=== PATIENT | male | born 1935 | race Caucasian/White ===

== ENCOUNTER 2019-08-27 13:34 | Inpatient (IN) | payer MEDICARE, SELFPAY ==
[2019-08-27] VITALS (15 sets, daily range): BP systolic 81–156; BP diastolic 42–95; PULSE 54–82; RESP 14–24; TEMP 36.5–39; O2SAT 92–100; BMI 26.9
--- NOTE | ~2019-08-27 | XR_ITS ---
EXAMINATION: XR chest port-a-cath/central INDICATION: Central line placement TECHNIQUE: Portable AP chest at 1626 hours COMPARISON: 1420 hours FINDINGS: A right internal jugular central venous catheter has been inserted which ends with its tip in the distal superior vena cava. There is no pneumothorax. The lungs are free of acute opacities. Th ere is no pleural effusion. The cardiomediastinal silhouette is normal for technique. Median sternoto my wires and mediastinal surgical clips are seen, likely from prior coronary artery bypass grafting. IMPRESSION: 1. Right internal jugular central venous catheter insertion without pneumothorax. Reviewed, dictated and finalized at location A. IMPRESSION: 1. Right internal jugular central venous catheter insertion without pneumothora x.
--- NOTE | ~2019-08-27 | XR_ITS ---
EXAMINATION: XR chest 2V DATE: 08/27/2019 14:25 INDICATION: Cough and fever TECHNIQUE: AP and lateral views of the chest are obtained. COMPARISON: None available FINDINGS: The lungs are free of acute opacities. There is no pleural effusion or pneumothorax. Median sternotomy wires and mediastinal surgical clips are seen, likely from prior coronary artery bypass g rafting. The heart size is normal. There is mild thoracic spondylosis. Calcified atherosclerosis is n oted. IMPRESSION: 1. No acute cardiopulmonary abnormality. Reviewed, dictated and finalized at location A.
--- NOTE | ~2019-08-27 | US_ITS ---
EXAMINATION: US renal BI EXAM DATE: 08/28/2019 12:08 INDICATION: Elevated creatinine, urinary tract infection. TECHNIQUE: Multiple grayscale and Doppler images of the kidneys were obtained (by a technologist who performed the scan) and subsequently reviewed. There is no prior study for comparison. FINDINGS: There is moderate bilateral renal cortical thinning. Kidney dimensions within normal limits . Right kidney: There is normal contour and echogenicity. It measures 11.3 x 5.9 x 6.0 centimeters. T here are no focal renal lesions identified. There is no hydronephrosis. Left kidney: There is normal contour and echogenicity. It measures 12.6 x 6.0 x 6.4 centimeters. Th ere are no focal renal lesions identified. There is no hydronephrosis. Bladder unremarkable. Prostate partially projects into the bladder base. IMPRESSION: Bilateral renal cortical thinning. No hydronephrosis. Reviewed, dictated and finalized at location A.
--- NOTE | 2019-08-27 13:52 | ED.FEVER ---
HPI - Fever General Chief Complaint: Fever Stated Complaint: weakness Time Seen by Provider: 08/27/19 13:52 Source: patient Mode of arrival: ambulatory Limitations: no limitations History of Present Illness HPI Narrative: An 84 y/o male presents to the ED with c/o a fever for a couple days. Pt notes that he had a bladder scope done 2 weeks ago that showed that his prostate was leaning against his bladder, but no cancer. He reports nausea, generalized weakness, back pain that is worse on the left, and hematuria this morning, but denies vomiting, rhinorrhea, a cough, and sinus congestion. Pt has not been out of the country recently and has not been around anyone who has. Onset (ago): day(s) (couple) Related Data Home Medications Medication Instructions Recorded Confirmed atenolol-chlorthalidone 1 tablet PO DAILY 08/27/19 08/27/19 clopidogrel 75 mg PO DAILY 08/27/19 08/27/19 finasteride 5 mg PO DAILY 08/27/19 08/27/19 omeprazole 40 mg PO DAILY 08/27/19 08/27/19 rosuvastatin 40 mg PO DAILY 08/27/19 08/27/19 tamsulosin 0.4 mg PO DAILY 08/27/19 08/27/19 telmisartan 80 mg PO DAILY 08/27/19 08/27/19 Allergies Allergy/AdvReac Type Severity Reaction Status Date / Time No Known Allergies Allergy Verified 08/27/19 13:53 Review of Systems Review of Systems: All systems reviewed & are unremarkable except as noted in HPI and below Constitutional: Constitutional: Reports fever(s) Comments: Reports: generalized weakness ENT: Comments: Denies: rhinorrhea, sinus congestion Respiratory: Respiratory: Denies cough Gastrointestinal: Gastrointestinal: Reports nausea and Denies vomiting Genitourinary: Genitourinary: Reports hematuria Musculoskeletal: Musculoskeletal: Reports back pain (worse on the left) [facility] Past Medical History Medical History (Updated 08/27/19 @ 18:03 by Lance Farooq MD) Arthritis Asthma Back pain CAD (coronary artery disease) GERD (gastroesophageal reflux disease) Gout HLD (hyperlipidemia) HTN (hypertension) Surgical History Surgical History (Updated 08/27/19 @ 14:24 by Ailin Bolanos) H/O heart artery stent H/O inguinal hernia repair Hx of CABG x5 Social History Social History (Updated 08/27/19 @ 17:57 by Lance Farooq MD) Smoking status: Never smoker Alcohol intake: former Alcohol use details: Rare ETOH now, drank heavier in younger years Substance use: never Substance use type: does not use Gender identity (if verbalized by the patient): Male Spiritual care concerns: No Agree to blood products: Yes Comments No PCP on file. Exam Const: General: no acute distress and alert Orientation/consciousness: patient oriented x3 HENMT: Head: normocephalic and atraumatic Ears: hearing grossly normal bilaterally, external ears normal and TM's normal bilaterally Face and sinus: normal facial exam, sinuses nontender and face symmetric Mouth: Yes Normal oral and palatal mucosa present and Yes lip normal Throat: posterior oropharynx normal, tonsils normal and uvula midline Eyes: Conjunctivae: conjunctivae normal Pupils: Equal, round and reactive pupils present EOM: EOMs intact bilaterally Chest: Chest palpation & inspection: normal inspection of the chest Resp: Effort & Inspection: normal respiratory effort, no retractions, not tachypneic and no use of accessory muscles Auscultation: clear to auscultation bilaterally Cardio: Rate: regular rate and not tachycardic Rhythm: regular rhythm Heart sounds: no murmurs Peripheral pulses: Peripheral pulses 2+ throughout GI: GI Palp: Yes Soft to palpation, No Tenderness to palpation present (GI), No Guarding due to palpation present (GI) and No Rigid due to palpation : General: Yes no CVA tenderness Skin: General skin exam: normal color Rashes: no rashes Extrem: General: no pedal edema Course Reevaluation(s) Reevaluation #1: PAtient is in septic shock with lactic acid greater than 4 and MAP less than 65 a
[2019-08-27 14:38] LABS: Hematocrit 34.8 % (42.0-52.0); Hemoglobin 11.5 g/dL (14.0-18.0); Immature Platelet Fraction Pct 3.3 % (0.9-11.2); Mean Corpuscular Hemoglobin 31.1 pg (26-34); Mean Corpuscular Volume 94.1 fl (80-100); Platelet Count Result 116 k/mm3 (150-375); Red Cell Distribution Width 11.9 % (11.5-14.5); White Blood Count 15.2 K/mm3 (4.5-10.0)
[2019-08-27 14:53] LABS: Albumin Level 3.9 g/dL (3.5-5.1); Alkaline Phosphatase 47 U/L (38-126); Aspartate Amino Transferase 46 U/L (17-59); Bilirubin,Total 0.7 mg/dL (0.2-1.3); Blood Urea Nitrogen 33 mg/dL (9-20); Calcium 8.8 mg/dL (8.4-10.2); Carbon Dioxide 21 mmol/L (22-30); Chloride 96 mmol/L (98-107); Estimated CRCL calculation 19 ml/min; Estimated Glomerular Filt Rate 23; Glucose 113 mg/dL (75-110); Lactic Acid Reflex 4.3 mmol/L (0.7-2.1); Potassium 4.5 mmol/L (3.4-5.0); Sodium 132 mmol/L (137-145)
[2019-08-27 14:57] LABS: Band Neutrophils Percent 33 % (0-6); Metamyelocytes Percent 3 %; Monocytes Absolute Manual 0.15 K/mm3 (0.1-0.90); Monocytes Percent Manual 1 % (3-9); Neutrophils Absolute Manual 13.98 K/mm3 (1.3-6.7); Neutrophils Percent Manual 59 % (46-73); Total Cells Counted 100
[2019-08-27 15:23] LABS: Alanine Aminotransferase 23 U/L (4-50)
[2019-08-27 15:38] LABS: Add Urine Microscopic? YES; Appearance Urine Cloudy (Clear); Bacteria Urine 2+ /hpf; Bilirubin Urine Negative (Negative); Blood Urine 2+ (Negative); Color Urine Yellow (Yellow); Glucose Urine UA Negative (Negative); Hyaline Casts Urine 15-19 /lpf; Ketones Urine Negative (Negative); Leukocyte Esterase Ur 3+ LEU/UL (Negative); Mucus Urine Rare /lpf; Nitrate Urine Negative (Negative); Protein Urine 1+ mg/dL (Negative); RBC Urine 51-75 /hpf (0-2); Specific Grav Ur 1.013 (1.001-1.035); Squamous Epithelial Cell Urine Few /hpf (Few); Urobilinogen Urine Negative mg/dL (<2.0); WBC Urine >75 /hpf
--- NOTE | 2019-08-27 15:42 | PC.NURSE ---
consent signed and placed in chart for central line
[2019-08-27] MEDS: SODIUM CHLORIDE 0.9% IV 1,000 ML 999 ML IV CONT (15:43)
[2019-08-27] MEDS: NOREPINEPHRINE 8 MG/D5W 250 ML 8 MG/250 ML BAG 9.4 MG IV CONT ×2 (17:10→18:33)
[2019-08-27 17:34] LABS: Reflex Lactic Acid Yes or No Add Lactic
--- NOTE | 2019-08-27 17:48 | PM.IMHP ---
H&P: HPI History of Present Illness Chief complaint: septic shock, UTI Narrative: Date of visit 08/26 1729 Declan Allen is a 84 year old hypertensive white male with BPH who states that yesterday the was having some chilling shaking and became lightheaded while using his exercise bike. Notice no palpitations shortness of breath or chest pain. Today he had more chills and fever and came to the emergency room for evaluation. He has known BPH and recently creatinine by history was more elevated and was referred to Dr. Styles who performed office cystoscope approximately 2 weeks ago which confirmed the BPH with apparent obstruction. He has been on finasteride and tamsulosin was added to his regime. He denies any dysuria, trouble starting stream or sensation of not emptying completely. In the ER his temperature was 39? with leukocytosis, hypotension, and elevated lactic acid. Central line was placed T was given 2 L of fluid and transferred to the ICU for admission of sepsis with urinary tract infection PMFSH Past Medical History Medical History (Updated 08/27/19 @ 18:03 by Lance Farooq MD) Arthritis Asthma Back pain CAD (coronary artery disease) GERD (gastroesophageal reflux disease) Gout HLD (hyperlipidemia) HTN (hypertension) Surgical History Surgical History (Updated 08/27/19 @ 14:24 by Ailin Bolanos) H/O heart artery stent H/O inguinal hernia repair Hx of CABG x5 Family History Family History (Updated 08/27/19 @ 17:54 by Lance Farooq MD) Father Heart disease Mother , dementia No problems noted. Social History Social History (Updated 08/27/19 @ 17:57 by Lance Farooq MD) Smoking status: Never smoker Alcohol intake: former Alcohol use details: Rare ETOH now, drank heavier in younger years Substance use: never Substance use type: does not use Gender identity (if verbalized by the patient): Male Spiritual care concerns: No Agree to blood products: Yes Meds Home Medications and Allergies Home Medications Medication Instructions Recorded Confirmed Type atenolol-chlorthalidone tablet PO DAILY 08/27/19 History clopidogrel PO DAILY 08/27/19 History finasteride mg PO DAILY 08/27/19 History omeprazole PO DAILY 08/27/19 History rosuvastatin mg PO DAILY 08/27/19 History tamsulosin mg PO DAILY 08/27/19 History telmisartan mg PO DAILY 08/27/19 History Allergies Allergy/AdvReac Type Severity Reaction Status Date / Time No Known Allergies Allergy Verified 08/27/19 13:53 Vital Signs Vital Signs - 24 hr 08/27/19 13:42 08/27/19 14:37 08/27/19 14:59 Temperature 39.0 C H Pulse Rate 72 65 70 Respiratory Rate 22 H 18 16 Blood Pressure 129/42 L 81/53 L 91/44 L Pulse Oximetry 99 96 98 08/27/19 15:18 08/27/19 15:41 08/27/19 16:15 Temperature 36.9 C 36.9 C Pulse Rate 73 72 68 Respiratory Rate 18 16 Blood Pressure 91/43 L 96/46 L 102/44 L Pulse Oximetry 97 99 08/27/19 16:45 08/27/19 17:10 Temperature Pulse Rate 70 66 Respiratory Rate 18 16 Blood Pressure 94/47 L 96/48 L Pulse Oximetry 98 Exam Narrative: Exam Narrative: Blood pressure was initially 128 systolic but quickly fell and presently 96/48 on norepinephrine 5 mics per kg after 2.5 L of fluid pulses 72 and currently afebrile after initial temp of 39? respirations 16 per minute Pupils equal reactive to light sclera anicteric Mouth normal Neck supple no adenopathy thyromegaly carotid bruits Lungs clear CV regular rate rhythm no murmurs or gallops Abdomen is soft nontender Extremities without edema dorsalis pedis posterior tibial 1 to 2+ and symmetrical Integument no skin breakdown or rashes midline sternotomy scar, scar on left arm from radial nerve harvesting for bypass Neuro alert pleasant cooperative no focal deficits cranial nerves 2-12 are intact, mentating properly H&P: Results Labs Labs: Short CBC 08/27/19 Range/Units 14:
--- NOTE | 2019-08-27 17:54 | ADMGEN ---
This patient, Declan Allen, was admitted to Intensive Care Unit-5. Patient/family oriented to hospital policies and general routines including ID bracelet, bed and alarms, visiting hours, pain management, procedures, bathroom and other care routines, personal items, smoking policy, room service/diet, and visiting hours. Valuables list has been completed. Information on how to activate the Rapid Response Team has been discussed. Patient/Family are encouraged to report perceived risks to care and to ask questions if they do not understand what they are told or what they should do.
[2019-08-27 18:25] LABS: Lactic Acid 1.1 mmol/L (0.7-2.1)
[2019-08-27] MEDS: LACTATED RINGERS 1,000 ML 125 ML IV CONT (18:31)
[2019-08-27] MEDS: ALBUTEROL SULFATE NEB 2.5 MG/0.5 ML INH INHALATION (23:46)
[2019-08-28] VITALS (11 sets, daily range): BP systolic 91–141; BP diastolic 45–58; PULSE 59–76; RESP 13–17; TEMP 36.7–37.1; O2SAT 97–100
[2019-08-28] MEDS: LACTATED RINGERS 1,000 ML 125 ML IV CONT (02:16)
[2019-08-28 04:39] LABS: Hematocrit 29.8 % (42.0-52.0); Hemoglobin 9.9 g/dL (14.0-18.0); Mean Corpuscular HGB Conc 33.2 g/dl (32-36); Mean Corpuscular Hemoglobin 30.9 pg (26-34); Mean Corpuscular Volume 93.1 fl (80-100); Platelet Count Result 91 k/mm3 (150-375); Red Cell Distribution Width 12.1 % (11.5-14.5); White Blood Count 15.5 K/mm3 (4.5-10.0)
[2019-08-28 04:52] LABS: Alanine Aminotransferase 17 U/L (4-50); Albumin Level 3.1 g/dL (3.5-5.1); Alkaline Phosphatase 40 U/L (38-126); Aspartate Amino Transferase 46 U/L (17-59); Bilirubin,Total 0.5 mg/dL (0.2-1.3); Blood Urea Nitrogen 30 mg/dL (9-20); Carbon Dioxide 22 mmol/L (22-30); Chloride 102 mmol/L (98-107); Estimated CRCL calculation 25 ml/min; Estimated Glomerular Filt Rate 30; Glucose 99 mg/dL (75-110); Magnesium 1.3 mg/dL (1.6-2.3); Phosphorus 2.7 mg/dL (2.5-4.5); Potassium 4.3 mmol/L (3.4-5.0); Sodium 132 mmol/L (137-145)
[2019-08-28 05:44] LABS: Iron 16 ug/dL (49-181)
[2019-08-28 05:53] LABS: Band Neutrophils Percent 5 % (0-6); Lymphocytes Absolute Manual 0.93 K/mm3 (1.1-4.5); Monocytes Absolute Manual 0.77 K/mm3 (0.1-0.90); Monocytes Percent Manual 5 % (3-9); Neutrophils Absolute Manual 13.79 K/mm3 (1.3-6.7); Neutrophils Percent Manual 84 % (46-73); Total Cells Counted 100
[2019-08-28 05:56] LABS: Large Platelets Present; Platelet Estimate Decreased (Adequate)
[2019-08-28 05:57] LABS: Percent Iron Saturation 7 % (20-50)
--- NOTE | 2019-08-28 08:29 | WPDCNINT ---
Assessment and Plan Assessment and plan (1) Septic shock: Code(s): A41.9 - Sepsis, unspecified organism; R65.21 - Severe sepsis with septic shock Status: Acute Assessment and Plan: patient presented with fevers, chills, was found to be hypotensive in the ED, was adequately fluid-resuscitated despite which his blood pressures did not improve, central line was inserted and patient was started on Levophed. - Levophed is being weaned, target MAP > 65 mmHg - continue ceftriaxone - urine and blood cultures have been obtained - initial lactic acid was 4.3, repeat lactic acid was 1.1 (2) Acute UTI (urinary tract infection): Code(s): N39.0 - Urinary tract infection, site not specified Status: Acute Assessment and Plan: continue ceftriaxone, urine cultures have been obtained and pending (3) Acute renal failure (ARF): Qualifiers: Acute renal failure type: unspecified Qualified Code(s): N17.9 - Acute kidney failure, unspecified Code(s): N17.9 - Acute kidney failure, unspecified Status: Acute Assessment and Plan: acute respiratory failure could be multifactorial secondary to UTI, obstructive uropathy secondary to BPH - patient has been adequately fluid-resuscitated - monitor urine output, electrolytes and renal function - renal ultrasound has been ordered (4) Thrombocytopenia: Code(s): D69.6 - Thrombocytopenia, unspecified Status: Acute Assessment and Plan: likely related to septic shock, will continue to monitor (5) HTN (hypertension): Qualifiers: Hypertension type: essential hypertension Qualified Code(s): I10 - Essential (primary) hypertension Code(s): I10 - Essential (primary) hypertension Status: Acute Assessment and Plan: patient has a history of essential hypertension, currently with septic shock on Levophed. - All anti hypertensives (6) DVT prophylaxis: Code(s): Z29.9 - Encounter for prophylactic measures, unspecified Status: Acute Assessment and Plan: SCDs, no chemoprophylaxis due to thrombocytopenia Additional Plan discussed with patient updated with his condition and plan of care. I answered all questions. Code status: Full code Critical care time spent: 41 minutes Due to a high probability of clinically significant, life threatening deterioration, the patient required my highest level of preparedness to intervene emergently and I personally spent this critical care time directly and personally managing the patient. This critical care time included obtaining a history; examining the patient; pulse oximetry; ordering and review of studies; arranging urgent treatment with development of a management plan; evaluation of patient's response to treatment; frequent reassessment; and discussions with other providers. It was exclusive of separately billable procedures and treating other patients and teaching time. Please see Assessment and Plan section and the rest of the note for further information on patient assessment and treatment [employer] Consult Note Consult date: 08/28/19 Time Seen: 06:49 Reason for consult: septic shock, UTI, acute kidney injury HPI: Declan Allen is a 84 year old male with significant past medical history of coronary artery disease status post CABG x5, BPH, hyperlipidemia, essential hypertension, gout, GERD, asthma, arthritis, chronic back pain presented to the ED on 08/27/2019 with complains of fevers and chills for the past couple of days prior to admission. Patient stated he had cystoscopy about 2 weeks ago which showed BPH. He also reported nausea, generalized weakness, back pain and hematuria. patient was started on finasteride and tamsulosin when he saw Dr. Crawley 2 weeks prior to admission. In the ED patient had a fever of 39?, leukocytosis, hypotension with elevated lactic acid. Patient was given 2 L IV fluid bolus despite which the
[2019-08-28] MEDS: FINASTERIDE 5 MG TABLET PO (09:12)
[2019-08-28] MEDS: TAMSULOSIN HCL 0.4 MG CAPSULE PO (09:12)
[2019-08-28] MEDS: PANTOPRAZOLE 40 MG TABLET PO ×2 (09:12→19:31)
[2019-08-28] MEDS: CLOPIDOGREL BISULFATE 75 MG TABLET PO (09:13)
[2019-08-28] MEDS: ROSUVASTATIN 10 MG TABLET 40 MG PO (09:13)
[2019-08-28] MEDS: MAGNESIUM SULF 2 GM/WATER 50ML 2 GM/50 ML BAG IVPB (11:10)
[2019-08-28] MEDS: LACTATED RINGERS 1,000 ML 75 ML IV CONT (12:25)
--- NOTE | 2019-08-28 12:48 | WPDURCON ---
Assessment and Plan Assessment and plan (1) Acute UTI (urinary tract infection): Code(s): N39.0 - Urinary tract infection, site not specified Status: Acute Assessment and Plan: Continue IV antibiotics, tailor to culture results. Obtain a bladder scan post void to ensure patient is not experiencing retention secondary to BPH. MARII is negative. No further evaluation at this time. Will need to follow up as an outpatient to discuss moving TURP up sooner d/t complications of BPH. Urology Consult Note HPI Date Seen: 08/28/19 Requesting Physician: Lance Farooq MD Primary Care Provider: Cosme Travis, Consult Narrative Narrative: Declan Allen is a 84 year old male who presented to the ER yesterday with fever and chills x 2 days at home. He notes gross hematuria, but denies dysuria, flank or abdominal pain. His WBC is 15.5 and creatinine is 2.10 which is down from 2.70 yesterday. His UA is suspicious for a UTI, but he seems to be responding to IV Rocephin well. He was diagnosed with septic UTI and admitted for symptom control and IV antibiotics. He is a patient of Dr. Cunningham and had a cystoscope two weeks ago in the office which showed evidence of BPH and they had a discussion about doing a TURP in the future. Review of Systems Cardiovascular: Cardiovascular: Reports no additional cardiovascular complaints Respiratory: Respiratory: Reports no additional respiratory complaints Gastrointestinal: Gastrointestinal: Denies abdominal pain and Denies vomiting Genitourinary: Genitourinary: Reports hematuria, Denies dysuria, Denies flank pain and Denies urinary urgency PMFSH Past Medical History Medical History Arthritis Asthma Back pain CAD (coronary artery disease) GERD (gastroesophageal reflux disease) Gout HLD (hyperlipidemia) HTN (hypertension) Surgical History Surgical History H/O heart artery stent H/O inguinal hernia repair Hx of CABG x5 Family History Family History Father Heart disease Mother , dementia No problems noted. Social History Social History Smoking status: Never smoker Alcohol intake: former Alcohol use details: Rare ETOH now, drank heavier in younger years Substance use: never Substance use type: does not use Gender identity (if verbalized by the patient): Male Spiritual care concerns: No Agree to blood products: Yes Meds Home Medications and Allergies Home Medications Medication Instructions Recorded Confirmed Type atenolol-chlorthalidone 1 tablet PO DAILY 08/27/19 08/27/19 History clopidogrel 75 mg PO DAILY 08/27/19 08/27/19 History finasteride 5 mg PO DAILY 08/27/19 08/27/19 History omeprazole 40 mg PO DAILY 08/27/19 08/27/19 History rosuvastatin 40 mg PO DAILY 08/27/19 08/27/19 History tamsulosin 0.4 mg PO DAILY 08/27/19 08/27/19 History telmisartan 80 mg PO DAILY 08/27/19 08/27/19 History Allergies Allergy/AdvReac Type Severity Reaction Status Date / Time No Known Allergies Allergy Verified 08/27/19 13:53 Vital Signs Vital Signs - 24 hr 08/27/19 13:42 08/27/19 14:37 08/27/19 14:59 Temperature 102.2 F H Pulse Rate 72 65 70 Respiratory Rate 22 H 18 16 Blood Pressure 129/42 L 81/53 L 91/44 L Pulse Oximetry 99 96 98 08/27/19 15:18 08/27/19 15:41 08/27/19 16:15 Temperature 98.5 F 98.4 F Pulse Rate 73 72 68 Respiratory Rate 18 16 Blood Pressure 91/43 L 96/46 L 102/44 L Pulse Oximetry 97 99 08/27/19 16:45 08/27/19 17:10 08/27/19 18:00 Temperature Pulse Rate 70 66 57 L Respiratory Rate 18 16 14 Blood Pressure 94/47 L 96/48 L 131/54 L Pulse Oximetry 98 100 08/27/19 20:00 08/27/19 21:00 08/27/19 22:08 Temperature 97.9 F Pulse Rate 66 54 L 5
--- NOTE | 2019-08-28 15:30 | ECG_ITS ---
Measurements Intervals [place] Rate: 63 P: 51 [place]: 178 QRS: -18 QRSD: 106 T: 49 QT: 429 QTc: 441 Interpretive Statements SINUS RHYTHM INTRAVENTRICULAR CONDUCTION DELAY DELAYED PRECORDIAL R/S TRANSITION BORDERLINE ST ABNORMALITY- LATERAL LEADS BORDERLINE ECG Electronically Signed On 08-28-2019 17:06:11 CDT by Oleksandr CHIN
--- NOTE | 2019-08-28 15:31 | PM.IMPN ---
Progress Note: A&P Assessment and Plan (1) Septic shock: Code(s): A41.9 - Sepsis, unspecified organism; R65.21 - Severe sepsis with septic shock Status: Acute Assessment and Plan: Secondary to urinary tract infection. Been cultured and placed on ceftriaxone. Repeat lactic acid normal and continue hydration and pressor support with norepinephrine per vascular surgery physician. (2) Acute UTI (urinary tract infection): Code(s): N39.0 - Urinary tract infection, site not specified Status: Acute Assessment and Plan: As above cultured and placed on ceftriaxone. Renal sonogram no definite obstruction. Urine and blood cultures pending (3) Acute renal failure (ARF): Qualifiers: Acute renal failure type: unspecified Qualified Code(s): N17.9 - Acute kidney failure, unspecified Code(s): N17.9 - Acute kidney failure, unspecified Status: Acute Assessment and Plan: From history probably at least some degree of chronic renal insufficiency. No obstruction on sono. Urology has seen. Creatinine has fallen to 2.1 from 2.7 (4) Thrombocytopenia: Code(s): D69.6 - Thrombocytopenia, unspecified Status: Acute Assessment and Plan: Probable secondary to sepsis. Platelets at 90 K so use sequential compression devices for DVT prophylaxis (5) CAD (coronary artery disease): Code(s): I25.10 - Atherosclerotic heart disease of unga coronary artery without angina pectoris Status: Acute Assessment and Plan: Stable. Resume beta-lily when pressure will allow. Continue Plavix and statin (6) HTN (hypertension): Qualifiers: Hypertension type: essential hypertension Qualified Code(s): I10 - Essential (primary) hypertension Code(s): I10 - Essential (primary) hypertension Status: Acute Assessment and Plan: Hold beta-lily and ARB until pressure rebounds from sepsis. (7) DVT prophylaxis: Code(s): Z29.9 - Encounter for prophylactic measures, unspecified Status: Acute Assessment and Plan: Sequential compression device with platelets less than 100 K X-ray left hip and pelvis when up in about Subjective Date/time seen: 08/28/19 15:31 Interval history: Date of visit 08/27. 84-year-old hypertensive white male with BPH admitted with acute on chronic renal failure and sepsis with urinary tract infection. Feels much better this a.m. after hydration, antibiotics and pressors.. Does complain of some discomfort in his left upper thigh when he tries to raise his leg and wonders if E had year to muscle during exercise prior to his illness Exam Narrative: Exam Narrative: Blood pressure now 118/50 on 2 mcg a Levophed, afebrile with T-max is 39? pulse 66 Pupils sclera anicteric Mouth normal Neck supple Lungs clear CV regular rate rhythm no murmurs or gallops Abdomen is soft nontender Extremities without edema dorsalis pedis posterior tibial 1 to 2+ and symmetrical Neuro alert pleasant cooperative no focal deficits cranial nerves 2-12 are intact, mentating properly Objective Data Vital Signs Vital Signs: Vital Signs - 24 hr 08/27/19 15:41 08/27/19 16:15 08/27/19 16:45 Temperature 36.9 C Pulse Rate 72 68 70 Respiratory Rate 16 18 Blood Pressure 96/46 L 102/44 L 94/47 L Pulse Oximetry 99 98 08/27/19 17:10 08/27/19 18:00 08/27/19 20:00 Temperature 36.6 C Pulse Rate 66 57 L 66 Respiratory Rate 16 14 16 Blood Pressure 96/48 L 131/54 L 128/66 Pulse Oximetry 100 100 08/27/19 21:00 08/27/19 22:08 08/27/19 23:45 Temperature 36.5 C Pulse Rate 54 L 58 L 82 Respiratory Rate 14 16 16 Blood Pressure 111/58 L 125/50 L 156/95 H Pulse Oximetry 99 100 92 08/27/19 23:46 08/27/19 23:55 08/28/19 02:00 Temperature Pulse Rate 82 79 66 Respiratory Rate 24 H 18 16 Blood Pressure 126/54 L Pulse Oximetry 100 08/28/19 04:00 08/28/19 06:00 08/28/19 08:00 Temperature 36.8 C 37.1 C Pulse Rate 72
--- NOTE | 2019-08-28 23:30 | ECG_ITS ---
Measurements Intervals [place] Rate: 63 P: 51 [place]: 178 QRS: -18 QRSD: 106 T: 49 QT: 429 QTc: 441 Interpretive Statements SINUS RHYTHM INTRAVENTRICULAR CONDUCTION DELAY DELAYED PRECORDIAL R/S TRANSITION BORDERLINE ST ABNORMALITY- LATERAL LEADS BORDERLINE ECG Electronically Signed On 08-28-2019 17:06:11 CDT by Oleksandr Weston D.O.
[2019-08-29] VITALS (8 sets, daily range): BP systolic 117–143; BP diastolic 51–68; PULSE 56–103; RESP 12–18; TEMP 36.2–36.8; O2SAT 97–100
[2019-08-29] MEDS: LACTATED RINGERS 1,000 ML 75 ML IV CONT ×2 (01:48→17:38)
[2019-08-29 04:44] LABS: Basophils Absolute Auto 0.1 K/mm3 (0.0-0.1); Basophils Percent Auto 0.3 % (0.2-1.2); Eosinophils Absolute Auto 0.3 K/mm3 (0-0.3); Eosinophils Percent Auto 1.7 % (0-4.4); Hematocrit 28.7 % (42.0-52.0); Hemoglobin 9.6 g/dL (14.0-18.0); Immature Granulocyte Absolute 0.28 K/mm3 (0.00-0.031); Immature Granulocyte Percent A 1.9 % (0-0.5); Lymphocytes Absolute Auto 1.87 K/mm3 (0.9-3.2); Mean Corpuscular HGB Conc 33.4 g/dl (32-36); Mean Corpuscular Hemoglobin 31.3 pg (26-34); Mean Corpuscular Volume 93.5 fl (80-100); Mean Platelet Volume 10.9 fl (7.4-10.4); Monocytes Absolute Auto 0.8 K/mm3 (0.1-0.6); Monocytes Percent Auto 5.8 % (2.6-8.5); Neutrophils Absolute Auto 11.1 K/mm3 (1.3-6.7); Neutrophils Percent Auto 77.3 % (45.5-73.1); Platelet Count Result 91 k/mm3 (150-375); Red Blood Count 3.07 M/mm3 (4.6-6.20); Red Cell Distribution Width 12.3 % (11.5-14.5); White Blood Count 14.4 K/mm3 (4.5-10.0)
[2019-08-29 04:57] LABS: Blood Urea Nitrogen 30 mg/dL (9-20); Carbon Dioxide 24 mmol/L (22-30); Chloride 101 mmol/L (98-107); Estimated CRCL calculation 30 ml/min; Estimated Glomerular Filt Rate 39; Glucose 103 mg/dL (75-110); Lactate Dehydrogenase 323 U/L (313-618); Potassium 3.9 mmol/L (3.4-5.0); Sodium 132 mmol/L (137-145)
--- NOTE | 2019-08-29 07:30 | ECG_ITS ---
Measurements Intervals [place] Rate: 60 P: 56 CO: 180 QRS: -25 QRSD: 107 T: 57 QT: 429 QTc: 431 Interpretive Statements SINUS RHYTHM VENTRICULAR PREMATURE COMPLEX CANNOT RULE OUT SEPTAL INFARCT, AGE INDETERMINATE ABNORMAL ECG Electronically Signed On 08-29-2019 9:02:42 CDT by Oleksandr Weston D.O.
--- NOTE | 2019-08-29 07:58 | PM.IMPN ---
Progress Note: A&P Assessment and Plan (1) Septic shock: Code(s): A41.9 - Sepsis, unspecified organism; R65.21 - Severe sepsis with septic shock Status: Acute Assessment and Plan: Secondary to urinary tract infection. Been cultured and placed on ceftriaxone and vanc (due to GPC in blood c/s). To medical floor. (2) Acute UTI (urinary tract infection): Code(s): N39.0 - Urinary tract infection, site not specified Status: Acute Assessment and Plan: As above cultured and placed on ceftriaxone and vancomycin pending final c/s. Renal sonogram no definite obstruction. Urine coag neg staph, blood GPC (3) Acute renal failure (ARF): Qualifiers: Acute renal failure type: unspecified Qualified Code(s): N17.9 - Acute kidney failure, unspecified Code(s): N17.9 - Acute kidney failure, unspecified Status: Acute Assessment and Plan: From history probably at least some degree of chronic renal insufficiency. No obstruction on sono. Urology following 08/26 creatinine 2.7 08/28 creatinine 1.7 (4) Thrombocytopenia: Code(s): D69.6 - Thrombocytopenia, unspecified Status: Acute Assessment and Plan: Probable secondary to sepsis. 08/28 plt 91K (5) CAD (coronary artery disease): Code(s): I25.10 - Atherosclerotic heart disease of [place] coronary artery without angina pectoris Status: Acute Assessment and Plan: Stable. Resume beta-lily when pressure will allow. Continue Plavix and statin (6) HTN (hypertension): Qualifiers: Hypertension type: essential hypertension Qualified Code(s): I10 - Essential (primary) hypertension Code(s): I10 - Essential (primary) hypertension Status: Acute Assessment and Plan: Hold beta-lily and ARB until pressure rebounds from sepsis. (7) DVT prophylaxis: Code(s): Z29.9 - Encounter for prophylactic measures, unspecified Status: Acute Assessment and Plan: Sequential compression device with platelets less than 100 K X-ray left hip and pelvis when up in about Subjective Date/time seen: 08/29/19 07:58 Interval history: 84-year-old hypertensive white male with BPH admitted with acute on chronic renal failure and sepsis with urinary tract infection. Feels much better this a.m. after hydration, antibiotics and pressors. Off pressors since early AM 08/28. Denied pain. Review of Systems Review of Systems: ROS unobtainable: unobtainable due to mental condition Exam Narrative: Exam Narrative: Pupils sclera anicteric Mouth normal Neck supple w/o javd Lungs clear CV regular rate rhythm no murmurs or gallops Abdomen is soft nontender Extremities without edema dorsalis pedis posterior tibial 1 to 2+ and symmetrical Neuro alert pleasant cooperative no focal deficits cranial nerves 2-12 are intact, mentating properly Objective Data Vital Signs Vital Signs: Vital Signs - 24 hr 08/28/19 08:00 08/28/19 10:00 08/28/19 12:00 Temperature 98.8 F 98.2 F Pulse Rate 72 61 70 Respiratory Rate 16 14 16 Blood Pressure 117/49 L 114/49 L 113/50 L Pulse Oximetry 99 98 100 08/28/19 14:00 08/28/19 16:00 08/28/19 18:00 Temperature 98.1 F Pulse Rate 59 L 60 74 Respiratory Rate 13 14 17 Blood Pressure 91/47 L 112/54 L 107/45 L Pulse Oximetry 99 100 100 08/28/19 20:00 08/28/19 22:00 08/29/19 00:00 Temperature 98.4 F 98.3 F Pulse Rate 60 66 68 Respiratory Rate 16 16 18 Blood Pressure 116/52 L 141/58 H 126/68 Pulse Oximetry 99 98 99 08/29/19 02:00 08/29/19 04:00 08/29/19 06:00 Temperature 98 F Pulse Rate 62 60 56 L Respiratory Rate 18 16 14 Blood Pressure 119/52 L 117/55 L 126/54 L Pulse Oximetry 97 99 98 Intake/Output Intake/Output: Intake & Output 08/26/19 08/27/19 08/28/19 08/29/19 23:59 23:59 23:59 23:59 Intake Total 3803.6 3540 2044 Output Total 2150 1950 Balance 3803.6 1390 94 Meds/Results Medications: Activ
[2019-08-29] MEDS: ROSUVASTATIN 10 MG TABLET 40 MG PO (08:26)
[2019-08-29] MEDS: PANTOPRAZOLE 40 MG TABLET PO ×2 (08:27→21:34)
[2019-08-29] MEDS: TAMSULOSIN HCL 0.4 MG CAPSULE PO (08:27)
[2019-08-29] MEDS: CLOPIDOGREL BISULFATE 75 MG TABLET PO (08:27)
[2019-08-29] MEDS: FINASTERIDE 5 MG TABLET PO (08:27)
--- NOTE | 2019-08-29 14:23 | WPDINTPN ---
Progress Note: A&P Assessment and Plan (1) Septic shock: Code(s): A41.9 - Sepsis, unspecified organism; R65.21 - Severe sepsis with septic shock Status: Acute Assessment and Plan: patient presented with fevers, chills, was found to be hypotensive in the ED, was adequately fluid-resuscitated despite which his blood pressures did not improve, central line was inserted and patient was started on Levophed. - OFF LEVOPHED - blood cultures growing gram-positive cocci in clusters - - continue ceftriaxone, ADDED VANCOMYCIN (2) Acute UTI (urinary tract infection): Code(s): N39.0 - Urinary tract infection, site not specified Status: Acute Assessment and Plan: continue ceftriaxone, urine cultures growing coag-negative staph (3) Acute renal failure (ARF): Qualifiers: Acute renal failure type: unspecified Qualified Code(s): N17.9 - Acute kidney failure, unspecified Code(s): N17.9 - Acute kidney failure, unspecified Status: Acute Assessment and Plan: acute respiratory failure could be multifactorial secondary to UTI, obstructive uropathy secondary to BPH - patient has been adequately fluid-resuscitated - monitor urine output, electrolytes and renal function - renal ultrasound did not show any hydronephrosis - urine output much improved and creatinine trending down (4) Thrombocytopenia: Code(s): D69.6 - Thrombocytopenia, unspecified Status: Acute Assessment and Plan: likely related to septic shock, will continue to monitor. Platelets stable (5) HTN (hypertension): Qualifiers: Hypertension type: essential hypertension Qualified Code(s): I10 - Essential (primary) hypertension Code(s): I10 - Essential (primary) hypertension Status: Acute Assessment and Plan: patient has a history of essential hypertension, patient just came off Levophed, will hold all anti hypertensives (6) DVT prophylaxis: Code(s): Z29.9 - Encounter for prophylactic measures, unspecified Status: Acute Assessment and Plan: SCDs, no chemoprophylaxis due to thrombocytopenia Additional Plan discussed with patient updated with his condition and plan of care. I answered all questions. Code status: Full code Critical care time spent: 32 minutes Due to a high probability of clinically significant, life threatening deterioration, the patient required my highest level of preparedness to intervene emergently and I personally spent this critical care time directly and personally managing the patient. This critical care time included obtaining a history; examining the patient; pulse oximetry; ordering and review of studies; arranging urgent treatment with development of a management plan; evaluation of patient's response to treatment; frequent reassessment; and discussions with other providers. It was exclusive of separately billable procedures and treating other patients and teaching time. Please see Assessment and Plan section and the rest of the note for further information on patient assessment and treatment Subjective Date/time seen: 08/29/19 14:23 Interval history: Reason for consult: septic shock, UTI, acute kidney injury 08/29/2019: Patient seen and examined the ICU, has been off Levophed. Blood pressures have been stable. Patient feels much better, denies any shortness of breath, abdominal pain, nausea vomiting, chest pain. Patient is hemodynamically stable with adequate urine output, creatinine much improved. White blood cell count trending down. Renal ultrasound did not show any hydronephrosis. Blood cultures growing gram-positive cocci in clusters and urine cultures growing Coag-negative staph Review of Systems Review of Systems: All systems reviewed & are unremarkable except as noted in HPI and below Exam Const: General: comfortable and no acute distress HENMT: Mouth: Yes dry mucous membran
--- NOTE | 2019-08-29 19:42 | PC.NURSE ---
This patient, Declan Allen, was received from ICU on 08/29/19 at 1012. Personal belongings list checked and signed. Patient/family oriented to unit policies and routines
--- NOTE | 2019-08-30 | ECHO_ITS ---
Patient Info Name: Declan Allen Age: 84 years : 1935 Gender: Male Ht: 70 in Wt: 189 lbs BSA: 2.07 m2 HR: 78 bpm BP: 148 / 59 mmHg Heart Rhythm: Sinus Rhythm Technical Quality: Good Exam Date: 08/30/2019 11:42 AM Exam Location: [facility] Pulmonary Exam Room: [facility] Patient Status: Inpatient Admit Date: 08/27/2019 Staff Ordering Physician: José Lara MD Supervisor Cab: Debra Figueroa RDCS Attending Provider: Lance Farooq MD Exam Type: CA echo doppler color flow Study Info Indications - cad cabg stent staph bacteremia Complete two-dimensional, color flow and Doppler transthoracic echocardiogram is performed. Summary 1. Left ventricular systolic function is normal, estimated at 50-55%. 2. Left ventricular chamber dimension is mildly enlarged. 3. There is no increased left ventricular wall thickness. 4. The left ventricular diastolic function is grade I diastolic dysfunction. 5. The basal inferior wall, basal inferoseptal, and basal anteroseptal are akinetic. 6. The apical septum, apical inferior wall, mid inferior wall, and mid inferoseptal are hypokinetic. 7. All other currie appear normal. 8. Left atrial chamber dimension is moderately enlarged. 9. There is mild aortic valve regurgitation. 10. There is moderate aortic valve sclerosis. 11. There is moderate aortic valve calcification. 12. There is moderate mitral valve regurgitation. 13. There is mild tricuspid valve regurgitation. 14. Mild pulmonary hypertension, estimated pulmonary arterial systolic pressure is 37 mmHg. 15. While no obvious vegetations are seen, this is not a definitive study for analysis. Consider DILLON if clinically indicated. Left Ventricle Left ventricular systolic function is normal, estimated at 50-55%. Left ventricular chamber dimension is mildly enlarged. There is no increased left ventricular wall thickness. The left ventricular diastolic function is grade I diastolic dysfunction. The basal inferior wall, basal inferoseptal, and basal anteroseptal are akinetic. The apical septum, apical inferior wall, mid inferior wall, and mid inferoseptal are hypokinetic. All other currie appear normal. Right Ventricle Right ventricular chamber dimension is normal. Right ventricular systolic function is normal. Left Atria Left atrial chamber dimension is moderately enlarged. Right Atria Right atrial chamber dimension is normal. Atrial Septum Intact interatrial septum visualized by color flow imaging. Aortic Valve The aortic valve is trileaflet. There is moderate aortic valve sclerosis. There is no aortic valve stenosis. There is mild aortic valve regurgitation. There is moderate aortic valve calcification. Pulmonic Valve The pulmonic valve is normal. There is no pulmonic valve stenosis. There is trace pulmonic regurgitation. Mitral Valve The mitral valve has thickened leaflets. There is no mitral valve stenosis. There is moderate mitral valve regurgitation. Tricuspid Valve The tricuspid valve leaflets are normal. There is no significant tricuspid valve stenosis. There is mild tricuspid valve regurgitation. Mild pulmonary hypertension, estimated pulmonary arterial systolic pressure is 37 mmHg. Other Findings While no obvious vegetations are seen, this is not a definitive study for analysis. Consider DILLON if clinically indicated. Pericardium/Pleural The pericardium appears normal. Inferior Vena Cava Normal inferior vena cav
[2019-08-30] MEDS: LACTATED RINGERS 1,000 ML 75 ML IV CONT ×2 (05:52→19:26)
[2019-08-30 06:00] VITALS: BP 148/59; PULSE 64; RESP 16; TEMP 36.4; O2SAT 100
[2019-08-30 06:03] LABS: Hematocrit 30.7 % (42.0-52.0); Hemoglobin 10.1 g/dL (14.0-18.0); Immature Platelet Fraction Pct 4.4 % (0.9-11.2); Mean Corpuscular HGB Conc 32.9 g/dl (32-36); Mean Corpuscular Hemoglobin 30.3 pg (26-34); Mean Corpuscular Volume 92.2 fl (80-100); Mean Platelet Volume 10.9 fl (7.4-10.4); Platelet Count Result 118 k/mm3 (150-375); Red Blood Count 3.33 M/mm3 (4.6-6.20); White Blood Count 10.5 K/mm3 (4.5-10.0)
[2019-08-30 06:21] LABS: Blood Urea Nitrogen 24 mg/dL (9-20); Calcium 8.6 mg/dL (8.4-10.2); Carbon Dioxide 29 mmol/L (22-30); Chloride 101 mmol/L (98-107); Estimated CRCL calculation 34 ml/min; Estimated Glomerular Filt Rate 45; Glucose 102 mg/dL (75-110); Potassium 3.9 mmol/L (3.4-5.0); Sodium 132 mmol/L (137-145)
--- NOTE | 2019-08-30 07:23 | PM.IMPN ---
Progress Note: A&P Assessment and Plan (1) Coag negative Staphylococcus bacteremia: Code(s): R78.81 - Bacteremia; B95.7 - Other staphylococcus as the cause of diseases classified elsewhere Status: Acute Assessment and Plan: Day 2 vancomycin Remove central line 08/29 Echo 08/29 No other obvious source Repeat blood c/s 08/30 (2) Acute UTI (urinary tract infection): Code(s): N39.0 - Urinary tract infection, site not specified Status: Acute Assessment and Plan: Vancomycin Renal sonogram no definite obstruction. Urine and blood (2/2) coag neg staph (3) Acute renal failure (ARF): Qualifiers: Acute renal failure type: unspecified Qualified Code(s): N17.9 - Acute kidney failure, unspecified Code(s): N17.9 - Acute kidney failure, unspecified Status: Acute Assessment and Plan: From history probably at least some degree of chronic renal insufficiency. No obstruction on sono. Urology following 08/26 creatinine 2.7 08/28 creatinine 1.7 08/29 creatinine 1.5 (4) Thrombocytopenia: Code(s): D69.6 - Thrombocytopenia, unspecified Status: Acute Assessment and Plan: Probable secondary to sepsis. 08/28 plt 91K, 08/29 plt 118k (5) CAD (coronary artery disease): Qualifiers: Coronary Disease-Associated Artery/Lesion type: [place] artery [place] vs. transplanted heart: [place] heart Associated angina: without angina Qualified Code(s): I25.10 - Atherosclerotic heart disease of [place] coronary artery without angina pectoris Code(s): I25.10 - Atherosclerotic heart disease of [place] coronary artery without angina pectoris Status: Acute Assessment and Plan: Stable. Resume beta-lily when pressure will allow. Continue Plavix and statin (6) HTN (hypertension): Qualifiers: Hypertension type: essential hypertension Qualified Code(s): I10 - Essential (primary) hypertension Code(s): I10 - Essential (primary) hypertension Status: Acute Assessment and Plan: Monitor (7) Septic shock: Code(s): A41.9 - Sepsis, unspecified organism; R65.21 - Severe sepsis with septic shock Status: Acute Assessment and Plan: Secondary to urinary tract infection. Resolved (8) Muscle strain of left thigh: Qualifiers: Encounter type: subsequent encounter Qualified Code(s): S76.912D - Strain of unspecified muscles, fascia and tendons at thigh level, left thigh, subsequent encounter Code(s): S76.912A - Strain of unspecified muscles, fascia and tendons at thigh level, left thigh, initial encounter Status: Acute Assessment and Plan: Slowly improving (9) BPH w urinary obs/LUTS: Code(s): N40.1 - Benign prostatic hyperplasia with lower urinary tract symptoms; N13.8 - Other obstructive and reflux uropathy Status: Acute Assessment and Plan: Possible cause of UTI, although [employer] is unusual in an older, healthy male Subjective Date/time seen: 08/30/19 07:23 Interval history: Mild pain on active flexion of left thigh. No difficulty with ambulation. Tolerating diet. Feels much better. No cp or sob. No edema. No GI/ c/o. No hx prosthetic devices. Prior to illness, he was undergoing eval and tx for BPH. Cystoscopy 2 wks ago. Review of Systems Review of Systems: All systems reviewed & are unremarkable except as noted in HPI and below Exam Narrative: Exam Narrative: Pupils sclera anicteric Mouth normal Neck supple w/o jvd Lungs clear CV regular rate rhythm no murmurs or gallops Abdomen is soft nontender Extremities without edema; mild tenderness of left quadriceps with good strength and mild limitation of ROM left hip. Neuro alert pleasant cooperative no focal deficits cranial nerves 2-12 are intact, ox3 Objective Data Vital Signs Vital Signs: Vital Signs - 24 hr 08/29/19 08:00 08/29/19 10:00 08/29/19 14:00 Temperature 97.9 F 97.6
[2019-08-30] MEDS: FINASTERIDE 5 MG TABLET PO (09:24)
[2019-08-30] MEDS: CLOPIDOGREL BISULFATE 75 MG TABLET PO (09:24)
[2019-08-30] MEDS: TAMSULOSIN HCL 0.4 MG CAPSULE PO (09:25)
[2019-08-30] MEDS: PANTOPRAZOLE 40 MG TABLET PO ×2 (09:25→20:15)
[2019-08-30] MEDS: ROSUVASTATIN 10 MG TABLET 40 MG PO (09:25)
[2019-08-30] MEDS: NEOMYCIN/POLYMYXIN/BACITRACIN OINTMENT PACKET 1 PACKET (15:00)
--- NOTE | 2019-08-30 15:30 | ECG_ITS ---
Measurements Intervals [place] Rate: 65 P: 8 CT: 162 QRS: -25 QRSD: 103 T: 51 QT: 415 QTc: 432 Interpretive Statements SINUS RHYTHM DELAYED PRECORDIAL R/S TRANSITION BORDERLINE ST ABNORMALITY- LATERAL LEADS BORDERLINE ECG Electronically Signed On 08-30-2019 15:32:20 CDT by Oleksandr Weston D.O.
[2019-08-30 16:00] VITALS: BP 138/58; PULSE 72; RESP 16; TEMP 36.8; O2SAT 100
[2019-08-30 22:00] VITALS: BP 153/62; PULSE 72; RESP 16; TEMP 36.6; O2SAT 99
[2019-08-31 06:06] VITALS: BP 139/62; PULSE 73; RESP 16; TEMP 37.3; O2SAT 97
[2019-08-31 06:33] LABS: Blood Urea Nitrogen 19 mg/dL (9-20); Calcium 8.6 mg/dL (8.4-10.2); Carbon Dioxide 27 mmol/L (22-30); Chloride 98 mmol/L (98-107); Estimated CRCL calculation 36 ml/min; Estimated Glomerular Filt Rate 48; Glucose 99 mg/dL (75-110); Potassium 3.5 mmol/L (3.4-5.0); Sodium 132 mmol/L (137-145)
[2019-08-31 06:52] LABS: Hematocrit 30.4 % (42.0-52.0); Hemoglobin 10.2 g/dL (14.0-18.0); Mean Corpuscular HGB Conc 33.6 g/dl (32-36); Mean Corpuscular Hemoglobin 30.4 pg (26-34); Mean Corpuscular Volume 90.7 fl (80-100); Mean Platelet Volume 11.1 fl (7.4-10.4); Platelet Count Result 147 k/mm3 (150-375); Red Blood Count 3.35 M/mm3 (4.6-6.20); White Blood Count 6.8 K/mm3 (4.5-10.0)
[2019-08-31] MEDS: TAMSULOSIN HCL 0.4 MG CAPSULE PO (09:04)
[2019-08-31] MEDS: PANTOPRAZOLE 40 MG TABLET PO ×2 (09:04→21:35)
[2019-08-31] MEDS: ROSUVASTATIN 10 MG TABLET 40 MG PO (09:05)
[2019-08-31] MEDS: FINASTERIDE 5 MG TABLET PO (09:05)
[2019-08-31] MEDS: CLOPIDOGREL BISULFATE 75 MG TABLET PO (09:06)
[2019-08-31] MEDS: LACTATED RINGERS 1,000 ML 75 ML IV CONT ×2 (09:08→21:35)
--- NOTE | 2019-08-31 11:41 | PM.IMPN ---
Progress Note: A&P Assessment and Plan (1) Coag negative Staphylococcus bacteremia: Code(s): R78.81 - Bacteremia; B95.7 - Other staphylococcus as the cause of diseases classified elsewhere Status: Acute Assessment and Plan: Day 3 vancomycin Remove central line 08/29 Echo 08/29 with focal wall motion abnormalities and no vegetations No other obvious source Repeat blood c/s 08/30 results pending. (2) Acute UTI (urinary tract infection): Code(s): N39.0 - Urinary tract infection, site not specified Status: Acute Assessment and Plan: Vancomycin Renal sonogram no definite obstruction. Urine and blood (07/16) coag neg staph (although differing oxacillin sensitivities) (3) Acute renal failure (ARF): Qualifiers: Acute renal failure type: unspecified Qualified Code(s): N17.9 - Acute kidney failure, unspecified Code(s): N17.9 - Acute kidney failure, unspecified Status: Acute Assessment and Plan: From history probably at least some degree of chronic renal insufficiency. No obstruction on sono. Urology following 08/26 creatinine 2.7 08/28 creatinine 1.7 08/29 creatinine 1.5 08/30 creatinine 1.4 (4) Thrombocytopenia: Code(s): D69.6 - Thrombocytopenia, unspecified Status: Acute Assessment and Plan: Probable secondary to sepsis. 08/28 plt 91K, 08/29 plt 118k , 08/30 plt 147 (5) CAD (coronary artery disease): Qualifiers: Coronary Disease-Associated Artery/Lesion type: [place] artery [place] vs. transplanted heart: [place] heart Associated angina: without angina Qualified Code(s): I25.10 - Atherosclerotic heart disease of [place] coronary artery without angina pectoris Code(s): I25.10 - Atherosclerotic heart disease of [place] coronary artery without angina pectoris Status: Acute Assessment and Plan: Stable. Resume beta-lily when pressure will allow. Continue Plavix and statin (6) HTN (hypertension): Qualifiers: Hypertension type: essential hypertension Qualified Code(s): I10 - Essential (primary) hypertension Code(s): I10 - Essential (primary) hypertension Status: Acute Assessment and Plan: Monitor (7) Septic shock: Code(s): A41.9 - Sepsis, unspecified organism; R65.21 - Severe sepsis with septic shock Status: Acute Assessment and Plan: Secondary to urinary tract infection. Resolved (8) Muscle strain of left thigh: Qualifiers: Encounter type: subsequent encounter Qualified Code(s): S76.912D - Strain of unspecified muscles, fascia and tendons at thigh level, left thigh, subsequent encounter Code(s): S76.912A - Strain of unspecified muscles, fascia and tendons at thigh level, left thigh, initial encounter Status: Acute Assessment and Plan: Slowly improving (9) BPH w urinary obs/LUTS: Code(s): N40.1 - Benign prostatic hyperplasia with lower urinary tract symptoms; N13.8 - Other obstructive and reflux uropathy Status: Acute Assessment and Plan: Possible cause of UTI, although [place] is unusual in an older, healthy male Subjective Date/time seen: 08/31/19 11:41 Interval history: Mild pain on active flexion of left thigh. No difficulty with ambulation. Tolerating diet. No cp or sob. No edema. No GI/ c/o. No hx prosthetic devices. Prior to illness, he was undergoing eval and tx for BPH. Cystoscopy 2 wks ago. Review of Systems Review of Systems: All systems reviewed & are unremarkable except as noted in HPI and below Exam Narrative: Exam Narrative: Pupils sclera anicteric Mouth normal Neck supple w/o jvd Lungs clear CV regular rate rhythm no murmurs or gallops Abdomen is soft nontender Extremities without edema; mild tenderness of left quadriceps with good strength and mild limitation of ROM left hip. Neuro alert pleasant cooperative no focal deficits cranial nerves 2-12 are intact, ox3 Obje
[2019-08-31 22:00] VITALS: BP 184/80; PULSE 90; RESP 18; TEMP 36.4; O2SAT 100
[2019-09-01 06:00] VITALS: BP 145/67; PULSE 74; RESP 20; TEMP 36.8; O2SAT 97
[2019-09-01 08:03] LABS: Hematocrit 31.3 % (42.0-52.0); Hemoglobin 10.5 g/dL (14.0-18.0); Mean Corpuscular HGB Conc 33.5 g/dl (32-36); Mean Corpuscular Hemoglobin 30.6 pg (26-34); Mean Corpuscular Volume 91.3 fl (80-100); Mean Platelet Volume 10.4 fl (7.4-10.4); Platelet Count Result 150 k/mm3 (150-375); Red Blood Count 3.43 M/mm3 (4.6-6.20); Red Cell Distribution Width 11.9 % (11.5-14.5); White Blood Count 6.4 K/mm3 (4.5-10.0)
[2019-09-01 08:14] LABS: Blood Urea Nitrogen 15 mg/dL (9-20); Calcium 8.8 mg/dL (8.4-10.2); Carbon Dioxide 30 mmol/L (22-30); Chloride 101 mmol/L (98-107); Estimated CRCL calculation 36 ml/min; Estimated Glomerular Filt Rate 48; Glucose 98 mg/dL (75-110); Potassium 3.6 mmol/L (3.4-5.0); Sodium 133 mmol/L (137-145)
[2019-09-01 09:01] LABS: Vancomycin Trough 6.8 ug/mL (10.0-20.0)
[2019-09-01] MEDS: CLOPIDOGREL BISULFATE 75 MG TABLET PO (09:33)
[2019-09-01] MEDS: TAMSULOSIN HCL 0.4 MG CAPSULE PO (09:33)
[2019-09-01] MEDS: FINASTERIDE 5 MG TABLET PO (09:33)
[2019-09-01] MEDS: ROSUVASTATIN 10 MG TABLET 40 MG PO (09:33)
[2019-09-01] MEDS: PANTOPRAZOLE 40 MG TABLET PO ×2 (09:33→21:18)
--- NOTE | 2019-09-01 11:17 | PM.IMPN ---
Progress Note: A&P Assessment and Plan (1) Coag negative Staphylococcus bacteremia: Code(s): R78.81 - Bacteremia; B95.7 - Other staphylococcus as the cause of diseases classified elsewhere Status: Acute Assessment and Plan: Day 4 vancomycin Remove central line 08/29 Echo 08/29 with focal wall motion abnormalities and no vegetations No other obvious source Repeat blood c/s 08/30 results pending. (2) Acute UTI (urinary tract infection): Code(s): N39.0 - Urinary tract infection, site not specified Status: Acute Assessment and Plan: Vancomycin Renal sonogram no definite obstruction. Urine and blood (07/16) coag neg staph (although differing oxacillin sensitivities) (3) Acute renal failure (ARF): Qualifiers: Acute renal failure type: unspecified Qualified Code(s): N17.9 - Acute kidney failure, unspecified Code(s): N17.9 - Acute kidney failure, unspecified Status: Acute Assessment and Plan: From history probably at least some degree of chronic renal insufficiency. No obstruction on sono. Urology following 08/26 creatinine 2.7 08/28 creatinine 1.7 08/29 creatinine 1.5 08/30 creatinine 1.4, 08/31 also 1.4 (4) Thrombocytopenia: Code(s): D69.6 - Thrombocytopenia, unspecified Status: Acute Assessment and Plan: Probable secondary to sepsis. 08/28 plt 91K, 08/29 plt 118k , 08/30 plt 147k, 08/31 150k (5) CAD (coronary artery disease): Qualifiers: Coronary Disease-Associated Artery/Lesion type: [place] artery [place] vs. transplanted heart: [place] heart Associated angina: without angina Qualified Code(s): I25.10 - Atherosclerotic heart disease of [place] coronary artery without angina pectoris Code(s): I25.10 - Atherosclerotic heart disease of [place] coronary artery without angina pectoris Status: Acute Assessment and Plan: Stable. Resume beta-lily when pressure will allow. Continue Plavix and statin (6) HTN (hypertension): Qualifiers: Hypertension type: essential hypertension Qualified Code(s): I10 - Essential (primary) hypertension Code(s): I10 - Essential (primary) hypertension Status: Acute Assessment and Plan: Monitor (7) Septic shock: Code(s): A41.9 - Sepsis, unspecified organism; R65.21 - Severe sepsis with septic shock Status: Acute Assessment and Plan: Secondary to urinary tract infection. Resolved (8) Muscle strain of left thigh: Qualifiers: Encounter type: subsequent encounter Qualified Code(s): S76.912D - Strain of unspecified muscles, fascia and tendons at thigh level, left thigh, subsequent encounter Code(s): S76.912A - Strain of unspecified muscles, fascia and tendons at thigh level, left thigh, initial encounter Status: Acute Assessment and Plan: Slowly improving (9) BPH w urinary obs/LUTS: Code(s): N40.1 - Benign prostatic hyperplasia with lower urinary tract symptoms; N13.8 - Other obstructive and reflux uropathy Status: Acute Assessment and Plan: Possible cause of UTI, although [place] is unusual in an older, healthy male Subjective Date/time seen: 09/01/19 11:17 Interval history: Mild pain on active flexion of left thigh. No difficulty with ambulation. Tolerating diet. No cp or sob. No edema. No GI/ c/o. No hx prosthetic devices. Prior to illness, he was undergoing eval and tx for BPH. Cystoscopy 2 wks ago. Exam Narrative: Exam Narrative: Pupils sclera anicteric Mouth normal Neck supple w/o jvd Lungs clear CV regular rate rhythm no murmurs or gallops Abdomen is soft nontender Extremities without edema; mild tenderness of left quadriceps with good strength and mild limitation of ROM left hip. Neuro alert pleasant cooperative no focal deficits cranial nerves 2-12 are intact, ox3 Objective Data Vital Signs Vital Signs: Vital Signs - 24 hr 08/31/19 22:00 09/01/19
[2019-09-01] MEDS: LACTATED RINGERS 1,000 ML 75 ML IV CONT (18:34)
[2019-09-01 22:00] VITALS: BP 163/66; PULSE 85; RESP 18; TEMP 36.6; O2SAT 99
[2019-09-02] MEDS: LACTATED RINGERS 1,000 ML 75 ML IV CONT (01:44)
[2019-09-02 06:00] VITALS: BP 173/70; PULSE 83; RESP 18; TEMP 36.8; O2SAT 98
[2019-09-02 06:38] LABS: Blood Urea Nitrogen 14 mg/dL (9-20); Carbon Dioxide 31 mmol/L (22-30); Chloride 99 mmol/L (98-107); Estimated CRCL calculation 39 ml/min; Estimated Glomerular Filt Rate 53; Glucose 105 mg/dL (75-110); Potassium 3.4 mmol/L (3.4-5.0); Sodium 133 mmol/L (137-145)
[2019-09-02 06:48] LABS: Hematocrit 31.4 % (42.0-52.0); Hemoglobin 10.4 g/dL (14.0-18.0); Mean Corpuscular HGB Conc 33.1 g/dl (32-36); Mean Corpuscular Hemoglobin 30.5 pg (26-34); Mean Corpuscular Volume 92.1 fl (80-100); Mean Platelet Volume 10.5 fl (7.4-10.4); Platelet Count Result 155 k/mm3 (150-375); Red Blood Count 3.41 M/mm3 (4.6-6.20); White Blood Count 6.6 K/mm3 (4.5-10.0)
[2019-09-02 08:00] VITALS: PULSE 83; RESP 18; O2SAT 98
[2019-09-02] MEDS: FINASTERIDE 5 MG TABLET PO (08:57)
[2019-09-02] MEDS: CLOPIDOGREL BISULFATE 75 MG TABLET PO (08:57)
[2019-09-02] MEDS: PANTOPRAZOLE 40 MG TABLET PO ×2 (08:57→20:25)
[2019-09-02] MEDS: TAMSULOSIN HCL 0.4 MG CAPSULE PO (08:57)
[2019-09-02] MEDS: ROSUVASTATIN 10 MG TABLET 40 MG PO (08:58)
--- NOTE | 2019-09-02 11:17 | PM.IMPN ---
Progress Note: A&P Assessment and Plan (1) Coag negative Staphylococcus bacteremia: Code(s): R78.81 - Bacteremia; B95.7 - Other staphylococcus as the cause of diseases classified elsewhere Status: Acute Assessment and Plan: Day 10/25 vancomycin iv Remove central line 08/29 Echo 08/29 with focal wall motion abnormalities and no vegetations No other obvious source Repeat blood c/s 08/30 results pending, negative thus far (2) Acute UTI (urinary tract infection): Code(s): N39.0 - Urinary tract infection, site not specified Status: Acute Assessment and Plan: Vancomycin Renal sonogram no definite obstruction. Urine and blood (2/) coag neg staph (although differing oxacillin sensitivities) (3) Acute renal failure (ARF): Qualifiers: Acute renal failure type: unspecified Qualified Code(s): N17.9 - Acute kidney failure, unspecified Code(s): N17.9 - Acute kidney failure, unspecified Status: Acute Assessment and Plan: From history probably at least some degree of chronic renal insufficiency. No obstruction on sono. Urology following 08/26 creatinine 2.7 08/28 creatinine 1.7 08/29 creatinine 1.5 08/30 creatinine 1.4, 08/31 also 1.4, 09/01 1.3 (4) Thrombocytopenia: Code(s): D69.6 - Thrombocytopenia, unspecified Status: Acute Assessment and Plan: Probable secondary to sepsis. 08/28 plt 91K, 08/29 plt 118k , 08/30 plt 147k, 08/31 150k, 09/01 155k (5) CAD (coronary artery disease): Qualifiers: Coronary Disease-Associated Artery/Lesion type: [place] artery [place] vs. transplanted heart: [place] heart Associated angina: without angina Qualified Code(s): I25.10 - Atherosclerotic heart disease of [place] coronary artery without angina pectoris Code(s): I25.10 - Atherosclerotic heart disease of [place] coronary artery without angina pectoris Status: Acute Assessment and Plan: Stable. Resume beta-lily when pressure will allow. Continue Plavix and statin (6) HTN (hypertension): Qualifiers: Hypertension type: essential hypertension Qualified Code(s): I10 - Essential (primary) hypertension Code(s): I10 - Essential (primary) hypertension Status: Acute Assessment and Plan: Monitor (7) Septic shock: Code(s): A41.9 - Sepsis, unspecified organism; R65.21 - Severe sepsis with septic shock Status: Acute Assessment and Plan: Secondary to urinary tract infection. Resolved (8) Muscle strain of left thigh: Qualifiers: Encounter type: subsequent encounter Qualified Code(s): S76.912D - Strain of unspecified muscles, fascia and tendons at thigh level, left thigh, subsequent encounter Code(s): S76.912A - Strain of unspecified muscles, fascia and tendons at thigh level, left thigh, initial encounter Status: Acute Assessment and Plan: Slowly improving (9) BPH w urinary obs/LUTS: Code(s): N40.1 - Benign prostatic hyperplasia with lower urinary tract symptoms; N13.8 - Other obstructive and reflux uropathy Status: Acute Assessment and Plan: Possible cause of UTI, although 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 No difficulty with ambulation. Tolerating diet. No new c/o. No cp or sob. No edema. No GI/ c/o. No hx prosthetic devices. Prior to illness, he was undergoing eval and tx for BPH. Cystoscopy 2 wks ago. Review of Systems Review of Systems: All systems reviewed & are unremarkable except as noted in HPI and below Exam Narrative: Exam Narrative: Pupils sclera anicteric Mouth normal Neck supple w/o jvd Lungs clear CV regular rate rhythm no murmurs or gallops Abdomen is soft nontender Extremities without edema; mild tenderness of left quadriceps with good strength and mild limitation of ROM left hip. Neuro a
[2019-09-02 14:00] VITALS: BP 133/69; PULSE 90; RESP 20; TEMP 36.3; O2SAT 99
[2019-09-02] MEDS: METOPROLOL TARTRATE 50 MG TAB PO ×2 (16:26→21:56)
[2019-09-02 21:54] VITALS: BP 155/78; PULSE 79; RESP 16; TEMP 36.4; O2SAT 100
[2019-09-02 21:56] VITALS: PULSE 82
[2019-09-03 06:00] VITALS: BP 143/63; PULSE 72; RESP 16; TEMP 36.7; O2SAT 97
[2019-09-03 06:35] LABS: Hematocrit 30.3 % (42.0-52.0); Mean Corpuscular Hemoglobin 30.3 pg (26-34); Mean Corpuscular Volume 91.8 fl (80-100); Mean Platelet Volume 10.6 fl (7.4-10.4); Platelet Count Result 154 k/mm3 (150-375); Red Cell Distribution Width 11.9 % (11.5-14.5); White Blood Count 5.6 K/mm3 (4.5-10.0)
[2019-09-03 06:51] LABS: Blood Urea Nitrogen 15 mg/dL (9-20); Calcium 8.8 mg/dL (8.4-10.2); Carbon Dioxide 32 mmol/L (22-30); Chloride 99 mmol/L (98-107); Estimated CRCL calculation 39 ml/min; Estimated Glomerular Filt Rate 53; Glucose 97 mg/dL (75-110); Potassium 3.4 mmol/L (3.4-5.0); Sodium 131 mmol/L (137-145)
[2019-09-03 08:00] VITALS: PULSE 72; RESP 16; O2SAT 97
[2019-09-03] MEDS: ROSUVASTATIN 10 MG TABLET 40 MG PO (08:24)
[2019-09-03] MEDS: FINASTERIDE 5 MG TABLET PO (08:25)
[2019-09-03] MEDS: PANTOPRAZOLE 40 MG TABLET PO ×2 (08:25→21:11)
[2019-09-03] MEDS: CLOPIDOGREL BISULFATE 75 MG TABLET PO (08:26)
[2019-09-03] MEDS: TAMSULOSIN HCL 0.4 MG CAPSULE PO (08:26)
[2019-09-03] MEDS: METOPROLOL TARTRATE 50 MG TAB PO ×2 (08:27→21:11)
--- NOTE | 2019-09-03 10:35 | PM.IMPN ---
Progress Note: A&P Assessment and Plan (1) Coag negative Staphylococcus bacteremia: Code(s): R78.81 - Bacteremia; B95.7 - Other staphylococcus as the cause of diseases classified elsewhere Status: Acute Assessment and Plan: Day 11/25 vancomycin iv Remove central line 08/29 Echo 08/29 with focal wall motion abnormalities and no vegetations No other obvious source Repeat blood c/s 08/30 results negative (2) Acute UTI (urinary tract infection): Code(s): N39.0 - Urinary tract infection, site not specified Status: Acute Assessment and Plan: Vancomycin Renal sonogram no definite obstruction. Urine and blood (2/) coag neg staph (although differing oxacillin sensitivities) (3) Acute renal failure (ARF): Qualifiers: Acute renal failure type: unspecified Qualified Code(s): N17.9 - Acute kidney failure, unspecified Code(s): N17.9 - Acute kidney failure, unspecified Status: Acute Assessment and Plan: From history probably at least some degree of chronic renal insufficiency. No obstruction on sono. Urology following 08/26 creatinine 2.7 08/28 creatinine 1.7 08/29 creatinine 1.5 08/30 creatinine 1.4, 08/31 also 1.4, 09/02 1.3 (4) Thrombocytopenia: Code(s): D69.6 - Thrombocytopenia, unspecified Status: Acute Assessment and Plan: Probable secondary to sepsis. 08/28 plt 91K, 08/29 plt 118k , 08/30 plt 147k, 08/31 150k, 09/01 155k, 09/02 154k (5) CAD (coronary artery disease): Qualifiers: Coronary Disease-Associated Artery/Lesion type: [place] artery [place] vs. transplanted heart: [place] heart Associated angina: without angina Qualified Code(s): I25.10 - Atherosclerotic heart disease of [place] coronary artery without angina pectoris Code(s): I25.10 - Atherosclerotic heart disease of [place] coronary artery without angina pectoris Status: Acute Assessment and Plan: Stable. Resume beta-lily when pressure will allow. Continue Plavix and statin (6) HTN (hypertension): Qualifiers: Hypertension type: essential hypertension Qualified Code(s): I10 - Essential (primary) hypertension Code(s): I10 - Essential (primary) hypertension Status: Acute Assessment and Plan: Monitor (7) Septic shock: Code(s): A41.9 - Sepsis, unspecified organism; R65.21 - Severe sepsis with septic shock Status: Acute Assessment and Plan: Secondary to urinary tract infection. Resolved (8) Muscle strain of left thigh: Qualifiers: Encounter type: subsequent encounter Qualified Code(s): S76.912D - Strain of unspecified muscles, fascia and tendons at thigh level, left thigh, subsequent encounter Code(s): S76.912A - Strain of unspecified muscles, fascia and tendons at thigh level, left thigh, initial encounter Status: Acute Assessment and Plan: Slowly improving (9) BPH w urinary obs/LUTS: Code(s): N40.1 - Benign prostatic hyperplasia with lower urinary tract symptoms; N13.8 - Other obstructive and reflux uropathy Status: Acute Assessment and Plan: Possible cause of UTI, although 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 Less left thigh pain. Tolerating diet. No new c/o. No cp or sob. No edema. No GI/ c/o. No hx prosthetic devices. Prior to illness, he was undergoing eval and tx for BPH. Cystoscopy 2 wks ago. Review of Systems Review of Systems: All systems reviewed & are unremarkable except as noted in HPI and below Exam Narrative: Exam Narrative: Pupils sclera anicteric Mouth normal Neck supple w/o jvd Lungs clear CV regular rate rhythm no murmurs or gallops Abdomen is soft nontender Extremities without edema; mild tenderness of left quadriceps with good strength and mild limitation of ROM left hip. Neuro alert pleasant cooperative no
[2019-09-03 14:00] VITALS: BP 130/55; PULSE 74; RESP 18; TEMP 36.4; O2SAT 99
[2019-09-03 21:11] VITALS: PULSE 87
[2019-09-03 21:44] VITALS: BP 179/72; PULSE 81; RESP 18; TEMP 36.4; O2SAT 100
[2019-09-03 22:44] VITALS: BP 150/57
[2019-09-04 06:30] VITALS: BP 136/62; PULSE 73; RESP 18; TEMP 36.6; O2SAT 99
--- NOTE | 2019-09-04 07:51 | P.PNUR_ITS ---
Progress Note: A&P Assessment and Plan (1) BPH w urinary obs/LUTS: Code(s): N40.1 - Benign prostatic hyperplasia with lower urinary tract symptoms; N13.8 - Other obstructive and reflux uropathy Status: Acute (2) Gross hematuria: Code(s): R31.0 - Gross hematuria Status: Acute Assessment and Plan: * Gross hematuria resolved. I see we can assume it was present due to hemorrhagic cystitis. * Home on Finasteride and Tamsulosin, when otherwise ready. * F/U with us in 4-6 weeks. Subjective Subjective Date/Time Seen: 09/04/19 07:51 Voiding well, no complaintes Objective Data Vital Signs Vital Signs: Vital Signs - 24 hr 09/03/19 08:00 09/03/19 14:00 09/03/19 21:11 Temperature 97.6 F Pulse Rate 72 74 87 Respiratory Rate 16 18 Blood Pressure 130/55 L Pulse Oximetry 97 99 09/03/19 21:44 09/03/19 22:44 09/04/19 06:30 Temperature 97.6 F 97.9 F Pulse Rate 81 73 Respiratory Rate 18 18 Blood Pressure 179/72 H 150/57 H 136/62 Pulse Oximetry 100 99 Intake/Output Intake/Output: Intake & Output 09/01/19 09/02/19 09/03/19 09/04/19 23:59 23:59 23:59 23:59 Intake Total 1820 2170 1520 380 Output Total 2300 2025 2350 Balance -480 145 -830 380 Meds/Results Medications: Active Medications Generic Name Dose Route Start Last Admin Trade Name Freq PRN Reason Stop Dose Admin Albuterol 2.5 mg 08/27/19 23:36 08/27/19 23:46 Albuterol Sulf Neb 2.5mg/0.5ml INHALATION 2.5 mg Q4HRT PRN Administration Shortness Of Breath Clopidogrel Bisulfate 75 mg 08/28/19 09:00 09/03/19 08:26 Plavix PO 75 mg DAILY SANDRA Administration Finasteride 5 mg 08/28/19 09:00 09/03/19 08:25 Proscar PO 5 mg DAILY SANDRA Administration Vancomycin HCl 1,250 mg in 250 mls @ 200 mls/hr 09/02/19 09:00 09/03/19 08:27 Vancomycin 1,250 Mg/D5w 250 Ml IVPB 125 mls/hr Q24H SANDRA Administration Metoprolol Tartrate 50 mg 09/02/19 21:00 09/03/19 21:11 Lopressor PO 50 mg Q12HR SANDRA Administration Ondansetron HCl 4 mg 08/27/19 16:32 Zofran Inj IV PUSH Q4H PRN Nausea Pantoprazole Sodium 40 mg 08/28/19 09:00 09/03/19 21:11 Protonix PO 40 mg Q12HR SANDRA Administration Rosuvastatin Calcium 40 mg 08/28/19 09:00 09/03/19 08:24 Crestor PO 40 mg DAILY SANDRA Administration Tamsulosin HCl 0.4 mg 08/28/19 09:00 09/03/19 08:26 Flomax PO 0.4 mg DAILY SANDRA Administration Radiology Results: ITS Impressions Chest X-Ray 08/27/19 16:27 IMPRESSION: 1. Right internal jugular central venous catheter insertion without pneumothorax. Renal Ultrasound 08/28/19 12:16 IMPRESSION: Bilateral renal cortical thinning. No hydronephrosis. Quality VTE Prophylaxis VTE prophylaxis: mechanical ordered
[2019-09-04 08:14] VITALS: PULSE 73
[2019-09-04] MEDS: TAMSULOSIN HCL 0.4 MG CAPSULE PO (08:14)
[2019-09-04] MEDS: ROSUVASTATIN 10 MG TABLET 40 MG PO (08:14)
[2019-09-04] MEDS: FINASTERIDE 5 MG TABLET PO (08:14)
[2019-09-04] MEDS: METOPROLOL TARTRATE 50 MG TAB PO (08:14)
[2019-09-04] MEDS: CLOPIDOGREL BISULFATE 75 MG TABLET PO (08:14)
[2019-09-04] MEDS: PANTOPRAZOLE 40 MG TABLET PO (08:14)
[2019-09-04 08:21] LABS: Hematocrit 33.5 % (42.0-52.0); Hemoglobin 11.2 g/dL (14.0-18.0); Mean Corpuscular HGB Conc 33.4 g/dl (32-36); Mean Corpuscular Hemoglobin 30.8 pg (26-34); Mean Platelet Volume 10.3 fl (7.4-10.4); Platelet Count Result 178 k/mm3 (150-375); Red Blood Count 3.64 M/mm3 (4.6-6.20); White Blood Count 6.5 K/mm3 (4.5-10.0)
[2019-09-04 09:02] LABS: Blood Urea Nitrogen 14 mg/dL (9-20); Calcium 8.9 mg/dL (8.4-10.2); Carbon Dioxide 31 mmol/L (22-30); Chloride 96 mmol/L (98-107); Estimated CRCL calculation 42 ml/min; Estimated Glomerular Filt Rate 58; Glucose 105 mg/dL (75-110); Potassium 3.8 mmol/L (3.4-5.0); Sodium 131 mmol/L (137-145)
[2019-09-04 09:10] LABS: Vancomycin Trough 10.5 ug/mL (10.0-20.0)
--- NOTE | 2019-09-04 10:27 | PM.DS ---
DS: Diagnosis Admitting Diagnosis Admitting Diagnosis: Sepsis, unspecified organism Discharge Diagnosis (1) Coag negative Staphylococcus bacteremia: Code(s): R78.81 - Bacteremia; B95.7 - Other staphylococcus as the cause of diseases classified elsewhere Status: Acute Assessment and Plan: Day 12/25 vancomycin iv Removed central line 08/29 Echo 08/29 with focal wall motion abnormalities and no vegetations No other obvious source Repeat blood c/s 08/30 results negative 09/03 midline catheter, complete additional 7 days of vancmycin (2) Acute UTI (urinary tract infection): Code(s): N39.0 - Urinary tract infection, site not specified Status: Acute Assessment and Plan: Vancomycin Renal sonogram no definite obstruction. Urine and blood (2/) coag neg staph (although differing oxacillin sensitivities) (3) Acute renal failure (ARF): Qualifiers: Acute renal failure type: unspecified Qualified Code(s): N17.9 - Acute kidney failure, unspecified Code(s): N17.9 - Acute kidney failure, unspecified Status: Acute Assessment and Plan: From history probably at least some degree of chronic renal insufficiency. No obstruction on sono. Urology following 08/26 creatinine 2.7 08/28 creatinine 1.7 08/29 creatinine 1.5 08/30 creatinine 1.4, 08/31 also 1.4, 09/03 1.2 (4) Thrombocytopenia: Code(s): D69.6 - Thrombocytopenia, unspecified Status: Acute Assessment and Plan: Probable secondary to sepsis. 08/28 plt 91K, 08/29 plt 118k , 08/30 plt 147k, 08/31 150k, 09/01 155k, 09/02 154k (5) CAD (coronary artery disease): Qualifiers: Associated angina: without angina Coronary Disease-Associated Artery/Lesion type: [place] artery [place] vs. transplanted heart: [place] heart Qualified Code(s): I25.10 - Atherosclerotic heart disease of [place] coronary artery without angina pectoris Code(s): I25.10 - Atherosclerotic heart disease of [place] coronary artery without angina pectoris Status: Acute Assessment and Plan: Stable. Resume beta-lily when pressure will allow. Continue Plavix and statin (6) HTN (hypertension): Qualifiers: Hypertension type: essential hypertension Qualified Code(s): I10 - Essential (primary) hypertension Code(s): I10 - Essential (primary) hypertension Status: Acute Assessment and Plan: Monitor (7) Septic shock: Code(s): A41.9 - Sepsis, unspecified organism; R65.21 - Severe sepsis with septic shock Status: Acute Assessment and Plan: Secondary to urinary tract infection. Resolved (8) Muscle strain of left thigh: Qualifiers: Encounter type: subsequent encounter Qualified Code(s): S76.912D - Strain of unspecified muscles, fascia and tendons at thigh level, left thigh, subsequent encounter Code(s): S76.912A - Strain of unspecified muscles, fascia and tendons at thigh level, left thigh, initial encounter Status: Acute Assessment and Plan: Slowly improving (9) BPH w urinary obs/LUTS: Code(s): N40.1 - Benign prostatic hyperplasia with lower urinary tract symptoms; N13.8 - Other obstructive and reflux uropathy Status: Acute Assessment and Plan: Possible cause of UTI, although 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 Neuro alert pleasant cooperative no focal deficits cranial nerves 2-12 are intact, ox3 DS: Data Data Completed and Pending Labs on day of discharge: Labs from last 24 hours
[2019-09-04] MEDS: LIDOCAINE HCL 1% LOCAL INJ 2 ML AMPUL 5 ML INFILTRATE (10:30)
[2019-09-04 14:00] VITALS: BP 139/58; PULSE 76; RESP 18; TEMP 36.4; O2SAT 100
== END 2019-09-04 17:43 | disposition home health service (06) | DRG 871 ==
LOC: ANHED 16:31 → ANHICU 08-28 13:51 → ANH3MEDSUR 08-30 09:51 → ANHICU 09-06 14:11
PROVIDERS: Internal Medicine; Admitting Provider Internal Medicine; Emergency Provider General Practice; PCP Internal Medicine; Visit Provider Internal Medicine
DX: A41.9 Sepsis, unspecified organism (principal); R65.21 Severe sepsis with septic shock; N39.0 Urinary tract infection, site not specified; M19.90 Unspecified osteoarthritis, unspecified site; J45.909 Unspecified asthma, uncomplicated; I25.10 Atherosclerotic heart disease of native coronary artery without angina pectoris; K21.9 Gastro-esophageal reflux disease without esophagitis; M10.9 Gout, unspecified; E78.5 Hyperlipidemia, unspecified; D69.6 Thrombocytopenia, unspecified; Z95.1 Presence of aortocoronary bypass graft; N40.1 Benign prostatic hyperplasia with lower urinary tract symptoms; Z95.5 Presence of coronary angioplasty implant and graft; N18.9 Chronic kidney disease, unspecified; I12.9 Hypertensive chronic kidney disease with stage 1 through stage 4 chronic kidney disease, or unspecified chronic kidney disease; N13.9 Obstructive and reflux uropathy, unspecified; S76.912D Strain of unspecified muscles, fascia and tendons at thigh level, left thigh, subsequent encounter
CPT/HCPCS: 36415; 36556; 36569; 71046; 76775; 80048; 80053; 80202; 81001; 82607; 82728; 83540; 83550; 83605; 83615; 83735; 84100; 85025; 85027; 85055; 87040; 87077; 87081; 87086; 87088; 87186; 87804; 93005; 93306; 94640; 96365; 96375; 97110; 97116; 97161; 97165; 99291; A9270; C1751; J0131; J0696; J3370; J3475; J7030; J7120

== ENCOUNTER 2020-01-22 10:36 | Outpatient (RCR) | payer MEDICARE, SELFPAY ==
[2020-01-22 11:05] VITALS: BP 156/72; PULSE 77; RESP 16; TEMP 37.2; O2SAT 98
[2020-01-22 12:19] VITALS: BMI 25.9
[2020-01-22 12:46] LABS: Hematocrit 28.7 % (42.0-52.0); Hemoglobin 9.1 g/dL (14.0-18.0); Mean Corpuscular HGB Conc 31.7 g/dl (32-36); Mean Corpuscular Hemoglobin 26.8 pg (26-34); Mean Corpuscular Volume 84.4 fl (80-100); Platelet Count Result 209 k/mm3 (150-375); Red Cell Distribution Width 14.1 % (11.5-14.5); White Blood Count 6.5 K/mm3 (4.5-10.0)
[2020-01-22 12:47] LABS: Anion Gap 5 mmol/L (8-16); Blood Urea Nitrogen 21 mg/dL (9-20); Calcium 8.7 mg/dL (8.4-10.2); Carbon Dioxide 30 mmol/L (22-30); Chloride 94 mmol/L (98-107); Estimated CRCL calculation 35 ml/min; Estimated Glomerular Filt Rate 48; Glucose 109 mg/dL (75-110); Potassium 3.8 mmol/L (3.4-5.0); Sodium 129 mmol/L (137-145)
== END 2020-04-21 23:59 | disposition home or self-care (01) ==
LOC: ANHVASCINF 10:36
PROVIDERS: PCP Internal Medicine; Visit Provider Internal Medicine Infectious Disease
DX: M46.24 Osteomyelitis of vertebra, thoracic region (principal)
CPT/HCPCS: 36415; 36569; 36592; 80048; 85027; 86140; 96365; C1751; J3370

== ENCOUNTER 2020-01-26 11:24 | Inpatient (IN) | payer MEDICARE, SELFPAY ==
[2020-01-26] VITALS (14 sets, daily range): BP systolic 121–186; BP diastolic 58–98; PULSE 77–87; RESP 13–19; TEMP 36.6–36.9; O2SAT 93–100; BMI 26.6
--- NOTE | ~2020-01-26 | US_ITS ---
EXAMINATION: US venous doppler [facility] DATE: 01/27/2020 11:04 INDICATION: Lower limb edema. TECHNIQUE: Grayscale ultrasound images without and with compression and Doppler ultrasound images of the bilateral lower extremity veins were obtained. COMPARISON: None. FINDINGS: The visualized portions of right common femoral vein, profunda (deep) femoral vein, femoral vein, pop liteal vein, peroneal veins, posterior tibial veins, and greater saphenous vein outflow are patent. The visualized portions of left common femoral vein, profunda femoral vein, femoral vein, popliteal v ein, peroneal veins, posterior tibial veins, and greater saphenous vein outflow are patent. IMPRESSION: 1. No deep venous thrombosis. Reviewed, dictated and finalized at location A.
--- NOTE | ~2020-01-26 | XR_ITS ---
EXAMINATION: XR chest 1V portable DATE: 01/26/2020 12:11 INDICATION: PICC line placement TECHNIQUE: frontal view of the chest was obtained. COMPARISON: Chest radiograph dated 08/27/2019 FINDINGS: Right upper extremity peripherally inserted central venous catheter (PICC) tip at the mid superior v mark cava. The prior right internal jugular central venous catheter is been removed. Streaky bibasilar atelectasis. Blunting at the left is an endotracheal suggesting small left pleural effusion. No pneu mothorax or right pleural effusion. The cardiomediastinal silhouette is normal. Median sternotomy wir es and mediastinal surgical clips are seen, likely from prior coronary artery bypass grafting. IMPRESSION: 1. Right M the PICC line tip at the mid superior vena cava. 2. Mild bibasilar atelectasis. Reviewed, dictated and finalized at location A.
--- NOTE | ~2020-01-26 | XR_ITS ---
EXAMINATION: XR thoracic spine 3V DATE: 01/26/2020 13:06 INDICATION: Thoracic back pain. Osteomyelitis. TECHNIQUE: 3 views of thoracic spine on 4 radiographs were obtained. COMPARISON: Chest 2 views 08/27/2019 FINDINGS: There is kyphosis of thoracic spine. At T7-T8, there are endplate erosions with height loss of the vertebral bodies and disc space. Other disc spaces are normal. There are endplate osteophytes at most levels. Median sternotomy wires and mediastinal surgical clips are seen, likely from prior c oronary artery bypass grafting. A right upper extremity peripherally inserted central venous catheter (PICC) is seen with tip in the proximal right atrium. IMPRESSION: 1. Endplate erosions and height loss of the vertebral bodies and disc space at T7-T8, consistent with discitis. Reviewed, dictated and finalized at location B.
--- NOTE | 2020-01-26 11:36 | PC.NURSE ---
During assessment, patient reports tenderness with palpation of abdomen. also reports that she believes his abdomen is larger than normal. He denies nausea, vomiting, or diarrhea, but does report constipation. Last BM was reported as large and on 01/25/2020. He does tell me that prior to yesterday it had been a couple of days since his previous BM.
--- NOTE | 2020-01-26 12:37 | PC.NURSE ---
Central supply to send up PICC dressing change kit.
--- NOTE | 2020-01-26 13:12 | ED.GENADULT ---
HPI - General Adult General Chief complaint: Unspecified Stated complaint: back pain Time Seen by Provider: 01/26/20 12:04 History of Present Illness HPI narrative: Patient is an 84-year-old male who presents the ER with weakness and back pain. 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 He was referred to Dr. wang. He is taking 1250 mg of vancomycin IV through PICC line in his right upper extremity. Antibiotics and PICC line initiated 01/22/2020. Today is day 5 of antibiotics. No fevers or chills or sweats. Patient reports he has had decrease in mobility over the last 2 weeks due to worsening pain despite being on oral oxycodone. He is also developed increased edema to his lower extremities. He has home health use, to draw blood. Originally patient was told that he may be going to a correction facility for rehab but that did not materialize hence unknown why. Patient has had no fall or trauma to the back. He is without any fevers or chills or sweats. No new rash. No lower extremity numbness or tingling or focal weakness. Mobility is decreased mainly due to pain in his thoracic region. Related Data Home Medications Medication Instructions Recorded Confirmed clopidogrel 75 mg PO DAILY 08/27/19 01/26/20 finasteride 5 mg PO DAILY 08/27/19 01/26/20 omeprazole 40 mg PO DAILY 08/27/19 01/26/20 rosuvastatin 40 mg PO DAILY 08/27/19 01/26/20 tamsulosin 0.4 mg PO DAILY 08/27/19 01/26/20 albuterol sulfate 1 puff INHALATION BID PRN 01/26/20 01/26/20 aspirin 81 mg/kg PO DAILY 01/26/20 01/26/20 heparin lock flush (porcine) 50 unit IV DAILY 01/26/20 01/26/20 sodium chloride 0.9 % (flush) See Rx Instructions .ROUTE .COMPLEX 01/26/20 01/26/20 [Normal Saline Flush] vancomycin in 0.9 % sodium chl 1.25 g IV DAILY 01/26/20 01/26/20 Allergies Allergy/AdvReac Type Severity Reaction Status Date / Time No Known Allergies Allergy Verified 08/27/19 13:53 Review of Systems Review of Systems: All systems reviewed & are unremarkable except as noted in HPI and below Constitutional: Constitutional: Denies chills, Denies fever(s) and Reports weakness ENT: Denies nasal congestion and Denies sore throat Gastrointestinal: Gastrointestinal: Denies abdominal pain, Reports constipation, Denies nausea and Denies vomiting Musculoskeletal: Musculoskeletal: Reports back pain, Denies joint swelling and Denies muscle cramps Comments: Lower extremity edema Integumentary/Breasts: Skin/Breast: Denies rash Neurologic: Denies focal weakness and Denies numbness PMFSH Past Medical History Medical History (Updated 01/26/20 @ 23:19 by Guillermo Orta MD) Arthritis Asthma Back pain BPH w urinary obs/LUTS CAD (coronary artery disease) GERD (gastroesophageal reflux disease) Gout HLD (hyperlipidemia) HTN (hypertension) Surgical History Surgical History H/O heart artery stent H/O inguinal hernia repair Hx of CABG x5 Social History Social History Smoking status: Never smoker Alcohol intake: former Substance use: never Substance use type: does not use Gender identity (if verbalized by the patient): Male Spiritual care concerns: No Agree to blood products: Yes Exam Narrative: Exam Narrative: GENERAL: Frail-appearing, well-nourished, and in no acute distress. HEAD: Normocephalic, atraumatic. NECK: Supple. No C-spine tenderness. CHEST: Clear to auscultation. No respiratory distress. HEART: Regular rate and rhythm. Normal peripheral pulses. ABDOMEN: Soft, nontender, nondistended, normal active bowel sounds. EXTREMITIES: Normal range of motion. 2+ edema bilaterally with pinkish hue to left lower extremity near the CABG vein harvest site. Back: No midline tenderness of thoracic or lumbar spine, no reproducible tenderness of the paraspinal muscu
[2020-01-26] MEDS: MORPHINE SULFATE 2 MG/ML INJ IV PUSH (13:40)
[2020-01-26 13:58] LABS: Basophils Percent Auto 0.5 % (0.2-1.2); Eosinophils Absolute Auto 0.4 K/mm3 (0-0.3); Eosinophils Percent Auto 6.9 % (0-4.4); Hematocrit 28.7 % (42.0-52.0); Hemoglobin 9.2 g/dL (14.0-18.0); Immature Granulocyte Absolute 0.02 K/mm3 (0.00-0.031); Immature Granulocyte Percent A 0.3 % (0-0.5); Lymphocytes Absolute Auto 1.28 K/mm3 (0.9-3.2); Lymphocytes Percent Auto 20.7 % (18.3-44.2); Mean Corpuscular HGB Conc 32.1 g/dl (32-36); Mean Corpuscular Hemoglobin 26.9 pg (26-34); Mean Corpuscular Volume 83.9 fl (80-100); Mean Platelet Volume 9.2 fl (7.4-10.4); Monocytes Absolute Auto 0.5 K/mm3 (0.1-0.6); Monocytes Percent Auto 8.7 % (2.6-8.5); Neutrophils Absolute Auto 3.9 K/mm3 (1.3-6.7); Neutrophils Percent Auto 62.9 % (45.5-73.1); Platelet Count Result 223 k/mm3 (150-375); Red Blood Count 3.42 M/mm3 (4.6-6.20); Red Cell Distribution Width 14.3 % (11.5-14.5); White Blood Count 6.2 K/mm3 (4.5-10.0)
[2020-01-26 14:07] LABS: Add Urine Microscopic? NO; Appearance Urine Clear (Clear); Bilirubin Urine Negative (Negative); Blood Urine Negative (Negative); Color Urine Straw (Yellow); Glucose Urine UA Negative (Negative); Ketones Urine Negative (Negative); Leukocyte Esterase Ur Negative LEU/UL (Negative); Nitrate Urine Negative (Negative); Protein Urine Negative (Negative); Urobilinogen Urine Negative mg/dL (<2.0)
[2020-01-26 14:11] LABS: Alanine Aminotransferase 15 U/L (4-50); Albumin Level 3.2 g/dL (3.5-5.1); Alkaline Phosphatase 70 U/L (38-126); Anion Gap 8 mmol/L (8-16); Aspartate Amino Transferase 28 U/L (17-59); Bilirubin,Total 0.4 mg/dL (0.2-1.3); Blood Urea Nitrogen 15 mg/dL (9-20); Calcium 8.9 mg/dL (8.4-10.2); Carbon Dioxide 29 mmol/L (22-30); Chloride 92 mmol/L (98-107); Estimated CRCL calculation 39 ml/min; Estimated Glomerular Filt Rate 53; Glucose 117 mg/dL (75-110); Lipase 94 U/L (23-300); Potassium 3.5 mmol/L (3.4-5.0); Sodium 129 mmol/L (137-145)
--- NOTE | 2020-01-26 14:11 | PCOTNOTE ---
Unable to complete OT evaluation at this time as patient not yet admitted to floor. Will attempt OT evaluation at later time.
[2020-01-26 14:18] LABS: CRP 7.8 mg/dL (<1.0)
[2020-01-26 14:23] LABS: NT Pro B Type Natriuretic Pept 462 PG/ML (5-100)
[2020-01-26 14:30] LABS: Erythrocyte Sedimentation Rate > 140 mm/hr (0-20)
--- NOTE | 2020-01-26 15:08 | PCCCNOTE ---
list of Intermediate facilities given to patient and . First choice would be [facility]. Pt lives in [place] and would prefer a facility in [place], [place], [place] or [facility]
[2020-01-26] MEDS: MORPHINE SULFATE 4 MG/ML INJ IV PUSH ×3 (15:26→20:31)
[2020-01-26] MEDS: LIDOCAINE HCL 2% GEL UROJET 10 ML PKG MUCOUS MEM (18:52)
[2020-01-26] MEDS: SODIUM CHLORIDE 0.9% IV 1,000 ML 125 ML IV CONT (18:52)
--- NOTE | 2020-01-26 20:16 | PC.NURSE ---
This patient, Declan Allen, was admitted to 3 [facility] Surg Room 304-01. Patient/family oriented to hospital policies and general routines including ID bracelet, bed and alarms, visiting hours, pain management, procedures, bathroom and other care routines, personal items, smoking policy, room service/diet, and visiting hours. Valuables list has been completed. Information on how to activate the Rapid Response Team has been discussed. Patient/Family are encouraged to report perceived risks to care and to ask questions if they do not understand what they are told or what they should do. TIME OF ARRIVAL 1800
[2020-01-26] MEDS: METOPROLOL TARTRATE 50 MG TAB PO (23:29)
--- NOTE | 2020-01-27 00:23 | PM.IMHP ---
H&P: HPI History of Present Illness Date/Time: 01/27/20 00:23 Chief complaint: uncontrolled back pain,hyponatremia,snf placement Narrative: Declan Allen is a 84 year old male who recently was at [facility] and had a bone biopsy. 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 He was seeing Dr. wang. He has a PICC line. He is no fever chills. He has increased lower back pain. His been on oxycodone vision is decreased ability the last 2 weeks due to the worsening pain is at increased edema to his lower extremities. He has not fallen or had an trauma to his back. He has had no focal weakness. The patient is currently on vancomycin. The patient was given morphine, he was given a dose of vancomycin in the emergency room. H&H is 9.2 in 28.7. In August of this year was 11.2 and 33.5. Thoracic spine x-ray was read as endplate erosion lungs and height loss of l the vertebral bodies and disc space of T7 and T8, consistent with diskitis. Sodium 129 which is about his baseline. Was read as right midline PICC tip is in the mid superior vena cava. Mild bibasilar atelectasis. I have spent approximately 1 hour. Date of service is 01/26/2020 Review of Systems Review of Systems: All systems reviewed & are unremarkable except as noted in HPI and below Constitutional: Constitutional: Reports as per HPI and Reports no additional constitutional complaints Eyes: Eyes: Reports as per HPI and Reports no additional eye complaints ENT: Reports system reviewed and no additional complaints, except as documented and Reports Normal hearing present Cardiovascular: Cardiovascular: Reports no additional cardiovascular complaints Respiratory: Respiratory: Reports no additional respiratory complaints and Reports no additional respiratory complaints Gastrointestinal: Gastrointestinal: Reports as per HPI and Reports no additional gastrointestinal complaints Musculoskeletal: Musculoskeletal: Reports no additional musculoskeletal complaints Integumentary/Breasts: Skin/Breast: Reports system reviewed and no additional complaints, except as docu and Reports as per HPI Neurologic: Reports system reviewed and no additional complaints, except as documented, Reports as per HPI and Reports Normal hearing present Psychiatric: Psychiatric: Reports no additional psychiatric complaints and Reports as per HPI Endocrine: Endocrine: Reports no additional endocrine complaints Hematologic/Lymphatic: Hematologic/Lymphatic: Reports no additional hematologic/lymphatic complaints Allergic/Immunologic: Allergic/Immunologic: Reports no additional allergic/immunologic complaints PMFSH Past Medical History Medical History (Updated 01/27/20 @ 00:44 by Jenny Marroquin NP) Arthritis Asthma Back pain BPH w urinary obs/LUTS CAD (coronary artery disease) Chronic hyponatremia GERD (gastroesophageal reflux disease) Gout HLD (hyperlipidemia) HTN (hypertension) Surgical History Surgical History (Updated 01/27/20 @ 00:36 by Jenny Marroquin NP) H/O heart artery stent 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 Social History Social History (Updated 01/27/20 @ 00:40 by Jenny Marroquin NP) Social History: Patient lives with his . He used to drink beer pretty heavy but quit drinking beer several years ago. Patient never smoked. The patient has 1 biological child that is in [place]. He has 3 step children that a nearby. The patient desires to be a full code. He denies any marijuana or substance abuse. Lifelong nonsmoker. 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
[2020-01-27] MEDS: CYCLOBENZAPRINE HCL 5 MG TABLET PO (02:21)
[2020-01-27] MEDS: SODIUM CHLORIDE 0.9% IV 1,000 ML 125 ML IV CONT ×3 (04:00→16:26)
[2020-01-27] MEDS: methylPREDNISolone SOD SUCC 125 MG VIAL 60 MG IV PUSH ×3 (05:39→21:47)
[2020-01-27 06:00] VITALS: BP 145/84; PULSE 72; RESP 16; TEMP 36.6; O2SAT 92
[2020-01-27] MEDS: CLOPIDOGREL BISULFATE 75 MG TABLET PO (09:33)
[2020-01-27] MEDS: PANTOPRAZOLE 40 MG TABLET PO ×2 (09:33→16:27)
[2020-01-27] MEDS: FINASTERIDE 5 MG TABLET PO (09:33)
[2020-01-27] MEDS: METOPROLOL TARTRATE 50 MG TAB PO ×2 (09:33→20:30)
[2020-01-27] MEDS: ROSUVASTATIN 10 MG TABLET 40 MG PO (09:34)
[2020-01-27] MEDS: TAMSULOSIN HCL 0.4 MG CAPSULE PO (09:34)
--- NOTE | 2020-01-27 09:35 | PCOTNOTE ---
Attempted OT evaluation. Patient declined due to pain with all movement. Patient receiving pain medications at this time, states he will try later. Will continue to attempt.
[2020-01-27 13:34] LABS: SARS-CoV-2 RNA PCR Negative
[2020-01-27 14:00] VITALS: BP 121/48; PULSE 75; RESP 18; TEMP 36.4; O2SAT 98
[2020-01-27] MEDS: CENTRAL LINE FLUSH 10 ML IV PUSH ×2 (14:58→21:48)
--- NOTE | 2020-01-27 15:12 | PM.IMPN ---
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 He was seen by Dr. Shay before. Pt has had one week of Iv abx at home for OM spine and is due another 7 weeks. Pt was having too much back pain at home so his brought him. Pt will probably need rehab placement . Xray of thoraric spine showing endplate erosions and height loss of the vertebral bodies and disc space at T7-T8, consistent with discitis here mRI not ordered again. will try to find MRI from [place]. (2) BPH w urinary obs/LUTS: Code(s): N40.1 - Benign prostatic hyperplasia with lower urinary tract symptoms; N13.8 - Other obstructive and reflux uropathy Status: Chronic Assessment and Plan: Continue with Proscar.pt is on CBI presently (3) HTN (hypertension): Qualifiers: Hypertension type: essential hypertension Qualified Code(s): I10 - Essential (primary) hypertension Code(s): I10 - Essential (primary) hypertension Status: Chronic Assessment and Plan: Continue with metoprolol. (4) CAD (coronary artery disease): Qualifiers: Associated angina: without angina Coronary Disease-Associated Artery/Lesion type: [place] artery [place] vs. transplanted heart: [place] heart Qualified Code(s): I25.10 - Atherosclerotic heart disease of [place] coronary artery without angina pectoris Code(s): I25.10 - Atherosclerotic heart disease of [place] coronary artery without angina pectoris Status: Acute Assessment and Plan: Continue with aspirin and Plavix and metoprolol. (5) Chronic hyponatremia: Code(s): E87.1 - Hypo-osmolality and hyponatremia Status: Chronic Assessment and Plan: Patient is at his baseline unsure of etiology. He stated he used to drink heavily when he was younger but not recently. In the is not on any diuretics (6) HLD (hyperlipidemia): Code(s): E78.5 - Hyperlipidemia, unspecified Status: Chronic Assessment and Plan: Continue with Crestor Subjective Date/time seen: 01/27/20 15:12 Interval history: Tiffany is a 84 year old male who recently was at [facility] and had a bone biopsy. 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 Long discussion with his on the phone. Pt has had one week of Iv abx for OM spine at home and is due another 7 weeks. Pt was having too much back pain at home so she brought him. Pt will probably need rehab. Xray of thoraric spine showing endplate erosions and height loss of the vertebral bodies and disc space at T7-T8, consistent with discitis. mRI not ordered again. Pt had problems with BPH in august he is presently on CBI treatment, I will consult urology as I am unsure if he needs a TURP soon. Review of Systems Review of Systems: ROS unobtainable: Yes unobtainable due to medical condition and other (Pt is [place] ) Cardiovascular: Cardiovascular: Reports no additional cardiovascular complaints Respiratory: Respiratory: Reports no additional respiratory complaints and Reports no additional respiratory complaints Gastrointestinal: Gastrointestinal: Reports as per HPI and Reports no additional gastrointestinal complaints Exam Const: General: alert Nutritional Appearance: average body habitus Chest: Chest palpation & inspection: normal inspection of the chest Resp: Effort & Inspection: normal respiratory effort Auscultation: clear to auscultation bilaterally Percussion: percussion normal Cardio: Palpation: normal PMI Rate: regular rate Rhythm: regular rhythm Heart sounds: S1 normal heart sound present and S2 normal heart sound present Peripheral pulses: Peripheral pulses 2+ throughout GI: Inspection: normal to inspection Auscultation: normal bowel sounds Back/Spine/Pelvis: Back: no CVA tenderness Thoracic/Lumbar Spine: thoracic
[2020-01-27 20:27] VITALS: BP 119/65; PULSE 73; O2SAT 95
[2020-01-27 20:30] VITALS: PULSE 73
[2020-01-27 22:00] VITALS: BP 118/50; PULSE 66; RESP 16; TEMP 37.1; O2SAT 98
[2020-01-28 04:33] LABS: Hematocrit 25.9 % (42.0-52.0); Hemoglobin 8.4 g/dL (14.0-18.0); Mean Corpuscular HGB Conc 32.4 g/dl (32-36); Mean Corpuscular Hemoglobin 26.8 pg (26-34); Mean Corpuscular Volume 82.7 fl (80-100); Mean Platelet Volume 9.5 fl (7.4-10.4); Platelet Count Result 207 k/mm3 (150-375); Red Blood Count 3.13 M/mm3 (4.6-6.20); Red Cell Distribution Width 13.9 % (11.5-14.5); White Blood Count 9.6 K/mm3 (4.5-10.0)
[2020-01-28 04:47] LABS: Anion Gap 5 mmol/L (8-16); Blood Urea Nitrogen 19 mg/dL (9-20); Calcium 8.2 mg/dL (8.4-10.2); Carbon Dioxide 27 mmol/L (22-30); Chloride 99 mmol/L (98-107); Estimated CRCL calculation 46 ml/min; Estimated Glomerular Filt Rate > 60; Glucose 151 mg/dL (75-110); Potassium 3.5 mmol/L (3.4-5.0); Sodium 131 mmol/L (137-145)
[2020-01-28] MEDS: SODIUM CHLORIDE 0.9% IV 1,000 ML 125 ML IV CONT ×3 (04:49→21:36)
[2020-01-28] MEDS: methylPREDNISolone SOD SUCC 125 MG VIAL 60 MG IV PUSH ×3 (05:25→21:35)
[2020-01-28] MEDS: CENTRAL LINE FLUSH 10 ML IV PUSH ×3 (05:26→21:36)
[2020-01-28 06:00] VITALS: BP 130/47; PULSE 64; RESP 18; TEMP 36.2; O2SAT 97
[2020-01-28 08:00] VITALS: O2SAT 92
[2020-01-28] MEDS: PANTOPRAZOLE 40 MG TABLET PO ×2 (08:18→16:49)
[2020-01-28] MEDS: CLOPIDOGREL BISULFATE 75 MG TABLET PO (08:18)
[2020-01-28] MEDS: TAMSULOSIN HCL 0.4 MG CAPSULE PO (08:18)
[2020-01-28] MEDS: FINASTERIDE 5 MG TABLET PO (08:18)
[2020-01-28] MEDS: ROSUVASTATIN 10 MG TABLET 40 MG PO (08:18)
[2020-01-28] MEDS: METOPROLOL TARTRATE 50 MG TAB PO ×2 (08:18→21:35)
[2020-01-28] MEDS: ASPIRIN 81 MG ENTERIC TABLET PO (13:57)
[2020-01-28 14:00] VITALS: BP 134/66; PULSE 81; RESP 18; TEMP 36.3; O2SAT 99
--- NOTE | 2020-01-28 14:42 | PM.IMPN ---
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 He was seen by Dr. Shay before. Pt has had one week of Iv abx at home for OM spine and is due another 7 weeks. Pt was having too much back pain at home so his brought him. Pt will probably need rehab placement . Xray of thoraric spine showing endplate erosions and height loss of the vertebral bodies and disc space at T7-T8, consistent with discitis here mRI not ordered again. will try to find MRI from [place]. (2) BPH w urinary obs/LUTS: Code(s): N40.1 - Benign prostatic hyperplasia with lower urinary tract symptoms; N13.8 - Other obstructive and reflux uropathy Status: Chronic Assessment and Plan: Continue with Proscar.pt is on CBI presently (3) HTN (hypertension): Qualifiers: Hypertension type: essential hypertension Qualified Code(s): I10 - Essential (primary) hypertension Code(s): I10 - Essential (primary) hypertension Status: Chronic Assessment and Plan: Continue with metoprolol. (4) CAD (coronary artery disease): Qualifiers: Coronary Disease-Associated Artery/Lesion type: [place] artery [place] vs. transplanted heart: [place] heart Associated angina: without angina Qualified Code(s): I25.10 - Atherosclerotic heart disease of [place] coronary artery without angina pectoris Code(s): I25.10 - Atherosclerotic heart disease of [place] coronary artery without angina pectoris Status: Acute Assessment and Plan: Continue with aspirin and Plavix and metoprolol. (5) Chronic hyponatremia: Code(s): E87.1 - Hypo-osmolality and hyponatremia Status: Chronic Assessment and Plan: Patient is at his baseline unsure of etiology. He stated he used to drink heavily when he was younger but not recently. In the is not on any diuretics (6) HLD (hyperlipidemia): Code(s): E78.5 - Hyperlipidemia, unspecified Status: Chronic Assessment and Plan: Continue with Crestor Subjective Date/time seen: 01/28/20 14:42 Interval history: Tiffany is a 84 year old male who recently was at [place] and had a bone biopsy. 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 History pt has had one week of Iv abx for OM spine at home and is due another 7 weeks. Pt was having too much back pain at home so she brought him. Pt will probably need rehab. Xray of thoraric spine showing endplate erosions and height loss of the vertebral bodies and disc space at T7-T8, consistent with discitis. I will consult urology as I am unsure if he needs a TURP soon. Review of Systems Review of Systems: ROS unobtainable: Yes other (Pt is RIN[place] pleasant but poor historian ) Exam Narrative: Exam Narrative: Const: General: alert Nutritional Appearance: average body habitus Chest: Chest palpation & inspection: normal inspection of the chest Resp: Effort & Inspection: normal respiratory effort Auscultation: clear to auscultation bilaterally Percussion: percussion normal Cardio: Palpation: normal PMI Rate: regular rate Rhythm: regular rhythm Heart sounds: S1 normal heart sound present and S2 normal heart sound present Peripheral pulses: Peripheral pulses 2+ throughout GI: Inspection: normal to inspection Auscultation: normal bowel sounds Back/Spine/Pelvis: Back: no CVA tenderness Thoracic/Lumbar Spine: thoracic and lumbar spine normal to inspection Skin: General skin exam: normal color Lesions: no lesions Rashes: no rashes Trauma: no lacerations or abrasions Wounds: no wounds Hair: normal Nails: normal Psych: Other: Hard of hearing and difficult to communicate with. Objective Data Vital Signs Vital Signs: Vital Signs - 24 hr 01/27/20 20:27 01/27/20 20:30 01/27/20 22:00 Temperature 37.1 C Pulse Rate 73 73 6
[2020-01-28 21:35] VITALS: PULSE 80
[2020-01-28 22:00] VITALS: BP 127/64; PULSE 73; RESP 20; TEMP 36.4; O2SAT 98
[2020-01-29] MEDS: methylPREDNISolone SOD SUCC 125 MG VIAL 60 MG IV PUSH (05:13)
[2020-01-29] MEDS: CENTRAL LINE FLUSH 10 ML IV PUSH ×3 (05:14→21:47)
[2020-01-29] MEDS: SODIUM CHLORIDE 0.9% IV 1,000 ML 125 ML IV CONT (05:14)
[2020-01-29 06:00] VITALS: BP 123/64; PULSE 75; RESP 18; TEMP 36.6; O2SAT 100
[2020-01-29 06:09] LABS: Estimated CRCL calculation 46 ml/min; Estimated Glomerular Filt Rate > 60
--- NOTE | 2020-01-29 07:14 | WPDURCON ---
Assessment and Plan Assessment and plan (1) BPH w urinary obs/LUTS: Code(s): N40.1 - Benign prostatic hyperplasia with lower urinary tract symptoms; N13.8 - Other obstructive and reflux uropathy Status: Chronic Assessment and Plan: Given patient's known underlying BPH with history of incomplete emptying anticipate he have difficulty voiding, given his other acute ongoing medical problems and expected difficulty either standing or ambulating to the bathroom to void. Had a long discussion with the patient we collectively agreed to leave the indwelling catheter for several days, and till he is doing better from a medical standpoint. Urology Consult Note HPI Date Seen: 01/29/20 Requesting Physician: Erika Fernandes MD Primary Care Provider: Cosme Travis, Consult Narrative Narrative: Declan Allen is a 84 year old male with a known long history of BPH that responds marginally to tamsulosin. He has been seen in our office on several occasions and typically carries residual volumes of 125-150 cc. During the course of this admission for osteomyelitis of the spine he has developed urinary retention and a Cole catheter was placed without difficulty. He is comfortable with a catheter and draining clear urine at this time. Review of Systems Cardiovascular: Cardiovascular: Denies chest pain, Denies lightheadedness, Denies palpitations and Denies dyspnea Respiratory: Respiratory: Denies dyspnea Gastrointestinal: Gastrointestinal: Denies diarrhea, Denies nausea and Denies vomiting Genitourinary: Genitourinary: Denies hematuria and Denies dysuria Endocrine: Endocrine: Denies palpitations PMFSH Past Medical History Medical History Arthritis Asthma Back pain BPH w urinary obs/LUTS CAD (coronary artery disease) Chronic hyponatremia GERD (gastroesophageal reflux disease) Gout HLD (hyperlipidemia) HTN (hypertension) Surgical History Surgical History H/O heart artery stent 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 Social History Social History Social History: Patient lives with his . He used to drink beer pretty heavy but quit drinking beer several years ago. Patient never smoked. The patient has 1 biological child that is in [place]. He has 3 step children that a nearby. The patient desires to be a full code. He denies any marijuana or substance abuse. Lifelong nonsmoker. Smoking status: Never smoker Alcohol intake: former Substance use: never Substance use type: does not use Gender identity (if verbalized by the patient): Male Spiritual care concerns: No Agree to blood products: Yes Meds Home Medications and Allergies Home Medications Medication Instructions Recorded Confirmed Type clopidogrel 75 mg PO DAILY 08/27/19 01/26/20 History finasteride 5 mg PO DAILY 08/27/19 01/26/20 History omeprazole 40 mg PO DAILY 08/27/19 01/26/20 History rosuvastatin 40 mg PO DAILY 08/27/19 01/26/20 History tamsulosin 0.4 mg PO DAILY 08/27/19 01/26/20 History metoprolol tartrate 50 mg PO Q12HR #60 tablet 09/04/19 01/26/20 Rx albuterol sulfate 1 puff INHALATION BID PRN 01/26/20 01/26/20 History aspirin 81 mg/kg PO DAILY 01/26/20 01/26/20 History heparin lock flush (porcine) 50 unit IV DAILY 01/26/20 01/26/20 History sodium chloride 0.9 % (flush) See Rx Instructions .ROUTE .COMPLEX 01/26/20 01/26/20 History [Normal Saline Flush] vancomycin in 0.9 % sodium chl 1.25 g IV DAILY 01/26/20 01/26/20 History Allergies Allergy/AdvReac Type Severity Reaction Status Date / Time No Known A
[2020-01-29 08:19] VITALS: PULSE 84
[2020-01-29] MEDS: CLOPIDOGREL BISULFATE 75 MG TABLET PO (08:19)
[2020-01-29] MEDS: PANTOPRAZOLE 40 MG TABLET PO ×2 (08:19→18:13)
[2020-01-29] MEDS: METOPROLOL TARTRATE 50 MG TAB PO ×2 (08:19→21:36)
[2020-01-29] MEDS: ASPIRIN 81 MG ENTERIC TABLET PO (08:19)
[2020-01-29] MEDS: ROSUVASTATIN 10 MG TABLET 40 MG PO (08:19)
[2020-01-29] MEDS: TAMSULOSIN HCL 0.4 MG CAPSULE PO (08:19)
[2020-01-29] MEDS: FINASTERIDE 5 MG TABLET PO (08:23)
--- NOTE | 2020-01-29 08:46 | WPDINFPN2 ---
Progress Note: A&P Assessment and Plan (1) Acute osteomyelitis of thoracic spine: Code(s): M46.24 - Osteomyelitis of vertebra, thoracic region Status: Acute Assessment and Plan: 1. Acute OM of T spine, CNSS is the likely pathogen 2. BPH and urinary retention REC Vanc # 8 / 42 days, same q24hr dosing. Would stop steroids as soon as possible. Subjective Date/time seen: 01/29/20 08:46 Objective Data Vital Signs Vital Signs: Vital Signs - 24 hr 01/28/20 14:00 01/28/20 21:35 01/28/20 22:00 Temperature 36.3 C L 36.4 C L Pulse Rate 81 80 73 Respiratory Rate 18 20 Blood Pressure 134/66 127/64 Pulse Oximetry 99 98 01/29/20 06:00 01/29/20 08:19 Temperature 36.6 C Pulse Rate 75 84 Respiratory Rate 18 Blood Pressure 123/64 Pulse Oximetry 100 Intake/Output Intake/Output: Intake & Output 01/26/20 01/27/20 01/28/20 01/29/20 23:59 23:59 23:59 23:59 Intake Total 250 5140 4670 1400 Output Total 2300 1200 1000 Balance 250 2840 3470 400 Meds/Results Medications: Active Medications Generic Name Dose Route Start Last Admin Trade Name Freq PRN Reason Stop Dose Admin Acetaminophen 650 mg 01/26/20 14:56 Tylenol Tablet PO Q4H PRN Mild Pain (1-3) or Fever Hydrocodone Bitart/Acetaminophen 1 tab 01/26/20 14:56 01/28/20 21:35 [place] 5-325 Mg PO 1 tab Q4H PRN Administration Pain Rated 4-6 Albuterol 1 puff 01/26/20 22:28 Proventil Hfa INHALATION BID PRN Shortness Of Breath Or Wheezing Aspirin 81 mg 01/27/20 09:00 01/29/20 08:19 Aspirin Ec PO 81 mg DAILY SANDRA Administration Clopidogrel Bisulfate 75 mg 01/27/20 09:00 01/29/20 08:19 Plavix PO 75 mg DAILY SANDRA Administration Cyclobenzaprine HCl 5 mg 01/26/20 22:47 01/27/20 02:21 Flexeril PO 5 mg Q8H PRN Administration Muscle Spasm Finasteride 5 mg 01/27/20 09:00 01/29/20 08:23 Proscar PO 5 mg DAILY SANDRA Administration Hydromorphone HCl 0.5 mg 01/26/20 22:47 01/27/20 05:40 Dilaudid Inj IV PUSH 0.5 mg Q3H PRN Administration Pain Rated 7-10 Sodium Chloride 1,000 mls @ 125 mls/hr 01/26/20 15:00 01/29/20 05:14 Normal Saline Iv IV CONT 125 mls/hr .Q8H SANDRA Administration Vancomycin HCl 1,250 mg in 250 mls @ 200 mls/hr 01/27/20 15:00 01/28/20 15:33 Vancomycin 1,250 Mg/D5w 250 Ml 15.0602 mg/kg (1250 mg) 200 mls/hr IVPB Administration Q24H SANDRA Methylprednisolone Sodium Succinate 60 mg 01/27/20 06:00 01/29/20 05:13 Solu-Medrol IV PUSH 60 mg Q8HR SANDRA Administration Metoprolol Tartrate 50 mg 01/26/20 22:35 01/29/20 08:19 Lopressor PO 50 mg Q12HR SANDRA Administration Ondansetron HCl 4 mg 01/26/20 14:56 Zofran Inj IV PUSH Q4H PRN Nausea Pantoprazole Sodium 40 mg 01/27/20 09:00 01/29/20 08:19 Protonix PO 40 mg BID SANDRA Administration Rosuvastatin Calcium 40 mg 01/27/20 09:00 01/29/20 08:19 Crestor PO 40 mg DAILY SANDRA Administration Sodium Chloride 10 ml 01/27/20 01:40 Normal Saline Flush IV PUSH PRN PRN IV ACCESS Sodium Chloride 10 ml 01/27/20 14:00 01/29/20 05:14 Central Line Flush IV PUSH 10 ml Q8HR SANDRA Administration Sodium Chloride 10 ml 01/27/20 12:32 Central Line Flush IV PUSH PRN PRN with TPN bag changes Sodium Chloride 20 ml 01/27/20 12:32 Central Line Flush IV PUSH PRN PRN after blood draws Tamsulosin HCl 0.4 mg 01/27/20 09:00 01/29/20 08:19 Flomax PO 0.4 mg DAILY SANDRA Administration Radiology Results: ITS Impressions Chest X-Ray 01/26/20 12:18 IMPRESSION: 1. Right M the PICC line tip at the mid superior vena cava. 2. Mild bibasilar atelectasis. Thoracic Spine X-Ray 01/26/20 13:09 IMPRESSION: 1. Endplate erosions and height loss of the vertebral bodies and disc space at T7-T8, consistent with discitis. Venous Doppler Study 01/27/20 11:07 IMPRESSION:
[2020-01-29 09:08] LABS: Anion Gap 4 mmol/L (8-16); Blood Urea Nitrogen 22 mg/dL (9-20); Calcium 8.1 mg/dL (8.4-10.2); Carbon Dioxide 27 mmol/L (22-30); Chloride 101 mmol/L (98-107); Estimated CRCL calculation 46 ml/min; Estimated Glomerular Filt Rate > 60; Glucose 137 mg/dL (75-110); Potassium 3.5 mmol/L (3.4-5.0); Sodium 132 mmol/L (137-145)
--- NOTE | 2020-01-29 12:00 | CONS_ITS ---
DATE OF CONSULTATION: REASON FOR CONSULTATION: Acute osteomyelitis, thoracic spine. HISTORY OF PRESENT ILLNESS: The patient is an 84-year-old male who was here in the hospital in August with a coagulase-negative staph urinary tract infection with bacteremia. He was treated accordingly with IV followed by oral antibiotics. He does not have a chronic Cole, but one was placed yesterday for urinary retention. He has known urinary retention and BPH. He developed thoracic back pain about 6 weeks before admission, which has become progressive since then. MRI revealed suggestion of diskitis and osteomyelitis at T7 and T8. He was seen by a spine surgeon and then myself in the office. He was started on vancomycin after investigation, which included a biopsy of the thoracic body at [facility]. This revealed acute and chronic inflammation. Gram stain of the biopsy specimen did not show any organisms. I have been unable to ascertain if a culture was sent. He was started on vancomycin on January 21 and remains on that now. However, his pain persisted and he presented to the hospital on the and was admitted. Blood cultures were redone. He also had outpatient blood cultures in December and these have been final no growth, drawn before institution of antibiotics. The patient does have pain radiating into the anterior lower thorax. No weakness in the lower extremities. He uses a walker for stability, is able to empty his bladder. No fever, chills, or sweats. No other recent antibiotics. ALLERGIES: NONE KNOWN. HABITS: No tobacco. No alcohol. No illicit drugs. PRESENT MEDICATIONS: Vancomycin 1.25 g daily. He has also been started on steroids here. PAST MEDICAL HISTORY: Coronary artery disease, CABG, inguinal hernia repair, hypertension, hyperlipidemia, gout, GERD, chronic hyponatremia, asthma, degenerative arthritis. REVIEW OF SYSTEMS: 14-point review is otherwise negative except constipation. FAMILY HISTORY: Not pertinent to his present illness. SOCIAL HISTORY: He is , retired, lives here in [place]. PHYSICAL EXAMINATION: GENERAL: This is an elderly male, who appears his actual age. No acute distress. BACK: He has thoracic kyphosis. The back has no sinus tract erythema, focal tenderness or warmth. VITAL SIGNS: Afebrile since arrival. Pulse 75, respirations 18, 123/64, 100% on room air. SKIN: Warm and dry. No rashes. EENT: The conjunctivae are normal. Pupils equal, round, and reactive to light. The oropharynx, oral mucosa normal. NECK: No masses, thyromegaly, or meningismus. LUNGS: Clear to auscultation and percussion. CARDIAC: Regular rate and rhythm. No murmurs or gallops. ABDOMEN: Nontender soft, nondistended. No organomegaly. No mass. EXTREMITIES: He has some stasis erythema over the distal left leg and 2+ nonpitting edema, both distal legs. LABORATORY DATA: Reviewed. Blood cultures, no growth so far. His white count is 9.6, hemoglobin 8.4, platelets are 207. His sodium is 131, glucose 151, calcium is 8.2. CRP is 7.8, albumin 3.2. His urinalysis is normal. Vancomycin trough 10. His COVID assay, obtained for unknown reasons, was nonreactive. RADIOLOGY: Not repeated. ASSESSMENT: 1. Acute osteomyelitis of the thoracic spine at T7-T8 with intervening diskitis. Alternative etiologies for his MRI findings are unlikely and I think his histopathology confirms the clinical impression. I think this is most likely due to his staphylococcus bacteremia in August, in turn due to urinary tract infection, which then seeded the disk space and then spread over several months' time to the adjacent bodies. 2. Benign prostatic hyperplasia and urinary retention. 3. Coronary artery disease. 4. Severe pain due to #1.
[2020-01-29] MEDS: predniSONE 20 MG TABLET 60 MG PO (12:21)
[2020-01-29] MEDS: LIDOCAINE 5% PATCH 2 PATCH TRANSDERM (12:21)
[2020-01-29 14:00] VITALS: BP 128/53; PULSE 79; RESP 18; TEMP 36.4; O2SAT 100
--- NOTE | 2020-01-29 17:43 | PM.IMPN ---
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 He was seen by Dr. Shay before. Pt has had one week of Iv abx at home for OM spine and is due another 7 weeks. Pt was having too much back pain at home so his brought him. Pt will probably need rehab placement . Xray of thoraric spine showing endplate erosions and height loss of the vertebral bodies and disc space at T7-T8, consistent with discitis here mRI not ordered again. will try to find MRI from [place]. 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 He was seen by Dr. Shay before. Pt has had one week of Iv abx at home for OM spine and is due another 7 weeks. Pt was having too much back pain at home so his brought him. Pt will probably need rehab placement . Xray of thoraric spine showing endplate erosions and height loss of the vertebral bodies and disc space at T7-T8, consistent with discitis, Patient is seen by Dr. shay and suspected osteomyelitis of the spine recommending vancomycin , patient was started on steroid for discitis and pain control however this may exacerbate infection, will taper it down as soon as possible, patient states pain in the back is persist specially after physical therapy will apply Lidoderm patch to help control the pain, may discharge the patient to [facility] for rehab and receives IV antibiotics. patient denies any chest pain shortness of breath palpitation fever or chills, patient also has a BPH and lower urinary tract symptoms seen by urologist recommended to continue Cole catheter until further evaluation (2) BPH w urinary obs/LUTS: Code(s): N40.1 - Benign prostatic hyperplasia with lower urinary tract symptoms; N13.8 - Other obstructive and reflux uropathy Status: Chronic Assessment and Plan: Continue with Proscar.pt is on CBI presently (3) HTN (hypertension): Qualifiers: Hypertension type: essential hypertension Qualified Code(s): I10 - Essential (primary) hypertension Code(s): I10 - Essential (primary) hypertension Status: Chronic Assessment and Plan: Continue with metoprolol. (4) CAD (coronary artery disease): Qualifiers: Coronary Disease-Associated Artery/Lesion type: [place] artery [place] vs. transplanted heart: [place] heart Associated angina: without angina Qualified Code(s): I25.10 - Atherosclerotic heart disease of [place] coronary artery without angina pectoris Code(s): I25.10 - Atherosclerotic heart disease of [place] coronary artery without angina pectoris Status: Acute Assessment and Plan: Continue with aspirin and Plavix and metoprolol. (5) Chronic hyponatremia: Code(s): E87.1 - Hypo-osmolality and hyponatremia Status: Chronic Assessment and Plan: Patient is at his baseline unsure of etiology. He stated he used to drink heavily when he was younger but not recently. 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 He was seen by Dr. Shay before. Pt has had one week of Iv abx at home for OM spine and is due another 7 weeks. Pt was having too much back pain at home so his brought him. Pt will probably need rehab placement . Xray of thoraric spine showing endplate erosions and height loss of the vertebral bodies and disc space at T7-T8, consistent with discitis, Patient is seen by Dr. shay and suspected osteomyelitis of the spine recommending vancomycin , patient was started on steroid for discitis and pain control however this may exacerbate infection, will taper it down
[2020-01-29 21:36] VITALS: PULSE 88
[2020-01-29 22:00] VITALS: BP 133/52; PULSE 69; RESP 18; TEMP 36.3; O2SAT 97
[2020-01-30 05:52] VITALS: BP 111/57; PULSE 59; RESP 18; TEMP 36.4; O2SAT 99
[2020-01-30] MEDS: CENTRAL LINE FLUSH 10 ML IV PUSH ×2 (06:04→15:51)
[2020-01-30] MEDS: predniSONE 20 MG TABLET 60 MG PO (09:15)
[2020-01-30] MEDS: CLOPIDOGREL BISULFATE 75 MG TABLET PO (09:16)
[2020-01-30] MEDS: ASPIRIN 81 MG ENTERIC TABLET PO (09:16)
[2020-01-30] MEDS: FINASTERIDE 5 MG TABLET PO (09:16)
[2020-01-30 09:17] VITALS: PULSE 83
[2020-01-30] MEDS: METOPROLOL TARTRATE 50 MG TAB PO (09:17)
[2020-01-30] MEDS: LIDOCAINE 5% PATCH 2 PATCH TRANSDERM (09:17)
[2020-01-30] MEDS: PANTOPRAZOLE 40 MG TABLET PO ×2 (09:20→17:12)
[2020-01-30] MEDS: TAMSULOSIN HCL 0.4 MG CAPSULE PO (09:20)
[2020-01-30] MEDS: ROSUVASTATIN 10 MG TABLET 40 MG PO (09:20)
--- NOTE | 2020-01-30 10:09 | PM.DS ---
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 He was seen by Dr. Shay before. Pt has had one week of Iv abx at home for OM spine and is due another 7 weeks. Pt was having too much back pain at home so his brought him. Pt will probably need rehab placement . Xray of thoraric spine showing endplate erosions and height loss of the vertebral bodies and disc space at T7-T8, consistent with discitis here mRI not ordered again. will try to find MRI from [place]. 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 He was seen by Dr. Shay before. Pt has had one week of Iv abx at home for OM spine and is due another 7 weeks. Pt was having too much back pain at home so his brought him. Pt will probably need rehab placement . Xray of thoraric spine showing endplate erosions and height loss of the vertebral bodies and disc space at T7-T8, consistent with discitis, Patient is seen by Dr. shay and suspected osteomyelitis of the spine recommending vancomycin , patient was started on steroid for discitis and pain control however this may exacerbate infection, will taper it down as soon as possible, patient states pain in the back is persist specially after physical therapy will apply Lidoderm patch to help control the pain, [facility] the [facility] and receives IV antibiotics. patient denies any chest pain shortness of breath palpitation fever or chills, patient also has a BPH and lower urinary tract symptoms seen by urologist recommended to continue Cole catheter until further evaluation (2) BPH w urinary obs/LUTS: Code(s): N40.1 - Benign prostatic hyperplasia with lower urinary tract symptoms; N13.8 - Other obstructive and reflux uropathy Status: Chronic Assessment and Plan: Continue with Proscar.pt is on CBI presently (3) HTN (hypertension): Qualifiers: Hypertension type: essential hypertension Qualified Code(s): I10 - Essential (primary) hypertension Code(s): I10 - Essential (primary) hypertension Status: Chronic Assessment and Plan: Continue with metoprolol. (4) CAD (coronary artery disease): Qualifiers: Coronary Disease-Associated Artery/Lesion type: [place] artery [place] vs. transplanted heart: [place] heart Associated angina: without angina Qualified Code(s): I25.10 - Atherosclerotic heart disease of [place] coronary artery without angina pectoris Code(s): I25.10 - Atherosclerotic heart disease of [place] coronary artery without angina pectoris Status: Acute Assessment and Plan: Continue with aspirin and Plavix and metoprolol. (5) Chronic hyponatremia: Code(s): E87.1 - Hypo-osmolality and hyponatremia Status: Chronic Assessment and Plan: Patient is at his baseline unsure of etiology. He stated he used to drink heavily when he was younger but not recently. In the is not on any diuretics (6) HLD (hyperlipidemia): Code(s): E78.5 - Hyperlipidemia, unspecified Status: Chronic Assessment and Plan: Continue with Crestor DS: Summary Hospital Course Reason for hospitalization: Chief complaint: uncontrolled back pain,hyponatremia,snf placement Narrative: Declan Allen is a 84 year old male who recently was at [place] and had a bone biopsy. 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 He was seeing Dr. shay. He has a PICC line. He is no fever chills. He has increased lower back pain. His been on oxycodone vision is decreased ability the last 2 weeks due to the worsening pain is at increased edema to his lower extremities. He has not fallen or
[2020-01-30] MEDS: polyethylene glycoL 3350 17 GM POWD.PACK PO (11:35)
[2020-01-30] MEDS: DOCUSATE SODIUM 100 MG CAPSULE PO (11:35)
--- NOTE | 2020-01-30 12:12 | WPDUROPN2 ---
Progress Note: A&P Assessment and Plan (1) BPH w urinary obs/LUTS: Code(s): N40.1 - Benign prostatic hyperplasia with lower urinary tract symptoms; N13.8 - Other obstructive and reflux uropathy Status: Chronic Assessment and Plan: Given patient's known underlying BPH with history of incomplete emptying anticipate he have difficulty voiding, given his other acute ongoing medical problems and expected difficulty either standing or ambulating to the bathroom to void. Had a long discussion with the patient we collectively agreed to leave the indwelling catheter for several days, and till he is doing better from a medical standpoint. He will follow up with Dr. Mclean in February and has agreed to leave his العلي in until his appointment. He will continue Tamsulosin and Finasteride. Subjective Subjective Date/Time Seen: 01/30/20 12:12 BPH Retention Patient doing well today, urine is clear and draining to gravity in the bag. Review of Systems Cardiovascular: Cardiovascular: Denies chest pain Respiratory: Respiratory: Reports no additional respiratory complaints Gastrointestinal: Gastrointestinal: Denies abdominal pain, Denies nausea and Denies vomiting Genitourinary: Genitourinary: Reports urinary hesitancy Exam Resp: Effort & Inspection: normal respiratory effort Cardio: Rate: regular rate GI: GI Palp: Yes Soft to palpation and No Tenderness to palpation present (GI) : General: Yes no CVA tenderness Urinary Catheter: Urinary Catheter: patent and draining and urine clear Extrem: General: no edema Objective Data Vital Signs Vital Signs: Vital Signs - 24 hr 01/29/20 14:00 01/29/20 21:36 01/29/20 22:00 Temperature 97.6 F 97.3 F L Pulse Rate 79 88 69 Respiratory Rate 18 18 Blood Pressure 128/53 L 133/52 L Pulse Oximetry 100 97 01/30/20 05:52 01/30/20 09:17 Temperature 97.6 F Pulse Rate 59 L 83 Respiratory Rate 18 Blood Pressure 111/57 L Pulse Oximetry 99 Intake/Output Intake/Output: Intake & Output 01/27/20 01/28/20 01/29/20 01/30/20 23:59 23:59 23:59 23:59 Intake Total 5140 4920 3200 250 Output Total 2300 1200 1625 1150 Balance 2840 3720 1575 -900 Meds/Results Medications: Active Medications Generic Name Dose Route Start Last Admin Trade Name Freq PRN Reason Stop Dose Admin Acetaminophen 650 mg 01/26/20 14:56 Tylenol Tablet PO Q4H PRN Mild Pain (1-3) or Fever Hydrocodone Bitart/Acetaminophen 1 tab 01/26/20 14:56 01/30/20 10:12 [place] 5-325 Mg PO 1 tab Q4H PRN Administration Pain Rated 4-6 Albuterol 1 puff 01/26/20 22:28 Proventil Hfa INHALATION BID PRN Shortness Of Breath Or Wheezing Aspirin 81 mg 01/27/20 09:00 01/30/20 09:16 Aspirin Ec PO 81 mg DAILY SANDRA Administration Clopidogrel Bisulfate 75 mg 01/27/20 09:00 01/30/20 09:16 Plavix PO 75 mg DAILY SANDRA Administration Cyclobenzaprine HCl 5 mg 01/26/20 22:47 01/27/20 02:21 Flexeril PO 5 mg Q8H PRN Administration Muscle Spasm Docusate Sodium 100 mg 01/30/20 09:15 01/30/20 11:35 Colace Capsule PO 100 mg Q12HR SANDRA Administration Finasteride 5 mg 01/27/20 09:00 01/30/20 09:16 Proscar PO 5 mg DAILY SANDRA Administration Hydromorphone HCl 0.5 mg 01/26/20 22:47 01/27/20 05:40 Dilaudid Inj IV PUSH 0.5 mg Q3H PRN Administration Pain Rated 7-10 Vancomycin HCl 1,250 mg in 250 mls @ 200 mls/hr 01/27/20 15:00 01/29/20 16:39 Vancomycin 1,250 Mg/D5w 250 Ml 15.0602 mg/kg (1250 mg) Infused IVPB Infusion Q24H [facility] Lidocaine 2 patch 01/29/20 09:00 01/30/20 09:17 Lidoderm TRANSDERM 2 patch DAILY SANDRA Administration Metoprolol Tartrate 50 mg 01/26/20 22:35 01/30/20 09:17 Lopressor PO 50 mg Q12HR SANDRA Administration Ondansetron HCl 4 mg 01/26/20 14:56 Zofran Inj IV PUSH Q4H PRN Nausea Pantoprazole Sodium 40 mg 01/27/20 09:00 01/30/20 09:20
[2020-01-30 14:00] VITALS: BP 154/57; PULSE 63; RESP 18; TEMP 36.3; O2SAT 100
[2020-01-30 20:00] VITALS: PULSE 63; RESP 18; O2SAT 100
== END 2020-01-30 19:15 | DRG 540 ==
LOC: ANHED 12:04 → ANH3MEDSUR 15:26
PROVIDERS: Emergency Medicine; Nurse Practitioner; Admitting Provider Family Medicine; Emergency Provider Emergency Medicine; PCP Internal Medicine; Visit Provider Family Medicine
DX: M46.24 Osteomyelitis of vertebra, thoracic region (principal); E87.1 Hypo-osmolality and hyponatremia; N13.8 Other obstructive and reflux uropathy; Z20.828 Contact with and (suspected) exposure to other viral communicable diseases; N40.1 Benign prostatic hyperplasia with lower urinary tract symptoms; R33.8 Other retention of urine; I25.10 Atherosclerotic heart disease of native coronary artery without angina pectoris; I10 Essential (primary) hypertension; K21.9 Gastro-esophageal reflux disease without esophagitis; M46.44 Discitis, unspecified, thoracic region; E78.5 Hyperlipidemia, unspecified; M10.9 Gout, unspecified; J45.909 Unspecified asthma, uncomplicated; M19.90 Unspecified osteoarthritis, unspecified site; Z95.5 Presence of coronary angioplasty implant and graft; Z95.1 Presence of aortocoronary bypass graft
CPT/HCPCS: 36415; 71045; 72072; 80048; 80053; 80202; 81003; 82565; 83690; 83880; 85025; 85027; 85652; 86140; 87040; 87635; 93970; 96361; 96365; 96375; 96376; 97110; 97116; 97161; 97165; 97530; 97535; 99285; A9270; C9803; G0378; J1170; J2270; J2930; J3370; J7030; J7512; U0003

== ENCOUNTER 2020-02-08 18:53 | Emergency (ER) | payer MEDICARE, SELFPAY ==
[2020-02-08 19:10] VITALS: BP 170/82; PULSE 94; RESP 20; TEMP 37.2; O2SAT 97
[2020-02-08 19:24] LABS: Basophils Percent Auto 0.3 % (0.2-1.2); Eosinophils Absolute Auto 0.1 K/mm3 (0-0.3); Eosinophils Percent Auto 0.9 % (0-4.4); Hematocrit 33.5 % (42.0-52.0); Hemoglobin 10.7 g/dL (14.0-18.0); Immature Granulocyte Absolute 0.05 K/mm3 (0.00-0.031); Immature Granulocyte Percent A 0.5 % (0-0.5); Lymphocytes Absolute Auto 1.92 K/mm3 (0.9-3.2); Lymphocytes Percent Auto 18.5 % (18.3-44.2); Mean Corpuscular HGB Conc 31.9 g/dl (32-36); Mean Corpuscular Hemoglobin 26.7 pg (26-34); Mean Corpuscular Volume 83.5 fl (80-100); Monocytes Absolute Auto 0.8 K/mm3 (0.1-0.6); Monocytes Percent Auto 7.3 % (2.6-8.5); Neutrophils Absolute Auto 7.5 K/mm3 (1.3-6.7); Neutrophils Percent Auto 72.5 % (45.5-73.1); Platelet Count Result 193 k/mm3 (150-375); Red Blood Count 4.01 M/mm3 (4.6-6.20); White Blood Count 10.4 K/mm3 (4.5-10.0)
[2020-02-08 19:42] LABS: Anion Gap 6 mmol/L (8-16); Blood Urea Nitrogen 24 mg/dL (9-20); Calcium 8.3 mg/dL (8.4-10.2); Carbon Dioxide 29 mmol/L (22-30); Chloride 98 mmol/L (98-107); Estimated CRCL calculation 32 ml/min; Estimated Glomerular Filt Rate 52; Glucose 123 mg/dL (75-110); Sodium 133 mmol/L (137-145)
[2020-02-08] MEDS: POTASSIUM CHLORIDE 20 MEQ TABLET 40 MEQ PO (20:29)
--- NOTE | 2020-02-08 21:00 | ED.RECABL ---
HPI - Recheck/Abnormal Lab/Rx General Chief Complaint: Recheck/Abnormal Lab/Rx Stated Complaint: sent by PMD Time Seen by Provider: 02/08/20 19:01 History of Present Illness HPI narrative: Patient is an 85-year-old male who presents the ER with abnormal lab results. His infectious disease doctor had an outpatient lab that showed his potassium was low. Patient denies any new weakness or dizziness or chest pain or shortness of breath. Patient has known osteomyelitis and is receiving IV vancomycin. Patient checked himself out of his nursing rehab yesterday because he does not want to be there. Patient has no desire to go back. He has had no falls since being at home. Related Data Home Medications Medication Instructions Recorded Confirmed clopidogrel 75 mg PO DAILY 08/27/19 01/26/20 finasteride 5 mg PO DAILY 08/27/19 01/26/20 omeprazole 40 mg PO DAILY 08/27/19 01/26/20 rosuvastatin 40 mg PO DAILY 08/27/19 01/26/20 tamsulosin 0.4 mg PO DAILY 08/27/19 01/26/20 albuterol sulfate 1 puff INHALATION BID PRN 01/26/20 01/26/20 aspirin 81 mg/kg PO DAILY 01/26/20 01/26/20 heparin lock flush (porcine) 50 unit IV DAILY 01/26/20 01/26/20 sodium chloride 0.9 % (flush) See Rx Instructions .ROUTE .COMPLEX 01/26/20 01/26/20 [Normal Saline Flush] Allergies Allergy/AdvReac Type Severity Reaction Status Date / Time No Known Allergies Allergy Verified 08/27/19 13:53 Review of Systems Review of Systems: All systems reviewed & are unremarkable except as noted in HPI and below Constitutional: Constitutional: Denies chills, Denies fever(s) and Reports weakness (Chronic) ENT: Denies nasal congestion and Denies sore throat Musculoskeletal: Musculoskeletal: Reports back pain (Chronic) Neurologic: Denies focal weakness and Denies numbness PMFSH Social History Social History Social History: Patient lives with his . He used to drink beer pretty heavy but quit drinking beer several years ago. Patient never smoked. The patient has 1 biological child that is in [place]. He has 3 step children that a nearby. The patient desires to be a full code. He denies any marijuana or substance abuse. Lifelong nonsmoker. Smoking status: Never smoker Alcohol intake: former Substance use: never Substance use type: does not use Gender identity (if verbalized by the patient): Male Spiritual care concerns: No Agree to blood products: Yes Exam Narrative: Exam Narrative: GENERAL: Chronically ill-appearing, well-nourished, and in no acute distress. HEAD: Normocephalic, atraumatic. ENT: Mucous membranes moist. CHEST: Clear to auscultation. No respiratory distress. HEART: Regular rate and rhythm. Normal peripheral pulses. EXTREMITIES: Normal range of motion. No edema. NEURO: Alert and oriented x3. PSYCH: Normal mood and affect. Course Course Emergency Course: Informed of results. Potassium replaced. Patient does not wish to go to rehab so will be discharged home. present and comfortable with this. Vital Signs Vital signs: Vital Signs Temperature 99.0 F 02/08/20 19:10 Pulse Rate 94 02/08/20 19:10 Respiratory Rate 20 02/08/20 19:10 Blood Pressure 170/82 H 02/08/20 19:10 Pulse Oximetry 97 02/08/20 19:10 Temperature 99.0 F 02/08/20 19:10 Pulse Rate 94 02/08/20 19:10 Respiratory Rate 20 02/08/20 19:10 Blood Pressure 170/82 H 02/08/20 19:10 Pulse Oximetry 97 02/08/20 19:10 MDM - Recheck/Abnormal Lab/Rx Lab Data Result diagrams: 02/08/20 19:18 02/08/20 19:18 Labs: Lab Results 02/08/20 02/08/20 Range/Units 19:18 19:18 WBC 10.4 H (4.5-10.0) K/mm3 RBC 4.01 L (4.6-6.20) M/mm3 Hgb 10.7 L (14.0-18.0) g/dL Hct 33.5 L (42.0-52.0) % MCV 83.5 (80-100) fl MCH 26.7 (26-34) pg MCHC 31.9 L (32-36) g/dl RDW 16.0 H (11.5-14.5) % Plt Count 193 (150-375) k/mm3 MPV 10.
[2020-02-08 21:08] VITALS: BP 141/87; PULSE 84; RESP 20; TEMP 26.6; O2SAT 97
[2020-02-08 21:17] LABS: Add Urine Microscopic? YES; Appearance Urine Cloudy (Clear); Bacteria Urine Trace /hpf; Bilirubin Urine Negative (Negative); Blood Urine 1+ (Negative); Calcium Oxalate Crystals Urine Present /hpf; Color Urine Yellow (Yellow); Glucose Urine UA Negative (Negative); Ketones Urine Negative (Negative); Leukocyte Esterase Ur Trace LEU/UL (Negative); Mucus Urine Moderate /lpf; Nitrate Urine Negative (Negative); Protein Urine 2+ mg/dL (Negative); RBC Urine 21-50 /hpf (0-2); Squamous Epithelial Cell Urine Rare /hpf (Few)
== END 2020-02-08 21:10 | disposition home or self-care (01) ==
PROVIDERS: Emergency Provider Emergency Medicine; PCP Internal Medicine
DX: E87.6 Hypokalemia (principal); M19.90 Unspecified osteoarthritis, unspecified site; J45.909 Unspecified asthma, uncomplicated; N40.1 Benign prostatic hyperplasia with lower urinary tract symptoms; N13.8 Other obstructive and reflux uropathy; I25.10 Atherosclerotic heart disease of native coronary artery without angina pectoris; K21.9 Gastro-esophageal reflux disease without esophagitis; M10.9 Gout, unspecified; E78.5 Hyperlipidemia, unspecified; I10 Essential (primary) hypertension; Z95.5 Presence of coronary angioplasty implant and graft; Z95.1 Presence of aortocoronary bypass graft; Z79.82 Long term (current) use of aspirin
CPT/HCPCS: 36415; 80048; 81001; 85025; 87086; 99283; A9270

== ENCOUNTER 2020-02-15 20:06 | Emergency (ER) | payer MEDICARE, SELFPAY ==
--- NOTE | ~2020-02-15 | XR_ITS ---
XR abdomen/kub 1V DATE: 02/15/2020 21:12 INDICATION: Constipation. Epigastric abdominal pain. TECHNIQUE: AP projection, 2 views COMPARISON: None FINDINGS: There is extensive calcification of the abdominal aorta and iliac arteries. No visceromegaly is evident. There is a prominent amount of fecal material within the rectosigmoid ar ea, flexures and transverse and right colon. There are some nondilated gas containing small bowel seg ments overlying the mid abdomen primarily. No bowel obstruction is evident. A catheter overlies the urinary bladder. Degenerative changes of the thoracic and lumbar spine. Diffuse osteopenia. IMPRESSION: Prominent of fecal material in the rectum and colon; no bowel obstruction Catheter in urinary bladder Aortic and iliac atherosclerosis Diffuse osteopenia. Degenerative changes of the spine Reviewed, dictated and finalized at [facility]. Reviewed, dictated and finalized at [facility]. IMPRESSION: Prominent of fecal material in the rectum and colon; no bowel obstr uction Catheter in urinary bladder Aortic and iliac atherosclerosis Diffuse osteopenia. Degenerative changes of the spine
--- NOTE | ~2020-02-15 | XR_ITS ---
XR chest 1V portable DATE: 02/15/2020 21:11 INDICATION: Chest pain. History of open heart surgery. TECHNIQUE: Portable AP chest on 02/15/2020 at 2054 hours COMPARISON: 01/26/2020 portable AP chest at 1155 FINDINGS: Status post sternotomy/CABG. Hiwot vaughan. There is extensive thoracic and abdominal aorti c calcification. Right upper extremity PIC catheter tip overlies the upper right atrium. No pulmonary vascular congestion is evident. There is minimal infiltrate, atelectasis or fibrotic change at the lung bases. The lungs otherwise ap pear clear. There is chronic minimal blunting of left costophrenic angle since 01/26/2020 which may be due to minimal pleural effusion or pleural scarring. Diffuse osteopenia. IMPRESSION: Cardiomegaly Status post sternotomy/CABG Extensive aortic calcification Right upper extremity PIC in upper right atrium Minimal infiltrate, atelectasis or scarring at the lung bases Reviewed, dictated and finalized at [facility].
--- NOTE | ~2020-02-15 | CT_ITS ---
EXAMINATION: CT abdomen pelvis w con DATE: 02/15/2020 22:39 INDICATION: Lower abdominal pain; generalized abdominal pain for 2 months TECHNIQUE: Computed tomography (CT) of the abdomen and pelvis was performed with 100 cc Omnipaque 350 intravenous contrast. Automated exposure control and iterative reconstruction technique were employe d. Exam dose: 1034.82 mGy-cm total exam DLP. COMPARISON: None. FINDINGS: There is bilateral dependent lower lobe atelectasis. Status post sternotomy Moderate sliding hiatal hernia. The liver, gallbladder, bile ducts, spleen, pancreas and pancreatic duct are intact. Normal morpholog y of the adrenal glands. No renal mass lesion or urinary tract calculus or hydroureteronephrosis. There is a Cole catheter within the evacuated urinary bladder which is not optimally evaluated. The bladder wall does appear somewhat thickened. There is extensive calcification of the abdominal aorta and branches but no abdominal aortic aneurysm . No intraperitoneal or retroperitoneal or pelvic mass lesion or adenopathy or ascites. There is a very prominent hypertrophic marginal in the rectosigmoid area and throughout the remainder of the colon. No bowel wall thickening, pneumatosis or intraperitoneal free air is detected. No evidence of appendicitis. Diffuse osteopenia. Multilevel degenerative disc disease. There is associated mild retrolisthesis at L2-3 and to a minima l extent at L3-4. IMPRESSION: Prominent amount of fecal material throughout the rectum and colon Moderate sliding hiatal hernia Reviewed, dictated and finalized at [facility]. Reviewed, dictated and finalized at [facility].
[2020-02-15 20:05] VITALS: BP 179/71; PULSE 99; RESP 20; TEMP 36.6; O2SAT 97
--- NOTE | 2020-02-15 20:52 | ED.ABDPAIN ---
HPI - Abdominal Pain General Chief Complaint: Abdominal Pain Stated Complaint: abd pain Time Seen by Provider: 02/15/20 20:13 Source: patient and family Mode of arrival: EMS History of Present Illness HPI narrative: This patient is a 85 year old with multiple medical problems including osteomyelitis of thoracic spine who presents for evaluation lower abdominal pain. Patient and his states this pain has been present since August. He has had an evaluation of this pain with colonoscopy, CT scan, MRI and his states they have not been given a cause. This pain is constant and it has worsened over the past 2 weeks. He takes oxycodone for his pain and his last dose was 3 hours ago. He reports his pain is not that bad now since he is laying in bed. HE reported constipation to nursing staff. Related Data Home Medications Medication Instructions Recorded Confirmed clopidogrel 75 mg PO DAILY 08/27/19 01/26/20 finasteride 5 mg PO DAILY 08/27/19 01/26/20 omeprazole 40 mg PO DAILY 08/27/19 01/26/20 rosuvastatin 40 mg PO DAILY 08/27/19 01/26/20 tamsulosin 0.4 mg PO DAILY 08/27/19 01/26/20 albuterol sulfate 1 puff INHALATION BID PRN 01/26/20 01/26/20 aspirin 81 mg/kg PO DAILY 01/26/20 01/26/20 heparin lock flush (porcine) 50 unit IV DAILY 01/26/20 01/26/20 sodium chloride 0.9 % (flush) See Rx Instructions .ROUTE .COMPLEX 01/26/20 01/26/20 [Normal Saline Flush] Allergies Allergy/AdvReac Type Severity Reaction Status Date / Time No Known Allergies Allergy Verified 08/27/19 13:53 Review of Systems Review of Systems: All systems reviewed & are unremarkable except as noted in HPI and below Constitutional: Constitutional: Denies chills and Denies fever(s) Cardiovascular: Cardiovascular: Denies chest pain Respiratory: Respiratory: Denies dyspnea Gastrointestinal: Gastrointestinal: Reports abdominal pain and Reports constipation Genitourinary: Genitourinary: Reports hematuria and Denies oliguria Musculoskeletal: Musculoskeletal: Reports back pain Neurologic: Denies focal weakness and Denies numbness PMFSH Past Medical History Medical History Arthritis Asthma Back pain BPH w urinary obs/LUTS CAD (coronary artery disease) Chronic hyponatremia GERD (gastroesophageal reflux disease) Gout HLD (hyperlipidemia) HTN (hypertension) Surgical History Surgical History H/O heart artery stent 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 He used to drink beer pretty heavy but quit drinking beer several years ago. Patient never smoked. The patient has 1 biological child that is in [place]. He has 3 step children that a nearby. The patient desires to be a full code. He denies any marijuana or substance abuse. Lifelong nonsmoker. Smoking status: Never smoker Alcohol intake: former Substance use: never Substance use type: does not use Gender identity (if verbalized by the patient): Male Spiritual care concerns: No Agree to blood products: Yes Exam Const: General: alert and ill appearing chronically Orientation/consciousness: patient oriented x3 Eyes: EOM: EOMs intact bilaterally Resp: Effort & Inspection: normal respiratory effort and no retractions Auscultation: clear to auscultation bilaterally Cardio: Rate: regular rate Rhythm: regular rhythm Heart sounds: no murmurs GI: GI Palp: Yes Soft to palpation, No Tenderness to palpation present (GI), No Guarding due to palpation present (GI), No Rigid due to palpation and No Hernia present Other: soft stool in rectum, light brown, no fecal impaction Skin: General skin exam: normal color Rashes: no rashes Neuro: General: patient oriented x3 and moves a
[2020-02-15] MEDS: MORPHINE SULFATE 4 MG/ML INJ IV PUSH (21:11)
[2020-02-15] MEDS: ONDANSETRON INJ 4 MG/2 ML VIAL IV PUSH (21:11)
[2020-02-15 21:23] LABS: Basophils Percent Auto 0.3 % (0.2-1.2); Eosinophils Absolute Auto 0.1 K/mm3 (0-0.3); Eosinophils Percent Auto 1.3 % (0-4.4); Hematocrit 30.7 % (42.0-52.0); Hemoglobin 9.6 g/dL (14.0-18.0); Immature Granulocyte Absolute 0.03 K/mm3 (0.00-0.031); Immature Granulocyte Percent A 0.3 % (0-0.5); Lymphocytes Absolute Auto 1.35 K/mm3 (0.9-3.2); Lymphocytes Percent Auto 15.7 % (18.3-44.2); Mean Corpuscular HGB Conc 31.3 g/dl (32-36); Mean Corpuscular Hemoglobin 26.9 pg (26-34); Monocytes Absolute Auto 0.7 K/mm3 (0.1-0.6); Neutrophils Absolute Auto 6.4 K/mm3 (1.3-6.7); Neutrophils Percent Auto 74.4 % (45.5-73.1); Platelet Count Result 163 k/mm3 (150-375); Red Blood Count 3.57 M/mm3 (4.6-6.20); Red Cell Distribution Width 16.5 % (11.5-14.5); White Blood Count 8.6 K/mm3 (4.5-10.0)
[2020-02-15 21:27] LABS: Alanine Aminotransferase 10 U/L (4-50); Albumin Level 3.4 g/dL (3.5-5.1); Alkaline Phosphatase 80 U/L (38-126); Anion Gap 7 mmol/L (8-16); Aspartate Amino Transferase 22 U/L (17-59); Bilirubin,Total 0.6 mg/dL (0.2-1.3); Blood Urea Nitrogen 20 mg/dL (9-20); Calcium 8.6 mg/dL (8.4-10.2); Carbon Dioxide 30 mmol/L (22-30); Chloride 93 mmol/L (98-107); Estimated CRCL calculation 36 ml/min; Estimated Glomerular Filt Rate 58; Glucose 121 mg/dL (75-110); Lipase 31 U/L (23-300); Potassium 3.9 mmol/L (3.4-5.0); Sodium 130 mmol/L (137-145)
[2020-02-15 21:32] LABS: Add Urine Microscopic? YES; Appearance Urine Clear (Clear); Bacteria Urine Trace /hpf; Bilirubin Urine Negative (Negative); Blood Urine 3+ (Negative); Color Urine Yellow (Yellow); Glucose Urine UA Negative (Negative); Ketones Urine Trace mg/dL (Negative); Leukocyte Esterase Ur Trace LEU/UL (Negative); Mucus Urine Rare /lpf; Nitrate Urine Negative (Negative); Protein Urine 1+ mg/dL (Negative); RBC Urine >75 /hpf (0-2); Specific Grav Ur 1.017 (1.001-1.035); Urobilinogen Urine Negative mg/dL (<2.0); WBC Urine 0-3 /hpf
[2020-02-15 22:29] VITALS: BP 147/88; PULSE 60; RESP 18; O2SAT 99
[2020-02-15 23:52] VITALS: BP 121/73; PULSE 76; RESP 16; TEMP 36.4; O2SAT 99
== END 2020-02-15 23:53 | disposition home or self-care (01) ==
PROVIDERS: Emergency Provider General Practice; PCP Internal Medicine
DX: K59.00 Constipation, unspecified (principal); R10.32 Left lower quadrant pain; R10.31 Right lower quadrant pain; G89.29 Other chronic pain; M46.24 Osteomyelitis of vertebra, thoracic region; Z79.82 Long term (current) use of aspirin; M19.90 Unspecified osteoarthritis, unspecified site; J45.909 Unspecified asthma, uncomplicated; N40.1 Benign prostatic hyperplasia with lower urinary tract symptoms; N13.8 Other obstructive and reflux uropathy; I25.10 Atherosclerotic heart disease of native coronary artery without angina pectoris; K21.9 Gastro-esophageal reflux disease without esophagitis; E78.5 Hyperlipidemia, unspecified; I10 Essential (primary) hypertension; Z95.5 Presence of coronary angioplasty implant and graft; Z95.1 Presence of aortocoronary bypass graft; K44.9 Diaphragmatic hernia without obstruction or gangrene; I51.7 Cardiomegaly; I70.0 Atherosclerosis of aorta
CPT/HCPCS: 36415; 71045; 74018; 74177; 80053; 81001; 83605; 83690; 85025; 96374; 96375; 99284; J2270; J2405; Q9967

== ENCOUNTER 2020-05-10 12:46 | Inpatient (IN) | payer MEDICARE, SELFPAY ==
[2020-05-10] VITALS (8 sets, daily range): BP systolic 116–127; BP diastolic 52–63; PULSE 74–85; RESP 12–18; TEMP 36.1–36.5; O2SAT 98–100
--- NOTE | ~2020-05-10 | MR_ITS ---
EXAMINATION: MR lumbar spine wo con DATE: 05/12/2020 13:06 INDICATION: L2 bone lesion. TECHNIQUE: Magnetic resonance imaging (MRI) of the lumbar spine was performed without intravenous con trast. Sequences included sagittal T2-weighted FSE, sagittal STIR FSE, sagittal T1-weighted FSE, and axial T2-weighted FSE. COMPARISON: CT abdomen and pelvis 02/15/2020, lumbar spine radiographs 05/11/2020 FINDINGS: There is 3 mm retrolisthesis of L2 on L3 and L3 on L4. There is mild chronic anterior wedgi ng of L1 vertebral body. There is a hemangioma in L1. There is mildly decreased disc height at L1-L2, L2-L3, and L3-L4 and severely decreased disc height at L4-L5. The distal spinal cord signal intensit y is normal. The conus medullaris is at T12-L1. The following disc levels are specifically discussed: L1-L2: The disc is bulging and has an annular fissure. There is mild bilateral facet joint osteoarthr itis. There is mild bilateral neural foraminal stenosis. There is mild central canal stenosis. L2-L3: The disc is bulging and has an annular fissure. There is severe right and moderate left facet joint osteoarthritis. There is moderate bilateral neural foraminal stenosis. There is mild central ca nal stenosis. L3-L4: The disc is bulging and has an annular fissure. There is moderate bilateral facet joint osteoa rthritis. There is mild right and moderate left neural foraminal stenosis. There is mild central jeff l stenosis. L4-L5: The disc is bulging and has an annular fissure. There is severe bilateral facet joint osteoart hritis. There is moderate right and mild left neural foraminal stenosis. There is mild central canal stenosis. L5-S1: The disc is bulging and has an annular fissure. There is severe bilateral facet joint osteoart hritis. There is mild bilateral neural foraminal stenosis. There is mild central canal stenosis. IMPRESSION: 1. Severe lumbar spondylosis. 2. L1 hemangioma. Reviewed, dictated and finalized at location A. NOMIC SPECIALIST
--- NOTE | ~2020-05-10 | MR_ITS ---
EXAMINATION: MR thoracic spine wo con DATE: 05/12/2020 13:06 INDICATION: Osteomyelitis at T7 and T8. TECHNIQUE: Magnetic resonance imaging (MRI) of the thoracic spine was performed without intravenous c ontrast. Sagittal localizer T1-weighted FSE of the cervical spine was obtained. Thoracic spine sequen kenton included sagittal T2-weighted FSE, sagittal T1-weighted FSE, sagittal STIR FSE, and axial T2-weig hted FSE. COMPARISON: Thoracic spine radiographs 05/11/2020, 01/26/20, chest radiographs 08/27/19 FINDINGS: There is focal kyphosis at T7-T8. There is 3 degrees dextrocurvature of thoracic spine. At T7-T8, there is severely decreased disc height. There is 4/5 height loss of T7 and T8 vertebral eladio s with bone marrow edema, worsened from 01/26/2020. At T7-T8, bone and disc material extends 6 mm into central spinal canal with mild central canal stenosis and ventral indentation of the spinal cord. Th ere is mildly decreased disc height at T9-T10. The discs do not extend beyond the endplate at other l evels of the thoracic spine. There is multilevel facet joint osteoarthritis. There is mild neural for aminal stenosis bilaterally at multiple levels. At T7-T8, there is severe right and moderate left galen ral foraminal stenosis. The spinal cord signal intensity is normal. There is a hemangioma in L1 verte bral body. IMPRESSION: 1. Discitis/osteomyelitis at T7-T8 with worsened bone loss from 01/26/20. Reviewed, dictated and finalized at location A. RT PATIENTS
--- NOTE | ~2020-05-10 | XR_ITS ---
XR chest 2V DATE: 05/10/2020 13:22 INDICATION: Transient alteration of awareness TECHNIQUE: AP and lateral chest COMPARISON: 03/13/2020 portable AP chest 08/26/2021 view chest FINDINGS: Status post sternotomy/coronary artery bypass graft surgery. Borderline heart size. Aortic calcification and unfolding. There is extensive calcification of the thoracic as well as abdominal ao rta, with without apparent aneurysm. No hilar or mediastinal enlargement is evident. There is a prominent hiatal hernia. No pulmonary infiltrate or consolidation, pleural effusion or pulmonary vascular congestion or pneumo thorax. Since 08/27/2019 there is prominent anterior wedging and loss of height of a midthoracic vertebral bod y. Diffuse osteopenia. There is degenerative change of the thoracic and lumbar spine. IMPRESSION: Status post sternotomy/CABG Extensive thoracic and abdominal aortic calcification Large hiatal hernia No apparent active pulmonary disease Interval prominent anterior wedging and loss of height of a mid thoracic vertebral body (approximatel y T7) Reviewed, dictated and finalized at location A. ID TRANSPLANTER IMPRESSION: Status post sternotomy/CABG Extensive thoracic and abdominal aortic calcification Large hiatal hernia No apparent active pulmonary disease Interval prominent anterior wedging and loss of height of a mid thoracic verteb ral body (approximately T7)
--- NOTE | ~2020-05-10 | CT_ITS ---
EXAMINATION: CT brain wo con DATE: 05/10/2020 13:24 INDICATION: Weakness. Altered mental status. TECHNIQUE: Computed tomography (CT) of the head was performed without intravenous contrast. Sagittal and coronal reconstructions were performed. The mA was adjusted according to patient size. Iterative reconstruction technique was employed. The dose-length product was 605.33 mGy-cm. COMPARISON: None FINDINGS: Small old lacunar infarcts in the right basal ganglia, left kei and anterior left frontal white yane er. There is additional mild scattered white matter hypoattenuation consistent with chronic small ves nicole ischemic disease. No acute intracranial hemorrhage, acute infarction or abnormal extra axial flui d collection. Ventricles are normal and symmetric. No mass/mass effect. Changes of bilateral intraocu lar lens replacement. The orbits and mastoid air cells are normal. Intracranial calcified cerebral at herosclerosis is noted. Mild mucosal thickening the bilateral ethmoid sinuses. IMPRESSION: 1. No acute intracranial process. 2. 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 Reviewed, dictated and finalized at location A. TRIC FRYING PAN REPAIRER IMPRESSION: 1. No acute intracranial process. 2. Small old lacunar infarcts at the right basal ganglia, left kei and anterio r left frontal lobe white matter and additional less hypodense mild scattered w abril matter hypoattenuation consistent with chronic small vessel ischemic disea se.
--- NOTE | ~2020-05-10 | XR_ITS ---
XR thoracic spine 3V DATE: 05/11/2020 14:39 INDICATION: Anterior wedging of a midthoracic vertebral body reported on 05/10/2022 view chest TECHNIQUE: AP, lateral and swimmer views COMPARISON: 05/10/2022 view chest / thoracic spine FINDINGS: Mild levoscoliosis. There is further loss of height and gibbus deformity at T7 and T8, with loss of intervening disc spac e, consistent with discitis and associated T7 and T8 bone destruction. Diffuse osteopenia. No other fracture or bone destruction of the thoracic spine is evident. Status post sternotomy. Extensive thoracic aortic calcification. IMPRESSION: Increased loss of height, anterior wedging and gibbus deformity with associated intervert ebral disc destruction consistent with discitis at T7 and T8 Reviewed, dictated and finalized at location A. A ANALYST IMPRESSION: Increased loss of height, anterior wedging and gibbus deformity wit h associated intervertebral disc destruction consistent with discitis at T7 and T8
--- NOTE | ~2020-05-10 | US_ITS ---
US renal BI 05/14/2020 12:34 Procedure: Realtime transabdominal ultrasound of the kidneys and bladder. Indication: Acute on chronic renal failure Comparison: 08/28/2019 Findings: Renal echotexture is normal bilaterally without hydronephrosis, contour deforming mass or r enal calculus. The right kidney measures 11.5 cm and left kidney measures 11.5 cm. Bladder wall thick ening measuring 7.8 mm. Prostate gland is enlarged. Impression: 1: Bladder wall thickening which may be due to hypertrophy from outlet obstruction versus cystitis. Reviewed, dictated and finalized at location B. GER QUALITY COMPLIANCE Impression: 1: Bladder wall thickening which may be due to hypertrophy from outlet obstruct ion versus cystitis.
--- NOTE | ~2020-05-10 | XR_ITS ---
XR lumbar spine 2-3V DATE: 05/11/2020 14:39 INDICATION: Back pain. TECHNIQUE: AP, lateral, coned lateral lumbosacral views COMPARISON: None FINDINGS: There is diffuse osteopenia. The lumbar pedicles appear intact. There is degenerative disc disease throughout the lumbar and lumbo sacral spine. This likely chronic mild cupping of the superior vertebral endplates of L1 and L2. No a pparent fracture or bone destruction is detected. The sacroiliac joints appear unremarkable. Extensive calcification of the abdominal aorta and iliac arteries without evidence of aneurysm. IMPRESSION: Diffuse osteopenia Probable chronic mild cupping of the superior vertebral endplates of L1 and L2 Multilevel degenerative disc disease Reviewed, dictated and finalized at location A. NED GLASS GLAZIER
--- NOTE | 2020-05-10 12:42 | ED.FALL ---
HPI - Fall General Chief Complaint: Fall Stated Complaint: FALLS/AMS Source: EMS Mode of arrival: EMS Limitations: altered mental status History of Present Illness HPI Narrative: Patient is an 85-year-old male who presents for evaluation of altered mental status and frequent falls. Patient presents from home via EMS, history is almost entirely provided by EMS as patient is unable to provide. EMS states that family had called because patient had a ground-level fall this morning and has had had increased falls this week. He felt like he was more lethargic and confused from normal. He is not able to provide any history not, seems to understand some simple commands but then is unable to respond to questions, no focal deficits on exam. Glucose in route is 160. Patient is denying any head, chest or abdominal pain, however history is unobtainable otherwise. Related Data Home Medications Medication Instructions Recorded Confirmed clopidogrel 75 mg PO DAILY 08/27/19 01/26/20 finasteride 5 mg PO DAILY 08/27/19 01/26/20 omeprazole 40 mg PO DAILY 08/27/19 01/26/20 rosuvastatin 40 mg PO DAILY 08/27/19 01/26/20 tamsulosin 0.4 mg PO DAILY 08/27/19 01/26/20 albuterol sulfate 1 puff INHALATION BID PRN 01/26/20 01/26/20 aspirin 81 mg/kg PO DAILY 01/26/20 01/26/20 heparin lock flush (porcine) 50 unit IV DAILY 01/26/20 01/26/20 sodium chloride 0.9 % (flush) See Rx Instructions .ROUTE .COMPLEX 01/26/20 01/26/20 [Normal Saline Flush] Allergies Allergy/AdvReac Type Severity Reaction Status Date / Time No Known Allergies Allergy Verified 05/10/20 14:47 Review of Systems Review of Systems: ROS unobtainable: Yes unobtainable due to mental status PMFSH Past Medical History Medical History (Updated 05/10/20 @ 16:33 by Michelle Reardon MD) Arthritis Asthma Back pain BPH w urinary obs/LUTS CAD (coronary artery disease) Chronic hyponatremia GERD (gastroesophageal reflux disease) Gout HLD (hyperlipidemia) HTN (hypertension) Surgical History Surgical History H/O heart artery stent 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 Social History Social History Social History: Patient lives with his . He used to drink beer pretty heavy but quit drinking beer several years ago. Patient never smoked. The patient has 1 biological child that is in [place]. He has 3 step children that a nearby. The patient desires to be a full code. He denies any marijuana or substance abuse. Lifelong nonsmoker. Smoking status: Never smoker Alcohol intake: former Substance use: never Substance use type: does not use Gender identity (if verbalized by the patient): Male Spiritual care concerns: No Agree to blood products: Yes Exam Narrative: Exam Narrative: GENERAL: Awake, alert HEAD: Normocephalic, atraumatic. EYES: PERRLA and EOMI. ENT: Nares clear, no rhinorrhea or epistaxis. Mucous membranes dry NECK: Supple. CHEST: No respiratory distress, breathing even and non labored HEART: Regular rate, sinus rhythm ABDOMEN:Non distended, non tender EXTREMITIES: Normal range of motion. No edema. SKIN: Warm, dry, no rash. NEURO: No focal deficits on exam. Able to resist gravity in both upper extremities. Lower extremities seem weak, patient is not able to follow any commands. 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 He is able to wiggle his toes bilaterally. Course Vital Signs Vital signs: Vital Signs Temperature 36.1 C L 05/10/20 12:52 Pulse Rate 74 05/10/20 12:52 Respiratory Rate 16 05/10/20 12:52 Blood Pressure 116/63 05/10/20 12:52 Pulse Oximetry 100
--- NOTE | 2020-05-10 12:48 | ECG_ITS ---
Measurements Intervals [place] Rate: 76 P: -3 NH: 153 QRS: -11 QRSD: 133 T: 5 QT: 430 QTc: 485 Interpretive Statements SINUS RHYTHM LEFT BUNDLE BRANCH BLOCK BASELINE ARTIFACT- I, III, AVR, AVL ABNORMAL ECG Electronically Signed On 05-10-2020 14:37:06 CONTENT CHECKER by Oleksandr Weston D.O.
[2020-05-10 13:08] LABS: Alveolar/Arterial O2 Gradient 18.5 mmHg; Base Excess ABG -5.9 mEq/l (+/-2.0); Carboxyhemoglobin 0.4 % THb (0-2.0); Fractional Inspired Oxygen 21 %; HCO3 ABG 18.5 mEq/l (22.0-26.0); Methemoglobin ABG 0.3 %THb (0-1.5); Oxygen Content ABG 12.5 %vol (16.0-22.0); Oxyhemoglobin 95.6 % THb (90.0-100.0); PCO2 ABG 32.2 mmHg (35.0-45.0); PO2 ABG 92.7 mmHg (80.0-100.0); PO2 FiO2 Ratio Arterial Blood 4.41 %; Reduced Hemoglobin 3.7 %THb (0-5.0); Total Hemoglobin 9.2 g/dL (12.0-18.0); pH ABG 7.377 (7.350-7.450)
[2020-05-10 13:09] LABS: Device ROOM AIR; Site Drawn LEFT BRACHIAL
[2020-05-10] MEDS: SODIUM CHLORIDE 0.9% IV 1,000 ML 999 ML IV CONT (13:29)
[2020-05-10 14:07] LABS: Basophils Percent Auto 0.3 % (0.2-1.2); Eosinophils Absolute Auto 0.1 K/mm3 (0-0.3); Eosinophils Percent Auto 2.3 % (0-4.4); Hemoglobin 9.5 g/dL (14.0-18.0); Immature Granulocyte Absolute 0.03 K/mm3 (0.00-0.031); Immature Granulocyte Percent A 0.5 % (0-0.5); Immature Platelet Fraction Pct 4.7 % (0.9-11.2); Lymphocytes Absolute Auto 1.83 K/mm3 (0.9-3.2); Lymphocytes Percent Auto 31.8 % (18.3-44.2); Mean Corpuscular HGB Conc 33.9 g/dl (32-36); Mean Corpuscular Volume 82.6 fl (80-100); Mean Platelet Volume 9.9 fl (7.4-10.4); Monocytes Absolute Auto 0.3 K/mm3 (0.1-0.6); Monocytes Percent Auto 4.9 % (2.6-8.5); Neutrophils Absolute Auto 3.5 K/mm3 (1.3-6.7); Neutrophils Percent Auto 60.2 % (45.5-73.1); Platelet Count Result 47 k/mm3 (150-375); Red Blood Count 3.39 M/mm3 (4.6-6.20); Red Cell Distribution Width 14.3 % (11.5-14.5); White Blood Count 5.8 K/mm3 (4.5-10.0)
[2020-05-10 14:15] LABS: INR 1.1; Prothrombin Time 14.9 Seconds (11.1-14.7)
[2020-05-10 14:16] LABS: Partial Thromboplastin Time 29.4 SECONDS (22.3-36.8)
[2020-05-10 14:18] LABS: Ammonia < 9 umol/L (9-30)
[2020-05-10 14:20] LABS: Alanine Aminotransferase 34 U/L (4-50); Albumin Level 3.1 g/dL (3.5-5.1); Alkaline Phosphatase 78 U/L (38-126); Anion Gap 9 mmol/L (8-16); Aspartate Amino Transferase 42 U/L (17-59); Bilirubin,Total 0.4 mg/dL (0.2-1.3); Blood Urea Nitrogen 21 mg/dL (9-20); CRP < 0.5 mg/dL (<1.0); Calcium 8.4 mg/dL (8.4-10.2); Carbon Dioxide 25 mmol/L (22-30); Chloride 92 mmol/L (98-107); Estimated CRCL calculation 26 ml/min; Estimated Glomerular Filt Rate 36; Glucose 124 mg/dL (75-110); Potassium 4.1 mmol/L (3.4-5.0); Sodium 126 mmol/L (137-145)
[2020-05-10 14:21] LABS: Lactic Acid Reflex 4.1 mmol/L (0.7-2.1)
[2020-05-10 14:29] LABS: Troponin I < 0.012 ng/mL (0.000-0.034)
[2020-05-10] MEDS: SODIUM CHLORIDE 0.9% IV 2,200 ML/1,000 ML BAG 999 ML IV CONT ×3 (14:45→16:37)
[2020-05-10 15:10] LABS: Add Urine Microscopic? YES; Appearance Urine Clear (Clear); Bilirubin Urine Negative (Negative); Blood Urine Negative (Negative); Color Urine Yellow (Yellow); Glucose Urine UA Negative (Negative); Ketones Urine Negative (Negative); Leukocyte Esterase Ur Negative LEU/UL (Negative); Nitrate Urine Negative (Negative); Protein Urine 2+ mg/dL (Negative); RBC Urine 0-2 /hpf (0-2); Specific Grav Ur 1.015 (1.001-1.035); Squamous Epithelial Cell Urine Occasional /hpf (Few); Urobilinogen Urine Negative mg/dL (<2.0)
[2020-05-10 17:03] LABS: Reflex Lactic Acid Yes or No Add Lactic
[2020-05-10 18:08] LABS: Lactic Acid 2.4 mmol/L (0.7-2.1)
--- NOTE | 2020-05-10 19:01 | ADMGEN ---
This patient, Declan Allen, was admitted to Medical Room 255-01. Patient/family oriented to hospital policies and general routines including ID bracelet, bed and alarms, visiting hours, pain management, procedures, bathroom and other care routines, personal items, smoking policy, room service/diet, and visiting hours. Information on how to activate the Rapid Response Team has been discussed. Patient/Family are encouraged to report perceived risks to care and to ask questions if they do not understand what they are told or what they should do.
[2020-05-10] MEDS: SODIUM CHLORIDE 0.9% IV 1,000 ML 125 ML IV CONT (20:30)
--- NOTE | 2020-05-10 22:03 | PM.IMHP ---
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 patient presented today to ED via EMS due to falling, generalized weakness, initially most of the history was obtained from EMS. Patient now has been able to provide more history after getting iv fluids. Has had diarrhea and has been feeling very weak and has been falling as well, denies any LOC, no fevers, n o rigors, no chills. Preliminary work up was significant for hyponatremia, a CT head showed old infarcts and area of decreased mass. Review of Systems Review of Systems: Narrative: Generalized weakness, recurrent falls, no LOC, presented to ED via EMS Constitutional: Comments: Feeling weak, poor oral intake. Eyes: Comments: No vision changes. ENT: Comments: hard of hearing, no throat pain, no nasal discharge or congestion. Cardiovascular: Comments: no chest pain, no leg swelling. Respiratory: Comments: no cough, no sputum production, no sob. Gastrointestinal: Comments: diarrhea Musculoskeletal: Comments: weakness, recurrent falls Integumentary/Breasts: Comments: no rashes. Neurologic: Comments: no LOC Hematologic/Lymphatic: Comments: no LAP PMFSH Past Medical History Medical History (Updated 05/10/20 @ 22:51 by Levy Lopez MD) Arthritis Asthma Back pain BPH w urinary obs/LUTS CAD (coronary artery disease) Chronic hyponatremia GERD (gastroesophageal reflux disease) Gout HLD (hyperlipidemia) HTN (hypertension) Surgical History Surgical History H/O heart artery stent 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 Social History Social History Social History: Patient lives with his . He used to drink beer pretty heavy but quit drinking beer several years ago. Patient never smoked. The patient has 1 biological child that is in [place]. He has 3 step children that a nearby. The patient desires to be a full code. He denies any marijuana or substance abuse. Lifelong nonsmoker. Smoking status: Never smoker Alcohol intake: former Substance use: never Substance use type: does not use Gender identity (if verbalized by the patient): Male Spiritual care concerns: No Agree to blood products: Yes Meds Home Medications and Allergies Home Medications Medication Instructions Recorded Confirmed Type clopidogrel 75 mg PO DAILY 08/27/19 05/10/20 History finasteride 5 mg PO DAILY 08/27/19 05/10/20 History omeprazole 40 mg PO DAILY 08/27/19 05/10/20 History rosuvastatin 40 mg PO DAILY 08/27/19 05/10/20 History tamsulosin 0.4 mg PO HS 08/27/19 05/10/20 History albuterol sulfate 1 puff INHALATION BID PRN 01/26/20 05/10/20 History aspirin 81 mg/kg PO DAILY 01/26/20 05/10/20 History hydrocodone-acetaminophen 1 tab PO Q4H PRN #15 tablet 01/30/20 05/10/20 Rx carvedilol 12.5 mg PO BID 05/10/20 05/10/20 History lidocaine [Lidoderm] 2 patch TRANSDERMAL DAILY PRN 05/10/20 05/10/20 History linezolid 600 mg PO BID 05/10/20 05/10/20 History nystatin 5 ml PO TID 05/10/20 05/10/20 History Allergies Allergy/AdvReac Type Severity Reaction Status Date / Time No Known Allergies Allergy Verified 05/10/20 14:47 Vital Signs Vital Signs - 24 hr 05/10/20 12:52 05/10/20 13:29 05/10/20 14:47 Temperature 97 F L Pulse Rate 74 77 76 Respiratory Rate 16 14 12 Blood Pressure 116/63 116/59 L 127/56 L Pulse Oximetry 100 100
[2020-05-10] MEDS: carvediloL 12.5 MG TABLET PO (23:04)
[2020-05-10] MEDS: LINEZOLID 600 MG TABLET PO (23:05)
[2020-05-10] MEDS: PANTOPRAZOLE 40 MG TABLET PO (23:05)
[2020-05-10] MEDS: TAMSULOSIN HCL 0.4 MG CAPSULE PO (23:06)
[2020-05-11] VITALS (14 sets, daily range): BP systolic 74–128; BP diastolic 30–55; PULSE 75–85; RESP 16–20; TEMP 36.3–36.6; O2SAT 97–100
[2020-05-11] MEDS: SODIUM CHLORIDE 0.9% IV 1,000 ML 125 ML IV CONT ×2 (04:01→12:10)
[2020-05-11 05:44] LABS: Anion Gap 7 mmol/L (8-16); Blood Urea Nitrogen 17 mg/dL (9-20); Calcium 7.3 mg/dL (8.4-10.2); Carbon Dioxide 24 mmol/L (22-30); Chloride 99 mmol/L (98-107); Estimated CRCL calculation 34 ml/min; Estimated Glomerular Filt Rate 44; Glucose 104 mg/dL (75-110); Potassium 3.5 mmol/L (3.4-5.0); Sodium 130 mmol/L (137-145)
[2020-05-11] MEDS: ASPIRIN 81 MG ENTERIC TABLET PO (07:39)
[2020-05-11] MEDS: PANTOPRAZOLE 40 MG TABLET PO ×2 (07:40→20:20)
[2020-05-11] MEDS: ROSUVASTATIN 10 MG TABLET 40 MG PO (07:40)
[2020-05-11] MEDS: CLOPIDOGREL BISULFATE 75 MG TABLET PO (07:41)
[2020-05-11] MEDS: carvediloL 12.5 MG TABLET PO (07:41)
[2020-05-11] MEDS: FINASTERIDE 5 MG TABLET PO (07:41)
[2020-05-11] MEDS: LINEZOLID 600 MG TABLET PO ×2 (07:41→20:20)
--- NOTE | 2020-05-11 10:45 | PCOTNOTE ---
Hold OT evaluation this AM per nursing request due to low blood pressure. Will attempt in PM.
--- NOTE | 2020-05-11 10:55 | PCPTNOTE ---
Hold PT evaluation this AM per nursing request due to low blood pressure. Will attempt in PM.
--- NOTE | 2020-05-11 11:13 | WPDNEURCNPN ---
Assessment and Plan Assessment and plan (1) Acute alteration in mental status: Code(s): R41.82 - Altered mental status, unspecified Status: Acute (2) Cerebral infarction, chronic: Code(s): Z86.73 - Personal history of transient ischemic attack (TIA), and cerebral infarction without residual deficits Status: Acute (3) Recurrent falls: Code(s): R29.6 - Repeated falls Status: Acute Additional Plan encephalopathy most likely only metabolic with CT scan as described above but we will obtain the MRI of the brain as well to make sure there is no new stroke in addition to the possibility of the TIA but patient is receiving the appropriate medications Consult date: 05/11/20 Time Seen: 11:00 HPI: Declan Allen is a 85 year old maleAdmitted to the hospital for acute changes in the mental status with hyponatremia and dehydration in addition to the ongoing history of 1. Osteomyelitis of the spine 2. Long-term antibiotic treatment with PICC line in place 3. Chronic hyponatremia 4. Old stroke. Subsequent to receiving the fluids he was more coherent and able to give more information to the initial physician he gave no history of generalized weakness or recurrent falls But obviously has ongoing history of coronary artery disease, GERD, gout, hypertension and back pain. Initial evaluation documented him to have no leukocytosis WBCs 5.8 with the hemoglobin 9.5 and platelet count of only 47 INR of 1.1 initial sodium 126 repeat 130 but potassium 4.1 BUN 21 repeat [address] scan of the head with small old lacunar infarct of the right basal ganglia, left kei and anterior left frontal lobe with white matter hypoattenuation consistent with the chronic small-vessel ischemic disease. Chest x-ray with status post sternotomy changes for CABG and extensive thoracic and abdominal aortic calcification also a large hiatal hernia. At this stage patient receiving aspirin 81 mg daily with clopidogrel 75 mg daily his eye walk 600 mg p.o. q.12 hours and other medications as such Review of Systems Review of Systems: All systems reviewed & are unremarkable except as noted in HPI and below PMFSH Past Medical History Medical History Arthritis Asthma Back pain BPH w urinary obs/LUTS CAD (coronary artery disease) Chronic hyponatremia GERD (gastroesophageal reflux disease) Gout HLD (hyperlipidemia) HTN (hypertension) Surgical History Surgical History H/O heart artery stent 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 Social History Social History Social History: Patient lives with his . He used to drink beer pretty heavy but quit drinking beer several years ago. Patient never smoked. The patient has 1 biological child that is in [place]. He has 3 step children that a nearby. The patient desires to be a full code. He denies any marijuana or substance abuse. Lifelong nonsmoker. Smoking status: Never smoker Alcohol intake: former Substance use: never Substance use type: does not use Gender identity (if verbalized by the patient): Male Spiritual care concerns: No Agree to blood products: Yes Meds Home Medications and Allergies Home Medications Medication Instructions Recorded Confirmed Type clopidogrel 75 mg PO DAILY 08/27/19 05/10/20 History finasteride 5 mg PO DAILY 08/27/19 05/10/20 History omeprazole 40 mg PO DAILY 08/27/19 05/10/20 History rosuvastatin 40 mg PO DAILY 08/27/19 05/10/20 History tamsulosin 0.4 mg PO HS 08/27/19 05/10/20 History albuterol sulfate 1 puff INHALATION BID PRN 01/26/2005/10
--- NOTE | 2020-05-11 11:52 | PM.IMPN ---
Progress Note: A&P Assessment and Plan (1) Acute alteration in mental status: Code(s): R41.82 - Altered mental status, unspecified Status: Acute Assessment and Plan: This is improved today. Suspect may be have been related to dehydration, hyponatremia. 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 Continue to monitor. (2) Acute hyponatremia: Code(s): E87.1 - Hypo-osmolality and hyponatremia Status: Acute Assessment and Plan: Acute on chronic hyponatremia suspect secondary to dehydration with GI losses. Baseline sodium appears around 131 on review of previous labs. Sodium improved to 130 this morning. Continue IV hydration for now given hypotension, monitor BMP. Monitor I&Os. (3) Acute osteomyelitis of thoracic spine: Code(s): M46.24 - Osteomyelitis of vertebra, thoracic region Status: Acute Assessment and Plan: Recent discitis at T7/T8 this summer treated with IV antibiotics (vancomycin) now on oral linezolid, follows with Dr Shay. Dr Shay has been consulted - appreciate input. Suspect T7 abnormality on CXR is related to this, obtain spine XR to evaluate given his weakness however no red flag symptoms such as bowel/bladder dysfunction or saddle anesthesia are identified. (4) Diarrhea: Qualifiers: Diarrhea type: unspecified type Qualified Code(s): R19.7 - Diarrhea, unspecified Code(s): R19.7 - Diarrhea, unspecified Status: Acute Assessment and Plan: May be related to antibiotic therapy. Send for stool culture and C diff. Add probiotic and monitor. Could add banatrol if continues with significant diarrhea today. (5) Recurrent falls: Code(s): R29.6 - Repeated falls Status: Acute Assessment and Plan: Suspect generalized weakness related to physical deconditioning and recent illness. Plan for PT/OT evaluations, hold off for now given hypotension. (6) Acute on chronic renal failure: Qualifiers: Acute renal failure type: unspecified Chronic kidney disease stage: stage 3 (moderate) Chronic kidney disease stage 3 subtype: stage 3a (GFR 45-59) Qualified Code(s): N17.9 - Acute kidney failure, unspecified; N18.31 - Chronic kidney disease, stage 3a Code(s): N17.9 - Acute kidney failure, unspecified; N18.9 - Chronic kidney disease, unspecified Status: Acute Assessment and Plan: Cr improved to 1.5 from 1.8 yesterday, suspect secondary to hypovolemia and GI losses. Avoid nephrotoxic agents and monitor renal function. Continue IV fluids for now. (7) CAD (coronary artery disease): Qualifiers: Associated angina: without angina Coronary Disease-Associated Artery/Lesion type: [place] artery [place] vs. transplanted heart: [place] heart Qualified Code(s): I25.10 - Atherosclerotic heart disease of [place] coronary artery without angina pectoris Code(s): I25.10 - Atherosclerotic heart disease of [place] coronary artery without angina pectoris Status: Chronic Assessment and Plan: History of coronary stenting and CABG. Stable, no chest pain. Continue plavix and ASA. Beta blockade held on the basis of hypotension this AM, will reevaluate this PM. (8) Cerebral infarction, chronic: Code(s): Z86.73 - Personal history of transient ischemic attack (TIA), and cerebral infarction without residual deficits Status: Acute Assessment and Plan: Old infarcts noted on imaging, unchanged. Continue ASA, plavix, statin therapy. (9) Chronic anem
--- NOTE | 2020-05-11 14:14 | PCOTNOTE ---
Hold OT evaluation per nursing request. Will continue to attempt.
[2020-05-11] MEDS: SACCHAROMYCES BOULARDII 250 MG CAPSULE PO (16:24)
[2020-05-11] MEDS: SODIUM CHLORIDE 0.9% IV 1,000 ML 100 ML IV CONT (20:20)
[2020-05-11] MEDS: TAMSULOSIN HCL 0.4 MG CAPSULE PO (20:20)
[2020-05-12] VITALS (21 sets, daily range): BP systolic 103–137; BP diastolic 42–56; PULSE 70–84; RESP 16–20; TEMP 36.2–36.7; O2SAT 96–100
[2020-05-12 06:08] LABS: Basophils Percent Auto 0.4 % (0.2-1.2); Eosinophils Absolute Auto 0.2 K/mm3 (0-0.3); Eosinophils Percent Auto 2.9 % (0-4.4); Immature Granulocyte Absolute 0.06 K/mm3 (0.00-0.031); Immature Granulocyte Percent A 1.2 % (0-0.5); Immature Platelet Fraction Pct 3.7 % (0.9-11.2); Lymphocytes Absolute Auto 2.12 K/mm3 (0.9-3.2); Lymphocytes Percent Auto 41.6 % (18.3-44.2); Mean Corpuscular HGB Conc 33.8 g/dl (32-36); Mean Corpuscular Hemoglobin 27.6 pg (26-34); Mean Corpuscular Volume 81.7 fl (80-100); Mean Platelet Volume 10.2 fl (7.4-10.4); Monocytes Absolute Auto 0.3 K/mm3 (0.1-0.6); Monocytes Percent Auto 5.9 % (2.6-8.5); Neutrophils Absolute Auto 2.5 K/mm3 (1.3-6.7); Platelet Count Result 31 k/mm3 (150-375); Red Blood Count 2.46 M/mm3 (4.6-6.20); Red Cell Distribution Width 14.6 % (11.5-14.5); White Blood Count 5.1 K/mm3 (4.5-10.0)
[2020-05-12] MEDS: SODIUM CHLORIDE 0.9% IV 1,000 ML 100 ML IV CONT (06:24)
[2020-05-12 06:43] LABS: Anion Gap 3 mmol/L (8-16); Blood Urea Nitrogen 21 mg/dL (9-20); Calcium 7.3 mg/dL (8.4-10.2); Carbon Dioxide 21 mmol/L (22-30); Chloride 104 mmol/L (98-107); Estimated CRCL calculation 28 ml/min; Estimated Glomerular Filt Rate 36; Glucose 99 mg/dL (75-110); Magnesium 1.5 mg/dL (1.6-2.3); Potassium 3.5 mmol/L (3.4-5.0); Sodium 128 mmol/L (137-145)
[2020-05-12 07:31] LABS: Hematocrit 20.1 % (42.0-52.0); Hemoglobin 6.8 g/dL (14.0-18.0)
[2020-05-12] MEDS: MAGNESIUM SULF 2 GM/WATER 50ML 2 GM/50 ML BAG IVPB (09:22)
[2020-05-12] MEDS: SACCHAROMYCES BOULARDII 250 MG CAPSULE PO ×2 (09:27→18:34)
[2020-05-12] MEDS: ROSUVASTATIN 10 MG TABLET 40 MG PO (09:27)
[2020-05-12] MEDS: ASPIRIN 81 MG ENTERIC TABLET PO (09:27)
[2020-05-12] MEDS: FINASTERIDE 5 MG TABLET PO (09:28)
[2020-05-12] MEDS: PANTOPRAZOLE 40 MG TABLET PO ×2 (09:28→22:17)
[2020-05-12 10:05] LABS: Alanine Aminotransferase 28 U/L (4-50); Albumin Level 2.7 g/dL (3.5-5.1); Alkaline Phosphatase 68 U/L (38-126); Anion Gap 9 mmol/L (8-16); Aspartate Amino Transferase 34 U/L (17-59); Bilirubin,Total 0.3 mg/dL (0.2-1.3); Blood Urea Nitrogen 19 mg/dL (9-20); Calcium 7.8 mg/dL (8.4-10.2); Carbon Dioxide 19 mmol/L (22-30); Chloride 101 mmol/L (98-107); Estimated CRCL calculation 28 ml/min; Estimated Glomerular Filt Rate 36; Glucose 137 mg/dL (75-110); Potassium 3.2 mmol/L (3.4-5.0); Sodium 129 mmol/L (137-145)
[2020-05-12 10:06] LABS: Lactate Dehydrogenase 303 U/L (313-618)
--- NOTE | 2020-05-12 11:54 | PM.IMPN ---
Progress Note: A&P Assessment and Plan (1) Pancytopenia: Code(s): D61.818 - Other pancytopenia Status: Acute Assessment and Plan: A chronic normocytic anemia noted on arrival; platelets down to 31 today. Hgb down to 6.8 today. Transfuse 2 units packed RBC and monitor CBCd. Suspect a possible agranulocytosis or drug-induced thrombocytopenia from linezolid therapy? (2) Acute osteomyelitis of thoracic spine: Code(s): M46.24 - Osteomyelitis of vertebra, thoracic region Status: Acute Assessment and Plan: Recent discitis at T7/T8 diagnosed Jan 2020 treated with IV vancomycin; now on oral linezolid, follows with Dr Shay. Previous to that he was treated with IV vancomycin in August 2019 for Coag negative Staph bacteremia. Per patient, around 5 weeks ago his PICC was removed and he was transitioned to oral linezolid. In light of his new pancytopenia/possible drug-induced thrombocytopenia, linezolid has been stopped and vancomycin restarted this morning. Dr Shay has been consulted - appreciate his recommendations in this setting. Dr Childress was consulted due to the vertebral deformity noted on imaging related to the discitis - appreciate recommendations. No red flag symptoms such as bowel/bladder dysfunction, paresthesias or saddle anesthesia are identified. (3) Acute alteration in mental status: Code(s): R41.82 - Altered mental status, unspecified Status: Acute Assessment and Plan: Resolved. Suspect may be have been related to dehydration, hyponatremia. 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 Continue to monitor. (4) Acute hyponatremia: Code(s): E87.1 - Hypo-osmolality and hyponatremia Status: Acute Assessment and Plan: Acute on chronic hyponatremia suspect secondary to dehydration with GI losses. Baseline sodium appears around 131 on review of previous labs. Na 129 today . Treated with IV NS, stop IV fluids for now and monitor BMP. Monitor I&Os. (5) Diarrhea: Qualifiers: Diarrhea type: unspecified type Qualified Code(s): R19.7 - Diarrhea, unspecified Code(s): R19.7 - Diarrhea, unspecified Status: Acute Assessment and Plan: May be related to antibiotic therapy. Stool culture and C diff pending. Add probiotic and monitor. (6) Recurrent falls: Code(s): R29.6 - Repeated falls Status: Acute Assessment and Plan: Suspect generalized weakness related to physical deconditioning and recent illnesses. PT/OT. (7) Acute on chronic renal failure: Qualifiers: Acute renal failure type: unspecified Chronic kidney disease stage: stage 3 (moderate) Chronic kidney disease stage 3 subtype: stage 3a (GFR 45-59) Qualified Code(s): N17.9 - Acute kidney failure, unspecified; N18.31 - Chronic kidney disease, stage 3a Code(s): N17.9 - Acute kidney failure, unspecified; N18.9 - Chronic kidney disease, unspecified Status: Acute Assessment and Plan: Cr 1.8, suspect secondary to hypovolemia and GI losses. Avoid nephrotoxic agents and monitor renal function. (8) CAD (coronary artery disease): Qualifiers: Coronary Disease-Associated Artery/Lesion type: [place] artery [place] vs. transplanted heart: [place] heart Associated angina: without angina Qualified Code(s): I25.10 - Atherosclerotic heart disease of [place] coronary artery without angina pectoris Code(s): I25.10 - Atherosclerotic heart disease of [place] coronary artery without angina pectoris Status: Chronic Assessment
[2020-05-12] MEDS: POTASSIUM CHLORIDE 20 MEQ TABLET 40 MEQ PO (13:39)
--- NOTE | 2020-05-12 13:56 | PM.CNOR ---
Assessment and Plan Additional Plan Patient is an 85-year-old male who came to the emergency room on 05/10/2020 complaining of generalized weakness and mental status changes and was admitted. He has a history of diskitis at T7-T8. He was evaluated back in August for this and patient tells me that he was sent to [facility] for a biopsy I do not know the exact organisms that grew however he has been seen Dr. Shay. He did see Dr. shruthi fang initially. He has not had to use any sort of brace. Apparently took antibiotics for a month and then stopped min had some relapsing symptoms and then he was on a PICC line for IV antibiotics for 3 months and that has been discontinued and he is 1'/2 months into a 3 month course of linezolid currently. Dr. Shay has been managing this. He was scheduled to see in the future in follow-up. In the week prior to his admission he has started feeling weak and unsteady and he had 2 falls last week. With 1 of his falls he hit his head he recalls but he did not hurt his upper or lower back he believes. He is not having any pain in his upper or lower back currently. Prior to these falls he was not using any sort of gait aid but since the falls he has been using a cane because he feels weaker. On admission he had moderate renal failure with creatinine of 1.8 which remains the same today. On admission is hemoglobin was 9.5 however and now it is 6.8 this morning and he has 2 units of packed red cells and then cross-matched and is about to start receiving those. On examination he is sitting in bed is in no distress he is alert and oriented and he is a good historian at this time. He shows no signs of confusion. He recognized my name as I have seen his in the past. He provided the history to me. He has 5/5 ankle dorsiflexion and plantar flexion. His dorsiflexion range is little bit diminished on the left compared to the right both actively and passively suggesting some stiffness there. He reports normal sensation to light touch testing in both feet. On admission he had thoracic spine films which showed interval collapse at T7 and T8 with a focal kyphosis there consistent with diskitis osteomyelitis. He had MRI scan of both lumbar and thoracic spine without gadolinium contrast done approximately 1 hour ago and that the radiologists readings are pending the does have a focal kyphosis at T7-8 with some bulging of the disc at that level which a faces the ventral spinal cord. I do not think he has high-grade stenosis at this level but I will wait to see with the radiologist's opinion on that is. On the sagittal images there is a thin David signal linear intensity in the center of the spinal cord at that level which might represent some subtle focal myelopathy. I again I will wait for the radiologist's impression on that. Impression patient is being treated for diskitis at T7-T8. The spine surgeon treating him is not on staff at this hospital but I will forward the images to him and when available the radiologist interpretations of these MRIs for further recommendations for a spine step from for spine standpoint. Does not have an obvious weakness in his lower extremities and up until this past week we started feeling weaker he was not eating a gait aid and only this past week he has been using a cane and still ambulatory. I explained the patient that I am not a integrity specialist and any management decisions for this problem should be made by a integrity specialist. His neurologic status though does appear to be stable and he is not having pain in his back currently. Further recommendations will be forthcoming after review with Dr. Franco. History of Present Illness HPI Consult date: 05/12/20 Chief complaint: Transient AMS/hyponatremia/dehydration [facility] Past Medical History Medical History (Updated 05/11/20 @ 13:17 by Blanca Gillis PA-C) Arthritis Asthma Back pain BPH w urinary obs/LUTS CAD (coronary artery
--- NOTE | 2020-05-12 14:25 | PCPTNOTE ---
Attempted PT evaluation this p.m. - he is currently receiving blood. Decided with RN it was best to wait until tomorrow for PT eval due to orthostatic issues with OT this a.m.
[2020-05-12] MEDS: SODIUM CHLORIDE 0.9% IV 250 ML 30 ML IV CONT (18:34)
[2020-05-12 21:53] LABS: IFOB Positive Control Positive; Immunochemical Fecal Occult Bl Positive (N)
[2020-05-12] MEDS: TAMSULOSIN HCL 0.4 MG CAPSULE PO (22:17)
[2020-05-12 23:29] LABS: Basophils Percent Auto 0.3 % (0.2-1.2); Eosinophils Absolute Auto 0.2 K/mm3 (0-0.3); Eosinophils Percent Auto 3.2 % (0-4.4); Hematocrit 28.9 % (42.0-52.0); Hemoglobin 9.9 g/dL (14.0-18.0); Immature Granulocyte Absolute 0.02 K/mm3 (0.00-0.031); Immature Granulocyte Percent A 0.3 % (0-0.5); Immature Platelet Fraction Pct 3.8 % (0.9-11.2); Lymphocytes Absolute Auto 2.09 K/mm3 (0.9-3.2); Lymphocytes Percent Auto 31.5 % (18.3-44.2); Mean Corpuscular HGB Conc 34.3 g/dl (32-36); Mean Corpuscular Volume 81.9 fl (80-100); Mean Platelet Volume 10.4 fl (7.4-10.4); Monocytes Absolute Auto 0.4 K/mm3 (0.1-0.6); Monocytes Percent Auto 6.3 % (2.6-8.5); Neutrophils Absolute Auto 3.9 K/mm3 (1.3-6.7); Neutrophils Percent Auto 58.4 % (45.5-73.1); Platelet Count Result 31 k/mm3 (150-375); Red Blood Count 3.53 M/mm3 (4.6-6.20); Red Cell Distribution Width 14.6 % (11.5-14.5); White Blood Count 6.6 K/mm3 (4.5-10.0)
[2020-05-13] VITALS (12 sets, daily range): BP systolic 125–139; BP diastolic 48–67; PULSE 71–89; RESP 16–18; TEMP 35.9–36.6; O2SAT 95–99
[2020-05-13 05:54] LABS: Basophils Percent Auto 0.5 % (0.2-1.2); Eosinophils Absolute Auto 0.2 K/mm3 (0-0.3); Eosinophils Percent Auto 3.9 % (0-4.4); Hematocrit 27.6 % (42.0-52.0); Hemoglobin 9.6 g/dL (14.0-18.0); Immature Granulocyte Absolute 0.01 K/mm3 (0.00-0.031); Immature Granulocyte Percent A 0.2 % (0-0.5); Immature Platelet Fraction Pct 2.5 % (0.9-11.2); Lymphocytes Absolute Auto 1.79 K/mm3 (0.9-3.2); Lymphocytes Percent Auto 30.3 % (18.3-44.2); Mean Corpuscular HGB Conc 34.8 g/dl (32-36); Mean Corpuscular Hemoglobin 27.8 pg (26-34); Mean Platelet Volume 9.6 fl (7.4-10.4); Monocytes Absolute Auto 0.4 K/mm3 (0.1-0.6); Monocytes Percent Auto 6.4 % (2.6-8.5); Neutrophils Absolute Auto 3.5 K/mm3 (1.3-6.7); Neutrophils Percent Auto 58.7 % (45.5-73.1); Platelet Count Result 26 k/mm3 (150-375); Red Blood Count 3.45 M/mm3 (4.6-6.20); Red Cell Distribution Width 14.3 % (11.5-14.5); White Blood Count 5.9 K/mm3 (4.5-10.0)
[2020-05-13 05:57] LABS: Alanine Aminotransferase 23 U/L (4-50); Albumin Level 2.3 g/dL (3.5-5.1); Alkaline Phosphatase 65 U/L (38-126); Anion Gap 4 mmol/L (8-16); Aspartate Amino Transferase 26 U/L (17-59); Bilirubin,Total 0.7 mg/dL (0.2-1.3); Blood Urea Nitrogen 18 mg/dL (9-20); Calcium 7.6 mg/dL (8.4-10.2); Carbon Dioxide 22 mmol/L (22-30); Chloride 102 mmol/L (98-107); Estimated CRCL calculation 27 ml/min; Estimated Glomerular Filt Rate 34; Glucose 98 mg/dL (75-110); Magnesium 1.8 mg/dL (1.6-2.3); Potassium 3.4 mmol/L (3.4-5.0); Sodium 128 mmol/L (137-145)
[2020-05-13] MEDS: SACCHAROMYCES BOULARDII 250 MG CAPSULE PO ×2 (08:40→16:09)
[2020-05-13] MEDS: ROSUVASTATIN 10 MG TABLET 40 MG PO (08:40)
[2020-05-13] MEDS: ASPIRIN 81 MG ENTERIC TABLET PO (08:41)
[2020-05-13] MEDS: MAGNESIUM OXIDE 200 MG TABLET PO ×2 (08:41→20:00)
[2020-05-13] MEDS: PANTOPRAZOLE 40 MG TABLET PO ×2 (08:41→20:00)
[2020-05-13] MEDS: FINASTERIDE 5 MG TABLET PO (08:41)
--- NOTE | 2020-05-13 09:15 | PCPTNOTE ---
Spoke w/ NJose SILVA. She stated to hold therapy due to bed rest and transfer to [facility].
--- NOTE | 2020-05-13 10:12 | PM.PNORT ---
Progress Note: A&P Additional Plan Case discussed with Hospt service yesterday and efforts underway to transfer pt to tertiary care neurosurgery. Subjective Subjective Date/Time Seen: 05/13/20 10:12 Objective Data Vital Signs Vital Signs: Vital Signs - 24 hr 05/12/20 10:50 05/12/20 10:51 05/12/20 12:00 Temperature Pulse Rate 84 79 Respiratory Rate Blood Pressure 127/50 L 103/42 L Pulse Oximetry 98 99 05/12/20 13:45 05/12/20 14:00 05/12/20 14:15 Temperature 36.4 C 36.4 C 36.5 C Pulse Rate 70 70 71 Respiratory Rate 18 18 18 Blood Pressure 118/52 L 118/52 L 134/48 L Pulse Oximetry 99 99 96 05/12/20 15:15 05/12/20 16:00 05/12/20 16:15 Temperature 36.4 C 36.6 C Pulse Rate 80 80 79 Respiratory Rate 20 20 Blood Pressure 136/54 L 126/52 L Pulse Oximetry 100 98 05/12/20 17:15 05/12/20 18:25 05/12/20 18:40 Temperature 36.6 C 36.4 C L 36.4 C L Pulse Rate 84 80 75 Respiratory Rate 20 20 20 Blood Pressure 136/53 L 110/47 L 126/49 L Pulse Oximetry 100 100 100 05/12/20 19:40 05/12/20 20:00 05/12/20 22:00 Temperature 36.6 C 36.2 C L 36.6 C Pulse Rate 78 80 78 Respiratory Rate 20 20 20 Blood Pressure 137/54 L 128/52 L 137/54 L Pulse Oximetry 97 99 97 05/13/20 00:00 05/13/20 02:00 05/13/20 04:00 Temperature 36.2 C L Pulse Rate 76 72 75 Respiratory Rate 16 Blood Pressure 125/48 L Pulse Oximetry 99 05/13/20 06:00 Temperature 36.2 C L Pulse Rate 78 Respiratory Rate 16 Blood Pressure 125/53 L Pulse Oximetry 97 Intake/Output Intake/Output: Intake & Output 05/10/20 05/11/20 05/12/20 05/13/20 23:59 23:59 23:59 23:59 Intake Total 3200 4240 2767 200 Output Total 350 775 500 Balance 3200 3890 1992 - Meds/Results Medications: Active Medications Generic Name Dose Route Start Last Admin Trade Name Freq PRN Reason Stop Dose Admin Hydrocodone Bitart/Acetaminophen 1 tab 05/10/20 20:24 Hydrocodone/Acetaminophen (*Crx) 5-325 Mg Tablet PO Q4H PRN Pain Rated 4-6 Albuterol 1 puff 05/10/20 20:24 Albuterol Sulfate (*Sp) Aerosol 1 Puff INHALATION Q12HRT PRN Shortness Of Breath Or Wheezing Aspirin 81 mg 05/11/20 09:00 05/13/20 08:41 Aspirin 81 Mg Enteric Tablet PO 81 mg DAILY SANDRA Administration Carvedilol 12.5 mg 05/10/20 21:00 05/11/20 07:41 Carvedilol 12.5 Mg Tablet PO 12.5 mg Q12HR SANDRA Administration Clopidogrel Bisulfate 75 mg 05/11/20 09:00 05/11/20 07:41 Clopidogrel Bisulfate 75 Mg Tablet PO 75 mg DAILY SANDRA Administration Finasteride 5 mg 05/11/20 09:00 05/13/20 08:41 Finasteride 5 Mg Tablet PO 5 mg DAILY SANDRA Administration Vancomycin HCl 1,000 mg in 250 mls @ 250 mls/hr 05/12/20 09:00 05/12/20 10:31 Vancomycin 1,000 Mg/D5w 250 Ml IVPB 250 mls/hr Q36H SANDRA Administration Lidocaine 2 patch 05/10/20 20:24 Lidocaine 5% Patch TRANSDERM DAILY PRN Pain Magnesium Oxide 200 mg 05/13/20 09:00 05/13/20 08:41 Magnesium Oxide 200 Mg Tablet PO 200 mg Q12HR SANDRA Administration Miconazole Nitrate 1 applic 05/12/20 21:00 05/13/20 08:41 Miconazole 2% Antifungal Ointment 56 Gm TOPICAL 1 applic Q12HR SANDRA Administration Ondansetron HCl 4 mg 05/10/20 15:52 Ondansetron Inj 4 Mg/2 Ml Vial IV PUSH Q4H PRN Nausea Pantoprazole Sodium 40 mg 05/10/20 21:00 05/13/20 08:41 Pantoprazole 40 Mg Tablet PO 40 mg Q12HR SANDRA Administration Rosuvastatin Calcium 40 mg 05/11/20 09:00 05/13/20 08:40 Rosuvastatin 10 Mg Tablet PO 40 mg DAILY SANDRA Administration Saccharomyces Boulardii 250 mg 05/11/20 17:00 05/13/20 08:40 Saccharomyces Boulardii 250 Mg Capsule PO 250 mg BID SANDRA Administration Tamsulosin HCl 0.4 mg 05/10/20 21:00 05/12/20 22:17 Tamsulosin Hcl 0.4 Mg Capsule PO 0.4 mg HS SANDRA Administration Radiology Results: ITS Impressions Head CT 05/10/20 13:25 IMPRESSION: 1. No acute intracranial process.
--- NOTE | 2020-05-13 13:03 | WPDINFPN2 ---
Progress Note: A&P Assessment and Plan (1) Acute osteomyelitis of thoracic spine: Code(s): M46.24 - Osteomyelitis of vertebra, thoracic region Status: Acute Assessment and Plan: 1. Acute OM of T spine after CNSS septicemia, urine source. Biopsy confirmed OM, no culture sent from that specimen. Clinical response after 12 weeks Vanc, now on linezolid as oral followup 2. Thrombocytopenia, possibly due to linezolid. REC Linezolid stopped, and he needs no IV rx. Once platelets are consistently rising, begin TMP-SMX DS. Unless new events (e.g., positive blood cultures) in meantime, ok with me for thoracic spine hardware if judged indicated by surgeon. Subjective Date/time seen: 05/13/20 13:03 Objective Data Vital Signs Vital Signs: Vital Signs - 24 hr 05/12/20 13:45 05/12/20 14:00 05/12/20 14:15 Temperature 36.4 C 36.4 C 36.5 C Pulse Rate 70 70 71 Respiratory Rate 18 18 18 Blood Pressure 118/52 L 118/52 L 134/48 L Pulse Oximetry 99 99 96 05/12/20 15:15 05/12/20 16:00 05/12/20 16:15 Temperature 36.4 C 36.6 C Pulse Rate 80 80 79 Respiratory Rate 20 20 Blood Pressure 136/54 L 126/52 L Pulse Oximetry 100 98 05/12/20 17:15 05/12/20 18:25 05/12/20 18:40 Temperature 36.6 C 36.4 C L 36.4 C L Pulse Rate 84 80 75 Respiratory Rate 20 20 20 Blood Pressure 136/53 L 110/47 L 126/49 L Pulse Oximetry 100 100 100 05/12/20 19:40 05/12/20 20:00 05/12/20 22:00 Temperature 36.6 C 36.2 C L 36.6 C Pulse Rate 78 80 78 Respiratory Rate 20 20 20 Blood Pressure 137/54 L 128/52 L 137/54 L Pulse Oximetry 97 99 97 05/13/20 00:00 05/13/20 02:00 05/13/20 04:00 Temperature 36.2 C L Pulse Rate 76 72 75 Respiratory Rate 16 Blood Pressure 125/48 L Pulse Oximetry 99 05/13/20 06:00 05/13/20 08:00 05/13/20 10:00 Temperature 36.2 C L 36.6 C Pulse Rate 78 71 81 Respiratory Rate 16 18 Blood Pressure 125/53 L 130/56 L Pulse Oximetry 97 96 05/13/20 12:00 Temperature Pulse Rate 75 Respiratory Rate Blood Pressure Pulse Oximetry Intake/Output Intake/Output: Intake & Output 05/10/20 05/11/20 05/12/20 05/13/20 23:59 23:59 23:59 23:59 Intake Total 3200 4240 2767 440 Output Total 350 775 500 Balance 3200 3890 1991 Meds/Results Medications: Active Medications Generic Name Dose Route Start Last Admin Trade Name Freq PRN Reason Stop Dose Admin Hydrocodone Bitart/Acetaminophen 1 tab 05/10/20 20:24 Hydrocodone/Acetaminophen (*Crx) 5-325 Mg Tablet PO Q4H PRN Pain Rated 4-6 Albuterol 1 puff 05/10/20 20:24 Albuterol Sulfate (*Sp) Aerosol 1 Puff INHALATION Q12HRT PRN Shortness Of Breath Or Wheezing Aspirin 81 mg 05/11/20 09:00 05/13/20 08:41 Aspirin 81 Mg Enteric Tablet PO 81 mg DAILY SANDRA Administration Carvedilol 12.5 mg 05/10/20 21:00 05/11/20 07:41 Carvedilol 12.5 Mg Tablet PO 12.5 mg Q12HR SANDRA Administration Clopidogrel Bisulfate 75 mg 05/11/20 09:00 05/11/20 07:41 Clopidogrel Bisulfate 75 Mg Tablet PO 75 mg DAILY SANDRA Administration Finasteride 5 mg 05/11/20 09:00 05/13/20 08:41 Finasteride 5 Mg Tablet PO 5 mg DAILY SANDRA Administration Vancomycin HCl 1,000 mg in 250 mls @ 250 mls/hr 05/12/20 09:00 05/12/20 10:31 Vancomycin 1,000 Mg/D5w 250 Ml IVPB 250 mls/hr Q36H SANDRA Administration Lidocaine 2 patch 05/10/20 20:24 Lidocaine 5% Patch TRANSDERM DAILY PRN Pain Magnesium Oxide 200 mg 05/13/20 09:00 05/13/20 08:41 Magnesium Oxide 200 Mg Tablet PO 200 mg Q12HR SANDRA Administration Miconazole Nitrate 1 applic 05/12/20 21:00 05/13/20 08:41 Miconazole 2% Antifungal Ointment 56 Gm TOPICAL 1 applic Q12HR SANDRA Administration Ondansetron HCl 4 mg 05/10/20 15:52 Ondansetron Inj 4 Mg/2 Ml Vial IV PUSH Q4H PRN Nausea Pantoprazole Sodium 40 mg 05/10/20 21:00 05/13/20 08:41 Pantoprazole 40 Mg Tablet PO 40 mg Q12HR SANDRA Administration
--- NOTE | 2020-05-13 14:18 | PM.IMPN ---
Progress Note: A&P Assessment and Plan (1) Pancytopenia: Code(s): D61.818 - Other pancytopenia Status: Acute Assessment and Plan: A chronic normocytic anemia noted on arrival; platelets down to 26 today. Hgb down to 6.8 05/12, received 2 units packed RBC, Hgb up to 9.6 today. Monitor CBCd. Suspect a possible drug-induced thrombocytopenia from linezolid therapy. Linezolid stopped 05/12, discussed this with Dr Shay. (2) Acute osteomyelitis of thoracic spine: Code(s): M46.24 - Osteomyelitis of vertebra, thoracic region Status: Acute Assessment and Plan: Recent discitis at T7/T8 diagnosed Jan 2020 treated with IV vancomycin; now on oral linezolid, follows with Dr Shay. Previous to that he was treated with IV vancomycin in August 2019 for Coag negative Staph bacteremia, urinary source. Per patient, around 5 weeks ago his PICC was removed and he was transitioned to oral linezolid. Linezolid stopped 05/12 due to thrombocytopenia. Noted Dr Shay's plan to resume oral abx with Bactrim once platelets increase - appreciate his input. Dr Childress was consulted due to the vertebral deformity noted on imaging related to the discitis - appreciate recommendations. MRI demonstrates protrusion into the central spinal canal with worsened bone loss, accepted [facility] and will transfer once a bed becomes available. No red flag symptoms such as bowel/bladder dysfunction, paresthesias or saddle anesthesia are identified. (3) Acute alteration in mental status: Code(s): R41.82 - Altered mental status, unspecified Status: Acute Assessment and Plan: Resolved. Suspect may be have been related to dehydration, hyponatremia. 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 Continue to monitor. (4) Acute hyponatremia: Code(s): E87.1 - Hypo-osmolality and hyponatremia Status: Acute Assessment and Plan: Acute on chronic hyponatremia suspect secondary to dehydration with GI losses. Baseline sodium appears around 131 on review of previous labs. Na 128 today. Obtain random urine sodium, monitor BMP. Add back gentle IV NS. Monitor I&Os. (5) Diarrhea: Qualifiers: Diarrhea type: unspecified type Qualified Code(s): R19.7 - Diarrhea, unspecified Code(s): R19.7 - Diarrhea, unspecified Status: Acute Assessment and Plan: Improved, may be related to antibiotic therapy. C diff negative; other stool studies pending. Continue probiotic and monitor. (6) Recurrent falls: Code(s): R29.6 - Repeated falls Status: Acute Assessment and Plan: Suspect generalized weakness related to physical deconditioning, discitis felt to be contributing. Hold PT/OT as Dr Childress recommends bedrest at this time. (7) Acute on chronic renal failure: Qualifiers: Acute renal failure type: unspecified Chronic kidney disease stage: stage 3 (moderate) Chronic kidney disease stage 3 subtype: stage 3a (GFR 45-59) Qualified Code(s): N17.9 - Acute kidney failure, unspecified; N18.31 - Chronic kidney disease, stage 3a Code(s): N17.9 - Acute kidney failure, unspecified; N18.9 - Chronic kidney disease, unspecified Status: Acute Assessment and Plan: Cr 1.9, suspect secondary to hypovolemia and GI losses. Avoid nephrotoxic agents and monitor renal function. Add back gentle IV fluids. (8) CAD (coronary artery disease): Qualifiers: Associated angina: without angina Coronary Disease-Associated Artery/Lesion type: [place] artery [place] vs. transplanted heart:
[2020-05-13] MEDS: SODIUM CHLORIDE 0.9% IV 1,000 ML 70 ML IV CONT (16:09)
--- NOTE | 2020-05-13 19:23 | CONS_ITS ---
DATE OF CONSULTATION: 05/13/2020 REASON FOR CONSULTATION: Thrombocytopenia. HISTORY OF PRESENT ILLNESS: Mr. Allen is an 85-year-old male, known to me from previous primary care. I saw him in the office approximately 4 months ago with back pain and abnormal MRI, which suggested osteomyelitis and diskitis in the T7-T8 area. He underwent a biopsy of the disk and adjacent bone, to my recollection at the end of December. This revealed osteomyelitis. No cultures were collected. Based upon his clinical course and results of his positive blood and urine cultures in August at this hospital, I gave him approximately 12 weeks of vancomycin, which he completed approximately 4 to 6 weeks ago. He then was switched over to linezolid after good clinical response with improvement in pain resolution and abnormal CRP. He had no neurologic compromise. He presented to this hospital once again 3 days ago with dizziness and generalized weakness and unsteadiness on his feet. Initial evaluation indicated sodium of 126, creatinine 1.8. His sodium has now been under repletion though today is still 128 with a creatinine 1.9. He was initially continuously on linezolid and then changed to vancomycin yesterday. Consultation requested. He has had no abnormal bleeding. No fever, chills, or sweats at home. ALLERGIES: NONE KNOWN. PRESENT MEDICATIONS: List reviewed. No systemic immunosuppressants. HABITS: No tobacco. No ongoing alcohol. PAST MEDICAL HISTORY: BPH with surgical intervention, degenerative arthritis, asthma, CAD, GERD, chronic hyponatremia, gout, hyperlipidemia, hypertension, coronary stents, inguinal hernia repair, and CABG. FAMILY HISTORY: Not pertinent to his present illness. SOCIAL HISTORY: He is and lives locally. Retired. REVIEW OF SYSTEMS: , GI, respiratory, constitutional, and skin otherwise negative. PHYSICAL EXAMINATION: GENERAL: This is a chronically ill-appearing male, in no acute distress. VITAL SIGNS: Afebrile, consistently 81, 18, 130/56, 96% room air. SKIN: Warm and dry. No rashes. No ecchymoses of concern. NODES: He has no cervical adenopathy. EENT: Conjunctivae are normal. The oral mucosa is well hydrated. No thrush. LUNGS: Clear to auscultation and percussion. CARDIAC: Regular rate and rhythm. No murmur or gallop. ABDOMEN: Nontender, soft. No masses. : Bladder is not palpable. EXTREMITIES: 1+ edema. LABORATORY DATA: Electrolytes as above. White count 5.9, hemoglobin 9.6, platelets are 26, down from 47 on May 10. Hemoglobin was down to 6.8 after arrival. Differential is normal. Blood gases 7.38, 32, 93, 19, 97%. Urinalysis showed 46 white cells, otherwise, no evidence of infection. Stool culture in process. Blood cultures on May 10, no growth 3 days incubation. RADIOLOGY: Thoracic spine MRI worsened bone loss since January 26, 2020 at the T7-T8 level with dextrocurvature, severe decreased disk height and 4/5th height loss at T7 and T8. Other chronic findings recorded. ASSESSMENT: 1. 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 2. Thrombocytopenia could be from linezolid. Other causes are also under consideration. 3. Benign prostatic hyperplasia. 4. Urinary tract infection. RECOMMENDATIONS: 1. No linezolid. 2. Follow platelet count. 3. Once platelet count increasing, trimethoprim sulfa would be appropriate, although may need to modify dosing depending upon his renal function. 4. If no new events, then okay with me for hardware to be placed in the thoracic spine for stabilization. Thank you very much for asking me see him. Discussed earlier with Dr. Childress.
[2020-05-13] MEDS: TAMSULOSIN HCL 0.4 MG CAPSULE PO (20:00)
[2020-05-14] VITALS (15 sets, daily range): BP systolic 112–138; BP diastolic 47–75; PULSE 72–90; RESP 16–18; TEMP 36.1–37.3; O2SAT 95–100
[2020-05-14 02:28] LABS: Sodium Urine Random 128 meq/L
[2020-05-14 05:52] LABS: Basophils Percent Auto 0.6 % (0.2-1.2); Eosinophils Absolute Auto 0.2 K/mm3 (0-0.3); Eosinophils Percent Auto 4.8 % (0-4.4); Hematocrit 27.1 % (42.0-52.0); Hemoglobin 9.1 g/dL (14.0-18.0); Immature Granulocyte Absolute 0.01 K/mm3 (0.00-0.031); Immature Granulocyte Percent A 0.2 % (0-0.5); Immature Platelet Fraction Pct 3.7 % (0.9-11.2); Lymphocytes Absolute Auto 1.81 K/mm3 (0.9-3.2); Lymphocytes Percent Auto 37.5 % (18.3-44.2); Mean Corpuscular HGB Conc 33.6 g/dl (32-36); Mean Corpuscular Hemoglobin 27.6 pg (26-34); Mean Corpuscular Volume 82.1 fl (80-100); Monocytes Absolute Auto 0.5 K/mm3 (0.1-0.6); Monocytes Percent Auto 9.5 % (2.6-8.5); Neutrophils Absolute Auto 2.3 K/mm3 (1.3-6.7); Neutrophils Percent Auto 47.4 % (45.5-73.1); Platelet Count Result 26 k/mm3 (150-375); Red Cell Distribution Width 14.4 % (11.5-14.5); White Blood Count 4.8 K/mm3 (4.5-10.0)
[2020-05-14] MEDS: SODIUM CHLORIDE 0.9% IV 1,000 ML 70 ML IV CONT ×2 (05:53→20:22)
[2020-05-14 06:02] LABS: Alanine Aminotransferase 20 U/L (4-50); Albumin Level 2.2 g/dL (3.5-5.1); Alkaline Phosphatase 62 U/L (38-126); Anion Gap 2 mmol/L (8-16); Aspartate Amino Transferase 25 U/L (17-59); Bilirubin,Total 0.6 mg/dL (0.2-1.3); Blood Urea Nitrogen 17 mg/dL (9-20); Calcium 7.3 mg/dL (8.4-10.2); Carbon Dioxide 25 mmol/L (22-30); Chloride 101 mmol/L (98-107); Estimated CRCL calculation 28 ml/min; Estimated Glomerular Filt Rate 36; Glucose 94 mg/dL (75-110); Magnesium 1.7 mg/dL (1.6-2.3); Sodium 128 mmol/L (137-145)
--- NOTE | 2020-05-14 06:02 | PC.NURSE ---
[facility] called at 05:15 on 05/14/2020 to inform us they still have no bed available at this time and will keep Declan Allen on the waiting list.
[2020-05-14] MEDS: POTASSIUM CHLORIDE 20 MEQ TABLET 40 MEQ PO (09:13)
[2020-05-14] MEDS: PANTOPRAZOLE 40 MG TABLET PO ×2 (09:14→20:25)
[2020-05-14] MEDS: ASPIRIN 81 MG ENTERIC TABLET PO (09:14)
[2020-05-14] MEDS: FINASTERIDE 5 MG TABLET PO (09:14)
[2020-05-14] MEDS: SACCHAROMYCES BOULARDII 250 MG CAPSULE PO ×2 (09:14→16:58)
[2020-05-14] MEDS: MAGNESIUM OXIDE 200 MG TABLET PO ×2 (09:14→20:25)
[2020-05-14] MEDS: ROSUVASTATIN 10 MG TABLET 40 MG PO (09:14)
--- NOTE | 2020-05-14 10:51 | PM.IMPN ---
Progress Note: A&P Assessment and Plan (1) Pancytopenia: Code(s): D61.818 - Other pancytopenia Status: Acute Assessment and Plan: A chronic normocytic anemia noted on arrival; platelets down to 26 today. Hgb down to 6.8 05/12, received 2 units packed RBC, Hgb up to 9.1 today. Monitor CBCd. No rash or purpura. Suspect a possible drug-induced thrombocytopenia from linezolid therapy. Linezolid stopped 05/12, discussed this with Dr Shay. (2) Acute osteomyelitis of thoracic spine: Code(s): M46.24 - Osteomyelitis of vertebra, thoracic region Status: Acute Assessment and Plan: Recent discitis at T7/T8 diagnosed Jan 2020 treated with IV vancomycin; now on oral linezolid, follows with Dr Shay. Previous to that he was treated with IV vancomycin in August 2019 for Coag negative Staph bacteremia, urinary source. Per patient, around 5 weeks ago his PICC was removed and he was transitioned to oral linezolid. Linezolid stopped 05/12 due to thrombocytopenia. Noted Dr Shay's plan to resume oral abx with Bactrim once platelets increase - appreciate his input. Dr Childress was consulted due to the vertebral deformity noted on imaging related to the discitis - appreciate recommendations. MRI demonstrates protrusion into the central spinal canal with worsened bone loss, accepted at [facility] and will transfer once a bed becomes available. No red flag symptoms such as bowel/bladder dysfunction, paresthesias or saddle anesthesia are identified. (3) Acute alteration in mental status: Code(s): R41.82 - Altered mental status, unspecified Status: Acute Assessment and Plan: Resolved. Suspect may be have been related to dehydration, hyponatremia. 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 Continue to monitor. (4) Acute hyponatremia: Code(s): E87.1 - Hypo-osmolality and hyponatremia Status: Acute Assessment and Plan: Acute on chronic hyponatremia suspect secondary to dehydration with GI losses. Baseline sodium appears around 131 on review of previous labs. Na low but stable at 128. Continue gentle IV NS. Monitor I&Os and BMP. (5) Diarrhea: Qualifiers: Diarrhea type: unspecified type Qualified Code(s): R19.7 - Diarrhea, unspecified Code(s): R19.7 - Diarrhea, unspecified Status: Acute Assessment and Plan: Improved, may be related to antibiotic therapy. C diff and other stool cultures negative. Continue probiotic and monitor. (6) Recurrent falls: Code(s): R29.6 - Repeated falls Status: Acute Assessment and Plan: Suspect generalized weakness related to physical deconditioning, discitis felt to be contributing. Hold PT/OT as Dr Childress recommends bedrest at this time. (7) Acute on chronic renal failure: Qualifiers: Acute renal failure type: unspecified Chronic kidney disease stage: stage 3 (moderate) Chronic kidney disease stage 3 subtype: stage 3a (GFR 45-59) Qualified Code(s): N17.9 - Acute kidney failure, unspecified; N18.31 - Chronic kidney disease, stage 3a Code(s): N17.9 - Acute kidney failure, unspecified; N18.9 - Chronic kidney disease, unspecified Status: Acute Assessment and Plan: Cr 1.8, suspect secondary to hypovolemia and GI losses on chronic kidney disease. Avoid nephrotoxic agents and monitor renal function. Kidneys unremarkable by sonogram today. (8) CAD (coronary artery disease): Qualifiers: Associated angina: without angina Coronary Disease-Associated Artery/Lesion type: rosebud a
--- NOTE | 2020-05-14 11:47 | WPDINFPN2 ---
Progress Note: A&P Assessment and Plan (1) Acute osteomyelitis of thoracic spine: Code(s): M46.24 - Osteomyelitis of vertebra, thoracic region Status: Acute Assessment and Plan: 1. Acute OM of T spine after CNSS septicemia, urine source. Biopsy confirmed OM, no culture sent from that specimen. Clinical response after 12 weeks Vanc, followed by linezolid 2. Thrombocytopenia, possibly due to linezolid. Plts stable at low level 3. Azotemia/CRI REC Linezolid stopped, and he needs no IV rx. Once platelets are consistently rising, begin TMP-SMX, SS or DS depending on his renal function. Unless new events (e.g., positive blood cultures) in meantime, ok with me for thoracic spine hardware if judged indicated by surgeon. Subjective Date/time seen: 05/14/20 11:47 Interval history: no bleeding, no back pain, no chills sweats Exam Narrative: Exam Narrative: afebrile Const: General: no acute distress Resp: Effort & Inspection: normal respiratory effort Auscultation: clear to auscultation bilaterally Cardio: Rate: regular rate Rhythm: regular rhythm Heart sounds: no murmurs GI: Inspection: non-distended GI Palp: Yes Soft to palpation and No Tenderness to palpation present (GI) Skin: General skin exam: no rashes or lesions noted Objective Data Vital Signs Vital Signs: Vital Signs - 24 hr 05/13/20 12:00 05/13/20 14:00 05/13/20 16:00 Temperature 35.9 C L Pulse Rate 75 89 77 Respiratory Rate 18 Blood Pressure 136/67 Pulse Oximetry 95 05/13/20 18:00 05/13/20 20:00 05/13/20 21:40 Temperature 36.2 C L 36.2 C L Pulse Rate 82 85 76 Respiratory Rate 16 16 16 Blood Pressure 135/56 L 139/54 L Pulse Oximetry 96 96 99 05/14/20 00:00 05/14/20 01:56 05/14/20 04:00 Temperature 36.1 C L Pulse Rate 80 75 74 Respiratory Rate 16 Blood Pressure 116/52 L Pulse Oximetry 97 05/14/20 05:25 05/14/20 08:00 05/14/20 09:14 Temperature 36.1 C L Pulse Rate 77 76 Respiratory Rate 16 16 Blood Pressure 112/47 L Pulse Oximetry 99 98 12/01/20 10:00 Temperature 36.4 C Pulse Rate 72 Respiratory Rate 16 Blood Pressure 130/55 L Pulse Oximetry 100 Intake/Output Intake/Output: Intake & Output 05/11/20 05/12/20 05/13/20 05/14/20 23:59 23:59 23:59 23:59 Intake Total 4240 2767 1080 1340 Output Total 894 944 4447 600 Balance 3890 1992 80 740 Meds/Results Medications: Active Medications Generic Name Dose Route Start Last Admin Trade Name Freq PRN Reason Stop Dose Admin Hydrocodone Bitart/Acetaminophen 1 tab 05/10/20 20:24 Hydrocodone/Acetaminophen (*Crx) 5-325 Mg Tablet PO Q4H PRN Pain Rated 4-6 Albuterol 2 puff 05/14/20 12:00 Albuterol Sulfate (*Sp) Aerosol 1 Puff INHALATION QIDRT SANDRA Aspirin 81 mg 05/11/20 09:00 05/14/20 09:14 Aspirin 81 Mg Enteric Tablet PO 81 mg DAILY [facility] Administration Carvedilol 12.5 mg 05/10/20 21:00 05/11/20 07:41 Carvedilol 12.5 Mg Tablet PO 12.5 mg Q12HR [facility] Administration Clopidogrel Bisulfate 75 mg 05/11/20 09:00 05/11/20 07:41 Clopidogrel Bisulfate 75 Mg Tablet PO 75 mg DAILY [facility] Administration Finasteride 5 mg 05/11/20 09:00 05/14/20 09:14 Finasteride 5 Mg Tablet PO 5 mg DAILY [facility] Administration Guaifenesin 600 mg 05/14/20 09:00 Guaifenesin 12 Hr 600 Mg Tabcr PO Q12HR [facility] Sodium Chloride 1,000 mls @ 70 mls/hr 05/13/20 14:55 05/14/20 05:53 Normal Saline Iv IV CONT 70 mls/hr .[id number] [facility] Administration Lidocaine 2 patch 05/10/20 20:24 Lidocaine 5% Patch TRANSDERM DAILY PRN Pain Magnesium Oxide 200 mg 05/13/20 09:00 05/14/20 09:14 Magnesium Oxide 200 Mg Tablet PO 200 mg Q12HR [facility] Administration Miconazole Nitrate 1 applic 05/12/20 21:00 05/14/20 09:14 Miconazole 2% Antifungal Ointment 56 Gm TOPICAL 1 applic Q12HR [facility] Administration Ondansetron HCl 4 mg 05/10/20 15:52 Ondansetron Inj 4 Mg/2 Ml Vial
[2020-05-14] MEDS: guaiFENesin 12 HR 600 MG TABCR PO ×2 (12:07→20:25)
--- NOTE | 2020-05-14 16:01 | PCRCNOTE ---
Window of time for administration has passed. See next scheduled administration.
[2020-05-14] MEDS: ALBUTEROL SULFATE (*SP) AEROSOL 1 PUFF 2 PUFF INHALATION ×2 (16:03→22:26)
[2020-05-14] MEDS: TAMSULOSIN HCL 0.4 MG CAPSULE PO (20:25)
[2020-05-14] MEDS: NYSTATIN 100,000 UNITS/ML SUSP 5 ML ORAL.SUSP PO (20:25)
[2020-05-15] VITALS (9 sets, daily range): BP systolic 100–127; BP diastolic 45–57; PULSE 69–86; RESP 14–16; TEMP 36.4–37.1; O2SAT 98–100
[2020-05-15 05:44] LABS: Basophils Percent Auto 0.4 % (0.2-1.2); Eosinophils Absolute Auto 0.2 K/mm3 (0-0.3); Eosinophils Percent Auto 4.3 % (0-4.4); Hematocrit 25.1 % (42.0-52.0); Hemoglobin 8.7 g/dL (14.0-18.0); Immature Granulocyte Absolute 0.01 K/mm3 (0.00-0.031); Immature Granulocyte Percent A 0.2 % (0-0.5); Immature Platelet Fraction Pct 3.6 % (0.9-11.2); Lymphocytes Absolute Auto 1.63 K/mm3 (0.9-3.2); Lymphocytes Percent Auto 35.4 % (18.3-44.2); Mean Corpuscular HGB Conc 34.7 g/dl (32-36); Mean Corpuscular Hemoglobin 27.5 pg (26-34); Mean Corpuscular Volume 79.4 fl (80-100); Mean Platelet Volume 10.4 fl (7.4-10.4); Monocytes Absolute Auto 0.6 K/mm3 (0.1-0.6); Monocytes Percent Auto 12.4 % (2.6-8.5); Neutrophils Absolute Auto 2.2 K/mm3 (1.3-6.7); Neutrophils Percent Auto 47.3 % (45.5-73.1); Red Blood Count 3.16 M/mm3 (4.6-6.20); Red Cell Distribution Width 14.1 % (11.5-14.5); White Blood Count 4.6 K/mm3 (4.5-10.0)
[2020-05-15 05:58] LABS: Alanine Aminotransferase 17 U/L (4-50); Albumin Level 2.1 g/dL (3.5-5.1); Alkaline Phosphatase 59 U/L (38-126); Anion Gap 3 mmol/L (8-16); Aspartate Amino Transferase 22 U/L (17-59); Bilirubin,Total 0.4 mg/dL (0.2-1.3); Blood Urea Nitrogen 13 mg/dL (9-20); Calcium 7.2 mg/dL (8.4-10.2); Carbon Dioxide 26 mmol/L (22-30); Chloride 101 mmol/L (98-107); Estimated CRCL calculation 34 ml/min; Estimated Glomerular Filt Rate 44; Glucose 102 mg/dL (75-110); Magnesium 1.5 mg/dL (1.6-2.3); Potassium 2.9 mmol/L (3.4-5.0); Sodium 130 mmol/L (137-145)
[2020-05-15 07:50] LABS: Platelet Count Result 23 k/mm3 (150-375)
[2020-05-15] MEDS: ROSUVASTATIN 10 MG TABLET 40 MG PO (08:06)
[2020-05-15] MEDS: NYSTATIN 100,000 UNITS/ML SUSP 5 ML ORAL.SUSP PO ×3 (08:06→18:12)
[2020-05-15] MEDS: MAGNESIUM OXIDE 200 MG TABLET PO (08:07)
[2020-05-15] MEDS: FINASTERIDE 5 MG TABLET PO (08:07)
[2020-05-15] MEDS: guaiFENesin 12 HR 600 MG TABCR PO (08:07)
[2020-05-15] MEDS: SACCHAROMYCES BOULARDII 250 MG CAPSULE PO ×2 (08:07→18:13)
[2020-05-15] MEDS: ASPIRIN 81 MG ENTERIC TABLET PO (08:07)
[2020-05-15] MEDS: PANTOPRAZOLE 40 MG TABLET PO (08:07)
[2020-05-15] MEDS: SODIUM CHLORIDE 0.9% IV 1,000 ML 70 ML IV CONT (08:08)
[2020-05-15] MEDS: POTASSIUM CHLORIDE 20 MEQ TABLET 40 MEQ PO (08:26)
[2020-05-15] MEDS: MAGNESIUM SULF 2 GM/WATER 50ML 2 GM/50 ML BAG IVPB (08:26)
[2020-05-15] MEDS: ALBUTEROL SULFATE (*SP) AEROSOL 1 PUFF 2 PUFF INHALATION ×2 (09:05→16:57)
--- NOTE | 2020-05-15 10:24 | PM.TDS ---
Transfer Discharge Sum: Prov Provider Date of admission: 05/10/20 17:03 Primary care physician: Cosme Travis, Admitting clinician: Bradford Anderson MD Consults: 05/10/20 Consulting Provider: Luis M Shay call or contact centre manager/MD group to consult: ID Consult to Physician Routine Consulting Provider: Evaristo Childress call or contact centre manager/MD group to consult: Orthopedic surgery 05/10/20 15:54 Consulting Provider: Isaías Mckinney - Neurology Reason for consultation: Chronic infarct on CT DS: Admitting Diagnosis Admitting Diagnosis Admitting Diagnosis: Transient AMS/hyponatremia/dehydration DS: Discharge Diagnosis Discharge Diagnosis (1) Pancytopenia: Code(s): D61.818 - Other pancytopenia Status: Acute Assessment and Plan: Date of Service 05/15/20 Mr. Allen is a pleasant 85yo M with history of hypertension, coronary artery disease, chronic hyponatremia, old CVA, discitis and osteomyelitis at T7/T8 since January 2020 who presented to the ED for evaluation of generalized weakness and two mechanical falls at home. In August 2019 he was treated with IV vancomycin for coagulase negative staph bacteremia from urinary source. He then developed back pain several weeks later and was found to have T7/T8 osteomyelitis (confirmed by a bone biopsy at [facility]) in January 2020. He was again treated with another round of IV vancomycin up until around 6 weeks ago when PICC was removed and he was transitioned to oral linezolid. On arrival, he is noted to have a thrombocytopenia and platelets are down to 23,000 today, no improvement. It is possible a drug-induced thrombocytopenia from linezolid therapy could have been contributing. He has followed with Dr Dean Shay, Infectious Disease, for antibiotic therapy and he has been following also while hospitalized here. Linezolid was discontinued 05/12/20 and he has been off antibiotics until current. Dr Shay's plan was to stay off antibiotics until platelets increased, then start oral Bactrim based on blood culture sensitivity report (the coag neg Staph) from August 2019. He has no rash or purpura. MRI thoracic and lumbar spine were obtained and demonstrated loss of T7 bone height due to the infection with some protrusion into the central spinal canal. She was seen by orthopedic surgery here, Dr Childress, who contacted Mr. Allen's established ortho spine surgeon, Dr Franco at [facility] in [place], regarding the MRI findings. Dr Franco described that he would not be suitable for transfer to [facility] and he would require more resources than he has available at his facility and recommended transfer to tertiary care and keep on bedrest until evaluated there. 05/12/[address] Irvin at 1546, ortho spine at [facility], who accepted to see the patient in consultation, recommends speaking to the medicine team for acceptance. I spoke with Dr Jo at 1611, on medicine team, who accepted the patient in transfer. I again spoke with Dr George Knight this morning 05/15 for updates and described no significant changes in patient's status. Hgb is low but stable. Vital signs are stable and overall he is hemodynamically stable for transfer to [facility] today 05/15 when his bed is available. Last Vital Signs Temp 98.6 F 05/15/20 10:00 Pulse 78 05/15/20 10:00 Resp 16 05/15/20 10:00 BP 100/45 L 05/15/20 10:00 Pulse Ox 98 05/15/20 10:00 A chronic normocytic anemia noted on arrival; platelets down to 23,000 today. Hgb down to 6.8 05/12, received 2 units packed RBC, Hgb up to 8.7 today. Monitor CBCd. No rash or purpura. Suspect a possible drug-induced thrombocytopenia from linezolid therapy. Linezolid stopped 05/12, discussed this with Dr Shay, ID. (2) Acute osteomyelitis of thoracic spine: Code(s): M46.24 - Osteomyelitis of vertebra, thoracic region Status: Acute Assessment and Plan: Recent discitis at T7/T8 diagnosed Jan 2020 lisa
--- NOTE | 2020-05-15 12:54 | WPDINFPN2 ---
Progress Note: A&P Assessment and Plan (1) Acute osteomyelitis of thoracic spine: Code(s): M46.24 - Osteomyelitis of vertebra, thoracic region Status: Acute Assessment and Plan: 1. Acute OM of T spine after CNSS septicemia, urine source. Biopsy confirmed OM, no culture sent from that specimen. Clinical response after 12 weeks Vanc, followed by linezolid 2. Thrombocytopenia, possibly due to linezolid. Plts stable at low level 3. Azotemia/CRI 4. Past UTI, he is now voiding without difficulty and urine in the urinal is clear yellow no sediment REC Linezolid stopped, and he needs no IV rx. Once platelets are consistently rising, begin TMP-SMX, SS or DS depending on his renal function, but not to begin yet as plts still low. Unless new events (e.g., positive blood cultures) in meantime, ok with me for thoracic spine hardware if judged indicated by surgeon. Ok to [facility]. I would be glad to see in office after hospital discharge. Subjective Date/time seen: 05/15/20 12:54 Interval history: no back pain. Exam Narrative: Exam Narrative: afebrile Const: General: no acute distress Eyes: General: appearance normal, both eyes and all related structures Resp: Effort & Inspection: normal respiratory effort Auscultation: clear to auscultation bilaterally Cardio: Rate: regular rate Rhythm: regular rhythm Heart sounds: no gallops and no murmurs Objective Data Vital Signs Vital Signs: Vital Signs - 24 hr 05/14/20 14:00 05/14/20 16:00 05/14/20 18:00 Temperature 36.4 C L 37.3 C Pulse Rate 89 80 90 Respiratory Rate 16 16 Blood Pressure 124/61 135/75 Pulse Oximetry 99 99 05/14/20 20:00 05/14/20 22:00 05/14/20 22:27 Temperature 36.3 C L Pulse Rate 75 81 85 Respiratory Rate 16 18 Blood Pressure 138/64 Pulse Oximetry 99 05/14/20 22:28 05/15/20 00:00 05/15/20 04:00 Temperature Pulse Rate 85 86 79 Respiratory Rate 18 Blood Pressure Pulse Oximetry 95 05/15/20 05:33 05/15/20 08:00 05/15/20 10:00 Temperature 36.4 C 37.0 C Pulse Rate 83 69 78 Respiratory Rate 16 16 Blood Pressure 120/57 L 100/45 L Pulse Oximetry 98 98 Intake/Output Intake/Output: Intake & Output 05/12/20 05/13/20 05/14/20 05/15/20 23:59 23:59 23:59 23:59 Intake Total 2767 1080 3000 1390 Output Total 775 1000 1350 600 Balance 1992 80 1650 790 Meds/Results Medications: Active Medications Generic Name Dose Route Start Last Admin Trade Name Freq PRN Reason Stop Dose Admin Hydrocodone Bitart/Acetaminophen 1 tab 05/10/20 20:24 Hydrocodone/Acetaminophen (*Crx) 5-325 Mg Tablet PO Q4H PRN Pain Rated 4-6 Albuterol 2 puff 05/14/20 12:00 05/15/20 09:05 Albuterol Sulfate (*Sp) Aerosol 1 Puff INHALATION 2 puff QIDRT [facility] Administration Aspirin 81 mg 05/11/20 09:00 05/15/20 08:07 Aspirin 81 Mg Enteric Tablet PO 81 mg DAILY [facility] Administration Carvedilol 12.5 mg 05/10/20 21:00 05/11/20 07:41 Carvedilol 12.5 Mg Tablet PO 12.5 mg Q12HR [facility] Administration Clopidogrel Bisulfate 75 mg 05/11/20 09:00 05/11/20 07:41 Clopidogrel Bisulfate 75 Mg Tablet PO 75 mg DAILY [facility] Administration Finasteride 5 mg 05/11/20 09:00 05/15/20 08:07 Finasteride 5 Mg Tablet PO 5 mg DAILY [facility] Administration Guaifenesin 600 mg 05/14/20 09:00 05/15/20 08:07 Guaifenesin 12 Hr 600 Mg Tabcr PO 600 mg Q12HR [facility] Administration Sodium Chloride 1,000 mls @ 70 mls/hr 05/13/20 14:55 05/15/20 08:08 Normal Saline Iv IV CONT 70 mls/hr .[id number] [facility] Administration Lidocaine 2 patch 05/10/20 20:24 Lidocaine 5% Patch TRANSDERM DAILY PRN Pain Magnesium Oxide 200 mg 05/13/20 09:00 05/15/20 08:07 Magnesium Oxide 200 Mg Tablet PO 200 mg Q12HR [facility] Administration Miconazole Nitrate 1 applic 05/12/20 21:00 05/15/20 08:11 Miconazole 2% Antifungal Ointment 56 Gm TOPICAL 1 applic Q12HR [facility] Administration Nystatin 5 ml 12/0
--- NOTE | 2020-05-15 18:13 | PC.NURSE ---
Report called to [facility] Gatica RN took report for the patient going into room 827. Family called and informed of transfer, room number and that the patient is awaiting an ambulance.
[2020-05-17 03:10] LABS: Osmolality, Urine 470 mOsm/kg (50-1200)
== END 2020-05-15 18:50 | disposition short-term general hospital (02) | DRG 540 ==
LOC: ANHED 16:33 → ANH2MED 18:21
PROVIDERS: Internal Medicine; Student in an Organized Health Care Education/Training Program; Admitting Provider Internal Medicine; Emergency Provider Emergency Medicine; PCP Internal Medicine; Visit Provider Physician Assistant
DX: M46.24 Osteomyelitis of vertebra, thoracic region (principal); E87.1 Hypo-osmolality and hyponatremia; N17.9 Acute kidney failure, unspecified; D61.818 Other pancytopenia; T36.8X5A Adverse effect of other systemic antibiotics, initial encounter; R29.6 Repeated falls; W18.30XA Fall on same level, unspecified, initial encounter; I12.9 Hypertensive chronic kidney disease with stage 1 through stage 4 chronic kidney disease, or unspecified chronic kidney disease; N18.31 Chronic kidney disease, stage 3a; R41.82 Altered mental status, unspecified; R19.7 Diarrhea, unspecified; E86.0 Dehydration; I25.10 Atherosclerotic heart disease of native coronary artery without angina pectoris; K21.9 Gastro-esophageal reflux disease without esophagitis; M10.9 Gout, unspecified; E78.5 Hyperlipidemia, unspecified; N40.0 Benign prostatic hyperplasia without lower urinary tract symptoms; Z79.82 Long term (current) use of aspirin; Z79.899 Other long term (current) drug therapy; Z86.73 Personal history of transient ischemic attack (TIA), and cerebral infarction without residual deficits; Z95.1 Presence of aortocoronary bypass graft; Z95.5 Presence of coronary angioplasty implant and graft
CPT/HCPCS: 36415; 36430; 36600; 51701; 70450; 71046; 72072; 72100; 72146; 72148; 76775; 80048; 80053; 81001; 82140; 82274; 82375; 82805; 83050; 83605; 83615; 83735; 83935; 84300; 84443; 84484; 85025; 85055; 85610; 85730; 86140; 86850; 86900; 86901; 86923; 87015; 87040; 87045; 87046; 87177; 87209; 87269; 87272; 87324; 87427; 89055; 93005; 94640; 96360; 96361; 97165; 99285; A9270; G0378; J3370; J3475; J3480; J7030; J7050; P9016

== ENCOUNTER 2020-05-28 16:05 | IRF | payer MEDICARE, SELFPAY ==
--- NOTE | ~2020-05-28 | CT_ITS ---
EXAMINATION: CT brain wo con EXAM DATE: 06/10/2020 10:12 INDICATION: syncopal episodes . TECHNIQUE: Spiral CT of the head was performed without contrast. Axial, coronal and sagittal images were reviewed. The dose-length product (DLP) for this examination was 605.33 mGy-cm. The exposure w as tailored according to patient size, and iterative reconstruction (ASIR) was used as additional dos e reduction technique. Comparison is made to prior examination from 05/10/2020. FINDINGS: There is no acute intraparenchymal hemorrhage. No evidence of intraparenchymal brain mass lesion. No evidence of acute infarction. Please note that initial head CT has limited sensitivity f or small or acute infarctions. There is mild periventricular and subcortical hypodensity, nonspecific but probably related to small vessel ischemic disease. There is mild prominence of the sulci and v entricles related to cerebral atrophy. There is intracranial carotid arteriosclerosis. There are n o extra-axial collections. There is no mass effect or midline shift. The orbits are unremarkable. Soft tissue is unremarkable. The visualized sinuses and mastoid air cells are well aerated. IMPRESSION: 1. No acute intracranial findings. 2. Chronic age related findings. Reviewed, dictated and finalized at location B. [facility]
--- NOTE | ~2020-05-28 | XR_ITS ---
EXAMINATION: XR abdomen/kub 1V EXAM DATE: 06/01/2020 15:35 INDICATION: Left quadrant pain. History of inguinal hernia repair. TECHNIQUE: Frontal projection(s) of the abdomen for interpretation. Comparison is made to prior exami nation from 02/15/2020. FINDINGS: There is expected amount of colonic stool and gas. No small bowel dilation, nonobstructiv e bowel gas pattern. There are no suspicious calcifications identified. There is no organomegaly suspected. Moderate bony degenerative changes. Sternotomy wires and thoracic [place] rods. Ther e is no free intraperitoneal air. The lung bases are clear. IMPRESSION: Unremarkable abdomen x-ray exam. Reviewed, dictated and finalized at location A. [facility]
[2020-05-28 16:05] VITALS: BP 144/52; PULSE 81; RESP 18; TEMP 37.2; O2SAT 100
--- NOTE | 2020-05-28 16:18 | ADMGEN ---
Patient arrived to floor via ambulance/stretcher at 1605. This patient, Declan Allen, [facility]. Patient/family oriented to hospital policies and general routines including ID bracelet, bed and alarms, visiting hours, pain management, procedures, bathroom and other care routines, personal items, smoking policy, room service/diet, and visiting hours. Information on how to activate the Rapid Response Team has been discussed. Patient/Family are encouraged to report perceived risks to care and to ask questions if they do not understand what they are told or what they should do.
[2020-05-28 16:47] VITALS: BMI 25.9
[2020-05-28 20:00] VITALS: PULSE 80
[2020-05-28] MEDS: carvediloL 12.5 MG TABLET PO (20:00)
[2020-05-28] MEDS: SIMVASTATIN 20 MG TABLET 40 MG PO (20:01)
[2020-05-28] MEDS: SENNA/DOCUSATE SODIUM TABLET 1 TAB PO (20:01)
[2020-05-28] MEDS: polyethylene glycoL 3350 17 GM POWD.PACK PO (20:01)
[2020-05-28 21:48] VITALS: BP 129/54; PULSE 76; RESP 16; TEMP 36.6; O2SAT 100
[2020-05-29 05:06] LABS: Basophils Percent Auto 0.3 % (0.2-1.2); Eosinophils Absolute Auto 0.3 K/mm3 (0-0.3); Eosinophils Percent Auto 2.7 % (0-4.4); Hematocrit 25.4 % (42.0-52.0); Hemoglobin 8.6 g/dL (14.0-18.0); Immature Granulocyte Absolute 0.06 K/mm3 (0.00-0.031); Immature Granulocyte Percent A 0.6 % (0-0.5); Lymphocytes Percent Auto 13.1 % (18.3-44.2); Mean Corpuscular HGB Conc 33.9 g/dl (32-36); Mean Corpuscular Hemoglobin 28.8 pg (26-34); Mean Corpuscular Volume 84.9 fl (80-100); Mean Platelet Volume 9.8 fl (7.4-10.4); Monocytes Absolute Auto 1.3 K/mm3 (0.1-0.6); Monocytes Percent Auto 13.2 % (2.6-8.5); Neutrophils Absolute Auto 6.9 K/mm3 (1.3-6.7); Neutrophils Percent Auto 70.1 % (45.5-73.1); Platelet Count Result 167 k/mm3 (150-375); Red Blood Count 2.99 M/mm3 (4.6-6.20); Red Cell Distribution Width 16.2 % (11.5-14.5); White Blood Count 9.9 K/mm3 (4.5-10.0)
[2020-05-29 05:30] LABS: Alanine Aminotransferase 21 U/L (4-50); Albumin Level 2.6 g/dL (3.5-5.1); Alkaline Phosphatase 68 U/L (38-126); Anion Gap 3 mmol/L (8-16); Aspartate Amino Transferase 52 U/L (17-59); Bilirubin,Total 0.5 mg/dL (0.2-1.3); Blood Urea Nitrogen 19 mg/dL (9-20); Calcium 8.2 mg/dL (8.4-10.2); Carbon Dioxide 29 mmol/L (22-30); Chloride 94 mmol/L (98-107); Estimated CRCL calculation 45 ml/min; Estimated Glomerular Filt Rate > 60; Glucose 102 mg/dL (75-110); Potassium 4.1 mmol/L (3.4-5.0); Sodium 126 mmol/L (137-145)
--- NOTE | 2020-05-29 05:31 | PC.NURSE ---
clarification, pt was bladder scanned at 2230- 831cc--st cath obtained 800cc clear yellow urine- next bladder scan at 0500 703cc- st cath obtained 800cc urine- states he does not have any urge to void, no resistance or diff with st cath
[2020-05-29 06:00] VITALS: BP 126/59; PULSE 74; RESP 12; TEMP 36; O2SAT 96
[2020-05-29 09:25] VITALS: PULSE 74
[2020-05-29] MEDS: CLOPIDOGREL BISULFATE 75 MG TABLET PO (09:25)
[2020-05-29] MEDS: ASPIRIN 81 MG ENTERIC TABLET PO (09:25)
[2020-05-29] MEDS: carvediloL 12.5 MG TABLET PO ×2 (09:25→17:41)
[2020-05-29] MEDS: SENNA/DOCUSATE SODIUM TABLET 1 TAB PO ×2 (09:25→17:41)
[2020-05-29] MEDS: PANTOPRAZOLE 40 MG TABLET PO (09:26)
[2020-05-29] MEDS: FINASTERIDE 5 MG TABLET PO (09:26)
[2020-05-29] MEDS: ISOSORBIDE MONONITRATE 30 MG TAB.ER.24H PO (09:26)
[2020-05-29] MEDS: TAMSULOSIN HCL 0.4 MG CAPSULE PO (09:26)
[2020-05-29] MEDS: OMEGA 3 POLYUNSAT FATTY ACIDS 1 GM CAP PO (09:26)
[2020-05-29] MEDS: polyethylene glycoL 3350 17 GM POWD.PACK PO ×2 (09:28→17:41)
[2020-05-29 12:24] VITALS: BMI 25.9
--- NOTE | 2020-05-29 12:24 | WPDREHABHP ---
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 the patient is an 85 years old male with past medical history of chronic hyponatremia, coronary artery disease, inguinal hernia, hypertension, hyperlipidemia, gout, benign prostatic hypertrophy, and T7-T8 diskitis who presented to [facility] via EMS on May 10, 2020 after suffering a ground level fall with confusion. Family reported that patient has generalized weakness with 2 mechanical falls in the week prior to presentation. Head CT scan revealed small old lacunar infarcts at right basal ganglia, left kei, anterior left frontal lobe MRI thoracic and lumbar spine was significant for loss of T7 bone height due to infection and some protrusion of T7 into the central his spinal canal. Given concern for ongoing osteomyelitis and mild asymptomatic cord compression the patient was transferred to [facility] for orthopedic spine evaluation. Patient denied pain saddle anesthesia incontinence or weakness of extremities. The patient did state that he recently started using a cane to ambulate at home due to weakness and falls while standing in the 2 days prior to the admission. Orthopedic spines were consulted and recommended a TLS Brace until surgery could be scheduled and performed. cardiology was consulted for preoperative clearance and the patient was deemed stable for surgical intervention. Patient underwent surgical intervention on May 24, 2020 with a posterior spinal fusion with Dr. Gurjit hurt. The patient is weight-bearing at touch toe withTLSO brace when out of bed. Drains were removed on May 27, 2020. Postoperatively the patient has experienced acute postoperative pain, acute blood loss anemia, hyponatremia, hypomagnesemia, thrombocytopenia, hypertension, chronic kidney disease, urinary tract tension, and pyuria and bacteriuria. The patient's acute postoperative pain is controlled on oral pain medications. Anemia is stable. In a tree me a has chronic and being managed, hypermagnesemia has resolved, thrombocytopenia has resolved, hypertension is stable on home medication, chronic kidney disease stable and the creatinine as baseline, patient's bladder is to be scanned 4 times daily for suspected postoperative urinary retention, and pyuria and bacteriuria has resolved with try FX zone 1 g Q 24 hours given from 12 to 05 24. Infectious Disease was consulted for the chronic osteomyelitis /diskitis and place the patient on Bactrim DS oral and has requested CBC and BMP weekly. Is to follow-up with Dr. Rik wang when he leaves rehab for long-term antibiotic plan. Patient will not require chemical DVT prophylaxis at discharge.COVID: The patient has not traveled outside the [place] or head contact with someone who is ill that has traveled outside the [place] in the past 21 days, the patient has not traveled to an area of the [place] there is experiencing known transmission of the Coronavirus and has not had close personal contact with anyone that has. The patient does not have a fever. The patient is not experiencing lower respiratory illness symptoms. The patient was tested for COVID prior to his surgery and it was negative. Therapy was initiated at the acute care facility and the patient transferred to us from [facility] on May 28, 2020 FALLS OR SURGERIES: the patient has had major surgery in the last 100 days( posterior spinal fusion on May 24, 2020). The patient has had falls in the past year. The patient has had falls with injury in the past year one causing [facility]
--- NOTE | 2020-05-29 12:24 | WPDREHABHP ---
H&P: HPI History of Present Illness Date/Time: 05/29/20 12:24 Narrative: Declan Allen is a 85 year old male HISTORY OF PRESENT ILLNESS: The patient's primary rehab impairment category is miscellaneous The etiologic diagnosis is upper GI bleed the patient was seen [id number] on May 29, 2020 at 11:00 a.m. The patient is a Therapy was initiated at the acute care facility and the patient transferred to us from [[facility]] on [] FALLS OR SURGERIES: The patient has had [no] major surgeries in the 100 days prior to admission. They had [no] falls in the past year. They had [no] falls with injury in the past year. PAST MEDICAL HISTORY: [] PAST SURGICAL HISTORY: [] SOCIAL HISTORY: [] FAMILY HISTORY: [] PRIOR LEVEL OF FUNCTION: Eating was [INDEPENDENT] Oral Care was [INDEPENDENT] Toileting Hygiene was [INDEPENDENT] Shower/Bathing was [INDEPENDENT] Upper Body Dressing was [INDEPENDENT] Lower Body Dressing was [INDEPENDENT] Donning/[place] Footwear was [INDEPENDENT] Rolling Left and Right was [INDEPENDENT] Sit to Lying was [INDEPENDENT] Lying to Sitting was [INDEPENDENT] Sit to Stand was [INDEPENDENT] Bed to Chair Transfers was [INDEPENDENT] Toilet Transfers was [INDEPENDENT] Walking was [INDEPENDENT] [>500 feet] with [NO DEVICE] Wheelchair Mobility was [NOT APPLICABLE PRIOR TO ADMISSION] Stairs were [INDEPENDENT] CURRENT LEVEL OF FUNCTION: Eating was [SET UP ONLY] Oral Care was [SET UP ONLY] Toileting Hygiene was [] Shower/Bathing was [] Upper Body Dressing was [] Lower Body Dressing was [] Donning/[place] Footwear was [] Rolling Left and Right was [] Sit to Lying was [] Lying to Sitting was [] Sit to Stand was [] Bed to Chair Transfers were [] Toilet Transfers were [] Walking was [] Wheelchair Mobility was [] Stairs were [] GOALS: Our therapists will evaluate the patient and establish the goals. However, upon pre-admission screening, the expected goals were to be [INDEPENDENT] with self-care, [INDEPENDENT] with transfers, and [INDEPENDENT] with functional mobility so that the patient can return home. ESTIMATED LENGTH OF STAY: [10-14 days] POTENTIAL BARRIERS TO DISCHARGE: [Patient lives alone.] [Family needs training.] [Severity of condition.] [Architectural barriers.] ACTIVE CO-MORBIDITIES PRESENT ON ADMISSION: Active co-morbidities include []. The above co-morbidities impact the patient's function and/or functional outcome by [] PMFSH Past Medical History Medical History Arthritis Asthma Back pain BPH w urinary obs/LUTS CAD (coronary artery disease) Chronic hyponatremia GERD (gastroesophageal reflux disease) Gout HLD (hyperlipidemia) HTN (hypertension) Surgical History Surgical History H/O heart artery stent 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 Social History Social History Social History: Patient lives with his . He used to drink beer pretty heavy but quit drinking beer several years ago. Patient never smoked. The patient has 1 biological child that is in [place]. He has 3 step children that a nearby. The patient desires to be a full code. He denies any marijuana or substance abuse. Lifelong nonsmoker. Smoking status: Never smoker Second hand tobacco smoke exposure: No Alcohol intake: unknown Substance use: unknown Substance use type: does not use Gender identity (if verbalized by the patient): Male Spiritual care concerns: No Agree to blood products: Yes Meds Home Medications and Allergies Home Medications Medication Instructio
[2020-05-29 14:00] VITALS: BP 97/48; PULSE 80; RESP 16; TEMP 36.7; O2SAT 100
[2020-05-29] MEDS: oxyCODONE HCL (*CRX) 5 MG TAB IR PO (15:46)
[2020-05-29 17:41] VITALS: PULSE 80
[2020-05-29 20:20] VITALS: PULSE 68; RESP 12; O2SAT 98
[2020-05-29] MEDS: SIMVASTATIN 20 MG TABLET 40 MG PO (20:36)
[2020-05-29 21:15] VITALS: BP 107/51; PULSE 68; RESP 12; TEMP 36.3; O2SAT 98
[2020-05-30 05:48] VITALS: BP 121/62; PULSE 74; RESP 14; TEMP 36.2; O2SAT 99
[2020-05-30] MEDS: OMEGA 3 POLYUNSAT FATTY ACIDS 1 GM CAP PO (08:47)
[2020-05-30 08:48] VITALS: PULSE 74
[2020-05-30] MEDS: polyethylene glycoL 3350 17 GM POWD.PACK PO ×2 (08:48→17:10)
[2020-05-30] MEDS: SENNA/DOCUSATE SODIUM TABLET 1 TAB PO ×2 (08:48→17:10)
[2020-05-30] MEDS: CLOPIDOGREL BISULFATE 75 MG TABLET PO (08:48)
[2020-05-30] MEDS: carvediloL 12.5 MG TABLET PO ×2 (08:48→17:10)
[2020-05-30] MEDS: TAMSULOSIN HCL 0.4 MG CAPSULE PO (08:48)
[2020-05-30] MEDS: FINASTERIDE 5 MG TABLET PO (08:48)
[2020-05-30] MEDS: ASPIRIN 81 MG ENTERIC TABLET PO (08:48)
[2020-05-30] MEDS: PANTOPRAZOLE 40 MG TABLET PO (08:49)
[2020-05-30] MEDS: ISOSORBIDE MONONITRATE 30 MG TAB.ER.24H PO (08:49)
[2020-05-30] MEDS: oxyCODONE HCL (*CRX) 5 MG TAB IR PO (10:49)
--- NOTE | 2020-05-30 12:17 | WPDNEURORHBP ---
Subjective Date/time seen: 05/30/20 12:17 85 years old comes to the rehab floor with T7 thoracic cord compression in addition to the ongoing history of 1. Chronic hyponatremia 2. Hypertension 3. Gout 4. Benign prostatic hypertrophy 5. Hyperlipidemia 6. History of ground level fall and 7. Small lacunar infarct of right basal ganglia left kei and anterior left frontal lobe. Since admission he has been involved in the physical therapy and occupational therapy. Review of Systems Review of Systems: All systems reviewed & are unremarkable except as noted in HPI and below Functional Status Ambulation Ability Ability to Ambulate 10 Feet: Contact Guard Ability to Ambulate 50 Feet With 2 Turns: Contact Guard Ability to Ambulate 150 Feet: Contact Guard Ambulation Assistive Devices: Walker, Wheeled Exam Narrative: Exam Narrative: Examination reveals him to be awake alert his speech nor dysphasic no dysarthric not dysphonic, heart regular with no murmur, lungs clear to auscultation with no rhonchi or crepitations, neurologically motor examination reveals him to have 4/5 strength in the upper extremities with paraparesis of the lower extremities Objective Data Vital Signs Vital Signs: Vital Signs - 24 hr 05/29/20 14:00 05/29/20 17:41 05/29/20 20:20 Temperature 36.7 C Pulse Rate 80 80 68 Respiratory Rate 16 12 Blood Pressure 97/48 L Pulse Oximetry 100 98 05/29/20 21:15 05/30/20 05:48 05/30/20 08:48 Temperature 36.3 C L 36.2 C L Pulse Rate 68 74 74 Respiratory Rate 12 14 Blood Pressure 107/51 L 121/62 Pulse Oximetry 98 99 Intake/Output Intake/Output: Intake & Output 05/27/20 05/28/20 05/29/20 05/30/20 23:59 23:59 23:59 23:59 Intake Total 240 2080 240 Output Total 900 2150 800 Balance -580 -70 -797 Meds/Results Medications: Active Medications Generic Name Dose Route Start Last Admin Trade Name Freq PRN Reason Stop Dose Admin Acetaminophen 500 mg 05/28/20 17:16 Acetaminophen 500 Mg Tablet PO Q4H PRN Pain, Mild Albuterol 2 puff 05/28/20 17:16 Albuterol Sulfate (*Sp) Aerosol 1 Puff INHALATION Q6HRT PRN Shortness Of Breath Or Wheezing Aspirin 81 mg 05/29/20 09:00 05/30/20 08:48 Aspirin 81 Mg Enteric Tablet PO 81 mg DAILY SANDRA Administration Bisacodyl 10 mg 05/28/20 17:16 Bisacodyl 10 Mg Suppository RECTAL DAILY PRN Constipation Carvedilol 12.5 mg 05/28/20 17:00 05/30/20 08:48 Carvedilol 12.5 Mg Tablet PO 12.5 mg BID SANDRA Administration Clopidogrel Bisulfate 75 mg 05/29/20 09:00 05/30/20 08:48 Clopidogrel Bisulfate 75 Mg Tablet PO 75 mg DAILY SANDRA Administration Finasteride 5 mg 05/29/20 09:00 05/30/20 08:48 Finasteride 5 Mg Tablet PO 5 mg DAILY SANDRA Administration Fish Oil 1 gm 05/29/20 09:00 05/30/20 08:47 [place] 3 Polyunsat Fatty Acids 1 Gm Cap PO 06/28/20 09:01 1 gm DAILY SANDRA Administration Isosorbide Mononitrate 30 mg 05/29/20 09:00 05/30/20 08:49 Isosorbide Mononitrate 30 Mg Tab.Er.24h PO 30 mg DAILY SANDRA Administration Miconazole Nitrate 1 applic 05/29/20 09:00 05/30/20 08:49 Miconazole 2% Antifungal Ointment 56 Gm TOPICAL 1 applic Q12HR SANDRA Administration Oxycodone HCl 5 mg 05/28/20 17:16 05/30/20 10:49 Oxycodone Hcl (*Crx) 5 Mg Tab Ir PO 5 mg Q4H PRN Administration Pain, Moderate Pantoprazole Sodium 40 mg 05/29/20 09:00 05/30/20 08:49 Pantoprazole 40 Mg Tablet PO 06/28/20 09:01 40 mg DAILY SANDRA Administration Polyethylene Glycol 17 gm 05/28/20 17:00 05/30/20 08:48 Polyethylene Glycol 3350 17 Gm Powd.Pack PO 17 gm BID SANDRA Administration Senna/Docusate Sodium 1 tab 05/28/20 17:00 05/30/20 08:48 Senna/Docusate Sodium Tablet PO 1 tab BID SANDRA Administration Simvastatin 40 mg 05/28/20 21:00 05/29/20 20:36 Simvastatin 20 Mg Tablet PO 40 mg HS SANDRA Administration Tamsulosin HCl 0.4 mg 05/29/20 09:00
--- NOTE | 2020-05-30 13:08 | RPD ---
INDIVIDUALIZED PLAN OF CARE FOR Declan Allen Brief Synthesis of Pre-Admission Screen, Post-Admission Evaluation and Therapy Evaluations: The patient presents to rehab with T7 thoracic cord compression. Comorbidities include status post posterior spinal fusion, chronic hyponatremia, hypomagnesemia, normocytic anemia, thrombocytopenia, benign prostatic hypertrophy, coronary artery disease, heart failure with preserved ejection fraction, hypertension, chronic kidney disease stage 3, pyuria, and bacturia. The complexity of the patient's medical management, nursing, and therapy needs require an inpatient rehab hospital stay with a physician-led interdisciplinary team approach. The patient?s needs will be best met in an intensive program vs. at a lower level of care. The patient requires physician services for medical oversight, management of post-op complications in setting of present comorbidities, and pain management. The patient requires nursing services for anticoagulation therapy, DVT prophylactics, infection protection, medication management and education, electrolyte imbalance management, pressure relief, and wound care Deficits include:ADLs, Balance, Endurance, Family Training/Education, Mobility, Pain Management, ROM, Safety, Strength, and Transfers. [employer]/Case Management for: Discharge Planning and Patient/Family Counseling Physical Therapy: 5 days per week for 75 minutes. Treatments may include: Therapeutic Exercise, Gait Training, Neuromuscular Re-education, Transfer Training, Community Reintegration, Bed Mobility, Patient/Family Education, Wheelchair Mobility Group Therapy/Concurrent Therapy Rationales: -Improve attention span during functional activities in a distracted environment. -Enhance problem solving and/or adequate judgment skills during functional activities in a distracted environment. -Promote increased safety awareness in a distracted environment to reduce fall risk with functional tasks, transfers, and ambulation to allow a more safe, self-sufficient return to the home environment. -Improve dynamic balance skills to promote safety and independence with functional activities in a distracted environment for maximum gain. Occupational Therapy: 5 days per week for 75 minutes. Treatments may include: Therapeutic Exercise, Therapeutic Activity, Cognitive Training, Self-Care Transfer Training, Community Reintegration, Home Management, Patient/Family Education, Wheelchair Mobility Training, Energy Conservation Training Group Therapy/Concurrent Therapy Rationales: -Allow therapist to observe and teach generalization and carry-over of skills learned in individual therapy. -Enhance problem solving and sequencing skills during therapeutic activities in a distracted environment. -Promote increased safety awareness in a realistic setting to reduce fall risk with functional tasks due to visual and verbal distractions. -Increase functional level with ADLs, ADL transfers and use of adaptive equipment through therapeutic activities with others while promoting safety to allow a more safe, self-sufficient return home. Speech Therapy: 5 days per week for 30 minutes. Treatments may include: Dysphasia Therapy, Speech/Language/Communication Therapy, Cognitive Training, Patient/Family Education Group Therapy/Concurrent Therapy - Rationale: -Allow therapist to observe and teach generalization and carry-over of skills learned in individual therapy. -Improve comprehension skills with complex or abstract ideas through discussion in a realistic setting. -Enhance problem solving skills with complex issues during activities in a distracted environment. -Promote increased memory skills and concentration in a distracted environment for a safe transition home. -Improve attention and focus with language/communication skills in a realistic and supportive therapeutic setting. -Allow for practice of expression of basic needs and ideas through functional activities with
[2020-05-30 14:00] VITALS: BP 129/67; PULSE 78; RESP 18; TEMP 36.2; O2SAT 97
[2020-05-30 17:10] VITALS: PULSE 76
[2020-05-30 20:00] VITALS: O2SAT 97
[2020-05-30 22:00] VITALS: BP 115/46; PULSE 79; RESP 20; TEMP 36.6; O2SAT 99
[2020-05-30] MEDS: SIMVASTATIN 20 MG TABLET 40 MG PO (22:11)
[2020-05-31] MEDS: BISACODYL 10 MG SUPPOSITORY RECTAL ×2 (05:23→05:36)
[2020-05-31 05:51] VITALS: BP 136/54; PULSE 77; RESP 20; TEMP 36.9; O2SAT 100
[2020-05-31] MEDS: polyethylene glycoL 3350 17 GM POWD.PACK PO (08:20)
[2020-05-31 08:21] VITALS: PULSE 76
[2020-05-31] MEDS: SENNA/DOCUSATE SODIUM TABLET 1 TAB PO (08:21)
[2020-05-31] MEDS: ASPIRIN 81 MG ENTERIC TABLET PO (08:21)
[2020-05-31] MEDS: TAMSULOSIN HCL 0.4 MG CAPSULE PO (08:21)
[2020-05-31] MEDS: CLOPIDOGREL BISULFATE 75 MG TABLET PO (08:21)
[2020-05-31] MEDS: PANTOPRAZOLE 40 MG TABLET PO (08:21)
[2020-05-31] MEDS: carvediloL 12.5 MG TABLET PO ×2 (08:21→17:29)
[2020-05-31] MEDS: FINASTERIDE 5 MG TABLET PO (08:21)
[2020-05-31] MEDS: ISOSORBIDE MONONITRATE 30 MG TAB.ER.24H PO (08:21)
[2020-05-31] MEDS: oxyCODONE HCL (*CRX) 5 MG TAB IR PO (08:23)
--- NOTE | 2020-05-31 08:56 | PC.NURSE ---
pt refused fish oil stating he never took it before and he had trouble trying to take it. updated.
[2020-05-31] MEDS: ALBUTEROL SULFATE (*SP) AEROSOL 1 PUFF 2 PUFF INHALATION (13:27)
[2020-05-31 14:00] VITALS: BP 106/46; PULSE 79; RESP 20; TEMP 36.5; O2SAT 99
[2020-05-31 17:29] VITALS: PULSE 76
[2020-05-31] MEDS: SIMVASTATIN 20 MG TABLET 40 MG PO (20:47)
[2020-05-31 21:33] VITALS: BP 98/49; PULSE 80; RESP 20; TEMP 36.1; O2SAT 100
[2020-06-01 05:36] VITALS: BP 139/62; PULSE 79; RESP 20; TEMP 36.7; O2SAT 99
[2020-06-01 09:10] VITALS: PULSE 79
[2020-06-01] MEDS: carvediloL 12.5 MG TABLET PO ×2 (09:10→17:39)
[2020-06-01] MEDS: TAMSULOSIN HCL 0.4 MG CAPSULE PO (09:10)
[2020-06-01] MEDS: ASPIRIN 81 MG ENTERIC TABLET PO (09:10)
[2020-06-01] MEDS: PANTOPRAZOLE 40 MG TABLET PO (09:10)
[2020-06-01] MEDS: polyethylene glycoL 3350 17 GM POWD.PACK PO ×2 (09:10→17:39)
[2020-06-01] MEDS: FINASTERIDE 5 MG TABLET PO (09:11)
[2020-06-01] MEDS: ISOSORBIDE MONONITRATE 30 MG TAB.ER.24H PO (09:11)
[2020-06-01] MEDS: SENNA/DOCUSATE SODIUM TABLET 1 TAB PO ×2 (09:11→17:39)
[2020-06-01] MEDS: CLOPIDOGREL BISULFATE 75 MG TABLET PO (09:11)
[2020-06-01] MEDS: ACETAMINOPHEN 500 MG TABLET PO (13:17)
[2020-06-01 14:00] VITALS: BP 108/54; PULSE 82; RESP 18; TEMP 36.9; O2SAT 100
--- NOTE | 2020-06-01 14:45 | WPDNEURORHBP ---
Subjective Date/time seen: 06/01/20 14:45 85 years old admitted to the hospital on rehab floor with T7 thoracic cord compression in addition to the history of 1. Chronic hyponatremia 2. Hypertension 3. Gout 4. Benign prostatic hypertrophy 5. Hyperlipidemia 6. Ground level fall 7. Lacunar infarct of right basal ganglia, left kei, and left frontal lobe anteriorly. On today's visit is complaining of left upper quadrant pain and discomfort he had the same pain he reported previously but now it is coming back though has no fever Review of Systems Review of Systems: All systems reviewed & are unremarkable except as noted in HPI and below Functional Status Ambulation Ability Ability to Ambulate 10 Feet: Standby Assistance Ability to Ambulate 50 Feet With 2 Turns: Standby Assistance Ability to Ambulate 150 Feet: Standby Assistance Ambulation Assistive Devices: Walker, Wheeled Exam Narrative: Exam Narrative: awake alert cooperative, his speech nor dysphasic no dysarthric not dysphonic, cranial nerve examination is normal, motor examination of the upper extremities revealed him to have no drift of 1 or other side, heart regular, lungs clear, abdomen is soft normal bowel sounds for neuro examination unchanged Objective Data Vital Signs Vital Signs: Vital Signs - 24 hr 05/31/20 17:29 05/31/20 21:33 06/01/20 05:36 Temperature 36.1 C L 36.7 C Pulse Rate 76 80 79 Respiratory Rate 20 20 Blood Pressure 98/49 L 139/62 Pulse Oximetry 100 99 06/01/20 09:10 06/01/20 14:00 Temperature 36.9 C Pulse Rate 79 82 Respiratory Rate 18 Blood Pressure 108/54 L Pulse Oximetry 100 Intake/Output Intake/Output: Intake & Output 05/29/20 05/30/20 05/31/20 06/01/20 23:59 23:59 23:59 23:59 Intake Total 2080 1460 1120 480 Output Total 2150 2075 3450 2100 Balance -23 -615 -2330 -4670 Meds/Results Medications: Active Medications Generic Name Dose Route Start Last Admin Trade Name Freq PRN Reason Stop Dose Admin Acetaminophen 500 mg 05/28/20 17:16 06/01/20 13:17 Acetaminophen 500 Mg Tablet PO 500 mg Q4H PRN Administration Pain, Mild Albuterol 2 puff 05/28/20 17:16 05/31/20 13:27 Albuterol Sulfate (*Sp) Aerosol 1 Puff INHALATION 2 puff Q6HRT PRN Administration Shortness Of Breath Or Wheezing Aspirin 81 mg 05/29/20 09:00 06/01/20 09:10 Aspirin 81 Mg Enteric Tablet PO 81 mg DAILY SANDRA Administration Bisacodyl 10 mg 05/28/20 17:16 05/31/20 05:36 Bisacodyl 10 Mg Suppository RECTAL 10 mg DAILY PRN Administration Constipation Carvedilol 12.5 mg 05/28/20 17:00 06/01/20 09:10 Carvedilol 12.5 Mg Tablet PO 12.5 mg BID SANDRA Administration Clopidogrel Bisulfate 75 mg 05/29/20 09:00 06/01/20 09:11 Clopidogrel Bisulfate 75 Mg Tablet PO 75 mg DAILY SANDRA Administration Finasteride 5 mg 05/29/20 09:00 06/01/20 09:11 Finasteride 5 Mg Tablet PO 5 mg DAILY SANDRA Administration Isosorbide Mononitrate 30 mg 05/29/20 09:00 06/01/20 09:11 Isosorbide Mononitrate 30 Mg Tab.Er.24h PO 30 mg DAILY SANDRA Administration Miconazole Nitrate 1 applic 05/29/20 09:00 06/01/20 09:11 Miconazole 2% Antifungal Ointment 56 Gm TOPICAL 1 applic Q12HR SANDRA Administration Oxycodone HCl 5 mg 05/28/20 17:16 05/31/20 08:23 Oxycodone Hcl (*Crx) 5 Mg Tab Ir PO 5 mg Q4H PRN Administration Pain, Moderate Pantoprazole Sodium 40 mg 05/29/20 09:00 06/01/20 09:10 Pantoprazole 40 Mg Tablet PO 06/28/20 09:01 40 mg DAILY SANDRA Administration Polyethylene Glycol 17 gm 05/28/20 17:00 06/01/20 09:10 Polyethylene Glycol 3350 17 Gm Powd.Pack PO 17 gm BID SANDRA Administration Senna/Docusate Sodium 1 tab 05/28/20 17:00 06/01/20 09:11 Senna/Docusate Sodium Tablet PO 1 tab BID SANDRA Administration Simvastatin 40 mg 05/28/20 21:00 05/31/20 20:47 Simvastatin 20 Mg Tablet PO 40 mg HS SANDRA Administration Tamsulosin HCl 0.4 mg
[2020-06-01 15:58] LABS: Basophils Percent Auto 0.6 % (0.2-1.2); Eosinophils Absolute Auto 0.3 K/mm3 (0-0.3); Eosinophils Percent Auto 4.5 % (0-4.4); Hemoglobin 7.8 g/dL (14.0-18.0); Immature Granulocyte Absolute 0.06 K/mm3 (0.00-0.031); Lymphocytes Absolute Auto 1.34 K/mm3 (0.9-3.2); Lymphocytes Percent Auto 21.5 % (18.3-44.2); Mean Corpuscular HGB Conc 32.5 g/dl (32-36); Mean Corpuscular Hemoglobin 28.5 pg (26-34); Mean Corpuscular Volume 87.6 fl (80-100); Mean Platelet Volume 10.2 fl (7.4-10.4); Monocytes Absolute Auto 0.8 K/mm3 (0.1-0.6); Monocytes Percent Auto 12.4 % (2.6-8.5); Neutrophils Absolute Auto 3.7 K/mm3 (1.3-6.7); Platelet Count Result 200 k/mm3 (150-375); Red Blood Count 2.74 M/mm3 (4.6-6.20); Red Cell Distribution Width 16.4 % (11.5-14.5); White Blood Count 6.2 K/mm3 (4.5-10.0)
--- NOTE | 2020-06-01 17:11 | PC.NURSE ---
Bladder scanned at 1130am before lunch and patient showing 569 at highest point. When attempted to straight cath, did not flow immediately, changed position of bed/legs and HOB and some flow occurred; getting 400cc out. Patient about an hour later with therapy c/o some discomfort particularly when standing up, let Dr. Mckinney know and we thought it may be from straight cathing/spasms, as well as his enlarged prostate being irritated and feeling returning form the cord compression. Before leaving, Dr. Mckinney ordered a KUB/flat plate of abdomen and CBC. Results called to of negative abdominal xray and CBC only change was H/H down to 7.8/24 from 8.6/25.4.
[2020-06-01 17:39] VITALS: PULSE 82
--- NOTE | 2020-06-01 19:39 | PC.NURSE ---
Bladder scanned: 248
[2020-06-01 20:00] VITALS: PULSE 82; RESP 18; O2SAT 99
[2020-06-01] MEDS: SIMVASTATIN 20 MG TABLET 40 MG PO (21:21)
[2020-06-01 21:29] VITALS: BP 112/53; PULSE 82; RESP 18; TEMP 36.9; O2SAT 99
--- NOTE | 2020-06-02 05:16 | PC.NURSE ---
Pt is voiding on his own in small amounts. Straight cath at 2335 - bladder scanner showed 559, straight cath 700ml. At 0500 - bladders scanner showed 662, straight cath 600 ml. No difficulties, patient tolerated well.
[2020-06-02 05:41] VITALS: BP 137/54; PULSE 81; RESP 18; TEMP 36.6; O2SAT 100
[2020-06-02 09:01] VITALS: PULSE 81
[2020-06-02] MEDS: ASPIRIN 81 MG ENTERIC TABLET PO (09:01)
[2020-06-02] MEDS: carvediloL 12.5 MG TABLET PO ×2 (09:01→16:58)
[2020-06-02] MEDS: polyethylene glycoL 3350 17 GM POWD.PACK PO ×2 (09:01→16:58)
[2020-06-02] MEDS: SENNA/DOCUSATE SODIUM TABLET 1 TAB PO ×2 (09:02→16:58)
[2020-06-02] MEDS: ISOSORBIDE MONONITRATE 30 MG TAB.ER.24H PO (09:02)
[2020-06-02] MEDS: FINASTERIDE 5 MG TABLET PO (09:02)
[2020-06-02] MEDS: TAMSULOSIN HCL 0.4 MG CAPSULE PO (09:02)
[2020-06-02] MEDS: CLOPIDOGREL BISULFATE 75 MG TABLET PO (09:02)
[2020-06-02] MEDS: PANTOPRAZOLE 40 MG TABLET PO (09:02)
[2020-06-02] MEDS: oxyCODONE HCL (*CRX) 5 MG TAB IR PO (09:36)
[2020-06-02 13:53] VITALS: BP 98/51; PULSE 78; RESP 14; TEMP 36.4; O2SAT 100
[2020-06-02 16:58] VITALS: PULSE 78
[2020-06-02] MEDS: SIMVASTATIN 20 MG TABLET 40 MG PO (19:59)
[2020-06-02 22:00] VITALS: BP 138/57; PULSE 78; RESP 14; TEMP 36.1; O2SAT 99
[2020-06-03 05:20] VITALS: BP 143/64; PULSE 72; RESP 12; TEMP 36.3; O2SAT 98
--- NOTE | 2020-06-03 06:24 | PC.NURSE ---
0540 Patient voided on his own a total of 1200 ml in the urinal. He was straight cathed once with a total of 500 ml.
[2020-06-03] MEDS: ISOSORBIDE MONONITRATE 30 MG TAB.ER.24H PO (08:32)
[2020-06-03] MEDS: FINASTERIDE 5 MG TABLET PO (08:32)
[2020-06-03 08:33] VITALS: PULSE 74
[2020-06-03] MEDS: CLOPIDOGREL BISULFATE 75 MG TABLET PO (08:33)
[2020-06-03] MEDS: TAMSULOSIN HCL 0.4 MG CAPSULE PO (08:33)
[2020-06-03] MEDS: carvediloL 12.5 MG TABLET PO ×2 (08:33→16:38)
[2020-06-03] MEDS: ASPIRIN 81 MG ENTERIC TABLET PO (08:33)
[2020-06-03] MEDS: PANTOPRAZOLE 40 MG TABLET PO (08:33)
[2020-06-03 10:52] LABS: Alanine Aminotransferase 23 U/L (4-50); Alkaline Phosphatase 79 U/L (38-126); Anion Gap 5 mmol/L (8-16); Aspartate Amino Transferase 30 U/L (17-59); Bilirubin,Total 0.3 mg/dL (0.2-1.3); Blood Urea Nitrogen 15 mg/dL (9-20); Calcium 8.8 mg/dL (8.4-10.2); Carbon Dioxide 29 mmol/L (22-30); Chloride 97 mmol/L (98-107); Estimated CRCL calculation 41 ml/min; Estimated Glomerular Filt Rate 58; Glucose 114 mg/dL (75-110); Potassium 4.3 mmol/L (3.4-5.0); Sodium 131 mmol/L (137-145)
--- NOTE | 2020-06-03 10:59 | WPDNEURORHBP ---
Subjective Date/time seen: 06/03/20 10:59 85 years old admitted to the rehab floor with T7 thoracic cord compression in addition to a history of multiple problems such as 1. Chronic hyponatremia 2. Hypertension 3. Gout 4. Benign prostatic hypertrophy 5. Hyperlipidemia 6. Ground level fall 7. 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 Most recent labs reveals a sodium coming to 131 with chloride of 97 patient had been seen by the urologist who suggested to keep the catheter in. Patient will also be followed by Dr. Dean wang as an outpatient who requires CBC and BMP on a weekly basis the order has been placed. Review of Systems Review of Systems: All systems reviewed & are unremarkable except as noted in HPI and below Functional Status Ambulation Ability Ability to Ambulate 10 Feet: Standby Assistance Ability to Ambulate 50 Feet With 2 Turns: Standby Assistance Ability to Ambulate 150 Feet: Standby Assistance Ambulation Assistive Devices: Walker, Wheeled Transfers Ability Ability to Transfer In/Out of Chair: Standby Assistance Exam Narrative: Exam Narrative: Patient continues to be awake alert cooperative. The cranial examination is normal. Heart is regular. Lungs clear. Abdomen soft. And bowel sounds are normal. Neuro examination is unchanged is ambulating in the hallway with assist and has no complaint of pain in the left upper quadrant today. He had obtained the flat plate of the abdomen on 06/01 which was negative. Objective Data Vital Signs Vital Signs: Vital Signs - 24 hr 06/02/20 13:53 06/02/20 16:58 06/02/20 22:00 Temperature 36.4 C 36.1 C L Pulse Rate 78 78 78 Respiratory Rate 14 14 Blood Pressure 98/51 L 138/57 L Pulse Oximetry 100 99 06/03/20 05:20 06/03/20 08:33 Temperature 36.3 C L Pulse Rate 72 74 Respiratory Rate 12 Blood Pressure 143/64 H Pulse Oximetry 98 Intake/Output Intake/Output: Intake & Output 05/31/20 06/01/20 06/02/20 06/03/20 23:59 23:59 23:59 23:59 Intake Total 1120 1390 1270 300 Output Total 3450 4400 2180 1700 Balance -8983 -3010 -910 -1400 Meds/Results Medications: Active Medications Generic Name Dose Route Start Last Admin Trade Name Freq PRN Reason Stop Dose Admin Acetaminophen 500 mg 05/28/20 17:16 06/01/20 13:17 Acetaminophen 500 Mg Tablet PO 500 mg Q4H PRN Administration Pain, Mild Albuterol 2 puff 05/28/20 17:16 05/31/20 13:27 Albuterol Sulfate (*Sp) Aerosol 1 Puff INHALATION 2 puff Q6HRT PRN Administration Shortness Of Breath Or Wheezing Aspirin 81 mg 05/29/20 09:00 06/03/20 08:33 Aspirin 81 Mg Enteric Tablet PO 81 mg DAILY SANDRA Administration Bisacodyl 10 mg 05/28/20 17:16 05/31/20 05:36 Bisacodyl 10 Mg Suppository RECTAL 10 mg DAILY PRN Administration Constipation Carvedilol 12.5 mg 05/28/20 17:00 06/03/20 08:33 Carvedilol 12.5 Mg Tablet PO 12.5 mg BID [facility] Administration Clopidogrel Bisulfate 75 mg 05/29/20 09:00 06/03/20 08:33 Clopidogrel Bisulfate 75 Mg Tablet PO 75 mg DAILY [facility] Administration Finasteride 5 mg 05/29/20 09:00 06/03/20 08:32 Finasteride 5 Mg Tablet PO 5 mg DAILY [facility] Administration Isosorbide Mononitrate 30 mg 05/29/20 09:00 06/03/20 08:32 Isosorbide Mononitrate 30 Mg Tab.Er.24h PO 30 mg DAILY [facility] Administration Miconazole Nitrate 1 applic 05/29/20 09:00 06/03/20 08:33 Miconazole 2% Antifungal Ointment 56 Gm TOPICAL 1 applic Q12HR [facility] Administration Oxycodone HCl 5 mg 05/28/20 17:16 06/02/20 09:36 Oxycodone Hcl (*Crx) 5 Mg Tab Ir PO 5 mg Q4H PRN Administration Pain, Moderate Pantoprazole Sodium 40 mg 05/29/20 09:00 06/03/20 08:33 Pantoprazole 40 Mg Tablet PO 06/28/20 09:01 40 mg DAILY [facility] Administration Polyethylene Glycol 17 gm 05/28/20 17:00 06/03/20 08:33 Polyethylene Glycol 3350 17 Gm Powd.Pack PO Not Given BID [facility]
--- NOTE | 2020-06-03 11:38 | PC.NURSE ---
CBC et CMP results faxed to Dr Shay at [phone].
--- NOTE | 2020-06-03 12:30 | PCNFU ---
Nutrition Follow-Up Complete: Involuntary weight loss related to medical issues as evidenced by documented 4kg weight loss without trying. Goal: Patient to consume 75% of meals or greater. Patient is meeting current nutritional goal. No new goal. Pt current nutrition is heart healthy. Nutrition recommendation: Agree Last recorded weight is 82.1 kg, no new weight. Bowel Motility:+BM reported 06/02. Labs Reviewed:Hct 24.0,Hgb 7.8 Meds Noted:Flomax,Coreg,Plavix,Protonix. Additional Notes: Nutrition follow up. Spoke with patient today regarding diet. Patient is consuming 100% of meal trays. Diet supplements: frozen nutritional treat once daily. Patient requested an Ensure Enlive once daily in place of the frozen nutritional treat. Agree with diet orders. Follow up every 7 days.
--- NOTE | 2020-06-03 13:57 | PC.NURSE ---
spoke to Myesha this morning from Urology regarding patient. Myesha seen patient while on TRC this morning. Myesha requested a العلي catheter be inserted and then patient is to follow up outpatient with Dr. Styles. العلي catheter was initiated at approx 1350 and 600 mL of urine was in العلي catheter drainage bag immediately after catheter was placed.
[2020-06-03 14:00] VITALS: BP 102/44; PULSE 75; RESP 14; TEMP 36.6; O2SAT 100
--- NOTE | 2020-06-03 14:50 | WPDURCON ---
Assessment and Plan Assessment and plan (1) Abdominal pain: Code(s): R10.9 - Unspecified abdominal pain Status: Acute Assessment and Plan: Potentially d/t retention. (2) Retention of urine: Code(s): R33.9 - Retention of urine, unspecified Status: Acute Assessment and Plan: Place العلي, [facility] being [facility] with residual's of >500cc each time. Continue Flomax and Finasteride. Follow up with Dr. Styles to discuss further treatment of BPH and to rule out atonic bladder. No further follow up. 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 He was treated here and then transferred to rehab. We were consulted d/t his inability to empty his bladder. He does c/o frequency and nocturia, but denies hesitancy and straining as well as dysuria, hematuria, fever or chills. The nurses have been scanning his bladder and getting >300cc 3 or more times a day then straight cath him to get out an additional 200cc over what the bladder scan says. He has been a patient of Dr. Cunningham for quite some time and has been on Finsteride and Flomax for many years. He was seen recently in the office in 04/[address] Styles and had a normal PVR and urine culture. He is not a surgical candidate per Dr. Styles' note. The patient states he is not uncomfortable when is unable to urine. His WBC is 6.2, creatinine is 1.20 and he is afebrile. A MARII was done on 05/14/2020 which showed bladder wall thickening. Review of Systems Cardiovascular: Cardiovascular: Reports no additional cardiovascular complaints Respiratory: Respiratory: Reports no additional respiratory complaints Gastrointestinal: Gastrointestinal: Denies abdominal pain, Denies nausea and Denies vomiting Genitourinary: Genitourinary: Denies hematuria, Denies dysuria, Denies flank pain, Reports urinary frequency, Denies urinary hesitancy and Denies urinary urgency PMFSH Past Medical History Medical History (Updated 06/03/20 @ 15:08 by Myesha Metcalf APRN) Arthritis Asthma Back pain BPH w urinary obs/LUTS CAD (coronary artery disease) Chronic hyponatremia GERD (gastroesophageal reflux disease) Gout HLD (hyperlipidemia) HTN (hypertension) Surgical History Surgical History H/O heart artery stent 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 Social History Social History Social History: Patient lives with his . He used to drink beer pretty heavy but quit drinking beer several years ago. Patient never smoked. The patient has 1 biological child that is in [place]. He has 3 step children that a nearby. The patient desires to be a full code. He denies any marijuana or substance abuse. Lifelong nonsmoker. Smoking status: Never smoker Second hand tobacco smoke exposure: No Alcohol intake: unknown Substance use: unknown Substance use type: does not use Gender identity (if verbalized by the patient): Male Spiritual care concerns: No Agree to blood products: Yes Meds Home Medications and Allergies Home Medications Medication Instructions Recorded Confirmed Type clopidogrel 75 mg PO DAILY 08/27/19 05/28/20 History finasteride 5 mg PO DAILY 08/27/19
[2020-06-03 16:38] VITALS: PULSE 78
[2020-06-03 20:37] VITALS: BP 101/51; PULSE 81; RESP 18; TEMP 36.2; O2SAT 100
[2020-06-03] MEDS: SIMVASTATIN 20 MG TABLET 40 MG PO (21:06)
[2020-06-04 05:21] VITALS: BP 136/56; PULSE 76; RESP 18; TEMP 36.4; O2SAT 98
[2020-06-04 10:17] VITALS: PULSE 76
[2020-06-04] MEDS: PANTOPRAZOLE 40 MG TABLET PO (10:17)
[2020-06-04] MEDS: ASPIRIN 81 MG ENTERIC TABLET PO (10:17)
[2020-06-04] MEDS: FINASTERIDE 5 MG TABLET PO (10:17)
[2020-06-04] MEDS: CLOPIDOGREL BISULFATE 75 MG TABLET PO (10:17)
[2020-06-04] MEDS: ISOSORBIDE MONONITRATE 30 MG TAB.ER.24H PO (10:17)
[2020-06-04] MEDS: carvediloL 12.5 MG TABLET PO ×2 (10:17→18:17)
[2020-06-04] MEDS: TAMSULOSIN HCL 0.4 MG CAPSULE PO (10:18)
[2020-06-04 14:00] VITALS: BP 112/62; PULSE 71; RESP 20; TEMP 36.5; O2SAT 100
--- NOTE | 2020-06-04 15:39 | PC.NURSE ---
Spinal cord culture that had been done at [facility] on 05/24/20-05/28/20 was verbally called to us and had no growth and body fluid-gram stain-no growth, light poly cells, heavy red blood cells. Dr. Faye lopez.
--- NOTE | 2020-06-04 17:19 | WPDNEURORHBP ---
Subjective Date/time seen: 06/04/20 17:19 85 years old has been admitted to the rehab floor with T7 thoracic cord compression in addition to history of multiple problems as outlined before. His urine culture was obtained and sent to [facility] family was interested in getting the results called during the meeting and the culture was negative as per Renéff report patient is to be followed by Dr. Dean wang as an outpatient he will be discharged on 06/10 that is Wednesday the family is concerned about putting the brace while he is in bed discussion was carried out in the family meeting back and forth at this stage we are ready to discharge him on 06/10 until unless some other problem arises he will definitely need the home has bathing aide as well as occupational therapist Review of Systems Review of Systems: All systems reviewed & are unremarkable except as noted in HPI and below Functional Status Ambulation Ability Ability to Ambulate 10 Feet: Independent Ability to Ambulate 50 Feet With 2 Turns: Standby Assistance Ability to Ambulate 150 Feet: Standby Assistance Ambulation Assistive Devices: Walker, Wheeled Transfers Ability Ability to Transfer In/Out of Chair: Independent Exam Narrative: Exam Narrative: on examination he is awake alert cooperative carries out the conversation very well speech nor dysphasic no dysarthric no dysphonic. Ear nose throat examination normal. Neck is supple with no cervical bruit no thyromegaly no lymphadenopathy. Heart regular with no murmur. Lungs clear to auscultation with no rhonchi or crepitations. Abdomen is soft nontender normal bowel sounds and neurological examination is unchanged. Because of his the concern about the retention of the urine urology consultation was obtained patient at this time being catheterized 3 times a day with results of more than 5 500cc each time as continue the Flomax and finasteride patient will follow-up with Dr. Styles for the further treatment of benign prostatic hypertrophy and to rule out the possibly of atonic bladder Objective Data Vital Signs Vital Signs: Vital Signs - 24 hr 06/03/20 20:37 06/04/20 05:21 06/04/20 10:17 Temperature 36.2 C L 36.4 C Pulse Rate 81 76 76 Respiratory Rate 18 18 Blood Pressure 101/51 L 136/56 L Pulse Oximetry 100 98 06/04/20 14:00 Temperature 36.5 C Pulse Rate 71 Respiratory Rate 20 Blood Pressure 112/62 Pulse Oximetry 100 Intake/Output Intake/Output: Intake & Output 06/01/20 06/02/20 06/03/20 06/04/20 23:59 23:59 23:59 23:59 Intake Total 1390 1270 1020 1000 Output Total 4400 2180 2700 1850 [facility]3010 -910 -1680 -850 Meds/Results Medications: Active Medications Generic Name Dose Route Start Last Admin Trade Name Freq PRN Reason Stop Dose Admin Acetaminophen 500 mg 05/28/20 17:16 06/01/20 13:17 Acetaminophen 500 Mg Tablet PO 500 mg Q4H PRN Administration Pain, Mild Albuterol 2 puff 05/28/20 17:16 05/31/20 13:27 Albuterol Sulfate (*Sp) Aerosol 1 Puff INHALATION 2 puff Q6HRT PRN Administration Shortness Of Breath Or Wheezing Aspirin 81 mg 05/29/20 09:00 06/04/20 10:17 Aspirin 81 Mg Enteric Tablet PO 81 mg DAILY [facility]DRA Administration Bisacodyl 10 mg 05/28/20 17:16 05/31/20 05:36 Bisacodyl 10 Mg Suppository RECTAL 10 mg DAILY PRN Administration Constipation Carvedilol 12.5 mg 05/28/20 17:00 06/04/20 10:17 Carvedilol 12.5 Mg Tablet PO 12.5 mg BID [facility] Administration Clopidogrel Bisulfate 75 mg 05/29/20 09:00 06/04/20 10:17 Clopidogrel Bisulfate 75 Mg Tablet PO 75 mg DAILY [facility] Administration Finasteride 5 mg 05/29/20 09:00 06/04/20 10:17 Finasteride 5 Mg Tablet PO 5 mg DAILY [facility] Administration Isosorbide Mononitrate 30 mg 05/29/20 09:00 06/04/20 10:17 Isosorbide Mononitrate 30 Mg Tab.Er.24h PO 30 mg DAILY [facility] Administration Miconazole Nitrate 1 applic 05/29/20 09:00 06/04/20 10:17 [place]
[2020-06-04 18:17] VITALS: PULSE 71
[2020-06-04] MEDS: SENNA/DOCUSATE SODIUM TABLET 1 TAB PO (18:19)
[2020-06-04] MEDS: polyethylene glycoL 3350 17 GM POWD.PACK PO (18:19)
[2020-06-04] MEDS: SIMVASTATIN 20 MG TABLET 40 MG PO (20:15)
[2020-06-04 20:47] VITALS: BP 105/48; PULSE 77; RESP 18; TEMP 36.2; O2SAT 99
[2020-06-05 05:16] VITALS: BP 130/59; PULSE 70; RESP 18; TEMP 36.3; O2SAT 98
[2020-06-05 06:02] LABS: Basophils Percent Auto 0.5 % (0.2-1.2); Eosinophils Absolute Auto 0.7 K/mm3 (0-0.3); Eosinophils Percent Auto 9.9 % (0-4.4); Hematocrit 25.3 % (42.0-52.0); Immature Granulocyte Percent A 1.5 % (0-0.5); Lymphocytes Absolute Auto 2.02 K/mm3 (0.9-3.2); Lymphocytes Percent Auto 30.4 % (18.3-44.2); Mean Corpuscular HGB Conc 31.6 g/dl (32-36); Mean Corpuscular Hemoglobin 27.8 pg (26-34); Mean Corpuscular Volume 87.8 fl (80-100); Mean Platelet Volume 9.4 fl (7.4-10.4); Monocytes Absolute Auto 0.7 K/mm3 (0.1-0.6); Monocytes Percent Auto 10.8 % (2.6-8.5); Neutrophils Absolute Auto 3.1 K/mm3 (1.3-6.7); Neutrophils Percent Auto 46.9 % (45.5-73.1); Platelet Count Result 223 k/mm3 (150-375); Red Blood Count 2.88 M/mm3 (4.6-6.20); Red Cell Distribution Width 16.2 % (11.5-14.5); White Blood Count 6.6 K/mm3 (4.5-10.0)
[2020-06-05 10:46] VITALS: PULSE 70
[2020-06-05] MEDS: carvediloL 12.5 MG TABLET PO ×2 (10:46→16:52)
[2020-06-05] MEDS: ASPIRIN 81 MG ENTERIC TABLET PO (10:46)
[2020-06-05] MEDS: CLOPIDOGREL BISULFATE 75 MG TABLET PO (10:47)
[2020-06-05] MEDS: FINASTERIDE 5 MG TABLET PO (10:47)
[2020-06-05] MEDS: ISOSORBIDE MONONITRATE 30 MG TAB.ER.24H PO (10:48)
[2020-06-05] MEDS: PANTOPRAZOLE 40 MG TABLET PO (10:48)
[2020-06-05] MEDS: TAMSULOSIN HCL 0.4 MG CAPSULE PO (10:48)
[2020-06-05] MEDS: polyethylene glycoL 3350 17 GM POWD.PACK PO ×2 (10:48→16:53)
[2020-06-05] MEDS: SENNA/DOCUSATE SODIUM TABLET 1 TAB PO ×2 (10:50→16:52)
--- NOTE | 2020-06-05 13:36 | WPDREHABHP ---
H&P: HPI History of Present Illness Date/Time: 06/05/20 13:36 Narrative: Declan Allen is a 85 year old male HISTORY OF PRESENT ILLNESS: The patient's primary rehab impairment category is [] The etiologic diagnosis is [] I saw this patient [id number] on [] The patient is a [] Therapy was initiated at the acute care facility and the patient transferred to us from [[facility]] on [] FALLS OR SURGERIES: The patient has had [no] major surgeries in the 100 days prior to admission. They had [no] falls in the past year. They had [no] falls with injury in the past year. PAST MEDICAL HISTORY: [] PAST SURGICAL HISTORY: [] SOCIAL HISTORY: [] FAMILY HISTORY: [] PRIOR LEVEL OF FUNCTION: Eating was [INDEPENDENT] Oral Care was [INDEPENDENT] Toileting Hygiene was [INDEPENDENT] Shower/Bathing was [INDEPENDENT] Upper Body Dressing was [INDEPENDENT] Lower Body Dressing was [INDEPENDENT] Donning/[place] Footwear was [INDEPENDENT] Rolling Left and Right was [INDEPENDENT] Sit to Lying was [INDEPENDENT] Lying to Sitting was [INDEPENDENT] Sit to Stand was [INDEPENDENT] Bed to Chair Transfers was [INDEPENDENT] Toilet Transfers was [INDEPENDENT] Walking was [INDEPENDENT] [>500 feet] with [NO DEVICE] Wheelchair Mobility was [NOT APPLICABLE PRIOR TO ADMISSION] Stairs were [INDEPENDENT] CURRENT LEVEL OF FUNCTION: Eating was [SET UP ONLY] Oral Care was [SET UP ONLY] Toileting Hygiene was [] Shower/Bathing was [] Upper Body Dressing was [] Lower Body Dressing was [] Donning/[place] Footwear was [] Rolling Left and Right was [] Sit to Lying was [] Lying to Sitting was [] Sit to Stand was [] Bed to Chair Transfers were [] Toilet Transfers were [] Walking was [] Wheelchair Mobility was [] Stairs were [] GOALS: Our therapists will evaluate the patient and establish the goals. However, upon pre-admission screening, the expected goals were to be [INDEPENDENT] with self-care, [INDEPENDENT] with transfers, and [INDEPENDENT] with functional mobility so that the patient can return home. ESTIMATED LENGTH OF STAY: [10-14 days] POTENTIAL BARRIERS TO DISCHARGE: [Patient lives alone.] [Family needs training.] [Severity of condition.] [Architectural barriers.] ACTIVE CO-MORBIDITIES PRESENT ON ADMISSION: Active co-morbidities include []. 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 Social History Social History Social History: Patient lives with his . He used to drink beer pretty heavy but quit drinking beer several years ago. Patient never smoked. The patient has 1 biological child that is in [place]. He has 3 step children that a nearby. The patient desires to be a full code. He denies any marijuana or substance abuse. Lifelong nonsmoker. Smoking status: Never smoker Second hand tobacco smoke exposure: No Alcohol intake: unknown Substance use: unknown Substance use type: does not use Gender identity (if verbalized by the patient): Male Spiritual care concerns: No Agree to blood products: Yes Meds Home Medications and Allergies Home Medications Medication Instructions Recorded Co
[2020-06-05 14:00] VITALS: BP 138/58; PULSE 84; RESP 20; TEMP 36.3; O2SAT 97
[2020-06-05 16:52] VITALS: PULSE 84
[2020-06-05] MEDS: SIMVASTATIN 20 MG TABLET 40 MG PO (20:50)
[2020-06-05 22:30] VITALS: BP 124/54; PULSE 78; RESP 12; TEMP 36.2; O2SAT 100
[2020-06-06 06:00] VITALS: BP 156/57; PULSE 74; RESP 12; TEMP 35.9; O2SAT 99
[2020-06-06] MEDS: CLOPIDOGREL BISULFATE 75 MG TABLET PO (09:48)
[2020-06-06] MEDS: SENNA/DOCUSATE SODIUM TABLET 1 TAB PO ×2 (09:48→17:35)
[2020-06-06 09:49] VITALS: PULSE 74
[2020-06-06] MEDS: PANTOPRAZOLE 40 MG TABLET PO (09:49)
[2020-06-06] MEDS: TAMSULOSIN HCL 0.4 MG CAPSULE PO (09:49)
[2020-06-06] MEDS: ISOSORBIDE MONONITRATE 30 MG TAB.ER.24H PO (09:49)
[2020-06-06] MEDS: oxyCODONE HCL (*CRX) 5 MG TAB IR PO (09:49)
[2020-06-06] MEDS: ASPIRIN 81 MG ENTERIC TABLET PO (09:49)
[2020-06-06] MEDS: FINASTERIDE 5 MG TABLET PO (09:49)
[2020-06-06] MEDS: carvediloL 12.5 MG TABLET PO ×2 (09:49→17:35)
[2020-06-06] MEDS: polyethylene glycoL 3350 17 GM POWD.PACK PO (09:50)
--- NOTE | 2020-06-06 13:29 | WPDNEURORHBP ---
Subjective Date/time seen: 06/06/20 13:29 85 years old has been admitted to the rehab floor with T7 thoracic cord compression in addition to history of multiple medical problems as mentioned before intermittently continues to complain of left upper abdominal discomfort which we have the obtain the x-rays which were negative most likely this pain and discomfort is coming from the thoracic spine he was explained accordingly Review of Systems Review of Systems: All systems reviewed & are unremarkable except as noted in HPI and below Functional Status Ambulation Ability Ability to Ambulate 10 Feet: Independent Ability to Ambulate 50 Feet With 2 Turns: Independent Ability to Ambulate 150 Feet: Independent Ambulation Assistive Devices: Walker, Wheeled Transfers Ability Ability to Transfer In/Out of Chair: Independent Exam Narrative: Exam Narrative: continues to be awake alert cooperative in no obvious acute distress. Speech nor dysphasic no dysarthric nor does tonic. Mental status is normal cranial examination is normal motor examination reveals him to have no drift of 1 or other side reflexes symmetrical plantars are downgoing heart regular with no murmur lungs clear to auscultation and abdomen is soft nontender with normal bowel sounds Objective Data Vital Signs Vital Signs: Vital Signs - 24 hr 06/05/20 14:00 06/05/20 16:52 06/05/20 22:30 Temperature 36.3 C L 36.2 C L Pulse Rate 84 84 78 Respiratory Rate 20 12 Blood Pressure 138/58 L 124/54 L Pulse Oximetry 97 100 06/06/20 06:00 06/06/20 09:49 Temperature 35.9 C L Pulse Rate 74 74 Respiratory Rate 12 Blood Pressure 156/57 H Pulse Oximetry 99 Intake/Output Intake/Output: Intake & Output 06/03/20 06/04/20 06/05/20 06/06/20 23:59 23:59 23:59 23:59 Intake Total 1020 1240 1130 880 Output Total 2700 2700 5850 5143 Balance -5711 -6949 -785 -0299 Meds/Results Medications: Active Medications Generic Name Dose Route Start Last Admin Trade Name Freq PRN Reason Stop Dose Admin Acetaminophen 500 mg 05/28/20 17:16 06/01/20 13:17 Acetaminophen 500 Mg Tablet PO 500 mg Q4H PRN Administration Pain, Mild Albuterol 2 puff 05/28/20 17:16 05/31/20 13:27 Albuterol Sulfate (*Sp) Aerosol 1 Puff INHALATION 2 puff Q6HRT PRN Administration Shortness Of Breath Or Wheezing Aspirin 81 mg 05/29/20 09:00 06/06/20 09:49 Aspirin 81 Mg Enteric Tablet PO 81 mg DAILY [facility] Administration Bisacodyl 10 mg 05/28/20 17:16 05/31/20 05:36 Bisacodyl 10 Mg Suppository RECTAL 10 mg DAILY PRN Administration Constipation Carvedilol 12.5 mg 05/28/20 17:00 06/06/20 09:49 Carvedilol 12.5 Mg Tablet PO 12.5 mg BID [facility] Administration Clopidogrel Bisulfate 75 mg 05/29/20 09:00 06/06/20 09:48 Clopidogrel Bisulfate 75 Mg Tablet PO 75 mg DAILY [facility] Administration Finasteride 5 mg 05/29/20 09:00 06/06/20 09:49 Finasteride 5 Mg Tablet PO 5 mg DAILY [facility] Administration Isosorbide Mononitrate 30 mg 05/29/20 09:00 06/06/20 09:49 Isosorbide Mononitrate 30 Mg Tab.Er.24h PO 30 mg DAILY [facility] Administration Miconazole Nitrate 1 applic 05/29/20 09:00 06/06/20 09:50 Miconazole 2% Antifungal Ointment 56 Gm TOPICAL 1 applic Q12HR [facility] Administration Oxycodone HCl 5 mg 05/28/20 17:16 06/06/20 09:49 Oxycodone Hcl (*Crx) 5 Mg Tab Ir PO 5 mg Q4H PRN Administration Pain, Moderate Pantoprazole Sodium 40 mg 05/29/20 09:00 06/06/20 09:49 Pantoprazole 40 Mg Tablet PO 06/28/20 09:01 40 mg DAILY [facility] Administration Polyethylene Glycol 17 gm 05/28/20 17:00 06/06/20 09:50 Polyethylene Glycol 3350 17 Gm Powd.Pack PO 17 gm BID [facility] Administration Senna/Docusate Sodium 1 tab 05/28/20 17:00 06/06/20 09:48 Senna/Docusate Sodium Tablet PO 1 tab BID SANDRA Administration Simvastatin 40 mg 05/28/20 21:00 06/05/20 20:50 Simvastatin 20 Mg Tablet PO 40 mg HS [facility]
[2020-06-06 14:00] VITALS: BP 120/57; PULSE 77; RESP 20; TEMP 36.2; O2SAT 100
[2020-06-06] MEDS: ACETAMINOPHEN 500 MG TABLET PO (17:40)
[2020-06-06 20:00] VITALS: PULSE 72; RESP 18; O2SAT 98
[2020-06-06] MEDS: SIMVASTATIN 20 MG TABLET 40 MG PO (20:32)
[2020-06-06 22:00] VITALS: BP 115/52; PULSE 72; RESP 18; TEMP 36.3; O2SAT 98
[2020-06-07 04:43] VITALS: BP 132/68; PULSE 72; RESP 18; TEMP 36.3; O2SAT 100
[2020-06-07 08:59] VITALS: PULSE 76
[2020-06-07] MEDS: CLOPIDOGREL BISULFATE 75 MG TABLET PO (08:59)
[2020-06-07] MEDS: ASPIRIN 81 MG ENTERIC TABLET PO (08:59)
[2020-06-07] MEDS: FINASTERIDE 5 MG TABLET PO (08:59)
[2020-06-07] MEDS: carvediloL 12.5 MG TABLET PO ×2 (08:59→17:02)
[2020-06-07] MEDS: ISOSORBIDE MONONITRATE 30 MG TAB.ER.24H PO (08:59)
[2020-06-07] MEDS: TAMSULOSIN HCL 0.4 MG CAPSULE PO (08:59)
[2020-06-07] MEDS: PANTOPRAZOLE 40 MG TABLET PO (08:59)
[2020-06-07] MEDS: SENNA/DOCUSATE SODIUM TABLET 1 TAB PO (09:00)
[2020-06-07] MEDS: ACETAMINOPHEN 500 MG TABLET PO ×2 (12:01→21:01)
[2020-06-07 14:00] VITALS: BP 100/51; PULSE 78; RESP 20; TEMP 36.9; O2SAT 100
[2020-06-07 17:02] VITALS: PULSE 76
[2020-06-07 20:49] VITALS: BP 121/55; PULSE 62; RESP 18; TEMP 36.6; O2SAT 97
[2020-06-07] MEDS: SIMVASTATIN 20 MG TABLET 40 MG PO (21:01)
[2020-06-07] MEDS: ALBUTEROL SULFATE (*SP) AEROSOL 1 PUFF 2 PUFF INHALATION (21:23)
[2020-06-08] VITALS (8 sets, daily range): BP systolic 82–142; BP diastolic 40–76; PULSE 73–81; RESP 18–20; TEMP 36.5–36.7; O2SAT 99–100
[2020-06-08] MEDS: ASPIRIN 81 MG ENTERIC TABLET PO (08:42)
[2020-06-08] MEDS: FINASTERIDE 5 MG TABLET PO (08:43)
[2020-06-08] MEDS: SENNA/DOCUSATE SODIUM TABLET 1 TAB PO ×2 (08:43→17:03)
[2020-06-08] MEDS: CLOPIDOGREL BISULFATE 75 MG TABLET PO (08:43)
[2020-06-08] MEDS: carvediloL 12.5 MG TABLET PO (08:43)
[2020-06-08] MEDS: TAMSULOSIN HCL 0.4 MG CAPSULE PO (08:44)
[2020-06-08] MEDS: ISOSORBIDE MONONITRATE 30 MG TAB.ER.24H PO (08:44)
[2020-06-08] MEDS: polyethylene glycoL 3350 17 GM POWD.PACK PO ×2 (08:44→17:03)
[2020-06-08] MEDS: PANTOPRAZOLE 40 MG TABLET PO (08:44)
[2020-06-08] MEDS: ACETAMINOPHEN 500 MG TABLET PO (08:45)
[2020-06-08 11:05] LABS: Glucose Point of Care 116 (65-105)
--- NOTE | 2020-06-08 11:30 | PC.NURSE ---
called to patient room by therapy, having a non-responsive spell. Pt immediately returned to bed, B/P 76/25, P 67, O2 sats 99%, Patient was able to open eyes to verbal stimuli and began answering questions appropriately shortly (less than 3 miinutes) thereafter. Daughter was here with patient for family training. visibly upset, stated this was what happened all the time at home when he would fall. reassured her that i would have Dr. Mckinney review patients meds. She was much calmer when she left, patient back to normal.
--- NOTE | 2020-06-08 11:32 | PCPTNOTE ---
The patient am treatment was not able to be completed on 06-08-2020 due to change in medical status per R.N advised not to see patient at this time. Patient missed 30 minutes of physical therapy session this date. Will plan to continue treatment per plan of care.
--- NOTE | 2020-06-08 11:34 | PCPTNOTE ---
Therapist verbally educated patient's daughter on functional mobility tasks during family training this date. Therapist verbalize patient is independent with functional mobility tasks with wheeled walker such as walking, transfers and stair climbing. Therapist educated patient's daughter patient will need to continue using TLSO when out of bed. Therapist stated patient will receive a lower extremity home exercise program upon discharge. Therapist recommended to patient's daughter a sturdy chair with arm rests for patient at home. Patient and patient's daughter verbalize understanding.
--- NOTE | 2020-06-08 13:00 | PC.NURSE ---
Dr. Mckinney here and reviewed patient meds and blood pressures. He decreased dose of carvedilol, starting today. Also parameters for holding meds if B/P systolic is <90. Will continue to monitor
--- NOTE | 2020-06-08 13:16 | WPDNEURORHBP ---
Subjective Date/time seen: 06/08/20 13:16 85 years old has been admitted to the rehab floor with T7 thoracic cord compression in addition to history of multiple medical problems he is making slow but significant improvement continues to be comfortable except that he complains of left upper abdominal discomfort intermittently which has been there for a long time and most likely related to T7 lesion Review of Systems Review of Systems: All systems reviewed & are unremarkable except as noted in HPI and below Functional Status Ambulation Ability Ability to Ambulate 10 Feet: Independent Ability to Ambulate 50 Feet With 2 Turns: Independent Ability to Ambulate 150 Feet: Independent Ambulation Assistive Devices: Walker, Wheeled Transfers Ability Ability to Transfer In/Out of Chair: Independent Exam Narrative: Exam Narrative: he is awake alert cooperative speech nor dysphasic no dysarthric not dysphonic the cranial examination is normal. Motor examination revealed him to have no drift on or other side reflexes symmetrical plantars are downgoing is no evidence of gross cerebellar deficit heart regular lungs clear abdomen soft. Objective Data Vital Signs Vital Signs: Vital Signs - 24 hr 06/07/20 14:00 06/07/20 17:02 06/07/20 20:49 Temperature 36.9 C 36.6 C Pulse Rate 78 76 62 Respiratory Rate 20 18 Blood Pressure 100/51 L 121/55 L Pulse Oximetry 100 97 06/08/20 05:36 06/08/20 08:43 06/08/20 11:40 Temperature 36.5 C Pulse Rate 74 74 Respiratory Rate 18 Blood Pressure 142/76 H 88/48 L Pulse Oximetry 99 06/08/20 11:41 Temperature Pulse Rate Respiratory Rate Blood Pressure 82/40 L Pulse Oximetry Intake/Output Intake/Output: Intake & Output 06/05/20 06/06/20 06/07/20 06/08/20 23:59 23:59 23:59 23:59 Intake Total 1130 1120 1370 820 Output Total 1750 8590 0947 9256 Balance -620 -2005 -1255 -330 Meds/Results Medications: Active Medications Generic Name Dose Route Start Last Admin Trade Name Freq PRN Reason Stop Dose Admin Acetaminophen 500 mg 05/28/20 17:16 06/08/20 08:45 Acetaminophen 500 Mg Tablet PO 500 mg Q4H PRN Administration Pain, Mild Albuterol 2 puff 05/28/20 17:16 06/07/20 21:23 Albuterol Sulfate (*Sp) Aerosol 1 Puff INHALATION 2 puff Q6HRT PRN Administration Shortness Of Breath Or Wheezing Aspirin 81 mg 05/29/20 09:00 06/08/20 08:42 Aspirin 81 Mg Enteric Tablet PO 81 mg DAILY SANDRA Administration Bisacodyl 10 mg 05/28/20 17:16 05/31/20 05:36 Bisacodyl 10 Mg Suppository RECTAL 10 mg DAILY PRN Administration Constipation Carvedilol 6.25 mg 06/08/20 21:00 Carvedilol 6.25 Mg Tablet PO Q12HR [facility] Clopidogrel Bisulfate 75 mg 05/29/20 09:00 06/08/20 08:43 Clopidogrel Bisulfate 75 Mg Tablet PO 75 mg DAILY SANDRA Administration Finasteride 5 mg 05/29/20 09:00 06/08/20 08:43 Finasteride 5 Mg Tablet PO 5 mg DAILY [facility] Administration Isosorbide Mononitrate 30 mg 05/29/20 09:00 06/08/20 08:44 Isosorbide Mononitrate 30 Mg Tab.Er.24h PO 30 mg DAILY [facility] Administration Miconazole Nitrate 1 applic 05/29/20 09:00 06/08/20 08:48 Miconazole 2% Antifungal Ointment 56 Gm TOPICAL 1 applic Q12HR [facility] Administration Oxycodone HCl 5 mg 05/28/20 17:16 06/06/20 09:49 Oxycodone Hcl (*Crx) 5 Mg Tab Ir PO 5 mg Q4H PRN Administration Pain, Moderate Pantoprazole Sodium 40 mg 05/29/20 09:00 06/08/20 08:44 Pantoprazole 40 Mg Tablet PO 06/28/20 09:01 40 mg DAILY [facility] Administration Polyethylene Glycol 17 gm 05/28/20 17:00 06/08/20 08:44 Polyethylene Glycol 3350 17 Gm Powd.Pack PO 17 gm BID SANDRA Administration Senna/Docusate Sodium 1 tab 05/28/20 17:00 06/08/20 08:43 Senna/Docusate Sodium Tablet PO 1 tab BID SANDRA Administration Simvastatin 40 mg 05/28/20 21:00 06/07/20 21:01 Simvastatin 20 Mg Tablet PO 40 mg HS SANDRA Administration Tamsulos
--- NOTE | 2020-06-08 14:38 | PCOTNOTE ---
Attempted to see pt this PM. Due to pt's continued low BP and change in medical status, advised to not see pt's today. RN and POST EXCHANGE MANAGER informed of pt not seeing therapy this PM. Pt did not recieve full minutes on this date due to change in medical status. Will continue per POC frequency/duration if medically able to tomorrow.
--- NOTE | 2020-06-08 15:27 | PCPTNOTE ---
The patient treatment was not able to be completed on 06-08-2020 due R.N advised not to see patient for therapy due to low blood pressure. Patient missed 90 minutes of physical therapy session this date. Will plan to continue treatment per plan of care.
--- NOTE | 2020-06-08 18:17 | PC.NURSE ---
spoke with daughter, made her aware of dr. knapp's new order.
[2020-06-08] MEDS: SIMVASTATIN 20 MG TABLET 40 MG PO (20:16)
[2020-06-08] MEDS: carvediloL 6.25 MG TABLET PO (20:16)
[2020-06-09] VITALS (8 sets, daily range): BP systolic 87–120; BP diastolic 51–59; PULSE 67–81; RESP 16–20; TEMP 36.3–36.6; O2SAT 97–100
[2020-06-09] MEDS: CLOPIDOGREL BISULFATE 75 MG TABLET PO (08:35)
[2020-06-09] MEDS: carvediloL 6.25 MG TABLET PO (08:35)
[2020-06-09] MEDS: ASPIRIN 81 MG ENTERIC TABLET PO (08:35)
[2020-06-09] MEDS: SENNA/DOCUSATE SODIUM TABLET 1 TAB PO ×2 (08:35→17:03)
[2020-06-09] MEDS: ISOSORBIDE MONONITRATE 30 MG TAB.ER.24H PO (08:36)
[2020-06-09] MEDS: FINASTERIDE 5 MG TABLET PO (08:36)
[2020-06-09] MEDS: TAMSULOSIN HCL 0.4 MG CAPSULE PO (08:36)
[2020-06-09] MEDS: PANTOPRAZOLE 40 MG TABLET PO (08:36)
[2020-06-09] MEDS: polyethylene glycoL 3350 17 GM POWD.PACK PO ×2 (08:36→17:03)
--- NOTE | 2020-06-09 18:55 | PC.NURSE ---
blood pressure this am dropped again after 0900 medications and working with therapy/standing/hygiene. Spoke with Dr Mckinney new orders received and noted.
[2020-06-09] MEDS: carvediloL 3.125 MG TABLET PO (20:49)
[2020-06-09] MEDS: SIMVASTATIN 20 MG TABLET 40 MG PO (20:49)
[2020-06-09] MEDS: ACETAMINOPHEN 500 MG TABLET PO (20:52)
[2020-06-10] VITALS (9 sets, daily range): BP systolic 102–142; BP diastolic 36–56; PULSE 80–88; RESP 16–20; TEMP 36.4–37.1; O2SAT 96–100
[2020-06-10] MEDS: carvediloL 3.125 MG TABLET PO ×2 (09:23→20:57)
[2020-06-10] MEDS: CLOPIDOGREL BISULFATE 75 MG TABLET PO (09:23)
[2020-06-10] MEDS: TAMSULOSIN HCL 0.4 MG CAPSULE PO (09:23)
[2020-06-10] MEDS: PANTOPRAZOLE 40 MG TABLET PO (09:23)
[2020-06-10] MEDS: FINASTERIDE 5 MG TABLET PO (09:23)
[2020-06-10] MEDS: ASPIRIN 81 MG ENTERIC TABLET PO (09:28)
--- NOTE | 2020-06-10 09:28 | WPDNEURORHBP ---
Subjective Date/time seen: 06/10/20 09:[age] years old has been admitted to the rehab floor with T7 thoracic cord compression in addition to history of multiple medical problems on Wednesday he had 1 episode when he became somewhat unresponsive and the family mentioned that he has had before also he definitely have drop in the blood pressure when he sits and stands up his medications have been increased be going to go down further for Coreg 3.125 mg and also Imdur will be cut down to half a tablets daily he was supposed to be discharged but will hold the discharge for the next 48 hours and CBC and BMP Review of Systems Review of Systems: All systems reviewed & are unremarkable except as noted in HPI and below Functional Status Ambulation Ability Ability to Ambulate 10 Feet: Independent Ability to Ambulate 50 Feet With 2 Turns: Independent Ability to Ambulate 150 Feet: Independent Ambulation Assistive Devices: Walker, Wheeled Transfers Ability Ability to Transfer In/Out of Chair: Independent Exam Narrative: Exam Narrative: on examination today he continues to be awake alert cooperative his speech is not dysphasic no dysarthric not dysphonic the cranial nerve examination is normal motor examination reveals no focal motor deficit and reflexes are 1+ plantars are downgoing heart regular and lungs clear Objective Data Vital Signs Vital Signs: Vital Signs - 24 hr 06/09/20 10:55 06/09/20 13:00 06/09/20 15:30 Temperature 36.5 C Pulse Rate 77 80 76 Respiratory Rate 20 Blood Pressure 87/51 L 114/58 L Pulse Oximetry 100 97 99 06/09/20 20:49 06/09/20 21:14 06/10/20 05:57 Temperature 36.3 C L 36.4 C L Pulse Rate 78 81 88 Respiratory Rate 18 18 Blood Pressure 120/59 L 142/50 H Pulse Oximetry 99 96 06/10/20 09:23 Temperature Pulse Rate 88 Respiratory Rate Blood Pressure Pulse Oximetry Intake/Output Intake/Output: Intake & Output 06/07/20 06/08/20 06/09/20 06/10/20 23:59 23:59 23:59 23:59 Intake Total 1370 1880 1960 540 Output Total 2625 2450 1200 1800 Balance -1255 570 963 -1260 Meds/Results Medications: Active Medications Generic Name Dose Route Start Last Admin Trade Name Freq PRN Reason Stop Dose Admin Acetaminophen 500 mg 05/28/20 17:16 06/09/20 20:52 Acetaminophen 500 Mg Tablet PO 500 mg Q4H PRN Administration Pain, Mild Albuterol 2 puff 05/28/20 17:16 06/07/20 21:23 Albuterol Sulfate (*Sp) Aerosol 1 Puff INHALATION 2 puff Q6HRT PRN Administration Shortness Of Breath Or Wheezing Aspirin 81 mg 05/29/20 09:00 06/10/20 09:28 Aspirin 81 Mg Enteric Tablet PO 81 mg DAILY SANDRA Administration Bisacodyl 10 mg 05/28/20 17:16 05/31/20 05:36 Bisacodyl 10 Mg Suppository RECTAL 10 mg DAILY PRN Administration Constipation Carvedilol 3.125 mg 06/09/20 21:00 06/10/20 09:23 Carvedilol 3.125 Mg Tablet PO 3.125 mg Q12HR [facility] Administration Clopidogrel Bisulfate 75 mg 05/29/20 09:00 06/10/20 09:23 Clopidogrel Bisulfate 75 Mg Tablet PO 75 mg DAILY [facility]DRA Administration Finasteride 5 mg 05/29/20 09:00 06/10/20 09:23 Finasteride 5 Mg Tablet PO 5 mg DAILY [facility] Administration Isosorbide Mononitrate 15 mg 06/10/20 09:30 Isosorbide Mononitrate 30 Mg Tab.Er.24h PO DAILY [facility] Miconazole Nitrate 1 applic 05/29/20 09:00 06/10/20 09:25 Miconazole 2% Antifungal Ointment 56 Gm TOPICAL 1 applic Q12HR [facility] Administration Oxycodone HCl 5 mg 05/28/20 17:16 06/06/20 09:49 Oxycodone Hcl (*Crx) 5 Mg Tab Ir PO 5 mg Q4H PRN Administration Pain, Moderate Pantoprazole Sodium 40 mg 05/29/20 09:00 06/10/20 09:23 Pantoprazole 40 Mg Tablet PO 06/28/20 09:01 40 mg DAILY [facility] Administration Polyethylene Glycol 17 gm 05/28/20 17:00 06/10/20 09:24 Polyethylene Glycol 3350 17 Gm Powd.Pack PO Not Given BID SANDRA Senna/Docusate Sodium 1 tab 05/28/20 17:00 06/10/20 09:25 Senna/Docusate S
[2020-06-10] MEDS: ISOSORBIDE MONONITRATE 15 MG TAB.ER.24H PO (09:49)
[2020-06-10 10:05] LABS: Basophils Absolute Auto 0.1 K/mm3 (0.0-0.1); Basophils Percent Auto 0.6 % (0.2-1.2); Eosinophils Absolute Auto 0.6 K/mm3 (0-0.3); Eosinophils Percent Auto 7.6 % (0-4.4); Hematocrit 30.6 % (42.0-52.0); Hemoglobin 9.7 g/dL (14.0-18.0); Immature Granulocyte Absolute 0.05 K/mm3 (0.00-0.031); Immature Granulocyte Percent A 0.6 % (0-0.5); Lymphocytes Absolute Auto 1.14 K/mm3 (0.9-3.2); Lymphocytes Percent Auto 14.1 % (18.3-44.2); Mean Corpuscular HGB Conc 31.7 g/dl (32-36); Mean Corpuscular Hemoglobin 28.3 pg (26-34); Mean Corpuscular Volume 89.2 fl (80-100); Mean Platelet Volume 9.3 fl (7.4-10.4); Monocytes Absolute Auto 0.6 K/mm3 (0.1-0.6); Monocytes Percent Auto 6.8 % (2.6-8.5); Neutrophils Absolute Auto 5.7 K/mm3 (1.3-6.7); Neutrophils Percent Auto 70.3 % (45.5-73.1); Platelet Count Result 249 k/mm3 (150-375); Red Blood Count 3.43 M/mm3 (4.6-6.20); Red Cell Distribution Width 16.7 % (11.5-14.5); White Blood Count 8.1 K/mm3 (4.5-10.0)
[2020-06-10 10:23] LABS: Anion Gap 6 mmol/L (8-16); Blood Urea Nitrogen 31 mg/dL (9-20); Calcium 9.1 mg/dL (8.4-10.2); Carbon Dioxide 29 mmol/L (22-30); Chloride 97 mmol/L (98-107); Estimated CRCL calculation 31 ml/min; Estimated Glomerular Filt Rate 41; Glucose 134 mg/dL (75-110); Potassium 4.5 mmol/L (3.4-5.0); Sodium 132 mmol/L (137-145)
--- NOTE | 2020-06-10 11:34 | PC.NURSE ---
Per Dr. Mckinney, BUN and Creat. elevated 31/1.6/instructed to push fluids. CT showed no acute findings. Decreased Imdur and added 5mg midodrine daily.
--- NOTE | 2020-06-10 14:04 | PCDIET ---
Nutrition Follow-Up Complete: Nutrition Diagnosis: Involuntary weight loss related to medical issues as evidenced by documented 4kg weight loss without trying. Nutrition Goal: Patient to consume 75% of meals or greater. Goal met. Patient consuming 75-100% of most meals on heart healthy diet with Enlive 1x daily. Reports good appetite without c/o or concerns. Last recorded weight is 82.1 kg. Recommend obtaining new weight. Bowel Motility: Last documented BM on 06/09/20. Labs Reviewed: Hgb (9.7), Hct (30.6), Glu (134), BUN (31), Cr (1.6), Na (132) Meds Noted: Albuterol, Plavix, Protonix, Septra Additional Notes: Buttocks macerated. No pressure sores documented. Will continue to monitor with same goal. Nutrition Monitoring and Evaluation: Follow up every 7 days.
[2020-06-10] MEDS: ALBUTEROL SULFATE (*SP) AEROSOL 1 PUFF 2 PUFF INHALATION (20:48)
[2020-06-10] MEDS: ACETAMINOPHEN 500 MG TABLET PO (20:57)
[2020-06-10] MEDS: SIMVASTATIN 20 MG TABLET 40 MG PO (20:57)
[2020-06-11] VITALS (11 sets, daily range): BP systolic 122–137; BP diastolic 52–75; PULSE 78–90; RESP 20; TEMP 36.2–36.8; O2SAT 97–100
[2020-06-11] MEDS: MIDODRINE HCL 2.5 MG TABLET 5 MG PO (05:32)
[2020-06-11] MEDS: ISOSORBIDE MONONITRATE 15 MG TAB.ER.24H PO (09:38)
[2020-06-11] MEDS: FINASTERIDE 5 MG TABLET PO (09:38)
[2020-06-11] MEDS: PANTOPRAZOLE 40 MG TABLET PO (09:38)
[2020-06-11] MEDS: ASPIRIN 81 MG ENTERIC TABLET PO (09:38)
[2020-06-11] MEDS: TAMSULOSIN HCL 0.4 MG CAPSULE PO (09:38)
[2020-06-11] MEDS: CLOPIDOGREL BISULFATE 75 MG TABLET PO (09:40)
[2020-06-11] MEDS: carvediloL 3.125 MG TABLET PO ×2 (09:40→21:44)
[2020-06-11] MEDS: ACETAMINOPHEN 500 MG TABLET PO (09:44)
--- NOTE | 2020-06-11 10:47 | WPDNEURORHBP ---
Subjective Date/time seen: 06/11/20 10:47 85 years old has been admitted to the rehab floor with T7 thoracic cord compression in addition to the history of multiple medical problems particularly having orthostatic symptomatology, for which medications have been adjusted, he remains afebrile and this morning his blood pressure did not drop because he received the my to drain 5 mg tablet in the morning. He continues to be on aspirin, clopidogrel, finasteride 5 mg daily, he is also receiving Bactrim DS 1 p.o. daily scheduled for 90 doses Review of Systems Review of Systems: All systems reviewed & are unremarkable except as noted in HPI and below Functional Status Ambulation Ability Ability to Ambulate 10 Feet: Independent Ability to Ambulate 50 Feet With 2 Turns: Independent Ability to Ambulate 150 Feet: Independent Ambulation Assistive Devices: Walker, Wheeled Transfers Ability Ability to Transfer In/Out of Chair: Independent Exam Narrative: Exam Narrative: he is awake alert cooperative in no obvious acute distress feels better because this morning he has received the midodrine 5 mg in the morning his speech is not dysphasic no dysarthric no dysphonic ear nose throat examination normal neck supple with no cervical bruit no thyromegaly no lymphadenopathy, heart regular with no murmur, lungs clear without rhonchi or crepitations, abdomen is soft nontender normal bowel sounds, neuro examination remains unchanged he has been walking independently though he has to put the brace in the bed Objective Data Vital Signs Vital Signs: Vital Signs - 24 hr 06/10/20 14:00 06/10/20 20:55 06/10/20 20:57 Temperature 36.6 C 36.8 C Pulse Rate 85 84 84 Respiratory Rate 20 16 Blood Pressure 118/48 L 126/56 L Pulse Oximetry 99 100 06/10/20 22:00 06/11/20 05:30 06/11/20 06:00 Temperature 37.1 C 36.8 C Pulse Rate 80 80 80 Respiratory Rate 20 20 Blood Pressure 129/50 L 122/53 L 128/52 L Pulse Oximetry 98 100 99 06/11/20 06:02 06/11/20 06:04 06/11/20 09:40 Temperature Pulse Rate 89 90 90 Respiratory Rate Blood Pressure 135/73 130/60 Pulse Oximetry 06/11/20 09:44 Temperature 36.8 C Pulse Rate Respiratory Rate Blood Pressure Pulse Oximetry Intake/Output Intake/Output: Intake & Output 06/08/20 06/09/20 06/10/20 06/11/20 23:59 23:59 23:59 23:59 Intake Total 1880 1960 2420 465 Output Total 2450 1200 2700 750 Balance -570 909 -202 -788 Meds/Results Medications: Active Medications Generic Name Dose Route Start Last Admin Trade Name Freq PRN Reason Stop Dose Admin Acetaminophen 500 mg 05/28/20 17:16 06/11/20 09:44 Acetaminophen 500 Mg Tablet PO 500 mg Q4H PRN Administration Pain, Mild Albuterol 2 puff 05/28/20 17:16 06/10/20 20:48 Albuterol Sulfate (*Sp) Aerosol 1 Puff INHALATION 2 puff Q6HRT PRN Administration Shortness Of Breath Or Wheezing Aspirin 81 mg 05/29/20 09:00 06/11/20 09:38 Aspirin 81 Mg Enteric Tablet PO 81 mg DAILY SANDRA Administration Bisacodyl 10 mg 05/28/20 17:16 05/31/20 05:36 Bisacodyl 10 Mg Suppository RECTAL 10 mg DAILY PRN Administration Constipation Carvedilol 3.125 mg 06/09/20 21:00 06/11/20 09:40 Carvedilol 3.125 Mg Tablet PO 3.125 mg Q12HR [facility]A Administration Clopidogrel Bisulfate 75 mg 05/29/20 09:00 06/11/20 09:40 Clopidogrel Bisulfate 75 Mg Tablet PO 75 mg DAILY [facility]DRA Administration Finasteride 5 mg 05/29/20 09:00 06/11/20 09:38 Finasteride 5 Mg Tablet PO 5 mg DAILY SANDRA Administration Isosorbide Mononitrate 15 mg 06/10/20 09:00 06/11/20 09:38 Isosorbide Mononitrate 15 Mg Tab.Er.24h PO 15 mg QAM SANDRA Administration Miconazole Nitrate 1 applic 05/29/20 09:00 06/11/20 09:40 Miconazole 2% Antifungal Ointment 56 Gm TOPICAL 1 applic Q12HR SANDRA Administration Midodrine 5 mg 06/11/20 06:30 06/11/20 05:32 Midodrine Hcl 2.5 Mg Tablet PO 5 mg DAILY@0630 SC
[2020-06-11] MEDS: SIMVASTATIN 20 MG TABLET 40 MG PO (21:43)
[2020-06-12 05:18] LABS: Basophils Percent Auto 0.6 % (0.2-1.2); Eosinophils Absolute Auto 0.5 K/mm3 (0-0.3); Eosinophils Percent Auto 9.9 % (0-4.4); Hematocrit 25.8 % (42.0-52.0); Hemoglobin 8.4 g/dL (14.0-18.0); Immature Granulocyte Absolute 0.05 K/mm3 (0.00-0.031); Immature Granulocyte Percent A 1.1 % (0-0.5); Lymphocytes Absolute Auto 1.58 K/mm3 (0.9-3.2); Lymphocytes Percent Auto 33.3 % (18.3-44.2); Mean Corpuscular HGB Conc 32.6 g/dl (32-36); Mean Corpuscular Hemoglobin 28.4 pg (26-34); Mean Corpuscular Volume 87.2 fl (80-100); Mean Platelet Volume 9.6 fl (7.4-10.4); Monocytes Absolute Auto 0.7 K/mm3 (0.1-0.6); Monocytes Percent Auto 14.5 % (2.6-8.5); Neutrophils Absolute Auto 1.9 K/mm3 (1.3-6.7); Neutrophils Percent Auto 40.6 % (45.5-73.1); Platelet Count Result 175 k/mm3 (150-375); Red Blood Count 2.96 M/mm3 (4.6-6.20); Red Cell Distribution Width 16.7 % (11.5-14.5); White Blood Count 4.8 K/mm3 (4.5-10.0)
[2020-06-12 05:21] LABS: Alanine Aminotransferase 18 U/L (4-50); Albumin Level 2.8 g/dL (3.5-5.1); Alkaline Phosphatase 100 U/L (38-126); Anion Gap 4 mmol/L (8-16); Aspartate Amino Transferase 28 U/L (17-59); Bilirubin,Total 0.3 mg/dL (0.2-1.3); Blood Urea Nitrogen 26 mg/dL (9-20); Calcium 8.6 mg/dL (8.4-10.2); Carbon Dioxide 28 mmol/L (22-30); Chloride 97 mmol/L (98-107); Estimated CRCL calculation 36 ml/min; Estimated Glomerular Filt Rate 48; Glucose 87 mg/dL (75-110); Potassium 4.2 mmol/L (3.4-5.0); Sodium 129 mmol/L (137-145)
[2020-06-12 05:27] VITALS: BP 114/47; PULSE 80; RESP 20; TEMP 36.7; O2SAT 98
[2020-06-12] MEDS: MIDODRINE HCL 2.5 MG TABLET 5 MG PO (06:20)
[2020-06-12 08:00] VITALS: BP 125/51; PULSE 86; RESP 20; TEMP 37.1; O2SAT 99
[2020-06-12 09:05] VITALS: PULSE 82
[2020-06-12] MEDS: carvediloL 3.125 MG TABLET PO (09:05)
[2020-06-12] MEDS: ASPIRIN 81 MG ENTERIC TABLET PO (09:05)
[2020-06-12] MEDS: CLOPIDOGREL BISULFATE 75 MG TABLET PO (09:06)
[2020-06-12] MEDS: FINASTERIDE 5 MG TABLET PO (09:07)
[2020-06-12] MEDS: ISOSORBIDE MONONITRATE 15 MG TAB.ER.24H PO (09:07)
[2020-06-12] MEDS: SENNA/DOCUSATE SODIUM TABLET 1 TAB PO (09:07)
[2020-06-12] MEDS: PANTOPRAZOLE 40 MG TABLET PO (09:08)
[2020-06-12] MEDS: polyethylene glycoL 3350 17 GM POWD.PACK PO (09:08)
[2020-06-12] MEDS: TAMSULOSIN HCL 0.4 MG CAPSULE PO (09:08)
[2020-06-12 09:45] VITALS: BP 115/50; PULSE 86; RESP 20; TEMP 37.1; O2SAT 99
[2020-06-12 09:47] VITALS: BP 102/46; PULSE 86; RESP 20; TEMP 37.1; O2SAT 99
--- NOTE | 2020-06-13 13:32 | WPDNEURORHBP ---
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 Coronary artery disease 2. Hypertension 3. Hyperlipidemia 4. Gout 5. Benign prostatic hypertrophy 6. Chronic hyponatremia 7. History of fall at home 8. 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 Evaluation documented loss of T7 bone height due to infection and protrusion into his central spinal canal he had been using cane to ambulate at home as per his information to initial physician technical staff assistant recently was hospital was cardiological stable for surgical intervention which she underwent on May 24, 2020 with posterior spinal fusion [facility]. Postoperatively he had urinary retention and chronic osteomyelitis and diskitis for which he was placed on Bactrim DS and CBC and BMP weekly along with instruction to follow up with Dr. Dean lomas on the long-term basis. During the hospitalization he was noted to have orthostatic hypotension and considering his thoracic cord abnormalities he was started on micro drain which was adjusted to5mg twice a day. Follow instruction was provided to him personally that this medicine has to be taken at least 15 to 30 minutes before he gets out of the bed in the morning or at lunch blood pressure will be pushed up by this medication though he will not faint but again this particular medication dosage can be increased accordingly. His level of functions at the time of admission were as follows Eating [Set Up Only] Oral Care partial assistance Toileting Hygiene dependent Shower/Bathing substantial Upper Body Dressing substantial Lower Body Dressing dependent Donning/Crown Footwear dependent Rolling Left and Right unable Sit to Lying substantial Lying to Sitting substantial Sit to Stand substantial Bed to Chair Transfers substantial Toilet Transfers substantial Car Transfers partial assistance Walking 10' supervision Walking 50' with Two Turns supervision Walking 150' unable Curb or Step partial assistance 4 Steps supervision 12 Steps unable Picking Up Object supervision [Wheelchair Mobility 50'] not applicable [Wheelchair Mobility 150'] not applicable GOALS: Eating [INDEPENDENT] Oral Care [INDEPENDENT] Toileting Hygiene [ set up Shower/Bathing supervision Upper Body Dressing partial assistance Lower Body Dressing supervision Donning/Crown Footwear supervision Rolling Left and Right [INDEPENDENT] Sit to Lying [INDEPENDENT] Lying to Sitting [INDEPENDENT] Sit to Stand [INDEPENDENT] Bed to Chair Transfers [INDEPENDENT] Toilet Transfers [INDEPENDENT] Car Transfers [INDEPENDENT] Walking 10' [INDEPENDENT] Walking 50' with Two Turns [INDEPENDENT] Walking 150' [INDEPENDENT] Curb or Step [INDEPENDENT] 4 Steps [INDEPENDENT] 12 Steps [INDEPENDENT] Picking Up Object [INDEPENDENT] [Wheelchair Mobility 50'] not applicable [Wheelchair Mobility 150'] not applicable DISCHARGE PERFORMANCE: Eating [INDEPENDENT] Oral Care [INDEPENDENT] Toileting Hygiene [INDEPENDENT] Shower/Bathing [INDEPENDENT] Upper Body Dressing [INDEPENDENT] Lower Body Dressing supervision Donning/Crown Footwear [INDEPENDENT] Rolling Left and Right [INDEPENDENT] Sit to Lying [INDEPENDENT] Lying to Sitting [INDEPENDENT] Sit to Stand [INDEPENDENT] Bed to Chair Transfers [INDEPENDENT] Toilet Transfers [INDEPENDENT] Car Transfers [INDEPENDENT] Walking 10' [INDEPENDENT] Walking 50' with Two Turns [INDEPENDENT] Walking 150' [INDEPENDENT] Curb or Step [INDEPENDENT] 4 Steps [INDEPENDENT] 12 Steps [INDEPENDENT] Picking Up Object [INDEPENDENT] [Wheelchair Mobility 50'] not applicator [Wheelchair Mobility 150'] not applicable at the time of discharge as mentioned abov
--- NOTE | 2020-07-02 11:31 | PM.DS ---
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 Chronic hyponatremia 2. coronary artery disease 3. Hypertension 4. Hyperlipidemia 5. Gout 6. Benign prostatic hypertrophy 7. T7-T8 diskitis 8. X2 mechanical falls. Initial CT scan documented small old lacunar infarct of the right basal ganglia left kei, left anterior frontal lobe. MRI of thoracic spine documenting T7 bone infection with protrusion into the central spinal canal. At the time of transfer patient has had TLSO brace and had gone through surgical intervention on May 24, 2020 with posterior spinal fusion though his postop course was complicated by the complaints of pain. His evaluation on admission was as follows Eating [Set Up Only] Oral Care partial and mod assist Toileting Hygiene dependent Shower/Bathing substantial or maximal assist Upper Body Dressing substantial or maximal assist Lower Body Dressing dependent Donning/[place] [employer]wear dependent Rolling Left and Right not applicable Sit to Lying substantial or max assist Lying to Sitting substantial or max assist Sit to Stand substantial or max assist Bed to Chair Transfers substantial or max assist Toilet Transfers substantial or max assist Walking 10' supervision Walking 50' with Two Turns supervise Walking 150' not applicable Curb or Step partial or moderate assist 4 Steps supervision 12 Steps not applicable Picking Up Object supervision [Wheelchair Mobility 50'] not applicable [Wheelchair Mobility 150'] not applicable GOALS: Eating [INDEPENDENT] Oral Care [INDEPENDENT] Toileting Hygiene set up Shower/Bathing supervision Upper Body Dressing partial or mod assist Lower Body Dressing supervision Donning/[place] [employer] supervision Rolling Left and Right independent Sit to Lying [INDEPENDENT] Lying to Sitting [INDEPENDENT] Sit to Stand [INDEPENDENT] Bed to Chair Transfers [INDEPENDENT] Toilet Transfers [INDEPENDENT] Car Transfers [INDEPENDENT] Walking 10' [INDEPENDENT] Walking 50' with Two Turns [INDEPENDENT] Walking 150' [INDEPENDENT] Curb or Step [INDEPENDENT] 4 Steps [INDEPENDENT] 12 Steps [INDEPENDENT] Picking Up Object [INDEPENDENT] [Wheelchair Mobility 50'] not applicable [Wheelchair Mobility 150'] not applicable DISCHARGE PERFORMANCE: Eating [INDEPENDENT] Oral Care [INDEPENDENT] Toileting Hygiene [INDEPENDENT] Shower/Bathing [INDEPENDENT] Upper Body Dressing [INDEPENDENT] Lower Body Dressing supervision Donning/[place] [employer] [INDEPENDENT] Rolling Left and Right [INDEPENDENT] Sit to Lying [INDEPENDENT] Lying to Sitting [INDEPENDENT] Sit to Stand [INDEPENDENT] Bed to Chair Transfers [INDEPENDENT] Toilet Transfers [INDEPENDENT] Car Transfers [INDEPENDENT] Walking 10' [INDEPENDENT] Walking 50' with Two Turns [INDEPENDENT] Walking 150' [INDEPENDENT] Curb or Step [INDEPENDENT] 4 Steps [INDEPENDENT] 12 Steps [INDEPENDENT] Picking Up Object [INDEPENDENT] [Wheelchair Mobility 50'] not applicable [Wheelchair Mobility 150'] not applicable # during the hospitalization, urology consultation was obtained for the complaints of retention and abdominal discomfort when Cole's catheter replaced in and was catheterized 3 times a day if residual more than 500cc each time and he was also started on Flomax and finasteride with instruction to follow up with the urologist for the treatment of benign prostatic hypertrophy and ruling out the possibility of yessenia
== END 2020-06-12 14:30 | disposition home health service (06) | DRG 559 ==
PROVIDERS: Admitting Provider Psychiatry & Neurology Neurology; PCP Internal Medicine; Visit Provider Psychiatry & Neurology Neurology
DX: Z47.89 Encounter for other orthopedic aftercare (principal); I50.31 Acute diastolic (congestive) heart failure; N39.0 Urinary tract infection, site not specified; E87.1 Hypo-osmolality and hyponatremia; I13.0 Hypertensive heart and chronic kidney disease with heart failure and stage 1 through stage 4 chronic kidney disease, or unspecified chronic kidney disease; D62 Acute posthemorrhagic anemia; D61.818 Other pancytopenia; N17.9 Acute kidney failure, unspecified; M46.24 Osteomyelitis of vertebra, thoracic region; S24.15 Other incomplete lesions of thoracic spinal cord; I95.1 Orthostatic hypotension; B95.7 Other staphylococcus as the cause of diseases classified elsewhere; D69.6 Thrombocytopenia, unspecified; D64.9 Anemia, unspecified; E78.5 Hyperlipidemia, unspecified; I25.10 Atherosclerotic heart disease of native coronary artery without angina pectoris; N18.31 Chronic kidney disease, stage 3a; K40.90 Unilateral inguinal hernia, without obstruction or gangrene, not specified as recurrent; M10.9 Gout, unspecified; N40.1 Benign prostatic hyperplasia with lower urinary tract symptoms; R33.9 Retention of urine, unspecified; W19.XXXD Unspecified fall, subsequent encounter; Z86.73 Personal history of transient ischemic attack (TIA), and cerebral infarction without residual deficits; Z95.1 Presence of aortocoronary bypass graft; Z95.5 Presence of coronary angioplasty implant and graft; Z79.02 Long term (current) use of antithrombotics/antiplatelets
CPT/HCPCS: 36415; 70450; 74018; 80048; 80053; 85025; 92507; 92523; 97110; 97116; 97129; 97130; 97161; 97166; 97530; 97535; A9270

== ENCOUNTER 2020-06-13 10:31 | Observation (INO) | payer MEDICARE, SELFPAY ==
[2020-06-13] VITALS (11 sets, daily range): BP systolic 98–146; BP diastolic 43–58; PULSE 60–89; RESP 10–20; TEMP 36.1–36.6; O2SAT 98–100; BMI 23.5
--- NOTE | ~2020-06-13 | US_ITS ---
EXAMINATION: US venous doppler [facility] DATE: 06/13/2020 15:58 INDICATION: Syncope, elevated d-dimer TECHNIQUE: Ramirez scale images without and with compression and Doppler images of the bilateral lower e xtremity veins were obtained. COMPARISON: 01/27/2020 FINDINGS: The right common femoral vein, profunda femoral vein, femoral vein, popliteal vein, peroneal trunk, p osterior tibial veins, and greater saphenous vein are patent. The left common femoral vein, profunda femoral vein, femoral vein, popliteal vein, peroneal trunk, po sterior tibial veins, and greater saphenous vein are patent. IMPRESSION: 1. Patent bilateral lower extremity veins. No evidence of deep venous thrombosis. Reviewed, dictated and finalized at location A. CIATE PROFESSOR OF LIBRARY MEDIA IMPRESSION: 1. Patent bilateral lower extremity veins. No evidence of deep venous thrombosi s.
--- NOTE | ~2020-06-13 | CT_ITS ---
EXAMINATION: CTA chest PE protocol DATE: 06/13/2020 12:01 INDICATION: Syncope. Elevated d-dimer. TECHNIQUE: Computed tomography (CT) pulmonary angiogram of the chest was performed with 100 mL Omnipa que-350 intravenous contrast. Additional 3D reconstructions utilizing coronal maximum intensity proje ction (MIP) were performed. Automated exposure control and iterative reconstruction technique were em ployed. The dose-length product was 361.84 mGy-cm. COMPARISON: None FINDINGS: Good contrast opacification of the pulmonary arteries. There is moderate streak artifact from dense c ontrast in the superior vena cava and right atrium. Severe scattered respiratory motion artifact at t he bilateral lower lung zones which decreases sensitivity in some of the smaller subsegmental pulmona ry arteries and branches evaluation in the right lower lobar segmental and bilateral lower lobar subs egmental pulmonary arteries essentially nondiagnostic. Mild atelectasis in the dependent lower lobes. No pneumonia, pulmonary edema, pleural effusion or pneumothorax. Calcified right upper lobe nodule c onsistent with old granulomatous disease. Cardiomegaly. Atherosclerotic coronary artery calcific lesi on with change of prior median sternotomy and coronary artery bypass grafting. Thoracic aorta is norm al in caliber with no dissection. No pathologically enlarged thoracic lymphadenopathy. Moderate-sized sliding-type hiatal hernia. Posterior spinal fusion with bilateral vertical rods and pedicle screws at T4, T5, T6, T9 and T10 spanning what appears to be pathologic compression fractures of both T8 and T9 likely related to osteomyelitis with significant osteolysis and reactive sclerosis of both verteb ral bodies. IMPRESSION: 1. No definitive pulmonary embolism. Evaluation limited most severely at the basilar lower lobes due to respiratory motion. 2. Posterior spinal fusion spanning pathologic fractures of T8 and T9 likely secondary to chronic ost cara myelitis. 3. Cardiomegaly. 4. Moderate-sized sliding-type hiatal hernia. Reviewed, dictated and finalized at location A. CUTTER IMPRESSION: 1. No definitive pulmonary embolism. Evaluation limited most severely at the ba silar lower lobes due to respiratory motion. 2. Posterior spinal fusion spanning pathologic fractures of T8 and T9 likely se condary to chronic ostomy myelitis. 3. Cardiomegaly. 4. Moderate-sized sliding-type hiatal hernia.
--- NOTE | ~2020-06-13 | CT_ITS ---
EXAMINATION: CT brain wo con DATE: 06/13/2020 11:31 INDICATION: Episode of decreased responsiveness TECHNIQUE: Computed tomography (CT) of the head was performed without intravenous contrast. Sagittal and coronal reconstructions were performed. The mA was adjusted according to patient size. Iterative reconstruction technique was employed. The dose-length product was 605.33 mGy-cm. COMPARISON: head CT dated 06/10/2020 and 05/10/2020 FINDINGS: Small old lacunar infarcts in the right basal ganglia, left kei and anterior left frontal white yane er. There is additional mild scattered white matter hypoattenuation consistent with chronic small ves nicole ischemic disease. No acute intracranial hemorrhage, acute infarction or abnormal extra axial flui d collection. Symmetric prominence of the sulci consistent with mild age-appropriate diffuse cerebral volume loss. Ventricles are normal and symmetric. No mass/mass effect. Changes of bilateral intraocu lar lens replacement. The orbits and mastoid air cells are normal. Intracranial calcified cerebral at herosclerosis is noted. Mild mucosal thickening the bilateral ethmoid sinuses. IMPRESSION: 1. No acute intracranial process. 2. 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 Reviewed, dictated and finalized at location A. LAYER HELPER IMPRESSION: 1. No acute intracranial process. 2. Small old lacunar infarcts at the right basal ganglia, left kei and anterio r left frontal lobe white matter and additional less hypodense mild scattered w abril matter hypoattenuation consistent with chronic small vessel ischemic disea se.
--- NOTE | 2020-06-13 10:25 | ED.AMS ---
HPI - Altered Mental Status General Chief Complaint: Altered Mental Status Stated Complaint: AMS Source: patient and EMS Mode of arrival: EMS Limitations: clinical condition History of Present Illness HPI narrative: Patient is an 85-year-old male with a history of chronic kidney disease, thoracic osteomyelitis, recent discharge home from rehab facility 2 days ago, who presents for evaluation of syncopal event. Patient states that he stood up to go to the restroom this morning and passed out in the bathroom. He states he felt lightheaded and dizzy prior to passing out. He denied any chest pain, shortness of breath, patient states he was unconscious for a couple of minutes. A physical therapist that was at the house preparing to work for the patient witnessed this. No seizure-like activity, tongue biting or urinary incontinence. Per patient, he has had low blood pressures since discharge home from the hospital, he had been placed on medication to elevate his blood pressures. He is denying any current chest pain, shortness of breath. He denies any headache, vision changes, nausea or vomiting. He states he has not had much oral intake since being discharged home. After speaking with the daughter, she states that they do not have enough help at home for him to safely be there. Related Data Home Medications Medication Instructions Recorded Confirmed carvedilol 12.5 mg PO BID 05/10/20 05/28/20 omega-3 fatty acids-vitamin E 1 cap PO DAILY 05/28/20 05/28/20 Allergies Allergy/AdvReac Type Severity Reaction Status Date / Time No Known Allergies Allergy Verified 06/13/20 10:55 Review of Systems Review of Systems: Narrative: CONSTITUTIONAL: Denies fever, chills, or sweats. EYES: Denies visual changes, redness, or discharge. ENT: Denies rhinorrhea, congestion, sore throat, or otalgia. CARDIOVASCULAR: Denies chest pain, palpitations, or edema. RESPIRATORY: Denies cough or dyspnea. GASTROINTESTINAL: Denies abdominal pain, nausea, vomiting, or diarrhea. GENITOURINARY: Denies dysuria or hematuria. SKIN: Denies rash or itching. MUSCULOSKELETAL: Denies back pain, joint pain, or myalgia. NEUROLOGIC: Denies headache, numbness, or weakness. [facility] Past Medical History Medical History (Updated 06/13/20 @ 13:21 by Michelle Reardon MD) Acute on chronic renal failure Acute osteomyelitis of thoracic spine Acute renal failure (ARF) Acute UTI (urinary tract infection) Arthritis Asthma Back pain Back pain BPH w urinary obs/LUTS CAD (coronary artery disease) Chronic anemia Chronic hyponatremia Coag negative Staphylococcus bacteremia Diarrhea DVT prophylaxis GERD (gastroesophageal reflux disease) Gout HLD (hyperlipidemia) HTN (hypertension) Orthostatic hypotension Pancytopenia Recurrent falls Retention of urine Septic shock Thrombocytopenia Surgical History Surgical History H/O heart artery stent 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 Social History Social History Social History: Patient lives with his . He used to drink beer pretty heavy but quit drinking beer several years ago. Patient never smoked. The patient has 1 biological child that is in [place]. He has 3 step children that a nearby. The patient desires to be a full code. He denies any marijuana or substance abuse. Lifelong nonsmoker. Smoking status: Never smoker Second hand tobacco smoke exposure: No Alcohol intake: unknown Substance use: unknown Substance use type: does not use Gender identity (if verbalized by the patient): Male Spiritual care concerns: No Agree to blood products: Yes Ex
--- NOTE | 2020-06-13 10:37 | ECG_ITS ---
Measurements Intervals [place] Rate: 58 P: -84 [place]: 159 QRS: -35 QRSD: 117 T: 36 QT: 454 QTc: 447 Interpretive Statements SINUS BRADYCARDIA WITH SINUS ARRHYTHMIA LEFT AXIS DEVIATION INTRAVENTRICULAR CONDUCTION DELAY BORDERLINE R WAVE PROGRESSION, ANTERIOR LEADS BASELINE ARTIFACT- I, II, III, AVR, AVL, AVF, V1-V6 BORDERLINE ECG Electronically Signed On 06-13-2020 11:03:32 LAWNMOWER MECHANIC by Oleksandr Weston D.O.
[2020-06-13] MEDS: SODIUM CHLORIDE 0.9% IV 1,000 ML 999 ML IV CONT (11:17)
[2020-06-13 11:20] LABS: Basophils Percent Auto 0.3 % (0.2-1.2); Eosinophils Absolute Auto 0.4 K/mm3 (0-0.3); Eosinophils Percent Auto 5.8 % (0-4.4); Hematocrit 28.6 % (42.0-52.0); Hemoglobin 9.1 g/dL (14.0-18.0); Immature Granulocyte Absolute 0.03 K/mm3 (0.00-0.031); Immature Granulocyte Percent A 0.5 % (0-0.5); Lymphocytes Absolute Auto 1.32 K/mm3 (0.9-3.2); Lymphocytes Percent Auto 20.2 % (18.3-44.2); Mean Corpuscular HGB Conc 31.8 g/dl (32-36); Mean Corpuscular Hemoglobin 28.3 pg (26-34); Mean Corpuscular Volume 88.8 fl (80-100); Mean Platelet Volume 9.4 fl (7.4-10.4); Monocytes Absolute Auto 0.4 K/mm3 (0.1-0.6); Monocytes Percent Auto 5.8 % (2.6-8.5); Neutrophils Absolute Auto 4.4 K/mm3 (1.3-6.7); Neutrophils Percent Auto 67.4 % (45.5-73.1); Platelet Count Result 176 k/mm3 (150-375); Red Blood Count 3.22 M/mm3 (4.6-6.20); White Blood Count 6.5 K/mm3 (4.5-10.0)
[2020-06-13 11:30] LABS: Partial Thromboplastin Time 27.5 SECONDS (22.3-36.8)
[2020-06-13 11:32] LABS: D Dimer 3.04 ug/mL (<0.48)
[2020-06-13 11:34] LABS: Alanine Aminotransferase 20 U/L (4-50); Albumin Level 3.3 g/dL (3.5-5.1); Alkaline Phosphatase 101 U/L (38-126); Anion Gap 8 mmol/L (8-16); Aspartate Amino Transferase 32 U/L (17-59); Bilirubin,Total 0.4 mg/dL (0.2-1.3); Blood Urea Nitrogen 22 mg/dL (9-20); Calcium 8.9 mg/dL (8.4-10.2); Carbon Dioxide 26 mmol/L (22-30); Chloride 97 mmol/L (98-107); Estimated CRCL calculation 31 ml/min; Estimated Glomerular Filt Rate 41; Glucose 144 mg/dL (75-110); Sodium 131 mmol/L (137-145)
[2020-06-13 11:35] LABS: Add Urine Microscopic? YES; Appearance Urine Cloudy (Clear); Bacteria Urine Trace /hpf; Bilirubin Urine Negative (Negative); Blood Urine 1+ (Negative); Budding Yeast Urine Present /hpf; Color Urine Yellow (Yellow); Glucose Urine UA Negative (Negative); Ketones Urine Negative (Negative); Leukocyte Esterase Ur 3+ LEU/UL (Negative); Mucus Urine Rare /lpf; Nitrate Urine Negative (Negative); Protein Urine 2+ mg/dL (Negative); RBC Urine 21-50 /hpf (0-2); Specific Grav Ur 1.013 (1.001-1.035); Urobilinogen Urine Negative mg/dL (<2.0); WBC Clumps Urine Present /HPF; WBC Urine >75 /hpf
[2020-06-13 11:53] LABS: Troponin I < 0.012 ng/mL (0.000-0.034)
--- NOTE | 2020-06-13 14:01 | PCCCNOTE ---
Visited with pt and his daughter Claudette. Discussed discharge needs. Claudette [phone] feels pt needs hospital bed so he can help himself move in bed and get up out of bed and he needs more help if he stays home. The pt was to have his first home health visit with [facility] home health tomorrow. Gave daughter lists of SNF facilities, assisted living facilities and private caregiver list. Pt states he will stay at [facility] for therapy but does not want to go anywhere else. Pt needs help getting his back brace on each morning. Pt's 's name is Kristina Alvarez [phone].
--- NOTE | 2020-06-13 14:07 | PCOTNOTE ---
OT evaluation attempt. Patient just arrived from ED. Nursing needing to conduct assessment of Patient prior to OT evaluation
--- NOTE | 2020-06-13 14:25 | PC.NURSE ---
This patient, Declan Allen, was admitted to Medical Room 247-. Patient/family oriented to hospital policies and general routines including ID bracelet, bed and alarms, visiting hours, pain management, procedures, bathroom and other care routines, personal items, smoking policy, room service/diet, and visiting hours. Information on how to activate the Rapid Response Team has been discussed. Patient/Family are encouraged to report perceived risks to care and to ask questions if they do not understand what they are told or what they should do.
--- NOTE | 2020-06-13 14:49 | PM.IMHP ---
H&P: HPI History of Present Illness Date/Time: 06/13/20 14:49 Chief Complaint: Syncopal episode Narrative: Declan Allen is a 85 year old male Who had been a patient here at our [facility] until about the last 24 hours. There is a progress note from Dr. Fuller on 06/11/2020 where the patient had been admitted to the rehab floor for T7 thoracic cord compression in addition to multiple medical problems and having orthostatic symptoms. Patient had been started on midodrine and he also had his dosage decreased for his Coreg. The patient had been receiving Bactrim DS daily for 90 doses. 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 The patient also has chronic thrombocytopenia. Patient also had a Cole catheter placed due to urinary retention and BPH. According to his stepdaughter the patient was sent to outside facility for a laminectomy. According to Dr. 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 He had T7 thoracic cord compression. This is due to a fall that the patient had sustained on May 10, 2020 after suffering a ground level fall with confusion. The patient had been transferred to [facility] for orthopedic spine evaluation. The patient was given an a TLS brace until he had surgery any still continues to wear the brace. The patient underwent surgical intervention on May 24, 2020 with posterior spinal fusion. The patient had been transferred to [facility] from [facility] on May 28, 2020. According to the daughter the patient was discharged yesterday afternoon from [facility]. I spoke with the daycare teacher who explained that the patient had done very well with rehab and was sent home due to his progress. However the stepdaughter tells me today that the patient was sitting at the kitchen table he got up from the table walked across the kitchen which is a very small area approximately 10 ft long and made it to his chair where he passed out in the chair and had been out for few seconds. He was unresponsive. She also went on to explain that he lives with the in that she is having difficulty taking care of him. she also stated that home health has not been out to see him and they are due to see him tomorrow. She stated that they need a hospital bed and need help getting the back brace on the patient. He is required to have the back brace on before getting up. After long discussion the family feels that his care is extensive and they are having difficulty taking care of him at home. Dr. Fuller had been consulted from the ER. And he stated that he did not want to change any medications at this time. The patient was given IV fluids and Macrobid. Last blood culture was negative. Patient's H&H today is 9.1 and 28.6. D-dimer 3.04. CT of the chest was read as no definite pulmonary embolism. Evaluation limited most severely at the basal lower lobes due to respiratory motion. Posterior spinal fusion spanning pathological fractures of T8 and T9 likely secondary to chronic osteomyelitis. Cardiomegaly. Moderate size sliding hiatal hernia. Head CT. No acute intracranial process. 2. Small old lacunar infarcts at the right basal ganglia, left kei and anterior left frontal lobe white matter and additional less hypodense mild scattered white matter hypoattenuation consistent with chronic small vessel ischemic disease. I had a very long discussion with the stepdaughter and she was on the phone with his . operations coordinator was at the bedside as well. patient is being admitted into observation status on the date of service of 06/13/2020. Review of Systems Review of Systems: All systems reviewed & are unremarkable except as noted in HPI and below Constitutional: Constitutional: Reports as per HPI and Reports no additional constitutional complaints Eyes: Eyes: Reports as per H
--- NOTE | 2020-06-13 16:27 | WPDURCON ---
Assessment and Plan Assessment and plan (1) Acute UTI (urinary tract infection): Code(s): N39.0 - Urinary tract infection, site not specified Status: Acute (2) Retention of urine: Code(s): R33.9 - Retention of urine, unspecified Status: Acute (3) BPH w urinary obs/LUTS: Code(s): N40.1 - Benign prostatic hyperplasia with lower urinary tract symptoms; N13.8 - Other obstructive and reflux uropathy Status: Chronic Assessment and Plan: Given patient's comorbid condition I would recommend leaving the indwelling catheter while continuing both Flomax and finasteride for BPH. He should be discharged with indwelling catheter was plans to follow-up in approximately 1 month for another voiding trial. Urology Consult Note HPI Date Seen: 06/13/20 Requesting Physician: Erika Fernandes MD Primary Care Provider: Cosme Travis, Consult Narrative Narrative: Declan Allen is a 85 year old male who Has been a patient in our practice since June 2019 with known bladder outlet obstruction secondary to BPH. During an inpatient admission in January 2020 Cole catheter was placed for retention. At that time he was placed on both Flomax and finasteride. Follow-up and March and April revealed that the patient was able to void effectively without a Cole catheter and was last seen in April when he had postvoid residual volumes of 125 cc. Reportedly, within the last 2 weeks, his retention recurred and a Cole catheter was placed in an outside facility. I do not have any records of when that was done, this is just per the patient's report. He is now admitted with a syncopal episodes and arrangements are being made for intermediate placement. Review of Systems Cardiovascular: Cardiovascular: Denies chest pain, Denies lightheadedness, Denies palpitations and Denies dyspnea Respiratory: Respiratory: Denies dyspnea Gastrointestinal: Gastrointestinal: Denies diarrhea, Denies nausea and Denies vomiting Genitourinary: Genitourinary: Denies hematuria and Denies dysuria Endocrine: Endocrine: Denies palpitations PMFSH Past Medical History Medical History Acute on chronic renal failure Acute osteomyelitis of thoracic spine Acute renal failure (ARF) Acute UTI (urinary tract infection) Arthritis Asthma Back pain Back pain BPH w urinary obs/LUTS CAD (coronary artery disease) Chronic anemia Chronic hyponatremia Coag negative Staphylococcus bacteremia CRF (chronic renal failure) Diarrhea DVT prophylaxis GERD (gastroesophageal reflux disease) Gout HLD (hyperlipidemia) HTN (hypertension) Orthostatic hypotension Pancytopenia Recurrent falls Retention of urine Septic shock Thrombocytopenia Surgical History Surgical History H/O heart artery stent Two cardiac stents after his five-vessel CABG H/O inguinal hernia repair 2002 History of surgical amputation of finger of left hand Hx of CABG x5 0 3 S/P foot surgery, left S/P laminectomy with spinal fusion Family History Family History Father Heart disease Mother , dementia No problems noted. Social History Social History Social History: Patient lives with his . He used to drink beer pretty heavy but quit drinking beer several years ago. Patient never smoked. The patient has 1 biological child that is in [place]. He has 3 step children that a nearby. The patient desires to be a full code. He denies any marijuana or substance abuse. Lifelong nonsmoker. 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 Smoking status: Never smoker Second hand tobacco smoke exposure: No Alcohol intake: unknown Substance use: unknown S
[2020-06-13] MEDS: MIDODRINE HCL 2.5 MG TABLET 5 MG PO (18:18)
[2020-06-13] MEDS: NITROFURANTOIN MONOHYD MACROCR 100 MG CAP PO (20:50)
[2020-06-13] MEDS: SENNA/DOCUSATE SODIUM TABLET 1 TAB PO (20:50)
[2020-06-13] MEDS: polyethylene glycoL 3350 17 GM POWD.PACK PO (20:50)
[2020-06-13] MEDS: SIMVASTATIN 20 MG TABLET 40 MG PO (20:50)
[2020-06-14] VITALS: PULSE 68
[2020-06-14 04:00] VITALS: PULSE 74
[2020-06-14 05:03] VITALS: BP 144/65; PULSE 72; RESP 20; TEMP 36.1; O2SAT 100
[2020-06-14 05:56] LABS: Basophils Percent Auto 0.4 % (0.2-1.2); Eosinophils Absolute Auto 0.6 K/mm3 (0-0.3); Eosinophils Percent Auto 12.5 % (0-4.4); Hematocrit 26.6 % (42.0-52.0); Hemoglobin 8.7 g/dL (14.0-18.0); Immature Granulocyte Absolute 0.02 K/mm3 (0.00-0.031); Immature Granulocyte Percent A 0.4 % (0-0.5); Lymphocytes Absolute Auto 1.48 K/mm3 (0.9-3.2); Lymphocytes Percent Auto 32.4 % (18.3-44.2); Mean Corpuscular HGB Conc 32.7 g/dl (32-36); Mean Corpuscular Hemoglobin 28.7 pg (26-34); Mean Corpuscular Volume 87.8 fl (80-100); Mean Platelet Volume 9.6 fl (7.4-10.4); Monocytes Absolute Auto 0.4 K/mm3 (0.1-0.6); Monocytes Percent Auto 9.6 % (2.6-8.5); Neutrophils Percent Auto 44.7 % (45.5-73.1); Platelet Count Result 152 k/mm3 (150-375); Red Blood Count 3.03 M/mm3 (4.6-6.20); Red Cell Distribution Width 16.7 % (11.5-14.5); White Blood Count 4.6 K/mm3 (4.5-10.0)
[2020-06-14 06:09] LABS: Alanine Aminotransferase 19 U/L (4-50); Albumin Level 2.9 g/dL (3.5-5.1); Alkaline Phosphatase 102 U/L (38-126); Anion Gap 5 mmol/L (8-16); Aspartate Amino Transferase 31 U/L (17-59); Bilirubin,Total 0.3 mg/dL (0.2-1.3); Blood Urea Nitrogen 19 mg/dL (9-20); Calcium 8.4 mg/dL (8.4-10.2); Carbon Dioxide 25 mmol/L (22-30); Chloride 100 mmol/L (98-107); Estimated CRCL calculation 41 ml/min; Estimated Glomerular Filt Rate 58; Glucose 88 mg/dL (75-110); Magnesium 1.6 mg/dL (1.6-2.3); Potassium 3.9 mmol/L (3.4-5.0); Sodium 130 mmol/L (137-145)
[2020-06-14 08:00] VITALS: BP 122/55; PULSE 71; PULSE 72; RESP 18; TEMP 36.2; O2SAT 100
[2020-06-14] MEDS: polyethylene glycoL 3350 17 GM POWD.PACK PO (08:07)
[2020-06-14] MEDS: ASPIRIN 81 MG ENTERIC TABLET PO (08:07)
[2020-06-14] MEDS: OMEGA 3 POLYUNSAT FATTY ACIDS 1 GM CAP PO (08:07)
[2020-06-14] MEDS: ISOSORBIDE MONONITRATE 30 MG TAB.ER.24H PO (08:07)
[2020-06-14] MEDS: TAMSULOSIN HCL 0.4 MG CAPSULE PO (08:07)
[2020-06-14] MEDS: PANTOPRAZOLE 40 MG TABLET PO (08:07)
[2020-06-14] MEDS: FINASTERIDE 5 MG TABLET PO (08:07)
[2020-06-14] MEDS: MIDODRINE HCL 2.5 MG TABLET 5 MG PO (08:07)
[2020-06-14] MEDS: SENNA/DOCUSATE SODIUM TABLET 1 TAB PO (08:07)
[2020-06-14] MEDS: CLOPIDOGREL BISULFATE 75 MG TABLET PO (08:07)
[2020-06-14] MEDS: NITROFURANTOIN MONOHYD MACROCR 100 MG CAP PO (08:08)
[2020-06-14 09:01] LABS: Free T4 Free Thyroxine Reflex 0.99 ng/dL (0.78-2.19)
[2020-06-14 09:44] LABS: Total Triiodothyronine (T3) 0.99 NG/ML (0.97-1.69)
--- NOTE | 2020-06-14 10:24 | PM.DS ---
DS: Admitting Diagnosis Admitting Diagnosis Admitting Diagnosis: Syncopal episode DS: Discharge Diagnosis Discharge Diagnosis (1) Orthostatic hypotension: Code(s): I95.1 - Orthostatic hypotension Status: Acute Assessment and Plan: patient has a history of orthostatic hypotension. The patient has been on midodrine and the neurologist had been called he advised that we do not go above the midodrine at this time. The family is unable to care for him at home. career based intervention coordinator has been in the room talking with the patient and his stepdaughter. We will try for [facility] consult. They may also consider assisted living for the patient. Will continue to check orthostatic blood pressures every shift. Consider reducing Coreg again. They have been gradually reducing his Coreg. Will hold Coreg for today. Since his blood pressures have been soft. PT and OT evaluation. patient is required to have the brace on prior to getting out of bed. This has been very difficult for the family to get the brace on and off. Also the family feels that they would benefit from a hospital bed at home. They do have home health that is supposed to start tomorrow. However the family feels like they need assistance with getting the brace on and off and may consider hiring help. The family was given a list of rehab facilities. However they would rather the patient be placed back in [facility]. I will place a [facility] consult as well. (2) Acute UTI: Code(s): N39.0 - Urinary tract infection, site not specified Status: Acute Assessment and Plan: The patient was given a dose of Macrobid in the emergency room. However the patient is on Bactrim. Patient was seen by infectious disease due to his osteomyelitis in the lumbar spine. Patient is to get 90 doses of Bactrim. (3) Syncope and collapse: Code(s): R55 - Syncope and collapse Status: Acute Assessment and Plan: Patient was placed on telemetry. I am not sure if this is due to orthostasis. His looks like his heart rate did drop down in the 50s and 60s. Perhaps he is symptomatic bradycardic. Also his blood pressure was low at 1 0 2/46 and did respond to IV fluids. I will hold his beta-lily for today and feel that he may need to be decreased even further on his Coreg. (4) Acute dehydration: Code(s): E86.0 - Dehydration Status: Acute Assessment and Plan: Patient was given 1 L fluid in the emergency room with improvement of his blood pressure. (5) Thrombocytopenia: Code(s): D69.6 - Thrombocytopenia, unspecified Status: Acute Assessment and Plan: The patient had low platelets earlier this month but they are back to normal now. Please continue to monitor. (6) DVT prophylaxis: Code(s): Z29.9 - Encounter for prophylactic measures, unspecified Status: Acute Assessment and Plan: I will do SCDs for now. The patient has had multiple falls and is not a good candidate for anticoagulation. His CTA was negative for a PE however I will do venous Dopplers since he had an elevated D-dimer. (7) Acute osteomyelitis of thoracic spine: Code(s): M46.24 - Osteomyelitis of vertebra, thoracic region Status: Acute Assessment and Plan: The patient had a laminectomy at [facility] this month. Patient has a back brace that he is supposed to use prior to getting up out of bed. Patient is to continue with Bactrim for 90 doses. (8) Chronic hyponatremia: Code(s): E87.1 - Hypo-osmolality and hyponatremia Status: Chronic Assessment and Plan: Patient's sodium level was at his baseline. (9) HTN (hypertension): Qualifiers: Hypertension type: essential hypertension Qualified Code(s): I10 - Essential (primary) hypertension Code(s): I10 - Essential (primary) hypertension Status: Chronic Assessment and Plan: I am going to hold his Coreg [employer] and his dos
[2020-06-14 10:34] VITALS: BP 120/49; BP 85/43
== END 2020-06-14 13:45 | disposition home health service (06) ==
LOC: ANHED 13:21 → ANH2MED 06-14 01:17
PROVIDERS: Nurse Practitioner; Admitting Provider Family Medicine; Emergency Provider Emergency Medicine; PCP Internal Medicine; Visit Provider Family Medicine
DX: I95.1 Orthostatic hypotension (principal); D69.6 Thrombocytopenia, unspecified; N40.1 Benign prostatic hyperplasia with lower urinary tract symptoms; N39.0 Urinary tract infection, site not specified; R33.9 Retention of urine, unspecified; D64.9 Anemia, unspecified; E78.5 Hyperlipidemia, unspecified; E87.1 Hypo-osmolality and hyponatremia; E86.0 Dehydration; G95.29 Other cord compression; I25.10 Atherosclerotic heart disease of native coronary artery without angina pectoris; I12.9 Hypertensive chronic kidney disease with stage 1 through stage 4 chronic kidney disease, or unspecified chronic kidney disease; I51.7 Cardiomegaly; K44.9 Diaphragmatic hernia without obstruction or gangrene; N18.9 Chronic kidney disease, unspecified; M46.24 Osteomyelitis of vertebra, thoracic region; M79.89 Other specified soft tissue disorders; N13.8 Other obstructive and reflux uropathy; R79.89 Other specified abnormal findings of blood chemistry; Z95.1 Presence of aortocoronary bypass graft; Z95.5 Presence of coronary angioplasty implant and graft; Z98.1 Arthrodesis status; Z86.73 Personal history of transient ischemic attack (TIA), and cerebral infarction without residual deficits
CPT/HCPCS: 36415; 70450; 71275; 80053; 81001; 83735; 84439; 84443; 84480; 84484; 85025; 85380; 85730; 87086; 93005; 93970; 96360; 97162; 97165; 99285; A9270; G0378; J7030; Q9967

== ENCOUNTER 2020-09-05 11:21 | Outpatient (CLI) | payer MEDICARE, SELFPAY ==
[2020-09-05 11:49] LABS: Basophils Percent Auto 0.8 % (0.2-1.2); Eosinophils Absolute Auto 0.3 K/mm3 (0-0.3); Eosinophils Percent Auto 6.3 % (0-4.4); Hematocrit 35.9 % (42.0-52.0); Hemoglobin 11.9 g/dL (14.0-18.0); Immature Granulocyte Absolute 0.01 K/mm3 (0.00-0.031); Immature Granulocyte Percent A 0.2 % (0-0.5); Lymphocytes Absolute Auto 1.45 K/mm3 (0.9-3.2); Lymphocytes Percent Auto 29.3 % (18.3-44.2); Mean Corpuscular HGB Conc 33.1 g/dl (32-36); Mean Corpuscular Hemoglobin 29.8 pg (26-34); Mean Platelet Volume 9.7 fl (7.4-10.4); Monocytes Absolute Auto 0.6 K/mm3 (0.1-0.6); Monocytes Percent Auto 11.1 % (2.6-8.5); Neutrophils Absolute Auto 2.6 K/mm3 (1.3-6.7); Neutrophils Percent Auto 52.3 % (45.5-73.1); Platelet Count Result 133 k/mm3 (150-375); Red Blood Count 3.99 M/mm3 (4.6-6.20); Red Cell Distribution Width 13.7 % (11.5-14.5)
[2020-09-05 12:00] LABS: Prothrombin Time 14.2 Seconds (11.1-14.7)
[2020-09-05 12:01] LABS: Partial Thromboplastin Time 25.6 SECONDS (22.3-36.8)
[2020-09-05 12:06] LABS: Anion Gap 7 mmol/L (8-16); Blood Urea Nitrogen 16 mg/dL (9-20); Calcium 9.3 mg/dL (8.4-10.2); Carbon Dioxide 28 mmol/L (22-30); Chloride 95 mmol/L (98-107); Estimated Glomerular Filt Rate 44; Glucose 102 mg/dL (75-110); Potassium 4.2 mmol/L (3.4-5.0); Sodium 130 mmol/L (137-145)
== END 2020-09-05 11:22 | disposition home or self-care (01) ==
LOC: ANHSURGERY 11:23
PROVIDERS: PCP Internal Medicine; Visit Provider Urology
DX: Z01.812 Encounter for preprocedural laboratory examination (principal); N40.1 Benign prostatic hyperplasia with lower urinary tract symptoms; N13.8 Other obstructive and reflux uropathy; D64.9 Anemia, unspecified; Z51.81 Encounter for therapeutic drug level monitoring; Z79.899 Other long term (current) drug therapy
CPT/HCPCS: 36415; 80048; 85025; 85610; 85730; 87077; 87086; 87088; 87147; 87181; 87186

== ENCOUNTER → 2020-09-07 02:30 | Outpatient (CLI) | payer MEDICARE, SELFPAY ==
[2020-09-07 20:23] LABS: SARS-CoV-2 RNA PCR Negative
== END ==
PROVIDERS: PCP Internal Medicine; Visit Provider Urology
DX: Z01.812 Encounter for preprocedural laboratory examination (principal); Z20.822 Contact with and (suspected) exposure to COVID-19
CPT/HCPCS: C9803; U0003; U0005

== ENCOUNTER 2020-09-11 16:18 | Observation (INO) | payer MEDICARE, SELFPAY ==
[2020-09-04 10:58] VITALS: BMI 24.0
[2020-09-10] VITALS (11 sets, daily range): BP systolic 122–158; BP diastolic 55–70; PULSE 67–95; RESP 12–16; TEMP 35.9–36.6; O2SAT 98–100; BMI 22.8
--- NOTE | 2020-09-10 07:50 | WPDANESEPPF ---
Anes - Initial Pre Proc Eval Procedure: Operation Date: 09/10/20 09:00 Proposed Procedures p Trans Urethral Resection Prostate - Clayton Styles MD Date/Time: 09/10/20 07:50 Surgeon: Clayton Styles MD Pre Op Diagnosis: BPH Retention Patient Data Age: 85 Gender: M Height: 5 ft 10 in Weight: 75.9 kg Allergies Allergy/AdvReac Type Severity Reaction Status Date / Time No Known Allergies Allergy Verified 09/10/20 07:48 Home Medications Medication Instructions Recorded Confirmed Type omega-3 fatty acids-vitamin E 1 cap PO DAILY 05/28/20 09/10/20 History aspirin 81 mg/kg PO DAILY #30 tablet 06/11/20 09/10/20 Rx clopidogrel 75 mg PO DAILY #30 tablet 06/11/20 09/04/20 Rx finasteride 5 mg PO DAILY #30 tablet 06/11/20 09/10/20 Rx isosorbide mononitrate 30 mg PO DAILY #30 tablet 06/11/20 09/10/20 Rx omeprazole 40 mg PO DAILY #30 cap 06/11/20 09/10/20 Rx albuterol sulfate 1 puff INHALATION BID PRN 06/13/20 09/04/20 History rosuvastatin 40 mg PO HS 09/04/20 09/10/20 History sulfamethoxazole-trimethoprim 1 tablet PO BID 09/04/20 09/10/20 History ciprofloxacin HCl 500 mg PO BID 09/10/20 09/10/20 History Laboratory Tests 09/10/20 07:21 Sodium Pending Patient hx anesthesia problems: none Family hx anesthesia problems: none PMFSH Past Medical History Medical History Acute on chronic renal failure Acute osteomyelitis of thoracic spine Acute renal failure (ARF) Acute UTI (urinary tract infection) Arthritis Asthma Back pain Back pain BPH w urinary obs/LUTS CAD (coronary artery disease) Chronic anemia Chronic hyponatremia Coag negative Staphylococcus bacteremia CRF (chronic renal failure) Diarrhea DVT prophylaxis GERD (gastroesophageal reflux disease) Gout HLD (hyperlipidemia) HTN (hypertension) Orthostatic hypotension Pancytopenia Recurrent falls Retention of urine Septic shock Thrombocytopenia Surgical History Surgical History H/O heart artery stent Two cardiac stents after his five-vessel CABG H/O inguinal hernia repair 2002 History of surgical amputation of finger of left hand Hx of CABG x5 0 3 S/P foot surgery, left S/P laminectomy with spinal fusion Family History Family History Father Heart disease Mother , dementia No problems noted. Social History Social History Social History: Patient lives with his . He used to drink beer pretty heavy but quit drinking beer several years ago. Patient never smoked. The patient has 1 biological child that is in [place]. He has 3 step children that a nearby. The patient desires to be a full code. He denies any marijuana or substance abuse. Lifelong nonsmoker. 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 Smoking status: Never smoker Second hand tobacco smoke exposure: No Alcohol intake: former Substance use: unknown Substance use type: does not use Living arrangements: with family Gender identity (if verbalized by the patient): Male Spiritual care concerns: No Agree to blood products: Yes Anes - Eval Final PreProcedure Day of Procedure 09/10/20 07:50 Patient weight: normal Heart: regular rate and rhythm Lungs: clear to auscultation Airway: Mallampati scale class III Neurological: alert and oriented Last oral intake: >/= 8 hours ASA classification: III Emergent: no Anesthetic plan: proceed Anesthesia type and monitoring: general LMA and standard monitoring Informed Consent: The patient's anesthetic plan and its attendant risks and benefits were discussed with the patient/family/POA. Questions were solicited and answers provided to the satisfaction of the patient/family/POA.
[2020-09-10 07:51] LABS: Sodium 129 mmol/L (137-145)
[2020-09-10] MEDS: LACTATED RINGERS 1,000 ML 30 ML IV CONT ×2 (08:04→09:18)
--- NOTE | 2020-09-10 08:10 | PM.IMHP ---
H&P: HPI History of Present Illness Date/Time: 09/10/20 08:10 Chief Complaint: BPH Narrative: 85-year-old male with BPH was failed medical management. Patient presents for transurethral resection of his prostate. Review of Systems Review of Systems: All systems reviewed & are unremarkable except as noted in HPI and below PMFSH Past Medical History Medical History Acute on chronic renal failure Acute osteomyelitis of thoracic spine Acute renal failure (ARF) Acute UTI (urinary tract infection) Arthritis Asthma Back pain Back pain BPH w urinary obs/LUTS CAD (coronary artery disease) Chronic anemia Chronic hyponatremia Coag negative Staphylococcus bacteremia CRF (chronic renal failure) Diarrhea DVT prophylaxis GERD (gastroesophageal reflux disease) Gout HLD (hyperlipidemia) HTN (hypertension) Orthostatic hypotension Pancytopenia Recurrent falls Retention of urine Septic shock Thrombocytopenia Surgical History Surgical History H/O heart artery stent Two cardiac stents after his five-vessel CABG H/O inguinal hernia repair 2002 History of surgical amputation of finger of left hand Hx of CABG x5 0 3 S/P foot surgery, left S/P laminectomy with spinal fusion Family History Family History Father Heart disease Mother , dementia No problems noted. Social History Social History Social History: Patient lives with his . He used to drink beer pretty heavy but quit drinking beer several years ago. Patient never smoked. The patient has 1 biological child that is in [place]. He has 3 step children that a nearby. The patient desires to be a full code. He denies any marijuana or substance abuse. Lifelong nonsmoker. 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 Smoking status: Never smoker Second hand tobacco smoke exposure: No Alcohol intake: former Substance use: unknown Substance use type: does not use Living arrangements: with family Gender identity (if verbalized by the patient): Male Spiritual care concerns: No Agree to blood products: Yes Meds Home Medications and Allergies Home Medications Medication Instructions Recorded Confirmed Type omega-3 fatty acids-vitamin E 1 cap PO DAILY 05/28/20 09/10/20 History aspirin 81 mg/kg PO DAILY #30 tablet 06/11/20 09/10/20 Rx clopidogrel 75 mg PO DAILY #30 tablet 06/11/20 09/04/20 Rx finasteride 5 mg PO DAILY #30 tablet 06/11/20 09/10/20 Rx isosorbide mononitrate 30 mg PO DAILY #30 tablet 06/11/20 09/10/20 Rx omeprazole 40 mg PO DAILY #30 cap 06/11/20 09/10/20 Rx albuterol sulfate 1 puff INHALATION BID PRN 06/13/20 09/04/20 History rosuvastatin 40 mg PO HS 09/04/20 09/10/20 History sulfamethoxazole-trimethoprim 1 tablet PO BID 09/04/20 09/10/20 History ciprofloxacin HCl 500 mg PO BID 09/10/20 09/10/20 History Allergies Allergy/AdvReac Type Severity Reaction Status Date / Time No Known Allergies Allergy Verified 09/10/20 07:48 Exam Const: General: cooperative HENMT: Head: normal to inspection Eyes: General: appearance normal, both eyes and all related structures Chest: Chest palpation & inspection: normal inspection of the chest Resp: Effort & Inspection: normal respiratory effort Cardio: Rate: regular rate Rhythm: regular rhythm GI: Inspection: normal to inspection H&P: Results Labs Labs: [facility] 09/10/20 07:21 Sodium 129 L Assessment and Plan Assessment and plan (1) Retention of urine: Code(s): R33.9 - Retention of urine, unspecified Status: Acute (2) BPH (benign prostatic hyperplasia): Code(s): N40.0 - Benign prostatic hyperplasia without lower urinary tract
--- NOTE | 2020-09-10 08:12 | WPDHPUPDATE1 ---
History and Physical Update Update Date/Time: 09/10/20 08:12 History and Physical has been reviewed, including an updated exam of the patient. There are NO changes in the patient's condition. Risks, benefits, and alternatives have been discussed and questions answered. Patient agrees to proceed with procedure.
[2020-09-10] MEDS: ceFAZolin 2 GM/D5W 50 ML 2 GM/50 ML BAG IVPB (08:23)
[2020-09-10] MEDS: LIDOCAINE HCL 2% GEL UROJET 10 ML PKG MUCOUS MEM (08:41)
--- NOTE | 2020-09-10 09:13 | P.OP_ITS ---
Procedure Note - Detailed Date of procedure: 09/10/20 Pre-op diagnosis: BPH Retention Post-op diagnosis: same Procedure performed: Transurethral resection of prostate, urethral dilation Description of procedure: Patient is taken the operative suite correctly identified. Once anesthesia was obtained is placed in dorsal lithotomy position and prepped and draped usual sterile fashion. Urethra was dilated to 26 Greenlandic using male sounds. A 24 Greenlandic scope was then inserted into the bladder. There are no tumors noted. Patient has a moderate sized median lobe. We went ahead and identified both ureteral orifices. No tumors were noted. We went ahead and started by resecting at the 5 and 7 o'clock position from the bladder neck to the vera. We then took down the lateral lobe similarly. The last thing we resected was the median lobe. Chips were sent for analysis. Ureteral orifices were intact. Hemostasis was achieved using electrocautery with the rollerball. 2% viscous lidocaine was inserted into the urethra. Twenty-four Greenlandic [address] was then placed with 30 cc in the balloon. This was attached to gentle traction and connected to continuous bladder irrigation. Patient is taken recovery room stable condition. Anesthesia: GLMA Surgeon: Clayton Styles MD Drains: Yes Packing: No Pathology: yes Complications: No immediate complications Condition: stable Disposition: PACU
[2020-09-10] MEDS: DEXTROSE 5%/LACTATED RINGERS 1,000 ML 125 ML IV CONT (13:44)
--- NOTE | 2020-09-10 14:59 | PC.NURSE ---
1031 This patient, Declan Allen, was admitted to 3 [facility] Surg Room 304-01. Patient/family oriented to hospital policies and general routines including ID bracelet, bed and alarms, visiting hours, pain management, procedures, bathroom and other care routines, personal items, smoking policy, room service/diet, and visiting hours. Information on how to activate the Rapid Response Team has been discussed. Patient/Family are encouraged to report perceived risks to care and to ask questions if they do not understand what they are told or what they should do. Returned from OR per [bed ]. Report received from [monse ].
[2020-09-10] MEDS: PANTOPRAZOLE 40 MG TABLET PO (17:25)
[2020-09-10] MEDS: DOCUSATE SODIUM 100 MG CAPSULE PO (17:26)
[2020-09-10] MEDS: ROSUVASTATIN 10 MG TABLET 40 MG PO (20:44)
[2020-09-11] VITALS: BP 149/61; PULSE 71; RESP 20; TEMP 36.8; O2SAT 100
[2020-09-11 04:14] VITALS: BP 151/61; PULSE 76; RESP 16; TEMP 36.8; O2SAT 99
[2020-09-11 06:45] LABS: Hematocrit 32.2 % (42.0-52.0); Hemoglobin 10.8 g/dL (14.0-18.0)
[2020-09-11 06:54] LABS: Anion Gap 3 mmol/L (8-16); Blood Urea Nitrogen 15 mg/dL (9-20); Carbon Dioxide 28 mmol/L (22-30); Chloride 99 mmol/L (98-107); Estimated CRCL calculation 33 ml/min; Estimated Glomerular Filt Rate 44; Glucose 99 mg/dL (75-110); Potassium 4.1 mmol/L (3.4-5.0); Sodium 130 mmol/L (137-145)
[2020-09-11 08:14] VITALS: BP 158/64; PULSE 74; RESP 18; TEMP 36.4; O2SAT 99
[2020-09-11] MEDS: DOCUSATE SODIUM 100 MG CAPSULE PO ×2 (10:10→18:14)
[2020-09-11] MEDS: PANTOPRAZOLE 40 MG TABLET PO ×2 (10:11→18:14)
[2020-09-11] MEDS: CEPHALEXIN 500 MG CAPSULE PO ×4 (10:11→20:45)
[2020-09-11] MEDS: ISOSORBIDE MONONITRATE 30 MG TAB.ER.24H PO (10:11)
[2020-09-11 12:14] VITALS: BP 107/53; PULSE 88; RESP 18; TEMP 36.4; O2SAT 99
[2020-09-11 14:00] VITALS: BP 132/64; PULSE 77; RESP 16; TEMP 35.9; O2SAT 99
--- NOTE | 2020-09-11 14:42 | WPDUROPN2 ---
Progress Note: A&P Assessment and Plan (1) BPH (benign prostatic hyperplasia): Code(s): N40.0 - Benign prostatic hyperplasia without lower urinary tract symptoms Status: Acute Assessment and Plan: The patient's CBI was restarted, will keep overnight and encourage more activity. Wean CBI to off when clear, will re-evaluate in the morning. Subjective Subjective Date/Time Seen: 09/11/20 14:42 POD #1 TURP with urethral dilation. Patient doing well, tolerating diet and fluids. Not ambulatory at this time or moving around much within his room. Urine is bloody off CBI >5 hours, CBI restarted. Review of Systems Cardiovascular: Cardiovascular: Denies chest pain Respiratory: Respiratory: Reports no additional respiratory complaints Gastrointestinal: Gastrointestinal: Denies abdominal pain, Denies nausea and Denies vomiting Genitourinary: Genitourinary: Reports hematuria and Denies flank pain Exam Resp: Effort & Inspection: normal respiratory effort Cardio: Rate: regular rate GI: GI Palp: Yes Soft to palpation and No Tenderness to palpation present (GI) : General: Yes no CVA tenderness Urinary Catheter: Urinary Catheter: patent and draining and urine red Extrem: General: no edema Objective Data Vital Signs Vital Signs: Vital Signs - 24 hr 09/10/20 20:00 09/11/20 00:00 09/11/20 04:14 Temperature 97.8 F 98.3 F 98.3 F Pulse Rate 83 71 76 Respiratory Rate 16 20 16 Blood Pressure 146/59 H 149/61 H 151/61 H Pulse Oximetry 99 100 99 09/11/20 08:14 09/11/20 12:14 Temperature 97.6 F Pulse Rate 74 88 Respiratory Rate 18 18 Blood Pressure 158/64 H 107/53 L Pulse Oximetry 99 99 Intake/Output Intake/Output: Intake & Output 09/08/20 09/09/20 09/10/20 09/11/20 23:59 23:59 23:59 23:59 Intake Total 3570 2080 Output Total 7108 1150 Balance -3580 930 Meds/Results Medications: Active Medications Generic Name Dose Route Start Last Admin Trade Name Freq PRN Reason Stop Dose Admin Hydrocodone Bitart/Acetaminophen 1 tab 09/10/20 10:29 Hydrocodone/Acetaminophen (*Crx) 5-325 Mg Tablet PO Q4H PRN Pain Rated 1-6 Albuterol 1 puff 09/10/20 10:29 Albuterol Sulfate (*Sp) Aerosol 1 Puff INHALATION BID PRN Dyspnea Cephalexin HCl 500 mg 09/11/20 09:00 09/11/20 10:11 Cephalexin 500 Mg Capsule PO 500 mg QID SANDRA Administration Docusate Sodium 100 mg 09/10/20 17:00 09/11/20 10:10 Docusate Sodium 100 Mg Capsule PO 100 mg BID SANDRA Administration Hyoscyamine 0.125 mg 09/10/20 10:29 Hyoscyamine Sulfate 0.125 Mg Tablet SUBLINGUAL Q6H PRN Bladder Spasm Isosorbide Mononitrate 30 mg 09/11/20 09:00 09/11/20 10:11 Isosorbide Mononitrate 30 Mg Tab.Er.24h PO 30 mg DAILY [facility] Administration Morphine Sulfate 2 mg 09/10/20 10:29 Morphine Sulfate (*Crx) 2 Mg/Ml Inj IV PUSH Q2H PRN Pain Rated 7-10 Naloxone HCl 0.1 mg 09/10/20 10:29 Naloxone Hcl 0.4 Mg/Ml Vial IV PUSH Q2M PRN Opiate Reversal Ondansetron HCl 4 mg 09/10/20 10:29 Ondansetron Inj 4 Mg/2 Ml Vial IV PUSH Q12H PRN Nausea And Vomiting Pantoprazole Sodium 40 mg 09/10/20 17:00 09/11/20 10:11 Pantoprazole 40 Mg Tablet PO 40 mg BID SANDRA Administration Rosuvastatin Calcium 40 mg 09/10/20 21:00 09/10/20 20:44 Rosuvastatin 10 Mg Tablet PO 40 mg HS [facility] Administration Labs Labs: Laboratory Results - last 24 hr 09/11/20 09/11/20 05:59 05:59 Hgb 10.8 L Hct 32.2 L Sodium 130 L Potassium 4.1 Chloride 99 Carbon Dioxide 28 Anion Gap 3 L BUN 15 Creatinine 1.50 H Estim Creat Clear Calc 33 Estimated GFR 44 L Glucose 99 Calcium 9.0
--- NOTE | 2020-09-11 15:18 | PC.NURSE ---
On 09/11/20, the student, [José Luis Burton ], provided care and completed [facility] documentation on this patient. I have reviewed the student's documentation and agree with the findings.
[2020-09-11] MEDS: ROSUVASTATIN 10 MG TABLET 40 MG PO (20:46)
[2020-09-11 22:00] VITALS: BP 124/67; PULSE 73; RESP 16; TEMP 36.6; O2SAT 99
[2020-09-12 06:00] VITALS: BP 146/68; PULSE 74; RESP 20; TEMP 36.8; O2SAT 99
--- NOTE | 2020-09-12 08:55 | WPDUROPN2 ---
Progress Note: A&P Assessment and Plan (1) BPH (benign prostatic hyperplasia): Code(s): N40.0 - Benign prostatic hyperplasia without lower urinary tract symptoms Status: Acute Assessment and Plan: Ok to discharge home with العلي attached to leg bag. Subjective Subjective Date/Time Seen: 09/12/20 08:55 POD #2 TURP with urethral dilation. Patient doing well, tolerating diet and fluids. CBI was weaned to off overnight and urine remains clear and yellow with some slight blood. Review of Systems Cardiovascular: Cardiovascular: Reports no additional cardiovascular complaints Respiratory: Respiratory: Reports no additional respiratory complaints Gastrointestinal: Gastrointestinal: Denies abdominal pain, Denies nausea and Denies vomiting Genitourinary: Genitourinary: Reports hematuria and Denies flank pain Exam Resp: Effort & Inspection: normal respiratory effort Cardio: Rate: regular rate GI: GI Palp: Yes Soft to palpation and No Tenderness to palpation present (GI) : General: Yes no CVA tenderness Urinary Catheter: Urinary Catheter: patent and draining and urine clear Extrem: General: no edema Objective Data Vital Signs Vital Signs: Vital Signs - 24 hr 09/11/20 12:14 09/11/20 14:00 09/11/20 22:00 Temperature 97.5 F L 96.7 F L 97.9 F Pulse Rate 88 77 73 Respiratory Rate 18 16 16 Blood Pressure 107/53 L 132/64 124/67 Pulse Oximetry 99 99 99 09/12/20 06:00 Temperature 98.3 F Pulse Rate 74 Respiratory Rate 20 Blood Pressure 146/68 H Pulse Oximetry 99 Intake/Output Intake/Output: Intake & Output 09/09/20 09/10/20 09/11/20 09/12/20 23:59 23:59 23:59 23:59 Intake Total 3570 3520 250 Output Total 7150 1350 650 Balance -3580 2170 -400 Meds/Results Medications: Active Medications Generic Name Dose Route Start Last Admin Trade Name Freq PRN Reason Stop Dose Admin Hydrocodone Bitart/Acetaminophen 1 tab 09/10/20 10:29 Hydrocodone/Acetaminophen (*Crx) 5-325 Mg Tablet PO Q4H PRN Pain Rated 1-6 Albuterol 1 puff 09/10/20 10:29 Albuterol Sulfate (*Sp) Aerosol 1 Puff INHALATION BID PRN Dyspnea Cephalexin HCl 500 mg 09/11/20 09:00 09/11/20 20:45 Cephalexin 500 Mg Capsule PO 500 mg QID SANDRA Administration Docusate Sodium 100 mg 09/10/20 17:00 09/11/20 18:14 Docusate Sodium 100 Mg Capsule PO 100 mg BID SANDRA Administration Hyoscyamine 0.125 mg 09/10/20 10:29 Hyoscyamine Sulfate 0.125 Mg Tablet SUBLINGUAL Q6H PRN Bladder Spasm Isosorbide Mononitrate 30 mg 09/11/20 09:00 09/11/20 10:11 Isosorbide Mononitrate 30 Mg Tab.Er.24h PO 30 mg DAILY [facility] Administration Morphine Sulfate 2 mg 09/10/20 10:29 Morphine Sulfate (*Crx) 2 Mg/Ml Inj IV PUSH Q2H PRN Pain Rated 7-10 Naloxone HCl 0.1 mg 09/10/20 10:29 Naloxone Hcl 0.4 Mg/Ml Vial IV PUSH Q2M PRN Opiate Reversal Ondansetron HCl 4 mg 09/10/20 10:29 Ondansetron Inj 4 Mg/2 Ml Vial IV PUSH Q12H PRN Nausea And Vomiting Pantoprazole Sodium 40 mg 09/10/20 17:00 09/11/20 18:14 Pantoprazole 40 Mg Tablet PO 40 mg BID SANDRA Administration Rosuvastatin Calcium 40 mg 09/10/20 21:00 09/11/20 20:46 Rosuvastatin 10 Mg Tablet PO 40 mg HS SANDRA Administration
--- NOTE | 2020-09-12 08:58 | PM.DS ---
DS: Admitting Diagnosis Admitting Diagnosis Admitting Diagnosis: BPH DS: Discharge Diagnosis Discharge Diagnosis (1) BPH (benign prostatic hyperplasia): Code(s): N40.0 - Benign prostatic hyperplasia without lower urinary tract symptoms Status: Acute DS: Summary Hospital Course Hospital Course: See note below Time Spent with Patient Time attestation: The patient underwent a TURP with urethral dilation on 09/10/[address] Yany Styles. He tolerated the procedure well, went to recovery in stable condition and then went to the floor for further observation. He was tolerating his diet well, no nausea or abdominal pain. He did have gross hematuria when CBI was weaned to off, therefore it was restarted yesterday afternoon, I encouraged activity and it then became clear again early this morning and was weaned to off and the urine remains clear. He will be discharged home with a العلي to be removed on Wednesday in the office. He should resume all home meds except ASA, which should be held until Wednesday, and he can take Levsin PRN for bladder spasms. Diet as tolerated and activity as tolerated. Exam Resp: Effort & Inspection: normal respiratory effort Cardio: Rate: regular rate GI: GI Palp: Yes Soft to palpation and No Tenderness to palpation present (GI) : General: Yes no CVA tenderness Urinary Catheter: Urinary Catheter: patent and draining and urine clear Extrem: General: no edema DS: Data Data Completed and Pending Completed studies during hospitalization: Pending at discharge 09/10/20 09:04 Surgical [PTH] Routine Discharge Plan Discharge Attending physician on discharge: Clayton Styles Discharging Clinician: Myesha Metcalf Anticipated Discharge Date/Time: 09/12/20 08:58 Patient Disposition: Home, Self-Care Activity: october shower Diet: regular Discharge Instructions: Follow up on Wednesday, September 16 at 10:00am to have العلي removed. Call the office [phone] to report of fever of >102, bloody urine, blood clots or a catheter that is not draining. Perform daily catheter cleaning around penis. Patient Instructions: Transurethral Prostatectomy (DC) Follow-up/Referrals: Clayton Styles MD [Physician] - Discharge Medications: New hyoscyamine sulfate [Anaspaz] 0.125 mg Tablet,Disintegrating 0.125 mg sublingual Q6H PRN (Reason: Bladder Spasm) Qty: 12 RF: 0 Continued albuterol sulfate 90 mcg/actuation HFA aerosol inhaler 1 puff INHALATION BID PRN (Reason: Dyspnea) RF: 0 rosuvastatin 40 mg tablet 40 mg PO HS RF: 0 ciprofloxacin HCl 500 mg tablet 500 mg PO BID RF: 0 omega-3 fatty acids-vitamin E 1,000 mg Capsule 1 cap PO DAILY RF: 0 isosorbide mononitrate 30 mg Tablet Extended Release 24 Hr 30 mg PO DAILY Qty: 30 RF: 0 omeprazole 40 mg capsule,delayed release(DR/EC) 40 mg PO DAILY Qty: 30 RF: 0 finasteride 5 mg tablet 5 mg PO DAILY Qty: 30 RF: 0 Held clopidogrel 75 mg tablet 75 mg PO DAILY Qty: 30 RF: 0 Hold Instructions: Resume on 09/14/20. aspirin 81 mg Tablet,Delayed Release (Dr/Ec) 81 mg/kg PO DAILY Qty: 30 RF: 0 Hold Instructions: Resume on 09/14/20. Discontinued sulfamethoxazole-trimethoprim 800-160 mg tablet 1 tablet PO BID RF: 0 Date of admission: 09/11/20 16:18 Primary Care Provider: BashirCosme Admitting Provider: Clayton Styles Attending physician on admission: Clayton Styles Condition: Improved
[2020-09-12] MEDS: ISOSORBIDE MONONITRATE 30 MG TAB.ER.24H PO (09:22)
[2020-09-12] MEDS: PANTOPRAZOLE 40 MG TABLET PO (09:22)
[2020-09-12] MEDS: CEPHALEXIN 500 MG CAPSULE PO (09:22)
[2020-09-12] MEDS: DOCUSATE SODIUM 100 MG CAPSULE PO (09:22)
--- NOTE | 2020-09-12 20:06 | PC.NURSE ---
Patients daughter called to report dark red urine. This RN instructed daughter to try the urology office number.
== END 2020-09-12 11:40 | disposition home or self-care (01) ==
LOC: ANHSURGERY 16:19 → ANH3MEDSUR 16:19
PROVIDERS: Anesthesiology; Admitting Provider Urology; PCP Internal Medicine; Visit Provider Urology
PROC: 0VT08ZZ Resection of Prostate, Via Natural or Artificial Opening Endoscopic (ICD-10-PCS; CPT 52601; principal; 2020-09-10 09:00)
DX: N40.1 Benign prostatic hyperplasia with lower urinary tract symptoms (principal); R33.8 Other retention of urine; I12.9 Hypertensive chronic kidney disease with stage 1 through stage 4 chronic kidney disease, or unspecified chronic kidney disease; N18.9 Chronic kidney disease, unspecified; E78.5 Hyperlipidemia, unspecified; K21.9 Gastro-esophageal reflux disease without esophagitis; M10.9 Gout, unspecified; D64.9 Anemia, unspecified; I25.10 Atherosclerotic heart disease of native coronary artery without angina pectoris; J45.909 Unspecified asthma, uncomplicated; Z95.5 Presence of coronary angioplasty implant and graft; Z95.1 Presence of aortocoronary bypass graft; Z98.1 Arthrodesis status; Z79.02 Long term (current) use of antithrombotics/antiplatelets; Z79.82 Long term (current) use of aspirin; Z79.51 Long term (current) use of inhaled steroids
CPT/HCPCS: 52601; 36415; 80048; 84295; 85014; 85018; 85025; 85610; 85730; 87077; 87086; 87088; 87147; 87181; 87186; 88305; A9270; C9803; G0378; J0690; J1100; J2405; J2704; J3010; J7120; J7121; U0003; U0005

== ENCOUNTER 2021-02-02 17:26 | Emergency (ER) | payer MEDICARE, SELFPAY ==
[2021-02-02 17:33] VITALS: BP 138/73; PULSE 94; RESP 24; TEMP 36.9; O2SAT 93
--- NOTE | 2021-02-02 17:51 | ED.GENADULT ---
HPI - General Adult General Chief complaint: Wound/Laceration Stated complaint: bleeding hematoma Time Seen by Provider: 02/02/21 17:36 Source: patient, family (spouse whom Declan requests to come into room during care) and RN notes reviewed Mode of arrival: ambulatory Limitations: no limitations History of Present Illness HPI narrative: 85-year-old male presents with a bleeding wound to the left upper arm for the past 4.5 hours. Declan reports constant bleeding area, occurred today at approximately 13:00. Spouse reports LT area bleeding upon her return home. Declan on daily blood thins. Denies tenderness, erythema, or swelling to the area. No streaking. The Right Hand is the dominant hand. Denies fever or chills. Denies nausea, vomiting, and abdominal pain. Tolerating liquids. Remains active. The patient and spouse reports they has not been diagnosed with COVID-19. The patient and spouse reports they received 2 Pfizer COVID-19 vaccines. The patient and spouse reports they is not waiting for the results of a COVID-19 lab test. The patient reports he does not have weakness, fatigue, or myalgia. The patient and spouse reports they does not have a new or worsening cough or shortness of breath. The patient and spouse reports they does not have any rhinorrhea, congestion, loss of taste or smell, sore throat, and diarrhea. Denies recent traveling. Denies concerns for COVID-19 or exposures. At this time, the patient is not suspected of having COVID-19. Some parts of this dictation were generated by voice recognition software and may contain typographical and/or grammatical inaccuracies. Related Data Home Medications Medication Instructions Recorded Confirmed omega-3 fatty acids-vitamin E 1 cap PO DAILY 05/28/20 09/10/20 albuterol sulfate 1 puff INHALATION BID PRN 06/13/20 09/04/20 rosuvastatin 40 mg PO HS 09/04/20 09/10/20 carvedilol 02/02/21 fluticasone propion-salmeterol INHALATION 02/02/21 02/02/21 [Advair Diskus] Allergies Allergy/AdvReac Type Severity Reaction Status Date / Time No Known Allergies Allergy Verified 09/10/20 07:48 Review of Systems Review of Systems: CONSTITUTIONAL: Denies fever, chills, sweats. EYES: Denies visual changes, redness, discharge. ENT: Denies rhinorrhea, congestion, sore throat, otalgia. CARDIOVASCULAR: Denies chest pain, palpitations, edema. RESPIRATORY: Denies dyspnea, wheezing, cough GASTROINTESTINAL: Denies abdominal pain, nausea, vomiting, diarrhea. SKIN: Complains bleeding wound to the left upper arm. Denies erythema, tenderness, or drainage. MUSCULOSKELETAL: Denies acute back pain, joint pain, or myalgia. NEUROLOGIC: Denies numbness or focal weakness. PSYCHIATRIC: Denies anxiety or depression. All other systems reviewed are negative, except as documented in HPI and below. ON LICENSE OF [facility] Past Medical History Medical History Acute on chronic renal failure Acute osteomyelitis of thoracic spine Acute renal failure (ARF) Acute UTI (urinary tract infection) Arthritis Asthma Back pain Back pain BPH w urinary obs/LUTS CAD (coronary artery disease) Chronic anemia Chronic hyponatremia Coag negative Staphylococcus bacteremia CRF (chronic renal failure) Diarrhea DVT prophylaxis GERD (gastroesophageal reflux disease) Gout HLD (hyperlipidemia) HTN (hypertension) Orthostatic hypotension Pancytopenia Recurrent falls Retention of urine Septic shock Thrombocytopenia Surgical History Surgical History H/O heart artery stent Two cardiac stents after his five-vessel CABG H/O inguinal hernia repair 2002 History of surgical amputation of finger of left hand Hx of CABG x5 0 3 S/P foot surgery, left S/P laminectomy with spinal fusion Family History Family History Father Heart disease Mother
[2021-02-02 18:02] VITALS: PULSE 94; RESP 24; O2SAT 93
[2021-02-02] MEDS: IPRATROPIUM BR 0.02% INH SOLN 0.5 MG/2.5 ML VIAL INHALATION (18:02)
[2021-02-02] MEDS: ALBUTEROL SULFATE NEB 2.5 MG/3 ML INH INHALATION (18:03)
[2021-02-02 18:40] VITALS: PULSE 72; RESP 23; O2SAT 98
== END 2021-02-02 18:40 | disposition home or self-care (01) ==
PROVIDERS: Emergency Provider Nurse Practitioner Family; PCP Internal Medicine
DX: S41.112A Laceration without foreign body of left upper arm, initial encounter (principal); X58.XXXA Exposure to other specified factors, initial encounter; R06.2 Wheezing; M19.90 Unspecified osteoarthritis, unspecified site; J45.909 Unspecified asthma, uncomplicated; N40.1 Benign prostatic hyperplasia with lower urinary tract symptoms; I25.10 Atherosclerotic heart disease of native coronary artery without angina pectoris; D64.9 Anemia, unspecified; K21.9 Gastro-esophageal reflux disease without esophagitis; M10.9 Gout, unspecified
CPT/HCPCS: 99213; G0463